=== PATIENT | female | born 1960 | race Caucasian/White ===

== ENCOUNTER 2016-09-26 06:57 | Inpatient (IN) ==
--- NOTE | 2016-09-26 07:20 | Emergency Department Note ---
Disposition Clinical Impression: Pneumonia Disposition: Admitted As Inpatient Condition: Fair Time of Disposition: 14:30 Chest Pain HPI - General Chief Complaint: ED Chest Pain Stated Complaint: chest pain, headache, anxiety Time Seen by Provider: 09/26/16 07:07 Source: patient, EMS Mode of arrival: EMS Limitations: no limitations Vital Signs Reviewed: Yes Nursing Notes Reviewed: Yes - History of Present Illness HPI Narrative: Patient brought to the emergency department by squad from home. States that she awoke at 3 AM with sudden onset of chest pain and shortness of breath. States that she has had previous pulmonary embolus several years ago. States that the pain is quite similar to what it was at that time. She states that she has had pedal edema and swelling of her lower extremities. Last several days. She has a nonproductive cough and appears to be quite anxious at this time. O2 sat on room air is 89% with oxygen at 2 L it will go up to approximately 92%. She remained short of breath. Plan will be to obtain a CT lungs and cardiac workup. Pt complaint: chest pain Onset (ago): hour(s) (5) Time: 03:00 Onset: during rest, awoke with symptoms Pain Location: substernal Severity: moderate, severe Severity scale (1-10): 8 Quality: heaviness, other (similar to previous PE ) Pain Radiation: none Improves with: nothing Worsens with: exertion, inspiration Context: other (had all her teeth removed 10 days ago ) Associated symptoms: Reports: dyspnea, sense of impending doom Treatments prior to arrival chest pain: none - Related Data On Oral Contraceptives: No Home Medications Medication Instructions Recorded Confirmed Abatacept/Maltose [Orencia (For 800 mg IV Q4W 09/28/15 09/26/16 Outpatient Infusion)] Aspirin 81 mg PO DAILY 09/28/15 09/26/16 Leucovorin Calcium [Wellcovorin] 5 mg PO SA 09/28/15 09/26/16 Methotrexate [Otrexup] 20 mg PO SA 09/28/15 09/26/16 Metoprolol XL (24 HR) Succ [Toprol 50 mg PO DAILY 09/28/15 09/26/16 Xl] Nitroglycerin [Nitrostat] 0.4 mg SL AD PRN 09/28/15 09/26/16 Omeprazole [PriLOSEC] 20 mg PO BID 09/28/15 09/26/16 Oxycodone HCl/Acetaminophen 1 tab PO Q6H PRN 09/28/15 09/26/16 [Percocet 10-325 mg Tablet] Dabigatran [Pradaxa] 150 mg PO BID 02/08/16 09/26/16 BuPROPion SR (12 HR) [Wellbutrin 450 mg PO DAILY 09/26/16 09/26/16 SR] Cholecalciferol (D-3) [Vitamin D] 5,000 unit PO DAILY 09/26/16 09/26/16 Furosemide [Lasix] 40 mg PO DAILY 09/26/16 09/26/16 Gabapentin [Neurontin] 600 mg PO HS 09/26/16 09/26/16 Ibuprofen [Motrin] 800 mg PO Q8HR PRN 09/26/16 09/26/16 Isosorbide MONOnitrate (24 HR) 30 mg PO DAILY 09/26/16 09/26/16 [Imdur] Levothyroxine Sodium [Levo-T] 300 mcg PO 30 09/26/16 09/26/16 Levothyroxine [Synthroid] 25 mcg PO 0630 09/26/16 09/26/16 Losartan/Hydrochlorothiazide 1 each PO DAILY 09/26/16 09/26/16 [Hyzaar 100-25 Tablet] Nitroglycerin [Nitrolingual] 1 - 2 spr TL AD PRN 09/26/16 09/26/16 Oxybutynin [Ditropan] 5 mg PO TID 09/26/16 09/26/16 Oxycodone HCl [Oxycontin] 60 mg PO Q8H PRN 09/26/16 09/26/16 Potassium Chloride 10 meq PO DAILY 09/26/16 09/26/16 cloNIDine HCl [CloNIDine HCl] 0.1 mg PO TID 09/26/16 09/26/16 clonazePAM [Klonopin] 1 mg PO TID 09/26/16 09/26/16 rOPINIRole [Requip] 1 mg PO HS 09/26/16 09/26/16 traZODone [TraZODone] 100 mg PO HS 09/26/16 09/26/16 Allergies Allergy/AdvReac Type Severity Reaction Status Date / Time No Known Allergies Allergy Verified 09/26/16 12:17 All systems ED: reviewed and negative except as stated. Constitutional: Denies: fever, chills, weakness, weight change Eyes: Denies: eye pain, eye discharge, vision change ENT ED: Denies: ear pain, throat pain, dental pain, hearing loss, epistaxis, congestion, dysphagia Cardiovascular: Reports: chest pain, dyspnea on exertion, orthopnea, paroxysmal nocturnal dyspnea Respiratory: Reports: dyspnea, wheezes Gastrointestinal: Denies: abdominal pain, nausea, vomiting, diarrhea, constipation, hematemesis, melena, hematochezia Musculoskeletal: Denies: back pain, neck pain, arthralgia, myalgia Integumentary: Reports: other (edema of the bilateral lower extremities ) Neurological: Denies: headache, weakness, numbness, paresthesias, confusion, abnormal gait, vertigo Psychiatric: Denies: anxiety, depression, suicidal thoughts, homicidal thoughts , auditory hallucinations, visual hallucinations Endocrine: Denies: fatigue Chest Pain PMH - Past Medical History Medical history: Reports: arthritis, cancer, coronary artery disease, DVT, fibromyalgia, GERD, hyperlipidemia, hypertension, pulmonary embolus, RA, renal disease Surgical history: Reports: cholecystectomy, herniorrhaphy, knee replacement Psychiatric history: Reports: anxiety, depression - Social History Smoking Status: Never smoker Alcohol use: Reports: none Drug use: Reports: none Physical Exam - General Limitations: no limitations General appearance: alert - Head Head exam: atraumatic, normocephalic, normal inspection - Eye Eye exam: Present: normal appearance, PERRL, EOMI - ENT ENT exam: normal exam, normal oropharynx, mucous membranes moist, TM's normal bilaterally - Neck Neck exam: Present: normal inspection, full ROM, trachea midline. Absent: tenderness, meningismus, lymphadenopathy, thyromegaly - Chest Chest inspection: Present: normal inspection, symmetric chest wall rise - Respiratory Respiratory exam: Present: wheezes, prolonged expiratory phase - Expanded Respiratory Exam Location: wheezes: Left, Right, Lower, rales: Left, Right, Lower, rhonchi: Left , Right, Upper, Lower - Cardiovascular Cardiovascular exam: Present: regular rate, normal rhythm, normal heart sounds. Absent: systolic murmur, diastolic murmur, JVD - Abdominal Exam Abdominal exam: Present: soft, Non-Tender, normal bowel sounds. Absent: tenderness, distention, guarding, rebound, rigidity - Extremities Exam Extremities exam: Present: normal inspection, full ROM. Absent: tenderness, pedal edema - Back Exam Back exam: Present: normal inspection, full ROM. Absent: tenderness - Neurological Exam Neurological exam: Present: alert, oriented X3, CN II-XII intact, reflexes normal - Psychiatric Psychiatric exam: Present: depressed, anxious - Skin Skin exam: Present: warm, dry, intact, normal color Course - Consultations Consultation #1: Hospitalist Dr. Obrien to the ED to evaluate patient. He advised patient needs to possibly go to ICU, unless we can get her blood pressure to rise. She has consistently maintained her blood pressure 90/60's been alert and oriented. We will give her the fluid challenge. Advised Dr. Martinez. Time: 11:05 Vital Signs Temperature 99.2 F 09/26/16 07:05 Pulse Rate 96 09/26/16 07:05 Respiratory Rate 18 09/26/16 07:05 Blood Pressure 106/70 09/26/16 07:05 O2 Sat by Pulse Oximetry 96 09/26/16 07:05 Temperature 99.2 F 09/26/16 07:05 Pulse Rate 75 09/26/16 14:30 Respiratory Rate 18 09/26/16 14:30 Blood Pressure 106/70 09/26/16 14:30 O2 Sat by Pulse Oximetry 96 09/26/16 14:30 Oxygen Delivery Oxygen Delivery Nasal Cannula Chest Pain - Lab Data Result diagrams: 09/26/16 07:36 09/26/16 07:36 Lab Results 09/26/16 09/26/16 09/26/16 Range/Units 07:36 07:36 07:36 WBC 13.5 H (4.3-11.1) K/mcL RBC 4.29 (3.82-4.97) M/mcL Hgb 13.3 (11.5-15.4) g/dL Hct 41.8 (35.3-44.9) % MCV 97.4 (83.0-100.0) fL MCH 31.0 (28.0-33.3) pg MCHC 31.8 (31.6-35.5) g/dL RDW 14.7 H (11.5-14.5) % Plt Count 271 (140-400) K/mcL MPV 11.0 (9.4-12.4) fL Immature Gran % 0.9 (0-4) % Seg Neutrophils % 88.8 % Lymphocytes % 3.2 % Monocytes % 5.4 % Eosinophils % 1.6 % Basophils % 0.1 % Neutrophils # 12.0 H (1.6-8.9) K/mcL Lymphocytes # 0.4 L (0.6-4.6) K/mcL Monocytes # 0.7 (0.0-1.3) K/mcL Eosinophils # 0.2 (0.0-0.6) K/mcL Basophils # 0.0 (0.0-0.2) K/mcL PT 11.6 (9.4-12.1) Seconds INR 1.1 APTT 28.9 (26.0-36.0) Seconds D-Dimer 1975 H (0-500) ng/mLFEU Sodium (136-145) mEq/L Potassium (3.5-4.5) mEq/L Chloride (98-109) mEq/L Carbon Dioxide (19-29) mEq/L BUN (7-20) mg/dL Creatinine (0.57-1.11) mg/dL Est GFR ( Amer) (> 60) Est GFR (Non-Af Amer) (> 60) BUN/Creatinine Ratio (6-26) Glucose (70-99) mg/dL Calculated Osmolality (280-300) Lactic Acid (0.5-2.2) mmol/L Calcium (8.6-10.8) mg/dL Troponin I (0-0.03) ng/mL B-Natriuretic Peptide 17 (0-100) pg/mL 09/26/16 09/26/16 09/26/16 Range/Units 07:36 07:36 12:53 WBC (4.3-11.1) K/mcL RBC (3.82-4.97) M/mcL Hgb (11.5-15.4) g/dL Hct (35.3-44.9) % MCV (83.0-100.0) fL MCH (28.0-33.3) pg MCHC (31.6-35.5) g/dL RDW (11.5-14.5) % Plt Count (140-400) K/mcL MPV (9.4-12.4) fL Immature Gran % (0-4) % Seg Neutrophils % % Lymphocytes % % Monocytes % % Eosinophils % % Basophils % % Neutrophils # (1.6-8.9) K/mcL Lymphocytes # (0.6-4.6) K/mcL Monocytes # (0.0-1.3) K/mcL Eosinophils # (0.0-0.6) K/mcL Basophils # (0.0-0.2) K/mcL PT (9.4-12.1) Seconds INR APTT (26.0-36.0) Seconds D-Dimer (0-500) ng/mLFEU Sodium 142 (136-145) mEq/L Potassium 3.1 L (3.5-4.5) mEq/L Chloride 110 H (98-109) mEq/L Carbon Dioxide 21 (19-29) mEq/L BUN 12 (7-20) mg/dL Creatinine 1.08 (0.57-1.11) mg/dL Est GFR ( Amer) > 60 (> 60) Est GFR (Non-Af Amer) 53 L (> 60) BUN/Creatinine Ratio 11 (6-26) Glucose 101 H (70-99) mg/dL Calculated Osmolality 294 (280-300) Lactic Acid 1.2 (0.5-2.2) mmol/L Calcium 8.8 (8.6-10.8) mg/dL Troponin I 0.00 (0-0.03) ng/mL B-Natriuretic Peptide (0-100) pg/mL
[2016-09-26] MEDS ORDERED: *HR* Morphine 2 MG/ML SYRINGE IVP ONE (07:21)
[2016-09-26] MEDS ORDERED: Furosemide 40 MG/4 ML VIAL IVP ONE (07:21)
[2016-09-26] MEDS ORDERED: 0.9 % Sodium Chloride 1,000 ML IVC SCH (07:30)
[2016-09-26 07:50] LABS: INR 1.1; Prothrombin Time 11.6 Seconds (9.4-12.1)
[2016-09-26 07:52] LABS: Activated Partial Thrombo Time 28.9 Seconds (26.0-36.0)
[2016-09-26 07:58] LABS: BUN/Creatinine Ratio 11 (6-26); Blood Urea Nitrogen 12 mg/dL (7-20); Calcium 8.8 mg/dL (8.6-10.8); Carbon Dioxide 21 mEq/L (19-29); Chloride 110 mEq/L (98-109); Glucose 101 mg/dL (70-99); Osmolality,Calculated 294 (280-300); Potassium 3.1 mEq/L (3.5-4.5); Sodium 142 mEq/L (136-145); eGFR For African Americans > 60 (> 60); eGFR For Non-African Americans 53 (> 60)
[2016-09-26 07:59] LABS: Basophils % 0.1 %; Eosinophils # 0.2 K/mcL (0.0-0.6); Eosinophils % 1.6 %; Hematocrit 41.8 % (35.3-44.9); Hemoglobin 13.3 g/dL (11.5-15.4); Immature Granulocytes % 0.9 % (0-4); Lymphocytes # 0.4 K/mcL (0.6-4.6); Lymphocytes % 3.2 %; Mean Corpuscular HGB Conc 31.8 g/dL (31.6-35.5); Mean Corpuscular Volume 97.4 fL (83.0-100.0); Monocytes # 0.7 K/mcL (0.0-1.3); Monocytes % 5.4 %; Platelet Count 271 K/mcL (140-400); Red Blood Count 4.29 M/mcL (3.82-4.97); Red Cell Distribution Width 14.7 % (11.5-14.5); Segmented Neutrophils % 88.8 %
--- NOTE | 2016-09-26 08:07 | Emergency Department Note ---
START Narrative - START START: I, Ralph Martinez, examined this patient and my medical decision-making was reviewed with the TERMINAL SUPERVISOR/PA/Advanced Practice Nurse/Resident Physician. I agree with the documented findings, disposition and treatment plan as described except to the extent set forth below. 56-year-old female presents with concerns of chest pain. Patient states pain started acutely at 3 AM and woke him from sleep. Pain is worse with inspiration however it is also reproducible with palpation. She reports pain is similar to her previous PE. Patient is currently taking per DANNY however there was a week where she needed to take Lovenox during a dental procedure. Patient denies missing any days of anticoagulation however she has clotted multiple times while still taking anticoagulant medication. Patient has not undergone genetic testing for coagulative disorder. D-dimer significantly elevated. CTA and disposition pending.
[2016-09-26] MEDS ORDERED: Ipratropium/Albuterol Neb 3 ML IH ONE (09:52)
[2016-09-26] MEDS ORDERED: 0.9 % Sodium Chloride 1,000 ML IVC ONE (11:16)
[2016-09-26] MEDS ORDERED: Azithromycin 500 MG in D5% in Water 250 ML IVPB ONE (11:48)
--- NOTE | 2016-09-26 14:12 | Internal Med History&Physical ---
Date of Encounter: 09/26/16 Time of Encounter: 14:10 Assessment and Plan (1) CAP (community acquired pneumonia) Current visit: Yes Status: Acute Patient is hypotensive on arrival and after 2 L of normal saline systolic blood pressure remains in the range of 90s over 60s. She is alert oriented times 3. Continue hydration. Given acuity of presentation and patient being immunocompromised, I will start the patient on broad-spectrum antibiotics with vancomycin, Zosyn, Levaquin. Sputum cultures. Check for influenza. Lactic acid is normal. Chapin catheter will be placed for hourly monitoring of urine output. There is no evidence of PE on CT angiography. Continuous telemetry monitoring. Check arterial blood gas (2) History of venous thrombosis and embolism Current visit: Yes Status: Acute Continue Pradaxa (3) Acute respiratory failure with hypoxia Current visit: Yes Status: Acute Patient currently requiring 4 L of oxygen to maintain saturation above 90%. She is not an oxygen at home. She is not the COPDer. Arterial blood gas will be checked. Do not appreciate any accessory muscle use (4) Hypotension Current visit: Yes Status: Acute Due to sepsis. Maps more than 65 after 2 L of normal saline given. Continue hydration. Chapin catheter will be placed for hourly monitoring of urine output. " close follow up of blood pressure. Qualifiers: Qualified Code(s): I95.9 - Hypotension, unspecified Internal Medicine - H&P: HPI Chief complaint: sob and chest pain History of present illness: Ms. 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 Approximately 3 AM patient started noticing increased shortness of breath to the point where she is unable to breathe the rest associated with nonproductive cough and pleuritic chest pain in the retrosternal area. She had chills. In attendance of standing up she noted lightheadedness. CT angiography performed in the emergency room ro r/o pulmonary embolism showed no evidence of PE but showed bilateral pneumonia. Her blood pressure on arrival to the emergency room was running systolic 80s. After 2 L of normal saline systolic blood pressure has been running in the 90s to 100. She has not been hospitalized the past 3 month at our facility. Past Med Surg Social Fam HX - Past Medical History Medical history: arthritis, cancer, coronary artery disease, DVT, fibromyalgia, GERD, hyperlipidemia, hypertension, pulmonary embolus, RA, renal disease Psychiatric history: anxiety, depression - Past Surgical History Surgical History: cholecystectomy, herniorrhaphy, knee replacement - Social History Smoking Status: Never smoker Smokeless Tobacco Status: No Alcohol use: none Drug use: none - Family History Father Living Status: Still Living Hx Family Cardiac Disorders: Yes (HTN) Hx Family Endocrine Disorder: Yes (DM) Mother Living Status: Still Living Hx Family Cardiac Disorders: Yes (HTN) Internal Medicine - H&P: Meds Abatacept/Maltose [Orencia (For Outpatient Infusion)] 800 mg IV Q4W 09/28/15 [ History] Aspirin 81 mg PO DAILY 09/28/15 [History] Leucovorin Calcium [Wellcovorin] 5 mg PO SA 09/28/15 [History] Methotrexate [Otrexup] 20 mg PO SA 09/28/15 [History] Metoprolol XL (24 HR) Succ [Toprol Xl] 50 mg PO DAILY 09/28/15 [History] Nitroglycerin [Nitrostat] 0.4 mg SL AD PRN 09/28/15 [History] Omeprazole [PriLOSEC] 20 mg PO BID 09/28/15 [History] Oxycodone HCl/Acetaminophen [Percocet 10-325 mg Tablet] 1 tab PO Q6H PRN [History] Dabigatran [Pradaxa] 150 mg PO BID 02/08/16 [History] BuPROPion SR (12 HR) [Wellbutrin SR] 450 mg PO DAILY 09/26/16 [History] Cholecalciferol (D-3) [Vitamin D] 5,000 unit PO DAILY 09/26/16 [History] Furosemide [Lasix] 40 mg PO DAILY 09/26/16 [History] Gabapentin [Neurontin] 600 mg PO HS 09/26/16 [History] Ibuprofen [Motrin] 800 mg PO Q8HR PRN 09/26/16 [History] Isosorbide MONOnitrate (24 HR) [Imdur] 30 mg PO DAILY 09/26/16 [History] Levothyroxine Sodium [Levo-T] 300 mcg PO 0630 09/26/16 [History] Levothyroxine [Synthroid] 25 mcg PO 0630 09/26/16 [History] Losartan/Hydrochlorothiazide [Hyzaar 100-25 Tablet] 1 each PO DAILY 09/26/16 [ History] Nitroglycerin [Nitrolingual] 1 - 2 spr TL AD PRN 09/26/16 [History] Oxybutynin [Ditropan] 5 mg PO TID 09/26/16 [History] Oxycodone HCl [Oxycontin] 60 mg PO Q8H PRN 09/26/16 [History] Potassium Chloride 10 meq PO DAILY 09/26/16 [History] cloNIDine HCl [CloNIDine HCl] 0.1 mg PO TID 09/26/16 [History] clonazePAM [Klonopin] 1 mg PO TID 09/26/16 [History] rOPINIRole [Requip] 1 mg PO HS 09/26/16 [History] traZODone [TraZODone] 100 mg PO HS 09/26/16 [History] Allergies No Known Allergies Allergy (Verified 09/26/16 12:17) All Systems PM: A 10-system review of systems was performed and is negative for pertinent findings except as documented above in the HPI. Review of systems: 10 point ROS is negative except for HPI. - Constitutional Vitals: Temp Pulse Resp BP Pulse Ox 99.2 F 79 18 105/66 92 09/26/16 07:05 09/26/16 12:00 09/26/16 12:00 09/26/16 12:00 09/26/16 12:00 Exam: Gen.: patient is oriented times 3 not in distress. Lethargic Cardiac: normal S1 S2 no additional sounds or murmurs chest: Bilateral basal crackles abdomen: soft nontender nondistended normal bowel sounds neuro: no focal deficit LE: 1+ swelling Internal Med - H&P Results - Labs CBC & Chem 7: 09/26/16 07:36 09/26/16 07:36 Labs: Short CBC 09/26/16 Range/Units 07:36 WBC 13.5 H (4.3-11.1) K/mcL Hgb 13.3 (11.5-15.4) g/dL Hct 41.8 (35.3-44.9) % Plt Count 271 (140-400) K/mcL Neutrophils # 12.0 H (1.6-8.9) K/mcL BMP 09/26/16 07:36 Sodium 142 Potassium 3.1 L Chloride 110 H Carbon Dioxide 21 BUN 12 Creatinine 1.08 Glucose 101 H Calcium 8.8 Cardiac Enzymes 09/26/16 Range/Units 07:36 Troponin I 0.00 (0-0.03) ng/mL - Impressions ITS Impressions Chest CTA 09/26/16 07:20 IMPRESSION: 1. No CT evidence of a pulmonary embolism. 2. Atherosclerotic disease of the intrathoracic aorta, without evidence of aneurysm or dissection. 3. Multifocal airspace consolidation throughout both lungs, primarily within the lower lobes, most consistent with multifocal pneumonia. D/ / 09/26/2016 09:30:15 Francis Wright MD / [email or web address] Interpreting Provider: Francis Wright MD Chest X-Ray 09/26/16 07:20 IMPRESSION: Suspected new mild interstitial edema with associated mild left lower lobe airspace disease and small left pleural effusion. These changes most likely represent mild CHF. Infection is considered less likely. D/ / 09/26/2016 08:39:47 Raj Griffin MD / [email or web address] Interpreting Provider: Raj Griffin MD
--- NOTE | 2016-09-26 14:38 | Pulmonology Consult Note ---
<Nick Adler W - Last Filed: 09/26/16 15:14> Date of Encounter: 09/26/16 Medications and Allergies Abatacept/Maltose [Orencia (For Outpatient Infusion)] 800 mg IV Q4W 09/28/15 [ History] Aspirin 81 mg PO DAILY 09/28/15 [History] Leucovorin Calcium [Wellcovorin] 5 mg PO SA 09/28/15 [History] Methotrexate [Otrexup] 20 mg PO SA 09/28/15 [History] Metoprolol XL (24 HR) Succ [Toprol Xl] 50 mg PO DAILY 09/28/15 [History] Nitroglycerin [Nitrostat] 0.4 mg SL AD PRN 09/28/15 [History] Omeprazole [PriLOSEC] 20 mg PO BID 09/28/15 [History] Oxycodone HCl/Acetaminophen [Percocet 10-325 mg Tablet] 1 tab PO Q6H PRN [History] Dabigatran [Pradaxa] 150 mg PO BID 02/08/16 [History] BuPROPion SR (12 HR) [Wellbutrin SR] 450 mg PO DAILY 09/26/16 [History] Cholecalciferol (D-3) [Vitamin D] 5,000 unit PO DAILY 09/26/16 [History] Furosemide [Lasix] 40 mg PO DAILY 09/26/16 [History] Gabapentin [Neurontin] 600 mg PO HS 09/26/16 [History] Ibuprofen [Motrin] 800 mg PO Q8HR PRN 09/26/16 [History] Isosorbide MONOnitrate (24 HR) [Imdur] 30 mg PO DAILY 09/26/16 [History] Levothyroxine Sodium [Levo-T] 300 mcg PO 0630 09/26/16 [History] Levothyroxine [Synthroid] 25 mcg PO 0630 09/26/16 [History] Losartan/Hydrochlorothiazide [Hyzaar 100-25 Tablet] 1 each PO DAILY 09/26/16 [ History] Nitroglycerin [Nitrolingual] 1 - 2 spr TL AD PRN 09/26/16 [History] Oxybutynin [Ditropan] 5 mg PO TID 09/26/16 [History] Oxycodone HCl [Oxycontin] 60 mg PO Q8H PRN 09/26/16 [History] Potassium Chloride 10 meq PO DAILY 09/26/16 [History] cloNIDine HCl [CloNIDine HCl] 0.1 mg PO TID 09/26/16 [History] clonazePAM [Klonopin] 1 mg PO TID 09/26/16 [History] rOPINIRole [Requip] 1 mg PO HS 09/26/16 [History] traZODone [TraZODone] 100 mg PO HS 09/26/16 [History] Allergies No Known Allergies Allergy (Verified 09/26/16 12:17) All Systems: A 10-system review of systems was performed and is negative for pertinent findings except as documented above in the HPI. Physical Examination Vital Signs: Vital Signs, Last 4 Hours Pulse Resp BP Pulse Ox 09/26/16 14:30 75 18 106/70 96 Results - Laboratory Findings CBC and BMP: 09/26/16 07:36 09/26/16 07:36 PT/INR, D-dimer PT 11.6 Seconds (9.4-12.1) 09/26/16 07:36 D-Dimer 1975 ng/mLFEU (0-500) H 09/26/16 07:36 Abnormal lab findings: Abnormal lab results WBC 13.5 K/mcL (4.3-11.1) H 09/26/16 07:36 RDW 14.7 % (11.5-14.5) H 09/26/16 07:36 Neutrophils # 12.0 K/mcL (1.6-8.9) H 09/26/16 07:36 Lymphocytes # 0.4 K/mcL (0.6-4.6) L 09/26/16 07:36 D-Dimer 1975 ng/mLFEU (0-500) H 09/26/16 07:36 Potassium 3.1 mEq/L (3.5-4.5) L 09/26/16 07:36 Chloride 110 mEq/L (98-109) H 09/26/16 07:36 Est GFR (Non-Af Amer) 53 (> 60) L 09/26/16 07:36 Glucose 101 mg/dL (70-99) H 09/26/16 07:36 - Clinical Findings Intake & Output: Intake & Output 09/25/16 09/26/16 09/26/16 23:59 07:59 15:59 Intake Total 425 / 2350 Balance 425 / 2350 Consult Discharge Plan - Plan Referrals: Van James MD [Primary Care Provider] - - Attending Attestation I examined this patient and my medical decision-making was reviewed with the ASSISTANT [employer] ST[employer] MANAGER/PA/Advanced Practice Nurse/Resident Physician. I agree with the documented findings, disposition and treatment plan as described except to the extent set forth below. Very pleasant 56-year-old woman who is presenting with pleuritic chest pain. 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 She also has a history of rheumatoid arthritis on immunosuppressive agents. She presented to the ED and initial workup included CT angiogram which was negative for filling defect but notable for bilateral multifocal airspace disease consistent with pneumonia This for she has been treated for sepsis with 2 L fluid resuscitation now with MAP greater than 60; patient is mentating appropriately highly SPO2 on 3-4 L nasal cannula. Lactate is normal she does have a tender suprapubic area and would recommend placement of Chapin catheter for ongoing urine output monitoring and to rule out bladder outlet obstruction I do recommend sending sputum culture obtaining blood cultures if not already done and checking urine for Legionella/strep pneumo antigen. Would treat patient for community-acquired pneumonia in addition to ceftriaxone/ azithromycin would add coverage for MRSA organisms for 48 hours given immunosuppressive status. De-escalation of antimicrobials could take place over the next 48 hours based upon microbiological sensitivities No acute indication for steroid treatment for pneumonia I discussed with the hospitalist physician who is admitting patient's further service do not see an acute indication to transfer to ICU and she would be stable for ongoing care on the inpatient medicine service. Thank you for the consult please call with questions or if any deterioration in clinical course <Daniel De La Torre - Last Filed: 09/26/16 15:44> Date of Encounter: 09/26/16 Time of Encounter: 14:35 Assessment and Plan (1) Sepsis Current Visit: Yes Status: Acute meets SIRS criteria with leukocytosis and tachycardia suspected source is community acquired pneumonia - crackles in bilateral bases, review of CXR and CTA Chest 09/26 suggests multifocal pneumonia - received a dose of Azithromycin and Ceftriaxone in ED she is afebrile and currently requiring 4L NC lactate normal 1.2 MAP maintained >60 after 2L NS Qualifiers: Sepsis type: sepsis due to unspecified organism Qualified Code(s): A41.9 - Sepsis, unspecified organism (2) CAP (community acquired pneumonia) Current Visit: Yes Status: Acute nonproductive cough, respiratory distress, and consolidation throughout both lungs, concerning for pneumonia no prior hospitalizations within the last 90 days patient given Azithromycin and Cefriaxone in ED - blood cultures sent and pending - recommend getting sputum culture - legionella and streptococcus urine antigen given her immunocompromised state for RA, recommend adding Vancomycin to Ceftriaxone/Azithromycin for 48 hours until blood and sputum cultures result and de-escalate as appropriate recommend Prednisone 50mg daily if CRP is >150 for severe community acquired pneumonia, no acute indication at this time - CRP results pending (3) Respiratory distress Current Visit: Yes Status: Acute secondary to CAP currently on 4L NC satting 94% does not have any conversational dyspnea history of DVT/PE CTA chest 09/26 did not show acute pulmonary embolism but showed evidence of multifocal airspace consolidation throughout both lungs, consistent with multifocal pneumonia wean off oxygen supplementation as tolerated (4) Rheumatoid arthritis Current Visit: No Status: Acute immunocompromised from Orencia and Methotrexate Qualifiers: Rheumatoid arthritis location: unspecified site Rheumatoid factor presence : unspecified presence Qualified Code(s): M06.9 - Rheumatoid arthritis, unspecified (5) History of venous thrombosis and embolism Current Visit: Yes Status: Acute history of provoked DVT in right leg s/p knee surgery and other DVTs and PE currently anticoagulated with Pradaxa - brief interruption with Lovenox last week due to teeth extraction D-dimer was elevated 1974 CTA chest 09/26 did not show acute pulmonary embolism but showed evidence of multifocal airspace consolidation throughout both lungs, consistent with multifocal pneumonia (6) CKD (chronic kidney disease) stage 3, GFR 30-59 ml/min Current Visit: Yes Status: Acute history of CKD 3, no GREG at this time if adding Vanc, pharmacy to dose monitor renal function History of Present Illness Consult date: 09/26/16 Requesting physician: Abhishek Obrien Reason for consult: dyspnea, pneumonia Chief complaint: sepsis 2/2 pneumonia History of present illness: 56-year-old female history of rheumatoid arthritis, history of DVT/PE, CKD stage 3, breast cancer remission 2013, and former smoker is admitted to [place] for sepsis secondary community acquired pneumonia. Patient presented to the ED at 0300 for chest pain and shortness of breath. Reports she was at a graduation constitution party for her daughter yesterday where she was 300 ther attendees and the person across from her was coughing without covering her mouth. She then developed a nonproductive cough denies any fevers, headache, nausea, vomiting, or hemoptysis. Last night she developed some sweats and chills and became short of breath. Describes pleuritic chest pain with deep inhalation as well as certain positions. Feels that it is difficulty to get air in. Dyspnea is worse with exertion but is also present at rest. She has a history of DVTs and PE currently on Pradaxa. Reports interruption to her regimen last week for teeth extraction on 09/18, reports taking Lovenox 5 days prior to surgery and then resuming after procedure. She otherwise denies any active cancer, long- distance travel, or hormone replacement. She quit smoking roughly 37 years ago. Denies history of COPD or any structural heart defects. No recent hospitalizations. Last ECHO 03/05/2015 showed EF 45/50% with normal LV size and function. In the ED she was found to be septic and in respiratory distress. Initial chest x-ray showed possible pulmonary edema versus infectious process. She initially had some conversational dyspnea requiring 4L oxygen supplementation with nasal cannula, has since been 94%. She is tachycardic with a mild leukocytosis 13. She was given 2 L normal saline and image CTA of the chest for possible pulmonary embolism which not was not evident however concern for bilateral multifocal pneumonia was seen. Her lactate remains normal 1.2 however her blood pressure is low around SBP 90-100s. Past Med Surg Social Fam HX - Past Medical History Attestation: Yes The following information was validated with the patient. Source: patient Medical history: arthritis, cancer (breast s/p left lobectomy and radiation 2013 ), coronary artery disease, DVT, fibromyalgia, GERD, hyperlipidemia, hypertension, pulmonary embolus, RA, renal disease Psychiatric history: anxiety, depression - Past Surgical History Surgical History: cholecystectomy, herniorrhaphy, knee replacement - Social History Smoking Status: Never smoker Smokeless Tobacco Status: No Alcohol use: none Drug use: none - Family History Father Living Status: Still Living Hx Family Cardiac Disorders: Yes (HTN) Hx Family Endocrine Disorder: Yes (DM) Mother Living Status: Still Living Hx Family Cardiac Disorders: Yes (HTN) All Systems: A 10-system review of systems was performed and is negative for pertinent findings except as documented above in the HPI. Physical Examination Vital Signs: Vital Signs, Last 4 Hours Pulse Resp BP Pulse Ox 09/26/16 14:30 75 18 106/70 96 General appearance: no acute distress, alert (oriented), other (no conversational dyspnea) Eyes: nonicteric ENT: other (sutures remain in place on gums, no active bleeding or abscess, no tongue elevation) Neck: supple, other (tracheal midline) Effort: normal Inspection: normal Auscultation: bilateral: rales (bibasilar) Cardiovascular: regular rate and rhythm Gastrointestinal: normoactive bowel sounds, soft, non-tender, non-distended Integumentary: normal Extremities: pink and warm, pulses normal, edema (nonpitting) Musculoskeletal: no deformities, ROM normal normal mental status, non-focal exam, pupils equal and round Results - Laboratory Findings CBC and BMP: 09/26/16 07:36 09/26/16 07:36 PT/INR, D-dimer PT 11.6 Seconds (9.4-12.1) 09/26/16 07:36 D-Dimer 1975 ng/mLFEU (0-500) H 09/26/16 07:36 Abnormal lab findings: Abnormal lab results WBC 13.5 K/mcL (4.3-11.1) H 09/26/16 07:36 RDW 14.7 % (11.5-14.5) H 09/26/16 07:36 Neutrophils # 12.0 K/mcL (1.6-8.9) H 09/26/16 07:36 Lymphocytes # 0.4 K/mcL (0.6-4.6) L 09/26/16 07:36 D-Dimer 1975 ng/mLFEU (0-500) H 09/26/16 07:36 Potassium 3.1 mEq/L (3.5-4.5) L 09/26/16 07:36 Chloride 110 mEq/L (98-109) H 09/26/16 07:36 Est GFR (Non-Af Amer) 53 (> 60) L 09/26/16 07:36 Glucose 101 mg/dL (70-99) H 09/26/16 07:36 - Diagnostic Findings Chest x-ray: report reviewed, image reviewed CT scan - chest: report reviewed, image reviewed
[2016-09-26] MEDS ORDERED: Piperacillin/Tazobactam 3.375 GM in D5% in Water (Mini-Bag+) 100 ML IVPB SCH (15:00)
[2016-09-26 16:16] LABS: C-Reactive Protein 11 mg/L (Less than 5)
[2016-09-26] MEDS: *HR* OxyCODONE/APAP 10/325 TABLET PO PRN (16:42)
[2016-09-26] MEDS: Vancomycin 1,500 MG in D5% in Water 250 ML IVPB SCH (16:43)
[2016-09-26] MEDS: Levofloxacin 750 MG/150 ML 750 MG/150 ML BAG IVPB SCH (17:03)
[2016-09-26] MEDS: 0.9 % Sodium Chloride 1,000 ML IVC SCH (17:04)
[2016-09-26] MEDS: Piperacillin/Tazobactam 3.375 GM in D5% in Water (Mini-Bag+) 100 ML IVPB SCH (20:25)
[2016-09-26] MEDS: *HR* Dabigatran 150 MG CAPSULE PO SCH (20:28)
[2016-09-27] MEDS: *HR* OxyCODONE/APAP 10/325 TABLET PO PRN ×4 (01:08→20:49)
[2016-09-27] MEDS: Vancomycin 1,500 MG in D5% in Water 250 ML IVPB SCH ×2 (02:22→15:39)
[2016-09-27] MEDS: 0.9 % Sodium Chloride 1,000 ML IVC SCH ×2 (04:18→15:36)
[2016-09-27] MEDS: Piperacillin/Tazobactam 3.375 GM in D5% in Water (Mini-Bag+) 100 ML IVPB SCH ×3 (04:32→20:06)
[2016-09-27 05:03] LABS: Basophils % 0.2 %; Eosinophils # 0.6 K/mcL (0.0-0.6); Hematocrit 31.9 % (35.3-44.9); Hemoglobin 10.1 g/dL (11.5-15.4); Immature Granulocytes % 0.4 % (0-4); Lymphocytes # 1.9 K/mcL (0.6-4.6); Lymphocytes % 10.4 %; Mean Corpuscular HGB Conc 31.7 g/dL (31.6-35.5); Mean Corpuscular Hemoglobin 31.2 pg (28.0-33.3); Mean Corpuscular Volume 98.5 fL (83.0-100.0); Mean Platelet Volume 11.2 fL (9.4-12.4); Monocytes # 1.2 K/mcL (0.0-1.3); Monocytes % 6.3 %; Neutrophils # 14.8 K/mcL (1.6-8.9); Platelet Count 233 K/mcL (140-400); Red Blood Count 3.24 M/mcL (3.82-4.97); Red Cell Distribution Width 14.9 % (11.5-14.5); Segmented Neutrophils % 79.7 %
[2016-09-27 05:19] LABS: Calcium 8.5 mg/dL (8.6-10.8); Magnesium 1.5 mg/dL (1.6-2.6); Potassium 3.4 mEq/L (3.5-4.5)
[2016-09-27] MEDS: Levothyroxine 25 MCG TABLET PO SCH (05:48)
[2016-09-27] MEDS: Aspirin 81 MG TAB.CHEW PO SCH (08:21)
[2016-09-27] MEDS: Levofloxacin 750 MG/150 ML 750 MG/150 ML BAG IVPB SCH (08:22)
[2016-09-27] MEDS: *HR* Dabigatran 150 MG CAPSULE PO SCH ×2 (08:22→20:06)
--- NOTE | 2016-09-27 10:06 | Internal Med Progress Note ---
<Nabeel Be - Last Filed: 09/27/16 17:49> Date of Encounter: 09/27/16 Time of Encounter: 09:50 - Assessment and plan (1) Acute respiratory failure with hypoxia Current Visit: Yes Status: Acute Assessment and plan: Secondary to CAP Initially on 4L NC, currently on room air and satting 93-96% on exam Does not have any conversational dyspnea History of DVT/PE CTA chest 09/26 did not show acute pulmonary embolism but showed evidence of multifocal airspace consolidation throughout both lungs, consistent with multifocal pneumonia See plan for CAP. (2) CAP (community acquired pneumonia) Current Visit: Yes Status: Acute Assessment and plan: Patient received Azithromycin and Cefriaxone in ED Blood cultures sent and pending Sputum culture ordered Legionella and streptococcus urine antigen-negative Pulmonology recommend adding Vancomycin for 48 hours until blood and sputum cultures result and de-escalate as appropriate given her immunocompromised state with RA treatment. Will start Prednisone 50mg daily as CRP is >150 for severe community acquired pneumonia (3) GERD (gastroesophageal reflux disease) Current Visit: Yes Status: Chronic Assessment and plan: Continue home omeprazole, consider increasing dosage. Concern for aspiration pneumonia. Consider EGD as outpatient if having vomiting while sleeping. Qualifiers: Esophagitis presence: esophagitis presence not specified Qualified Code(s) : K21.9 - Gastro-esophageal reflux disease without esophagitis (4) Rheumatoid arthritis Current Visit: No Status: Chronic Assessment and plan: Immunocompromised from Orencia and Methotrexate Qualifiers: Rheumatoid arthritis location: unspecified site Rheumatoid factor presence : unspecified presence Qualified Code(s): M06.9 - Rheumatoid arthritis, unspecified (5) History of venous thrombosis and embolism Current Visit: Yes Status: Chronic Assessment and plan: History of DVTs and PE, last DVT was November 2015. Currently anticoagulated with Pradaxa Interruption with Lovenox September 13- for dental work/teeth extraction D-dimer was elevated 1975 CTA chest 09/26 did not show acute pulmonary embolism but showed evidence of multifocal airspace consolidation throughout both lungs, consistent with multifocal pneumonia. (6) CKD (chronic kidney disease) stage 3, GFR 30-59 ml/min Current Visit: Yes Status: Chronic Assessment and plan: Hx of CKD 3 Cr 1.08 -> 1.14 Vancomycin added. Monitor renal function closely. - Time Spent With Patient less than 15 minutes - Subjective Interval history: Patient admitted for sudden chest pain and dyspnea. She notes feels slightly worse today. Still having diffuse chest pain with inspiration. She notes that she is urinating better since lasix given yesterday. Does note pressure behind her ears. - Constitutional Vitals: Temp Pulse Resp BP Pulse Ox 97.5 F L 56 16 85/54 95 09/27/16 07:44 09/27/16 07:44 09/27/16 07:44 09/27/16 07:44 09/27/16 07:44 General appearance: Present: cooperative, A&O X 3, pleasant, no acute distress, obese, answers questions appropriately - Head Head exam: Present: atraumatic, normocephalic - Eye Eye exam: Present: EOMI - ENT ENT exam: Present: mucous membranes moist - Neck Neck exam general surgery: Present: full ROM - Respiratory Respiratory exam: Present: decreased breath sounds - Cardiovascular Cardiovascular exam: Present: RRR - GI/Abdominal GI/Abdominal exam: Present: normal bowel sounds, soft. Absent: firm, guarding, rigid - Extremities Exam Extremities exam: Present: pedal edema (trace to 1+ BLE edema), tenderness ( pretibial tenderness to palpation), warm. Absent: cyanotic - Neurological Exam Neurological exam: Present: alert, oriented X3, no focal deficits - Psychiatric Psychiatric exam: Present: normal affect, normal mood - Skin Skin exam: Present: dry, intact. Absent: cyanosis, diaphoretic, rash Internal Medicine: Result - Labs CBC & Chem 7: 09/27/16 04:49 09/27/16 04:49 Labs: Short CBC 09/27/16 Range/Units 04:49 WBC 18.5 H (4.3-11.1) K/mcL Hgb 10.1 L D (11.5-15.4) g/dL Hct 31.9 L (35.3-44.9) % Plt Count 233 (140-400) K/mcL Neutrophils # 14.8 H (1.6-8.9) K/mcL BMP 09/27/16 04:49 Sodium 139 Potassium 3.4 L Chloride 107 Carbon Dioxide 26 BUN 14 Creatinine 1.14 H Glucose 86 Calcium 8.5 L - ABG Interpretation ABG results: PT/INR, D-dimer PT 11.6 Seconds (9.4-12.1) 09/26/16 07:36 D-Dimer 1975 ng/mLFEU (0-500) H 09/26/16 07:36 - VTE Documentation of Mechanical Device: Intermittent pneumatic compression device Consult Discharge Plan - Plan Referrals: Van James MD [Primary Care Provider] - <Cristhian Schwab Karine - Last Filed: 09/27/16 18:34> Date of Encounter: 09/27/16 - Assessment and plan (1) Acute respiratory failure with hypoxia Current Visit: Yes Status: Acute (2) CAP (community acquired pneumonia) Current Visit: Yes Status: Acute (3) Hypotension Current Visit: Yes Status: Acute Qualifiers: Hypotension type: other hypotension type Qualified Code(s): I95.89 - Other hypotension (4) Sepsis Current Visit: Yes Status: Acute Qualifiers: Sepsis type: sepsis due to unspecified organism Qualified Code(s): A41.9 - Sepsis, unspecified organism (5) GERD (gastroesophageal reflux disease) Current Visit: Yes Status: Chronic Qualifiers: Esophagitis presence: esophagitis presence not specified Qualified Code(s) : K21.9 - Gastro-esophageal reflux disease without esophagitis (6) CKD (chronic kidney disease) stage 3, GFR 30-59 ml/min Current Visit: Yes Status: Chronic (7) Rheumatoid arthritis Current Visit: No Status: Chronic Qualifiers: Rheumatoid arthritis location: unspecified site Rheumatoid factor presence : unspecified presence Qualified Code(s): M06.9 - Rheumatoid arthritis, unspecified (8) Immunocompromised Current Visit: Yes Status: Acute - Time Spent With Patient My time today is 35min - Constitutional Vitals: Temp Pulse Resp BP Pulse Ox 98.1 F 58 17 115/85 99 09/27/16 15:10 09/27/16 15:10 09/27/16 15:10 09/27/16 15:10 09/27/16 15:10 Internal Medicine: Result - Labs CBC & Chem 7: 09/27/16 04:49 09/27/16 04:49 Labs: Short CBC 09/27/16 Range/Units 04:49 WBC 18.5 H (4.3-11.1) K/mcL Hgb 10.1 L D (11.5-15.4) g/dL Hct 31.9 L (35.3-44.9) % Plt Count 233 (140-400) K/mcL Neutrophils # 14.8 H (1.6-8.9) K/mcL BMP 09/27/16 04:49 Sodium 139 Potassium 3.4 L Chloride 107 Carbon Dioxide 26 BUN 14 Creatinine 1.14 H Glucose 86 Calcium 8.5 L - ABG Interpretation ABG results: PT/INR, D-dimer PT 11.6 Seconds (9.4-12.1) 09/26/16 07:36 D-Dimer 1975 ng/mLFEU (0-500) H 09/26/16 07:36 - Attending Attestation I examined this patient and my medical decision-making was reviewed with the Resident Physician on 09/27/16. I agree with the documented findings, disposition and treatment plan as described except to the extent set forth below. Ms. Nicolas is currently admitted for acute hypoxic resp failure related to pneumonia. She is high risk due to potential for worsening resp status. Ms. Nicolas still feels bad. She is coughing and dyspneic. Her BP has been low still. WBC went up. No fever or chills. No GI symptoms. Has discomfort around chest when breathing. Exam Alert. Mild distress Heart reg Lungs with scattered rhonchi No edema I/P 1. Hypoxic resp failure 2. Pneumonia 3. Immunocompromised Further diagnoses and plan as above.
[2016-09-27] MEDS: predniSONE 20 MG TABLET PO SCH (19:00)
[2016-09-28] MEDS: 0.9 % Sodium Chloride 1,000 ML IVC SCH (03:43)
[2016-09-28] MEDS ORDERED: Acetaminophen 325 MG TABLET PO PRN ×2 (04:15→14:17)
[2016-09-28] MEDS: *HR* OxyCODONE/APAP 10/325 TABLET PO PRN ×3 (04:52→18:28)
[2016-09-28] MEDS: Vancomycin 1,500 MG in D5% in Water 250 ML IVPB SCH (05:29)
[2016-09-28] MEDS: Piperacillin/Tazobactam 3.375 GM in D5% in Water (Mini-Bag+) 100 ML IVPB SCH ×3 (05:30→20:22)
[2016-09-28] MEDS: Levothyroxine 25 MCG TABLET PO SCH (05:35)
[2016-09-28] MEDS: Aspirin 81 MG TAB.CHEW PO SCH (08:58)
[2016-09-28] MEDS: Levofloxacin 750 MG/150 ML 750 MG/150 ML BAG IVPB SCH (08:58)
[2016-09-28] MEDS: predniSONE 20 MG TABLET PO SCH (08:58)
[2016-09-28] MEDS: *HR* Dabigatran 150 MG CAPSULE PO SCH ×2 (08:58→20:22)
[2016-09-28 10:16] LABS: Basophils % 0.2 %; Hematocrit 35.8 % (35.3-44.9); Hemoglobin 11.2 g/dL (11.5-15.4); Immature Granulocytes % 0.3 % (0-4); Lymphocytes # 0.6 K/mcL (0.6-4.6); Lymphocytes % 4.7 %; Mean Corpuscular HGB Conc 31.3 g/dL (31.6-35.5); Mean Corpuscular Volume 99.2 fL (83.0-100.0); Mean Platelet Volume 11.9 fL (9.4-12.4); Monocytes # 0.1 K/mcL (0.0-1.3); Monocytes % 0.8 %; Neutrophils # 11.5 K/mcL (1.6-8.9); Platelet Count 285 K/mcL (140-400); Red Blood Count 3.61 M/mcL (3.82-4.97); Red Cell Distribution Width 14.7 % (11.5-14.5)
[2016-09-28 10:47] LABS: Calcium 9.1 mg/dL (8.6-10.8); Potassium 3.4 mEq/L (3.5-4.5)
--- NOTE | 2016-09-28 11:24 | Internal Med Progress Note ---
<Nabeel Be - Last Filed: 09/28/16 19:21> Date of Encounter: 09/28/16 Time of Encounter: 09:40 - Assessment and plan (1) Acute respiratory failure with hypoxia Current Visit: Yes Status: Acute Assessment and plan: Secondary to CAP Initially on 4L NC, currently on room air and satting 99% Does not have any conversational dyspnea History of DVT/PE CTA chest 09/26 did not show acute pulmonary embolism but showed evidence of multifocal airspace consolidation throughout both lungs, consistent with multifocal pneumonia See plan for CAP. (2) CAP (community acquired pneumonia) Current Visit: Yes Status: Acute Assessment and plan: Patient received Azithromycin and Cefriaxone in ED Blood cultures-preliminary negative x 2 Sputum culture ordered Legionella and streptococcus urine antigen-negative Pulmonology recommend adding Vancomycin for 48 hours until blood and sputum cultures result and de-escalate as appropriate given her immunocompromised state with RA treatment. Will likely be able d/c Vancomycin today. CBC pending. Likely transition to oral antibiotic tomorrow. Clinically improving. Continuing Prednisone 50mg daily, CRP was >150 for severe community acquired pneumonia (3) GERD (gastroesophageal reflux disease) Current Visit: Yes Status: Chronic Assessment and plan: Continue home omeprazole, consider increasing dosage. Concern for aspiration pneumonia. Consider EGD as outpatient if having vomiting while sleeping. Qualifiers: Esophagitis presence: esophagitis presence not specified Qualified Code(s) : K21.9 - Gastro-esophageal reflux disease without esophagitis (4) Rheumatoid arthritis Current Visit: No Status: Chronic Assessment and plan: Immunocompromised from Orencia and Methotrexate Qualifiers: Rheumatoid arthritis location: unspecified site Rheumatoid factor presence : unspecified presence Qualified Code(s): M06.9 - Rheumatoid arthritis, unspecified (5) History of venous thrombosis and embolism Current Visit: Yes Status: Chronic Assessment and plan: History of DVTs and PE, last DVT was November 2015. Currently anticoagulated with Pradaxa Interruption with Lovenox September 13- for dental work/teeth extraction D-dimer was elevated 1975 CTA chest 09/26 did not show acute pulmonary embolism but showed evidence of multifocal airspace consolidation throughout both lungs, consistent with multifocal pneumonia. (6) CKD (chronic kidney disease) stage 3, GFR 30-59 ml/min Current Visit: Yes Status: Chronic Assessment and plan: Hx of CKD 3 Cr 1.08 -> 1.14 ->1.22. Baseline appears to be 1.2-1.3. Vancomycin given for 48 hrs. Received IVF. Monitor renal function closely. Consider nephrology referral if Creatinine continues to rise. (7) Chronic pain Current Visit: No Status: Chronic Assessment and plan: Hypotension resolved, slowly restarting pain medication. Qualifiers: Chronic pain type: chronic pain syndrome Qualified Code(s): G89.4 - Chronic pain syndrome (8) Severe major depression Current Visit: No Status: Acute Assessment and plan: Hypotension resolved, slowly restarting psych medications. (9) Hypertension Current Visit: No Status: Chronic Assessment and plan: Hx of HTN, with hypotension likely related to infection. BP recorded as 88/58 on 09/26, at that time medications held that might lower BP. BP continued to rise today, this AM BP was 159/111; will restart patient's home HTN medications. Qualifiers: Hypertension type: essential hypertension Qualified Code(s): I10 - Essential (primary) hypertension - Time Spent With Patient 25 - 35 minutes - Subjective Interval history: Patient headache and anxiety worse today. Notes BP rising today, tis is when her headache started. Patient was hypotensive on arrival, psych ang HTN meds held originally. Denies vision changes, weakness, or any other sudden changes. Feels breathing is better. - Constitutional Vitals: Temp Pulse Resp BP Pulse Ox 97.5 F L 75 16 159/111 99 09/28/16 07:55 09/28/16 07:55 09/28/16 07:55 09/28/16 10:35 09/28/16 10:35 General appearance: Present: cooperative, mild distress, A&O X 3, pleasant, obese, answers questions appropriately - Head Head exam: Present: atraumatic, normocephalic - Eye Eye exam: Present: EOMI, conjuntiva pink - ENT ENT exam: Present: mucous membranes moist - Neck Neck exam general surgery: Present: full ROM - Respiratory Respiratory exam: Present: decreased breath sounds, CTAB - Cardiovascular Cardiovascular exam: Present: RRR. Absent: diastolic murmur, systolic murmur - GI/Abdominal GI/Abdominal exam: Present: soft. Absent: tenderness - Neurological Exam Neurological exam: Present: alert, oriented X3, no focal deficits - Psychiatric Psychiatric exam: Present: anxious - Skin Skin exam: Present: dry, normal color Internal Medicine: Result - Labs CBC & Chem 7: 09/28/16 04:51 09/28/16 10:11 Labs: Short CBC 09/28/16 Range/Units 04:51 WBC 12.3 H (4.3-11.1) K/mcL Hgb 11.2 L (11.5-15.4) g/dL Hct 35.8 (35.3-44.9) % Plt Count 285 (140-400) K/mcL Neutrophils # 11.5 H (1.6-8.9) K/mcL BMP 09/28/16 10:11 Sodium 140 Potassium 3.4 L Chloride 110 H Carbon Dioxide 19 BUN 12 Creatinine 1.22 H Glucose 162 H Calcium 9.1 - ABG Interpretation ABG results: PT/INR, D-dimer PT 11.6 Seconds (9.4-12.1) 09/26/16 07:36 D-Dimer 1975 ng/mLFEU (0-500) H 09/26/16 07:36 - VTE Documentation of Mechanical Device: Intermittent pneumatic compression device Consult Discharge Plan - Plan Instructions: Clindamycin (By mouth), Chlorhexidine (Into the mouth), Prednisone (By mouth), Levofloxacin (By mouth), Acute Respiratory Distress Syndrome (DC), Chronic Kidney Disease (DC), Sepsis (DC), Chronic Hypertension ( DC), Fall Prevention (DC), Pneumonia (DC), Chronic Kidney Disease, Adoption Agent (GEN) Additional Instructions: Please follow up with PCP in the next 5-7 days or sooner as needed. Continue steroid and antibiotic course. Referrals: Van James MD [Primary Care Provider] - 10/05/16 4:00 pm Prescriptions: Chlorhexidine Rinse 15 ml MM BID #473 ml Clindamycin HCl 600 mg PO Q8H #3 capsule Levofloxacin [Levaquin] 750 mg PO DAILY #1 tablet predniSONE [Prednisone] 50 mg PO DAILY #2 tablet <Cristhian Schwab - Last Filed: 09/29/16 15:16> Date of Encounter: 09/28/16 - Assessment and plan (1) Acute respiratory failure with hypoxia Current Visit: Yes Status: Resolved (2) CAP (community acquired pneumonia) Current Visit: Yes Status: Acute (3) Hypotension Current Visit: Yes Status: Acute Qualifiers: Hypotension type: other hypotension type Qualified Code(s): I95.89 - Other hypotension (4) Sepsis Current Visit: Yes Status: Acute Qualifiers: Sepsis type: sepsis due to unspecified organism Qualified Code(s): A41.9 - Sepsis, unspecified organism (5) GERD (gastroesophageal reflux disease) Current Visit: Yes Status: Chronic Qualifiers: Esophagitis presence: esophagitis presence not specified Qualified Code(s) : K21.9 - Gastro-esophageal reflux disease without esophagitis (6) CKD (chronic kidney disease) stage 3, GFR 30-59 ml/min Current Visit: Yes Status: Chronic (7) Rheumatoid arthritis Current Visit: No Status: Chronic Qualifiers: Rheumatoid arthritis location: unspecified site Rheumatoid factor presence : unspecified presence Qualified Code(s): M06.9 - Rheumatoid arthritis, unspecified (8) Immunocompromised Current Visit: Yes Status: Acute - Constitutional Vitals: Temp Pulse Resp BP Pulse Ox 97.5 F L 60 16 128/94 100 09/29/16 07:46 09/29/16 07:46 09/29/16 07:46 09/29/16 07:46 09/29/16 07:46 Internal Medicine: Result - Labs CBC & Chem 7: 09/29/16 05:32 09/29/16 05:32 Labs: Short CBC 09/29/16 Range/Units 05:32 WBC 14.6 H (4.3-11.1) K/mcL Hgb 10.5 L (11.5-15.4) g/dL Hct 33.7 L (35.3-44.9) % Plt Count 279 (140-400) K/mcL Neutrophils # 11.9 H (1.6-8.9) K/mcL BMP 09/29/16 05:32 Sodium 141 Potassium 3.6 Chloride 111 H Carbon Dioxide 23 BUN 11 Creatinine 1.07 Glucose 100 H Calcium 8.8 - ABG Interpretation ABG results: PT/INR, D-dimer PT 11.6 Seconds (9.4-12.1) 09/26/16 07:36 D-Dimer 1975 ng/mLFEU (0-500) H 09/26/16 07:36 - Attending Attestation I examined this patient and my medical decision-making was reviewed with the Resident Physician on 09/28/16. I agree with the documented findings, disposition and treatment plan as described except to the extent set forth below. Ms. Nicolas is currently admitted for bilateral pneumonia. She remains moderate to high risk due to potential for worsening respiratory status. Ms. Nicolas is slowly feeling better. Her blood pressure has increased. She needs her home meds restarted. No CP. Breathing somewhat better. Exam Alert. Comfortable Heart reg Crackles bilateral R greater than L I/P 1. Pneumonia 2. HTN Further diagnoses and plan as above.
--- NOTE | 2016-09-28 11:32 | ECHO - Doppler Report ---
Echocardiogram Name: Velma Nicolas Date of Study: 09/27/2016 Date: 1960 Ht: 65.0 in Medical Record#: [id number] Age: 56 Wt: 220.0 lb Gender: Female BSA: 2.06 Order #: [id number] Location: [facility] Room #: 2NE35 Reading Physician: Jennifer Hunter DO Operations Processor: Angeli Mcgee Ordering Physician: Nabeel Be DO Primary Physician: Van James MD Indications: Chest pain, swelling Impressions: LVEF 55%. Normal left ventricular size and systolic function. There is evidence of mild diastolic dysfunction of the left ventricle. Normal right ventricular size and function. Mild tricuspid regurgitation. No evidence for pulmonary hypertension by TR gradient. IVC is not well visualized to estimate RVSP. Left Ventricular Wall Motion: Rest Echo Findings All wall segments showed normal motion. Findings: Study Quality * Technically adequate exam. ECG Findings * Normal sinus rhythm. Left Ventricle * LVEF 55%. * Normal LV chamber size, wall thickness and function. * Mild left ventricular diastolic dysfunction. Left Atrium * Normal left atrial size. Mitral Valve * Normal mitral valve structure. * No mitral stenosis. * No mitral regurgitation. Aortic Valve * No aortic regurgitation. * Aortic valve not well visualized. * No aortic stenosis. Tricuspid Valve * Tricuspid valve not well visualized. * Mild tricuspid regurgitation. Pulmonic Valve * Pulmonic valve is not well visualized. * No pulmonic stenosis. * No pulmonic regurgitation. Pulmonary Artery * Pulmonary artery not well visualized. Right Ventricle * Normal right ventricular structure and function. Right Atrium * Normal right atrial size. Aorta * Normally sized aortic root. Pericardium * There is no pericardial effusion present. Interatrial Septum * No evidence of PFO by color Doppler. IVC * The IVC is not well evaluated. History Hypertension Hypercholesteremia Family History of CAD 03/05/2015 a Previous Echo was performed. Measurements: BP: 115/ 85 2D Normal Values RVIDd: 3.60 cm <2.7 cm IVSd: 1.00 cm 0.6 - 1.0 cm LVIDd: 4.90 cm 3.7 - 5.6 cm LVPWd: .70 cm 0.6 - 1.1 cm LVIDs: 3.40 cm 1.5 - 3.6 cm AO: 2.80 cm < 4.0 cm LA: 4.30 cm 2.0 - 4.0cm LA volume: 37 Mitral Valve Peak E:.94 m/sec Peak A:.91 m/sec E/A Ratio:1 Peak E' Lat Mango:10.3 cm/s Peak E' Med Mango:9.65 cm/s E/E' Lat Ratio:9.1 E/E' Med Ratio:9.7 Tricuspid Valve TV Regurg Peak Grad: 28.00mmHg TV Regurg Peak Mango: 2.63m/sec Updated by Jennifer Hunter on 09/28/2016 11:25:38 AM electronically signed on 09/28/2016 11:26:06 AM with status of Final Wall Motion Hernandez: 1=Normal, 2=Hypokinesis, 3=Akinesis, 4=Dyskinesis, 5=Aneurysmal, 6=Hyperkinetic, X=Not Visualized (Blank)=Missing
[2016-09-28] MEDS ORDERED: *HR* OxyCODONE ER (12 HR) 10 MG TABLET PO SCH (12:40)
[2016-09-28] MEDS ORDERED: *HR* OxyCODONE ER (12 HR) 20 MG TABLET PO PRN (14:11)
[2016-09-28] MEDS ORDERED: clonazePAM 1 MG TABLET PO PRN (14:11)
[2016-09-28] MEDS: *HR* OxyCODONE ER (12 HR) 20 MG TABLET PO SCH ×2 (14:17→20:22)
[2016-09-28] MEDS: Magnesium Oxide 400 MG TABLET PO SCH (15:38)
--- NOTE | 2016-09-28 15:51 | Electrocardiograph Report ---
[facility] Test Date: 2016-09-26 Pat Name: Velma Nicolas Department: 104 Room: 2NE35 Gender: F Capacity Management Specialist: : 1960 Requested By: Jennifer Obando Order Number: [id number] Reading MD: Clive Sahu MD Measurements Intervals [place] Rate: 101 P: 17 WI: 146 QRS: -17 QRSD: 98 T: 74 QT: 295 QTc: 353 Interpretive Statements SINUS TACHYCARDIA NONSPECIFIC T-WAVE ABNORMALITY ABNORMAL RHYTHM ECG INTERPRETATION BASED ON A DEFAULT AGE OF 40 YEARS Electronically Signed On 09-28-2016 15:49:10 EDT by Clive Sahu MD
[2016-09-28] MEDS: cloNIDine HCl 0.1 MG TABLET PO SCH (20:22)
[2016-09-29] MEDS: cloNIDine HCl 0.1 MG TABLET PO SCH ×3 (01:30→14:20)
[2016-09-29] MEDS: Piperacillin/Tazobactam 3.375 GM in D5% in Water (Mini-Bag+) 100 ML IVPB SCH (04:04)
[2016-09-29] MEDS: *HR* OxyCODONE/APAP 10/325 TABLET PO PRN (04:09)
[2016-09-29 06:00] LABS: Basophils % 0.2 %; Eosinophils % 0.2 %; Hematocrit 33.7 % (35.3-44.9); Hemoglobin 10.5 g/dL (11.5-15.4); Immature Granulocytes % 0.6 % (0-4); Lymphocytes # 1.7 K/mcL (0.6-4.6); Mean Corpuscular HGB Conc 31.2 g/dL (31.6-35.5); Mean Corpuscular Hemoglobin 30.7 pg (28.0-33.3); Mean Corpuscular Volume 98.5 fL (83.0-100.0); Mean Platelet Volume 11.2 fL (9.4-12.4); Monocytes # 0.8 K/mcL (0.0-1.3); Monocytes % 5.2 %; Neutrophils # 11.9 K/mcL (1.6-8.9); Platelet Count 279 K/mcL (140-400); Red Blood Count 3.42 M/mcL (3.82-4.97); Red Cell Distribution Width 14.6 % (11.5-14.5); Segmented Neutrophils % 81.8 %
[2016-09-29 06:07] LABS: BUN/Creatinine Ratio 10 (6-26); Blood Urea Nitrogen 11 mg/dL (7-20); Calcium 8.8 mg/dL (8.6-10.8); Carbon Dioxide 23 mEq/L (19-29); Chloride 111 mEq/L (98-109); Glucose 100 mg/dL (70-99); Magnesium 1.8 mg/dL (1.6-2.6); Osmolality,Calculated 291 (280-300); Potassium 3.6 mEq/L (3.5-4.5); Sodium 141 mEq/L (136-145); eGFR For African Americans > 60 (> 60); eGFR For Non-African Americans 53 (> 60)
[2016-09-29] MEDS: Levothyroxine 25 MCG TABLET PO SCH (06:22)
[2016-09-29 07:52] VITALS: BP 128/94
--- NOTE | 2016-09-29 08:53 | Electrocardiograph Report ---
[place] [address] Test Date: 2016-09-28 Pat Name: Velma Nicolas Department: 111 Room: 2N5 Gender: F Client Experience Manager: [employer] : 1960 Requested By: Cristhian Schwab Order Number: [id number] Reading MD: Pramod Whalen MD Measurements Intervals [place] Rate: 57 P: 55 MT: 168 QRS: 18 QRSD: 109 T: -3 QT: 363 QTc: 357 Interpretive Statements SINUS BRADYCARDIA NONSPECIFIC T-WAVE ABNORMALITY Electronically Signed On 09-29-2016 8:52:12 EDT by Pramod Whalen MD
[2016-09-29] MEDS: Magnesium Oxide 400 MG TABLET PO SCH (09:31)
[2016-09-29] MEDS: predniSONE 20 MG TABLET PO SCH (09:31)
[2016-09-29] MEDS: *HR* OxyCODONE ER (12 HR) 20 MG TABLET PO SCH ×2 (09:32→14:20)
[2016-09-29] MEDS: *HR* Dabigatran 150 MG CAPSULE PO SCH (09:32)
[2016-09-29] MEDS: Levofloxacin 750 MG/150 ML 750 MG/150 ML BAG IVPB SCH (09:32)
[2016-09-29] MEDS: Aspirin 81 MG TAB.CHEW PO SCH (09:32)
--- NOTE | 2016-09-29 10:19 | Discharge Summary ---
<Nabeel Be - Last Filed: 09/29/16 14:21> Date of Encounter: 09/29/16 Time of Encounter: 09:30 - Discharge Diagnosis (1) Acute respiratory failure with hypoxia Priority: Primary Status: Resolved (2) CAP (community acquired pneumonia) Priority: Primary Status: Acute Comments: Levaquin (day4)-discharge with med total 5 days Zosyn (day 4)- switched to clindamycin at discharge Prednisone (day 3) discharge with med for total 5 days (3) GERD (gastroesophageal reflux disease) Priority: Secondary Status: Chronic Qualifiers: Esophagitis presence: esophagitis presence not specified Qualified Code(s) : K21.9 - Gastro-esophageal reflux disease without esophagitis (4) Rheumatoid arthritis Priority: Secondary Status: Chronic Qualifiers: Rheumatoid arthritis location: unspecified site Rheumatoid factor presence : unspecified presence Qualified Code(s): M06.9 - Rheumatoid arthritis, unspecified (5) History of venous thrombosis and embolism Priority: Secondary Status: Chronic (6) CKD (chronic kidney disease) stage 3, GFR 30-59 ml/min Priority: Secondary Status: Chronic Comments: Creatinine improved at discharge. (7) Chronic pain Priority: Secondary Status: Chronic Qualifiers: Chronic pain type: chronic pain syndrome Qualified Code(s): G89.4 - Chronic pain syndrome (8) Severe major depression Priority: Secondary Status: Chronic (9) Hypertension Priority: Secondary Status: Chronic Comments: BP better controlled after restarting home meds. Qualifiers: Hypertension type: essential hypertension Qualified Code(s): I10 - Essential (primary) hypertension - Discharge Medications Prescriptions: Chlorhexidine Rinse 15 ml MM BID #473 ml Clindamycin HCl 600 mg PO Q8H #3 capsule Levofloxacin [Levaquin] 750 mg PO DAILY #1 tablet predniSONE [Prednisone] 50 mg PO DAILY #2 tablet Home Medications: Abatacept/Maltose [Orencia (For Outpatient Infusion)] 800 mg IV Q4W 09/28/15 [ History] Aspirin 81 mg PO DAILY 09/28/15 [History] Leucovorin Calcium [Wellcovorin] 5 mg PO SA 09/28/15 [History] Methotrexate [Otrexup] 20 mg PO SA 09/28/15 [History] Metoprolol XL (24 HR) Succ [Toprol Xl] 50 mg PO DAILY 09/28/15 [History] Nitroglycerin [Nitrostat] 0.4 mg SL AD PRN 09/28/15 [History] Omeprazole [PriLOSEC] 20 mg PO BID 09/28/15 [History] Oxycodone HCl/Acetaminophen [Percocet 10-325 mg Tablet] 1 tab PO Q6H PRN [History] Dabigatran [Pradaxa] 150 mg PO BID 02/08/16 [History] BuPROPion SR (12 HR) [Wellbutrin SR] 450 mg PO DAILY 09/26/16 [History] Cholecalciferol (D-3) [Vitamin D] 5,000 unit PO DAILY 09/26/16 [History] Furosemide [Lasix] 40 mg PO DAILY 09/26/16 [History] Gabapentin [Neurontin] 600 mg PO HS 09/26/16 [History] Ibuprofen [Motrin] 800 mg PO Q8HR PRN 09/26/16 [History] Isosorbide MONOnitrate (24 HR) [Imdur] 30 mg PO DAILY 09/26/16 [History] Levothyroxine Sodium [Levo-T] 300 mcg PO 30 09/26/16 [History] Levothyroxine [Synthroid] 25 mcg PO 30 09/26/16 [History] Losartan/Hydrochlorothiazide [Hyzaar 100-25 Tablet] 1 each PO DAILY 09/26/16 [ History] Nitroglycerin [Nitrolingual] 1 - 2 spr TL AD PRN 09/26/16 [History] Oxybutynin [Ditropan] 5 mg PO TID 09/26/16 [History] Oxycodone HCl [Oxycontin] 60 mg PO Q8H PRN 09/26/16 [History] Potassium Chloride 10 meq PO DAILY 09/26/16 [History] cloNIDine HCl [CloNIDine HCl] 0.1 mg PO TID 09/26/16 [History] clonazePAM [Klonopin] 1 mg PO TID 09/26/16 [History] rOPINIRole [Requip] 1 mg PO HS 09/26/16 [History] traZODone [TraZODone] 100 mg PO HS 09/26/16 [History] Chlorhexidine Rinse 15 ml MM BID #473 ml 09/29/16 [Rx] Clindamycin HCl 600 mg PO Q8H #3 capsule 09/29/16 [Rx] Levofloxacin [Levaquin] 750 mg PO DAILY #1 tablet 09/29/16 [Rx] predniSONE [Prednisone] 50 mg PO DAILY #2 tablet 09/29/16 [Rx] Allergies/Adverse Reactions: Allergies No Known Allergies Allergy (Verified 09/26/16 12:17) Procedures/tests Complete & Pending: Procedures Performed prior 72 hours Category Date Time Status ECG 12 lead ECG [ECG] Routine Y 09/28/16 06:04 Completed EV echocardiogram Routine Y 09/27/16 10:12 Completed Date of admission: 09/26/16 14:01 Primary care physician: Van James MD Discharging clinician: Cristhian Schwab Anticipated date of discharge: 09/29/16 - Patient Status Disposition: Home, Self-Care Condition: Good Functional capacity at discharge: independent ambulation Overall status at discharge: patient is progressing back to baseline - Discharge Instructions Instructions: Clindamycin (By mouth), Chlorhexidine (Into the mouth), Prednisone (By mouth), Levofloxacin (By mouth), Acute Respiratory Distress Syndrome (DC), Chronic Kidney Disease (DC), Sepsis (DC), Chronic Hypertension ( DC), Fall Prevention (DC), Pneumonia (DC), Chronic Kidney Disease, Burring Machine Operator (GEN) Follow Up With: Van James MD [Primary Care Provider] - 10/05/16 4:00 pm Additional Instructions: Please follow up with PCP in the next 5-7 days or sooner as needed. Continue steroid and antibiotic course. - Diet and Activity Activity: increase activity as tolerated Diet: advance to your usual diet Interval History: Patient she feels well today, headache resolved and breathing better. She feels comfortable going home. Hospital course: Ms. Nicolas is a 56 year old female presented with pleuritic chest pain, nonproductive cough, respiratory distress. 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 She also has a history of rheumatoid arthritis on immunosuppressive agents. She presented to the ED and initial workup included CT angiogram which was negative for filling defect but notable for bilateral multifocal airspace disease consistent with pneumonia. No prior hospitalizations within the last 90 days. Patient given Azithromycin and Cefriaxone in ED. Blood cultures negative. Legionella and streptococcus urine antigen negative.Given her immunocompromised state for RA, Vancomycin was added to Ceftriaxone/Azithromycin for 48 hours pending cultures. Plan to discharge with prednisone, levaquin and clindamycin to finish 5 day course for CAP with coverage for aspiration and wit consideration of immunosuppression. Patient noted history of awakening with vomiting, history of GERD, on omeprazole; recommend follow up with PCP, consider GI referral. Patient no longer requiring oxygen supplementation, saturation 100% this AM. Patient's psych, pain, and HTN medications held initially due to hypotension, these were slowly reintroduced as BP keltno. BP and other vitals stable at discharge, no respiratory distress. - Time Spent with Patient Total time spent providing and/or coordinating discharge services: Less than 30 minutes - Constitutional Vitals: Temp Pulse Resp BP Pulse Ox 97.5 F L 60 16 128/94 100 09/29/16 07:46 09/29/16 07:46 09/29/16 07:46 09/29/16 07:46 09/29/16 07:46 General appearance: Present: cooperative, mild distress, A&O X 3, pleasant, obese, answers questions appropriately - Head Head exam: Present: atraumatic, normocephalic - Eye Eye exam: Present: EOMI, conjuntiva pink - ENT ENT exam: Present: mucous membranes moist - Neck Neck exam general surgery: Present: full ROM - Respiratory Respiratory exam: Present: CTAB - Cardiovascular Cardiovascular exam: Present: RRR - GI/Abdominal GI/Abdominal exam: Present: soft. Absent: tenderness - Neurological Exam Neurological exam: Present: alert, oriented X3, no focal deficits - Psychiatric Psychiatric exam: Present: normal affect, normal mood - Skin Skin exam: Present: dry, normal color, warm. Absent: cyanosis, rash - VTE Documentation of Mechanical Device: Intermittent pneumatic compression device <Cristhian Schwab - Last Filed: 09/29/16 15:34> Date of Encounter: 09/29/16 - Discharge Diagnosis (1) Acute respiratory failure with hypoxia Status: Resolved (2) CAP (community acquired pneumonia) Status: Acute (3) Hypotension Priority: Secondary Status: Resolved Qualifiers: Hypotension type: other hypotension type Qualified Code(s): I95.89 - Other hypotension (4) Sepsis Status: Acute Qualifiers: Sepsis type: sepsis due to unspecified organism Qualified Code(s): A41.9 - Sepsis, unspecified organism (5) GERD (gastroesophageal reflux disease) Status: Chronic Qualifiers: Esophagitis presence: esophagitis presence not specified Qualified Code(s) : K21.9 - Gastro-esophageal reflux disease without esophagitis (6) CKD (chronic kidney disease) stage 3, GFR 30-59 ml/min Status: Chronic (7) Rheumatoid arthritis Status: Chronic Qualifiers: Rheumatoid arthritis location: unspecified site Rheumatoid factor presence : unspecified presence Qualified Code(s): M06.9 - Rheumatoid arthritis, unspecified (8) Immunocompromised Priority: Secondary Status: Acute Procedures/tests Complete & Pending: Procedures Performed prior 72 hours Category Date Time Status ECG 12 lead ECG [ECG] Routine Y 09/28/16 06:04 Completed EV echocardiogram Routine Y 09/27/16 10:12 Completed Date of admission: 09/26/16 14:01 Primary care physician: Van James MD Hospital course: Ms. Nicolas is a 56 year old female - Time Spent with Patient Total time spent providing and/or coordinating discharge services: Time for discharge for myself was 38min - Constitutional Vitals: Temp Pulse Resp BP Pulse Ox 97.5 F L 60 16 128/94 100 09/29/16 07:46 09/29/16 07:46 09/29/16 07:46 09/29/16 07:46 09/29/16 07:46 - Attending Attestation I examined this patient and my medical decision-making was reviewed with the Resident Physician on 09/29/16. I agree with the documented findings, disposition and treatment plan as described except to the extent set forth below. Ms. Nicolas is feeling better today. She is off oxygen and saturating very well. No CP. Afebrile and vitals stable. She feels ready to go home Exam Alert and comfortable Heart reg Lungs clearer today Plan D/C home today Follow up with PCP
[2016-09-29] MEDS ORDERED: Aminoglycoside Consult 1 EACH MC ONE (15:10)
[2016-09-29] MEDS ORDERED: Metoprolol XL (24 HR) Succ 50 MG TAB.ER.24H PO SCH (19:08)
[2016-09-29] MEDS ORDERED: Losartan/HCTZ 50-12.5 TABLET PO SCH (19:10)
== END 2016-09-29 15:11 | disposition home or self-care (01) | DRG 720 ==
LOC: EMEROO 06:57 → 2NENU 06:57
PROVIDERS: ADMIT Hospitalist; ATTEND Internal Medicine

== ENCOUNTER 2017-03-16 10:24 | Inpatient (IN) ==
[2017-03-16 11:17] LABS: Basophils # 0.1 K/mcL (0.0-0.2); Basophils % 0.9 %; Eosinophils # 0.5 K/mcL (0.0-0.6); Eosinophils % 3.9 %; Hematocrit 37.4 % (35.3-44.9); Hemoglobin 11.3 g/dL (11.5-15.4); Immature Granulocytes % 0.3 % (0-4); Lymphocytes # 1.6 K/mcL (0.6-4.6); Mean Corpuscular HGB Conc 30.2 g/dL (31.6-35.5); Mean Corpuscular Hemoglobin 29.1 pg (28.0-33.3); Mean Corpuscular Volume 96.4 fL (83.0-100.0); Mean Platelet Volume 10.9 fL (9.4-12.4); Monocytes # 0.7 K/mcL (0.0-1.3); Monocytes % 5.9 %; Neutrophils # 8.7 K/mcL (1.6-8.9); Platelet Count 336 K/mcL (140-400); Red Blood Count 3.88 M/mcL (3.82-4.97); Red Cell Distribution Width 15.4 % (11.5-14.5)
[2017-03-16 11:22] LABS: INR 1.3; Prothrombin Time 14.1 Seconds (9.4-12.1)
[2017-03-16 11:33] LABS: Calcium 9.2 mg/dL (8.6-10.8); Potassium 3.8 mEq/L (3.5-4.5)
[2017-03-16] MEDS ORDERED: Aspirin 81 MG TAB.CHEW PO STA (11:57)
--- NOTE | 2017-03-16 12:31 | Emergency Department Note ---
Disposition Clinical Impression: Chest pain Qualifiers: Chest pain type: other chest pain Qualified Code(s): R07.89 - Other chest pain DVT (deep venous thrombosis) Qualifiers: DVT location: lower extremity Affected thrombotic vein of extremity: popliteal Chronicity: unspecified Laterality: left Qualified Code(s): I82.432 - Acute embolism and thrombosis of left popliteal vein Disposition: Admitted As Inpatient Condition: Good Time of Disposition: 15:13 General Adult HPI - General Chief complaint: ED Chest Pain Stated complaint: chest pain, SOB, sent from Cardio Time Seen by Provider: 03/16/17 11:47 Source: patient, family Mode of arrival: ambulatory Limitations: no limitations Nursing Notes Reviewed: Yes Vital Signs Reviewed: Yes - History of Present Illness HPI Narrative: 57-year-old female with significant past medical history of chronic DVT presenting to the emergency Department chief complaint chest pain. She states this chest pain started last evening. She states the pain is constant and does not get better or worse on exertion. Patient denies any significant cardiac history. She states she had a catheterization Approximately 2 years ago which was within normal limits with no lesions identified. Patient states she got a Doppler of the left lower extremity today which was positive for a clot. She is currently on Pradaxa. Patient is currently on methotrexate for her rheumatoid arthritis. She is mildly hypotensive in the room and states she has been taking her blood pressure home and systolic has been lower than normal. Pain Scale: 8 - Related Data Home Medications Medication Instructions Recorded Confirmed Abatacept/Maltose [Orencia (For 800 mg IV Q4W 09/28/15 03/16/17 Outpatient Infusion)] Aspirin 81 mg PO DAILY 09/28/15 03/16/17 Leucovorin Calcium [Wellcovorin] 5 mg PO RAUSCH 09/28/15 03/16/17 Methotrexate [Otrexup] 20 mg PO SA 09/28/15 03/16/17 Metoprolol XL (24 HR) Succ [Toprol 50 mg PO DAILY 09/28/15 03/16/17 Xl] Nitroglycerin [Nitrostat] 0.4 mg SL Q5M PRN 09/28/15 03/16/17 Omeprazole [PriLOSEC] 20 mg PO BID 09/28/15 03/16/17 Oxycodone HCl/Acetaminophen 1 tab PO Q6H PRN 09/28/15 03/16/17 [Percocet 10-325 mg Tablet] Dabigatran [Pradaxa] 150 mg PO BID 02/08/16 03/16/17 BuPROPion SR (12 HR) [Wellbutrin 450 mg PO DAILY 09/26/16 03/16/17 SR] Cholecalciferol (D-3) [Vitamin D] 5,000 unit PO DAILY 09/26/16 03/16/17 Furosemide [Lasix] 40 mg PO DAILY 09/26/16 03/16/17 Gabapentin [Neurontin] 600 mg PO HS 09/26/16 03/16/17 Ibuprofen [Motrin] 800 mg PO Q8HR PRN 09/26/16 03/16/17 Isosorbide MONOnitrate (24 HR) 30 mg PO DAILY 09/26/16 03/16/17 [Imdur] Levothyroxine [Synthroid] 25 mcg PO QAM 09/26/16 03/16/17 Losartan/Hydrochlorothiazide 1 each PO DAILY 09/26/16 03/16/17 [Hyzaar 100-25 Tablet] Nitroglycerin [Nitrolingual] 1 - 2 spr TL AD PRN 09/26/16 03/16/17 Oxybutynin [Ditropan] 5 mg PO TID 09/26/16 03/16/17 Potassium Chloride 10 meq PO DAILY 09/26/16 03/16/17 cloNIDine HCl [CloNIDine HCl] 0.1 mg PO TID 09/26/16 03/16/17 clonazePAM [Klonopin] 1 mg PO TID 09/26/16 03/16/17 rOPINIRole [Requip] 1 mg PO HS 09/26/16 03/16/17 traZODone [TraZODone] 50 - 100 mg PO HS 09/26/16 03/16/17 Levothyroxine Sodium [Synthroid] 200 mcg PO QAM 03/16/17 03/16/17 OxyCODONE ER (12 HR) [OxyCONTIN] 80 mg PO Q8H 03/16/17 03/16/17 Allergies Allergy/AdvReac Type Severity Reaction Status Date / Time No Known Allergies Allergy Verified 09/26/16 12:17 All systems ED: reviewed and negative except as stated. Constitutional: Denies: fever, chills Eyes: Reports: as per HPI ENT ED: Reports: as per HPI Cardiovascular: Reports: chest pain. Denies: palpitations, dyspnea on exertion Respiratory: Denies: cough, dyspnea, wheezes Gastrointestinal: Denies: abdominal pain, vomiting Genitourinary: Reports: as per HPI Musculoskeletal: Reports: other (leg pain) Integumentary: Reports: as per HPI Neurological: Reports: headache. Denies: numbness, paresthesias Psychiatric: Reports: as per HPI Endocrine: Reports: as per HPI Hematological/Lymphatic: Reports: as per HPI Allergic/Immunologic: Reports: as per HPI Past Medical History - Past Medical History Attestation: Yes The following information was validated with the patient. Medical history: Reports: arthritis, cancer, coronary artery disease, DVT, fibromyalgia, GERD, hyperlipidemia, hypertension, pulmonary embolus, RA, renal disease Surgical history: Reports: cholecystectomy, herniorrhaphy, knee replacement Psychiatric history: Reports: anxiety, depression - Social History Smoking Status: Never smoker Smokeless Tobacco Status: No Alcohol use: Reports: none Drug use: Reports: none Physical Exam - General Limitations: no limitations General appearance: alert, in no apparent distress - Head Head exam: atraumatic, normocephalic, normal inspection - Eye Eye exam: Present: normal appearance. Absent: scleral icterus, conjunctival injection - Chest Chest inspection: Present: normal inspection, symmetric chest wall rise. Absent : tenderness, rash - Respiratory Respiratory exam: Present: normal lung sounds bilaterally. Absent: respiratory distress, wheezes, stridor, accessory muscle use - Cardiovascular Cardiovascular exam: Present: normal rhythm, bradycardia, normal heart sounds - Abdominal Exam Abdominal exam: Present: soft, Non-Tender. Absent: distention, guarding, rebound - Extremities Exam Extremities exam: Present: normal inspection, full ROM - Neurological Exam Neurological exam: Present: alert, oriented X3 - Psychiatric Psychiatric exam: Present: normal affect, normal mood - Skin Skin exam: Present: warm, intact Course Course Narrative: 57-year-old female presenting with chest pain. Positive left lower extremity Doppler this morning at popliteal vein and lower. No deep veins positive for clot at this time. Basic labwork completed in triage showed acute kidney injury but otherwise within normal limits. Patient is slightly hypotensive in the room with systolic in the low 90s which is abnormal for her. Patient is also bradycardic in the room in the upper to mid 50s. We will obtain a V/Q scan of the chest to rule out PE at this time. Disposition most likely will be admission but is pending results at this time. Patient's alert and oriented 3 in the room with an stable at this time. We will continue to reassess vitals and patient. - Reevaluation(s) Reevaluation #1: Patient's lab work has come back and shows cutaneous injury. VQ scan within normal limits. Spoke with the hospitalist on-call Dr. Obrien who would like us to start a heparin drip due to the new DVT in the left lower extremity. We will start the patient on this and have her admitted to the hospital. Patient' s alert and oriented 3 with stable vital signs at this time. Patient agrees with this plan. Time: 15:12 Vital Signs Temperature 98.2 F 03/16/17 10:28 Pulse Rate 54 03/16/17 10:28 Respiratory Rate 20 03/16/17 10:28 Blood Pressure 98/61 03/16/17 10:28 O2 Sat by Pulse Oximetry 97 03/16/17 10:28 Temperature 97.9 F 03/16/17 19:42 Pulse Rate 56 03/16/17 19:42 Respiratory Rate 16 03/16/17 19:42 Blood Pressure 98/59 03/16/17 19:42 O2 Sat by Pulse Oximetry 94 03/16/17 19:42 Oxygen Delivery Oxygen Delivery Room Air Medical Decision Making - Lab Data Result diagrams: 03/16/17 10:59 03/16/17 10:59 Lab Results 03/16/17 03/16/17 03/16/17 Range/Units 10:59 10:59 10:59 WBC 11.7 H (4.3-11.1) K/mcL RBC 3.88 (3.82-4.97) M/mcL Hgb 11.3 L (11.5-15.4) g/dL Hct 37.4 (35.3-44.9) % MCV 96.4 (83.0-100.0) fL MCH 29.1 (28.0-33.3) pg MCHC 30.2 L (31.6-35.5) g/dL RDW 15.4 H (11.5-14.5) % Plt Count 336 (140-400) K/mcL MPV 10.9 (9.4-12.4) fL Immature Gran % 0.3 (0-4) % Seg Neutrophils % 75.0 % Lymphocytes % 14.0 % Monocytes % 5.9 % Eosinophils % 3.9 % Basophils % 0.9 % Neutrophils # 8.7 (1.6-8.9) K/mcL Lymphocytes # 1.6 (0.6-4.6) K/mcL Monocytes # 0.7 (0.0-1.3) K/mcL Eosinophils # 0.5 (0.0-0.6) K/mcL Basophils # 0.1 (0.0-0.2) K/mcL PT 14.1 H (9.4-12.1) Seconds INR 1.3 APTT 49.0 H (26.0-36.0) Seconds Sodium 140 (136-145) mEq/L Potassium 3.8 (3.5-4.5) mEq/L Chloride 105 (98-109) mEq/L Carbon Dioxide 25 (19-29) mEq/L BUN 31 H (7-20) mg/dL Creatinine 1.57 H (0.57-1.11) mg/dL Est GFR ( Amer) 41 L (> 60) Est GFR (Non-Af Amer) 34 L (> 60) BUN/Creatinine Ratio 20 (6-26) Glucose 109 H (70-99) mg/dL Calculated Osmolality 297 (280-300) Lactic Acid (0.5-2.2) mmol/L Calcium 9.2 (8.6-10.8) mg/dL Troponin I (0-0.03) ng/mL Urine Color (Yellow) Urine Clarity (Clear) Urine pH (5.0-8.0) pH Units Ur Specific Eaton (1.010-1.025) Urine Protein (Neg-Trace) mg/dL Urine Glucose (UA) (Normal) mg/dL Urine Ketones (Negative) mg/dL Urine Blood (Negative) Urine Nitrite (Negative) Urine Bilirubin (Negative) Urine Urobilinogen (Normal) mg/dL Ur Leukocyte Esterase (Negative) Ur Culture Indicated? (NO) 03/16/17 03/16/17 03/16/17 Range/Units 10:59 13:11 14:40 WBC (4.3-11.1) K/mcL RBC (3.82-4.97) M/mcL Hgb (11.5-15.4) g/dL Hct (35.3-44.9) % MCV (83.0-100.0) fL MCH (28.0-33.3) pg MCHC (31.6-35.5) g/dL RDW (11.5-14.5) % Plt Count (140-400) K/mcL MPV (9.4-12.4) fL Immature Gran % (0-4) % Seg Neutrophils % % Lymphocytes % % Monocytes % % Eosinophils % % Basophils % % Neutrophils # (1.6-8.9) K/mcL Lymphocytes # (0.6-4.6) K/mcL Monocytes # (0.0-1.3) K/mcL Eosinophils # (0.0-0.6) K/mcL Basophils # (0.0-0.2) K/mcL PT (9.4-12.1) Seconds INR APTT (26.0-36.0) Seconds Sodium (136-145) mEq/L Potassium (3.5-4.5) mEq/L Chloride (98-109) mEq/L Carbon Dioxide (19-29) mEq/L BUN (7-20) mg/dL Creatinine (0.57-1.11) mg/dL Est GFR ( Amer) (> 60) Est GFR (Non-Af Amer) (> 60) BUN/Creatinine Ratio (6-26) Glucose (70-99) mg/dL Calculated Osmolality (280-300) Lactic Acid 1.5 (0.5-2.2) mmol/L Calcium (8.6-10.8) mg/dL Troponin I 0.00 (0-0.03) ng/mL Urine Color Yellow (Yellow) Urine Clarity Clear (Clear) Urine pH 6.0 (5.0-8.0) pH Units Ur Specific Eaton 1.011 (1.010-1.025) Urine Protein Negative (Neg-Trace) mg/dL Urine Glucose (UA) Normal (Normal) mg/dL Urine Ketones Negative (Negative) mg/dL Urine Blood Negative (Negative) Urine Nitrite Negative (Negative) Urine Bilirubin Negative (Negative) Urine Urobilinogen Normal (Normal) mg/dL Ur Leukocyte Esterase Negative (Negative) Ur Culture Indicated? NO (NO) - EKG Data EKG #1 EKG attestation: Yes I reviewed and interpreted this EKG. EKG results narrative: Sinus bradycardia at 52 bpm. TX interval 160, QRS 98, QTC 360. No signs of ST segment elevation or acute ischemia. No previous EKG to compare to. Attestation Statement - Attestation Attestation: I, Ralph Martinez, examined this patient and my medical decision-making was reviewed with the PLATING TANK OPERATOR/PA/Advanced Practice Nurse/Resident Physician. I agree with the documented findings, disposition and treatment plan as described except to the extent set forth below. 57-year-old female presents emergency Department with concerns of chest pain and shortness of breath. Patient has a history of multiple DVTs and PEs and is treated with Pradaxa. Patient has a history of clotting over anticoagulation medications past and has a new left lower extremity DVT, diagnosed today by ultrasound. Patient is mildly hypotensive in the emergency department. CTA of the chest was negative for acute PE. Patient will be admitted for treatment of new DVT while on Pradaxa as well as for further evaluation of her chest pain.
[2017-03-16] MEDS ORDERED: 0.9 % Sodium Chloride 1,000 ML IVC ONE (13:00)
[2017-03-16] MEDS ORDERED: 0.9 % Sodium Chloride 1,000 ML ONE (13:01)
[2017-03-16] MEDS ORDERED: *HR* OxyCODONE/APAP 10/325 TABLET PO ONE (14:41)
[2017-03-16 14:53] LABS: Bilirubin,Urine Negative (Negative); Blood,Urine Negative (Negative); Clarity,Urine Clear (Clear); Color,Urine Yellow (Yellow); Glucose,Urine (UA) Normal (Normal); Ketones,Urine Negative (Negative); Leukocyte Esterase,Urine Negative (Negative); Nitrite,Urine Negative (Negative); Protein,Urine Negative (Neg-Trace); Specific Gravity,Urine 1.011 (1.010-1.025); Urobilinogen,Urine Normal (Normal)
[2017-03-16] MEDS ORDERED: *HR* Heparin 5,000 UNIT/ML VIAL IVP ONE (15:01)
[2017-03-16] MEDS ORDERED: *HR* Heparin 5,000 UNIT/ML VIAL IVP PRN ×2 (15:01)
[2017-03-16] MEDS: Heparin 25,000 UNIT/500 ML D5W 25,000 UNIT/500 ML MLS IVC SCH (16:04)
[2017-03-16] MEDS ORDERED: 0.9 % Sodium Chloride 500 ML IVC ONE (16:48)
[2017-03-16] MEDS ORDERED: *HR* OxyCODONE/APAP 10/325 TABLET PO PRN (16:48)
--- NOTE | 2017-03-16 16:57 | Internal Med History&Physical ---
Date of Encounter: 03/16/17 Time of Encounter: 16:54 Assessment and Plan (1) Hypotension Current visit: Yes Status: Acute Etiology unclear. patient does not have evidence of pulmonary embolism on VQ scan. There Is no obvious source of infection. Will hydrate the patient and see response. Follow urine output. Chapin catheter will be placed. Qualifiers: Qualified Code(s): I95.9 - Hypotension, unspecified (2) DVT (deep venous thrombosis) Current visit: No Status: Chronic Patient has proximal left-sided DVT involving popliteal artery. she is already on Pradaxa. Will discontinue and start the patient on unfractionated heparin. She will need anticoagulants for life. Oncology consultation Qualifiers: Qualified Code(s): I82.409 - Acute embolism and thrombosis of unspecified deep veins of unspecified lower extremity Internal Medicine - H&P: HPI Chief complaint: left leg pain and swelling History of present illness: Ms. Nicolas is a 57 year old female with multiple medical problems including prior venous thromboembolism on anti-coagulation with Pradaxa, presents to the emergency room today after dialysis chief equipment technician found evidence of popliteal left-sided DVT. Patient has been having symptoms of leg pain and swelling on the left lower extremity for the past couple of weeks. She has intermittent shortness of breath and chest pain also. She has been compliant with her Pradaxa. Reportedly ultrasound showed left popliteal DVT. Patient has been hypotensive in the emergency room. She denies any fever chills cough expectoration diarrhea or urinary symptoms. Blood pressure usually run on the higher side. Blood pressure somewhat responded with fluids in the emergency room Past Med Surg Social Fam HX - Past Medical History Medical history: arthritis, cancer, coronary artery disease, DVT, fibromyalgia, GERD, hyperlipidemia, hypertension, pulmonary embolus, RA, renal disease Psychiatric history: anxiety, depression - Past Surgical History Surgical History: cholecystectomy, herniorrhaphy, knee replacement - Social History Smoking Status: Never smoker Smokeless Tobacco Status: No Alcohol use: none Drug use: none - Family History Father Living Status: Still Living Hx Family Cardiac Disorders: Yes (HTN) Hx Family Endocrine Disorder: Yes (DM) Mother Living Status: Still Living Hx Family Cardiac Disorders: Yes (HTN) Internal Medicine - H&P: Meds Abatacept/Maltose [Orencia (For Outpatient Infusion)] 800 mg IV Q4W 09/28/15 [ History] Aspirin 81 mg PO DAILY 09/28/15 [History] Leucovorin Calcium [Wellcovorin] 5 mg PO RAUSCH 09/28/15 [History] Methotrexate [Otrexup] 20 mg PO SA 09/28/15 [History] Metoprolol XL (24 HR) Succ [Toprol Xl] 50 mg PO DAILY 09/28/15 [History] Nitroglycerin [Nitrostat] 0.4 mg SL Q5M PRN 09/28/15 [History] Omeprazole [PriLOSEC] 20 mg PO BID 09/28/15 [History] Oxycodone HCl/Acetaminophen [Percocet 10-325 mg Tablet] 1 tab PO Q6H PRN [History] Dabigatran [Pradaxa] 150 mg PO BID 02/08/16 [History] BuPROPion SR (12 HR) [Wellbutrin SR] 450 mg PO DAILY 09/26/16 [History] Cholecalciferol (D-3) [Vitamin D] 5,000 unit PO DAILY 09/26/16 [History] Furosemide [Lasix] 40 mg PO DAILY 09/26/16 [History] Gabapentin [Neurontin] 600 mg PO HS 09/26/16 [History] Ibuprofen [Motrin] 800 mg PO Q8HR PRN 09/26/16 [History] Isosorbide MONOnitrate (24 HR) [Imdur] 30 mg PO DAILY 09/26/16 [History] Levothyroxine [Synthroid] 25 mcg PO QAM 09/26/16 [History] Losartan/Hydrochlorothiazide [Hyzaar 100-25 Tablet] 1 each PO DAILY 09/26/16 [ History] Nitroglycerin [Nitrolingual] 1 - 2 spr TL AD PRN 09/26/16 [History] Oxybutynin [Ditropan] 5 mg PO TID 09/26/16 [History] Potassium Chloride 10 meq PO DAILY 09/26/16 [History] cloNIDine HCl [CloNIDine HCl] 0.1 mg PO TID 09/26/16 [History] clonazePAM [Klonopin] 1 mg PO TID 09/26/16 [History] rOPINIRole [Requip] 1 mg PO HS 09/26/16 [History] traZODone [TraZODone] 50 - 100 mg PO HS 09/26/16 [History] Levothyroxine Sodium [Synthroid] 200 mcg PO QAM 03/16/17 [History] OxyCODONE ER (12 HR) [OxyCONTIN] 80 mg PO Q8H 03/16/17 [History] 3 Allergy/AdvReac Type Severity Reaction Status Date / Time No Known Allergies Allergy Verified 09/26/16 12:17 All Systems PM: A 10-system review of systems was performed and is negative for pertinent findings except as documented above in the HPI. Review of systems: 10 point review of systems is negative except for HPI - Constitutional Vitals: Temp Pulse Resp BP Pulse Ox 98.2 F 54 12 95/71 97 03/16/17 16:12 03/16/17 10:28 03/16/17 16:12 03/16/17 16:12 03/16/17 10:28 Exam: Gen.: patient is alert oriented times 3 cardiac: normal S1 S2 no additional sounds or murmurs chest: no active wheezing or bronchial breathing abdomen soft nontender nondistended normal bowel sounds Neuro: no new focal deficits Internal Med - H&P Results - Labs CBC & Chem 7: 03/16/17 10:59 03/16/17 10:59
[2017-03-16] MEDS ORDERED: 0.9 % Sodium Chloride 1,000 ML IVC SCH (17:00)
--- NOTE | 2017-03-16 17:37 | Electrocardiograph Report ---
[facility] Test Date: 2017-03-16 Pat Name: Velma Nicolas Department: 104 Room: 2N01 Gender: F Host: : 1960 Requested By: Alexander Nogueira Order Number: [id number] Reading MD: Clive Sahu MD Measurements Intervals G[place]mith Rate: 52 P: 35 VA: 160 QRS: -9 QRSD: 98 T: 0 QT: 379 QTc: 360 Interpretive Statements SINUS BRADYCARDIA wnl Electronically Signed On 03-16-2017 17:36:35 EDT by Clive Sahu MD
[2017-03-16] MEDS: *HR* OxyCODONE ER (12 HR) 40 MG TABLET PO SCH (18:52)
[2017-03-16] MEDS: Gabapentin 300 MG CAPSULE PO SCH (20:45)
[2017-03-16] MEDS: traZODone 50 MG TABLET PO SCH (20:46)
[2017-03-16] MEDS: rOPINIRole 1 MG TABLET PO SCH (20:46)
[2017-03-16 22:12] LABS: Activated Partial Thrombo Time 225.3 Seconds (26.0-36.0)
[2017-03-16 22:20] LABS: Heparin anti-factor XA UFH 0.94 IU/mL (0.30-0.70)
[2017-03-17] MEDS: *HR* OxyCODONE ER (12 HR) 40 MG TABLET PO SCH ×3 (00:19→15:52)
[2017-03-17 05:31] LABS: Basophils # 0.1 K/mcL (0.0-0.2); Basophils % 0.9 %; Eosinophils # 0.6 K/mcL (0.0-0.6); Eosinophils % 6.4 %; Hematocrit 35.6 % (35.3-44.9); Hemoglobin 10.6 g/dL (11.5-15.4); Immature Granulocytes % 0.4 % (0-4); Lymphocytes # 1.8 K/mcL (0.6-4.6); Lymphocytes % 19.3 %; Mean Corpuscular HGB Conc 29.8 g/dL (31.6-35.5); Mean Corpuscular Hemoglobin 29.1 pg (28.0-33.3); Mean Corpuscular Volume 97.8 fL (83.0-100.0); Mean Platelet Volume 11.3 fL (9.4-12.4); Monocytes # 0.5 K/mcL (0.0-1.3); Monocytes % 5.2 %; Neutrophils # 6.2 K/mcL (1.6-8.9); Platelet Count 288 K/mcL (140-400); Red Blood Count 3.64 M/mcL (3.82-4.97); Red Cell Distribution Width 15.7 % (11.5-14.5); Segmented Neutrophils % 67.8 %
[2017-03-17 05:32] LABS: Calcium 8.5 mg/dL (8.6-10.8); Magnesium 2.1 mg/dL (1.6-2.6); Potassium 3.7 mEq/L (3.5-4.5)
[2017-03-17] MEDS: 0.9 % Sodium Chloride 1,000 ML IVC SCH ×3 (07:15→17:35)
[2017-03-17] MEDS ORDERED: *HR* Methotrexate 2.5 MG TABLET PO SCH (08:15)
--- NOTE | 2017-03-17 08:34 | Internal Med Progress Note ---
Date of Encounter: 03/17/17 Time of Encounter: 08:25 - Assessment and plan (1) Hypotension Current Visit: No Status: Acute Assessment and plan: Due to multiple BP meds and high dose narcotics too No signs of infection Improving cont IV fluids held BP meds Cut back on pain medication too Qualifiers: Hypotension type: unspecified hypotension type Qualified Code(s): I95.9 - Hypotension, unspecified (2) DVT (deep venous thrombosis) Current Visit: No Status: Chronic Assessment and plan: Recurrent DVT and h/o PE Failed therapy too She may get benefit with IVC filter.. will talk to PCP about this Mean while will cont heparin gtt Qualifiers: Qualified Code(s): I82.409 - Acute embolism and thrombosis of unspecified deep veins of unspecified lower extremity (3) History of venous thrombosis and embolism Current Visit: No Status: Chronic (4) Chronic narcotic dependence Current Visit: Yes Status: Acute Assessment and plan: Counseled to cut back on pain medication and considering Disease modifier medications for RA (5) Rheumatoid arthritis Current Visit: No Status: Chronic Qualifiers: Rheumatoid arthritis location: unspecified site Rheumatoid factor presence : unspecified presence Qualified Code(s): M06.9 - Rheumatoid arthritis, unspecified (6) GREG (acute kidney injury) Current Visit: Yes Status: Acute Assessment and plan: GREG with CKD-3 Due to hypotension / hypovolemia / Medication side effect Held BP meds cont IV fluids will cont close monitoring (7) CKD (chronic kidney disease) stage 3, GFR 30-59 ml/min Current Visit: No Status: Chronic - Subjective Interval history: Ms. Nicolas is a 57 year old female with known h/o DVT, PE on Pradaxa for anticoagulation, also had h/o CAD, Fibromyalgia, GERD, HLD, and RA on high dose pain medication, CKD-3 pt has been having symptoms of leg pain and swelling on the left lower extremity for the past couple of weeks. She has intermittent shortness of breath and chest pain also. She has been compliant with her Pradaxa. Reportedly ultrasound showed left popliteal DVT. Patient has been hypotensive in the emergency room. She denies any fever chills cough expectoration diarrhea or urinary symptoms. Pt was admitted here for recurrent DVT and hypotension. Started on heparin gtt and IV fluids. She is little better today. denied any CP / SOB now. She is A, A , O x3 - Constitutional Vitals: Temp Pulse Resp BP Pulse Ox 98.6 F 70 14 87/58 95 03/17/17 06:42 03/17/17 06:42 03/17/17 06:42 03/17/17 06:42 03/17/17 06:42 General appearance: Present: A&O X 3, no acute distress, answers questions appropriately - Head Head exam: Present: atraumatic, normal inspection - Respiratory Respiratory exam: Present: decreased breath sounds. Absent: rales, respiratory distress, rhonchi, wheezes - Cardiovascular Cardiovascular exam: Present: RRR, +S1, +S2. Absent: systolic murmur - GI/Abdominal GI/Abdominal exam: Present: normal bowel sounds, soft. Absent: rebound, rigid, tenderness - Extremities Exam Extremities exam: Absent: calf tenderness, pedal edema, tenderness - Back Exam Back exam: Absent: CVA tenderness (L), CVA tenderness (R) - Neurological Exam Neurological exam: Present: alert, oriented X3 Internal Medicine: Result - Labs CBC & Chem 7: 03/17/17 04:58 03/17/17 04:58 Labs: Short CBC 03/17/17 Range/Units 04:58 WBC 9.2 (4.3-11.1) K/mcL Hgb 10.6 L (11.5-15.4) g/dL Hct 35.6 (35.3-44.9) % Plt Count 288 (140-400) K/mcL Neutrophils # 6.2 (1.6-8.9) K/mcL BMP 03/17/17 04:58 Sodium 140 Potassium 3.7 Chloride 107 Carbon Dioxide 25 BUN 29 H Creatinine 1.88 H Glucose 101 H Calcium 8.5 L Cardiac Enzymes 03/17/17 Range/Units 04:58 Troponin I 0.00 (0-0.03) ng/mL - ABG Interpretation ABG results: PT/INR, D-dimer PT 14.1 Seconds (9.4-12.1) H 03/16/17 10:59 Consult Discharge Plan - Plan Referrals: Van James MD [Primary Care Provider] -
[2017-03-17] MEDS: *HR* OxyCODONE/APAP 5/325 TABLET PO PRN ×3 (08:37→21:31)
[2017-03-17] MEDS: Aspirin 81 MG TAB.CHEW PO SCH (08:39)
[2017-03-17] MEDS: clonazePAM 1 MG TABLET PO PRN ×2 (08:39→20:35)
[2017-03-17] MEDS: Levothyroxine 25 MCG TABLET PO SCH (08:39)
[2017-03-17] MEDS: Heparin 25,000 UNIT/500 ML D5W 25,000 UNIT/500 ML MLS IVC SCH (17:35)
[2017-03-17 19:50] LABS: Activated Partial Thrombo Time 128.4 Seconds (26.0-36.0)
[2017-03-17 19:55] LABS: Heparin anti-factor XA UFH 0.8 IU/mL (0.30-0.70)
[2017-03-17] MEDS: Gabapentin 300 MG CAPSULE PO SCH (20:35)
[2017-03-17] MEDS: traZODone 50 MG TABLET PO SCH (20:35)
[2017-03-17] MEDS: rOPINIRole 1 MG TABLET PO SCH (20:35)
[2017-03-18] MEDS: *HR* OxyCODONE ER (12 HR) 40 MG TABLET PO SCH ×4 (00:51→23:48)
[2017-03-18] MEDS: *HR* OxyCODONE/APAP 5/325 TABLET PO PRN (02:51)
[2017-03-18 03:03] LABS: Basophils # 0.1 K/mcL (0.0-0.2); Basophils % 0.9 %; Eosinophils # 0.4 K/mcL (0.0-0.6); Eosinophils % 5.2 %; Hematocrit 31.8 % (35.3-44.9); Hemoglobin 9.8 g/dL (11.5-15.4); Immature Granulocytes % 0.4 % (0-4); Lymphocytes # 1.4 K/mcL (0.6-4.6); Lymphocytes % 19.6 %; Mean Corpuscular HGB Conc 30.8 g/dL (31.6-35.5); Mean Corpuscular Hemoglobin 29.7 pg (28.0-33.3); Mean Corpuscular Volume 96.4 fL (83.0-100.0); Monocytes # 0.3 K/mcL (0.0-1.3); Monocytes % 4.1 %; Neutrophils # 4.8 K/mcL (1.6-8.9); Platelet Count 249 K/mcL (140-400); Red Cell Distribution Width 15.6 % (11.5-14.5); Segmented Neutrophils % 69.8 %
[2017-03-18 03:33] LABS: Calcium 8.2 mg/dL (8.6-10.8); Magnesium 2.1 mg/dL (1.6-2.6); Potassium 4.1 mEq/L (3.5-4.5)
[2017-03-18] MEDS: Aspirin 81 MG TAB.CHEW PO SCH (07:26)
[2017-03-18] MEDS: Levothyroxine 25 MCG TABLET PO SCH (07:26)
[2017-03-18] MEDS ORDERED: *HR* Warfarin 5 MG TABLET PO ONE (09:45)
--- NOTE | 2017-03-18 09:49 | Internal Med Progress Note ---
Date of Encounter: 03/18/17 Time of Encounter: 09:46 - Assessment and plan (1) Hypotension Current Visit: No Status: Acute Assessment and plan: Due to multiple BP meds and high dose narcotics too No signs of infection Improved d/c IV fluids held BP meds Cut back on pain medication too Qualifiers: Hypotension type: unspecified hypotension type Qualified Code(s): I95.9 - Hypotension, unspecified (2) DVT (deep venous thrombosis) Current Visit: No Status: Chronic Assessment and plan: Recurrent DVT and h/o PE Talk to PCP who suggested pt has been following with Heme Onc before so consulted Heme Onc.. Spoke to Dr. Griffin who suggested to bridge with Coumadin - Pt stated to me she failed on Coumadin therapy also before will start her on Coumadin.. talk to Heme Onc again Mean while will cont heparin gtt Qualifiers: Qualified Code(s): I82.409 - Acute embolism and thrombosis of unspecified deep veins of unspecified lower extremity (3) History of venous thrombosis and embolism Current Visit: No Status: Chronic (4) Chronic narcotic dependence Current Visit: Yes Status: Acute Assessment and plan: Counseled to cut back on pain medication and considering Disease modifier medications for RA and following pain management or Rheumatology cont Oxycodone ER at 40mg only Since pt c/o pain, inc break through pain med to home dose Percocet 10/325 (5) Rheumatoid arthritis Current Visit: No Status: Chronic Qualifiers: Rheumatoid arthritis location: unspecified site Rheumatoid factor presence : unspecified presence Qualified Code(s): M06.9 - Rheumatoid arthritis, unspecified (6) GRGE (acute kidney injury) Current Visit: Yes Status: Acute Assessment and plan: GREG with CKD-3 Due to hypotension / hypovolemia / Medication side effect Held BP meds Improved Back to base line will cont close monitoring (7) CKD (chronic kidney disease) stage 3, GFR 30-59 ml/min Current Visit: No Status: Chronic - Subjective Interval history: Ms. Nicolas is a 57 year old female with known h/o DVT, PE on Pradaxa for anticoagulation, also had h/o CAD, Fibromyalgia, GERD, HLD, and RA on high dose pain medication, CKD-3 pt has been having symptoms of leg pain and swelling on the left lower extremity for the past couple of weeks. She has intermittent shortness of breath and chest pain also. She has been compliant with her Pradaxa. Reportedly ultrasound showed left popliteal DVT. Patient has been hypotensive in the emergency room. She denies any fever chills cough expectoration diarrhea or urinary symptoms. Pt was admitted here for recurrent DVT and hypotension. Started on heparin gtt and IV fluids. She is little better today. denied any CP / SOB now. She is A, A , O x3. No new complaints - Constitutional Vitals: Temp Pulse Resp BP Pulse Ox 98 F 52 16 111/70 99 03/18/17 07:09 03/18/17 07:27 03/18/17 07:09 03/18/17 07:09 03/18/17 07:09 General appearance: Present: A&O X 3, no acute distress, answers questions appropriately - Head Head exam: Present: atraumatic, normal inspection - Neck Neck exam general surgery: Present: supple - Respiratory Respiratory exam: Present: decreased breath sounds. Absent: rales, respiratory distress, rhonchi, wheezes - Cardiovascular Cardiovascular exam: Present: RRR, +S1, +S2. Absent: systolic murmur - GI/Abdominal GI/Abdominal exam: Present: normal bowel sounds, soft. Absent: rebound, rigid, tenderness - Extremities Exam Extremities exam: Present: calf tenderness (Left leg). Absent: pedal edema, tenderness - Back Exam Back exam: Absent: CVA tenderness (L), CVA tenderness (R) - Neurological Exam Neurological exam: Present: alert, oriented X3 Internal Medicine: Result - Labs CBC & Chem 7: 03/18/17 02:55 03/18/17 02:55 Labs: Short CBC 03/18/17 Range/Units 02:55 WBC 6.9 (4.3-11.1) K/mcL Hgb 9.8 L (11.5-15.4) g/dL Hct 31.8 L (35.3-44.9) % Plt Count 249 (140-400) K/mcL Neutrophils # 4.8 (1.6-8.9) K/mcL BMP 03/18/17 02:55 Sodium 141 Potassium 4.1 Chloride 112 H Carbon Dioxide 21 BUN 21 H Creatinine 1.28 H Glucose 91 Calcium 8.2 L - ABG Interpretation ABG results: PT/INR, D-dimer PT 14.1 Seconds (9.4-12.1) H 03/16/17 10:59 Consult Discharge Plan - Plan Referrals: Van James MD [Primary Care Provider] -
--- NOTE | 2017-03-18 11:59 | Oncology Inp Consult Note ---
Date of Encounter: 03/20/17 Time of Encounter: 11:58 Assessment and Plan (1) DVT (deep venous thrombosis) Status: Acute Assessment and plan: Recurrent DVT. She has failed multiple treatments in the past. She has seen Dr. Hernández and the last visit on 02/08/2016. She was tried Coumadin, Xarelto, Pradaxa and Lovenox in the past. She has not tried Elequis We will give a trial of Elequis 5 mg by mouth twice a day. The risk of bleeding is fairly low Also continue aspirin 81 mg a day Currently no indication for IVC filter Qualifiers: DVT location: lower extremity Affected thrombotic vein of extremity: popliteal Chronicity: unspecified Laterality: left Qualified Code(s): I82.432 - Acute embolism and thrombosis of left popliteal vein (2) CKD (chronic kidney disease) stage 3, GFR 30-59 ml/min Status: Chronic Assessment and plan: Her creatinine is being between 1.5-2 range. This dates back to 2013. Creatinine 1.2 with creatinine clearance of around 40 to (3) Anemia Status: Acute Assessment and plan: Her anemia is getting worse since September 2016 him a globin used to be 12 prior to that dropped to around 10 range now Chronic kidney disease could be playing a role. We will do a complete anemia workup. Her B12 folate and iron levels normal. LDH and Elma test negative and TSH money suppressed at 0.2 in the past when creatinine around 1 Qualifiers: Qualified Code(s): D64.9 - Anemia, unspecified (4) Breast cancer, left Status: Acute Assessment and plan: Early stage breast cancer Left side treated as mentioned. Bilateral mammogram 11/03/2016 category 2 Qualifiers: Qualified Code(s): C50.012 - Malignant neoplasm of nipple and areola, left female breast; Z17.0 - Estrogen receptor positive status [ER+]; Z17.0 - Estrogen receptor positive status [ER+] - Data of Consult Patient: known to practice within the last 3 years Requesting Physician: Lavinia Mora MD Primary Care Provider: Van James MD - Consult Narrative Reason for consult: Recurrent left lower extremity DVT History of present illness: Ms. Nicolas is a 57 year old female admitted with symptomatic left popliteal vein acute DVT. This Doppler #3 2016 showed acute left popliteal thrombosis A V/Q scan done on 03/16/2017 low probability for pulmonary embolus some alignment apparently CT angiogram chest not done because of her chronic kidney disease. Creatinine strange is between 1.5-2. Current creatinine 1.2 with creatinine clearance of around 43 Currently she is treated with heparin ONCOLOGIC HISTORY: 1. Invasive carcinoma, left breast. a. Mammography January 03, 2012, shows new nodular density that is well defined as well as an additional nodule seen laterally in the breast at three o' clock. b. January 03, 2012, ultrasound of the area shows a 14-mm subareolar nodule as well as a 7 mm nodule in the 3 o'clock position. Biopsy at the 3 o'clock position demonstrates invasive ductal carcinoma, nuclear grade 1 ER positive, DE positive, HER-2 negative invasive ductal carcinoma. c. She is status post lumpectomy with sentinel lymph node biopsy on January 25, 2012, which would demonstrate a 7 x 6 x 5 mm focus of invasive carcinoma nuclear grade 1. There is lymphovascular invasion which is absent and she is ER positive, DE positive, HER-2/kiesha negative. The area which was 14 mm previously noted was negative for carcinoma. d. Oncotype DX on February 14, 2012 returns with a score of 21. Estimated risk of recurrence of 13%. e. She is recommended for adjuvant hormonal therapy alone given low/ intermediate risk as well as 7 mm size breast cancer. f. Arimidex is initiated on March of 2012. She would initially tolerate this but would develop progressive myalgias and severe diarrhea as well as rash and this was discontinued. g. She is initiated on tamoxifen 20 mg daily on July 03, 2012 after her symptoms resolve. h. 08/01/13 - develops posterior right tibial DVT i. 08/03/13 - Diagnosed with pulmonary embolism j. 08/20/13 - transitioned to Xarelto 20mg and Letrozole K. 03/02/14 - transitioned to lovenox due to persistent thrombus and increasing chest/leg pain. Letrozole halted as a trial due to worsening joint/chest pains. CT angiogram ordered. L. 03/13/14 - CT chest shows no evidence of PE and no other concerning lesions. Initiated on coumadin. M. Restarted on letrozole. N. 07/09/2014 - Recurrent DVT/Clinical PE. Letrozole stopped. Initiated on pradaxa. Past Med Surg Social Fam HX - Past Medical History Medical history: arthritis, cancer, coronary artery disease, DVT, fibromyalgia, GERD, hyperlipidemia, hypertension, pulmonary embolus, RA, renal disease Psychiatric history: anxiety, depression - Past Surgical History Surgical History: cholecystectomy, herniorrhaphy, knee replacement - Social History Smoking Status: Never smoker Smokeless Tobacco Status: No Alcohol use: none Drug use: none - Family History Father Living Status: Still Living Hx Family Cardiac Disorders: Yes (HTN) Hx Family Endocrine Disorder: Yes (DM) Mother Living Status: Still Living Hx Family Cardiac Disorders: Yes (HTN) Medications and Allergies Abatacept/Maltose [Orencia (For Outpatient Infusion)] 800 mg IV Q4W 09/28/15 [ History] Aspirin 81 mg PO DAILY 09/28/15 [History] Leucovorin Calcium [Wellcovorin] 5 mg PO RAUSCH 09/28/15 [History] Methotrexate [Otrexup] 20 mg PO SA 09/28/15 [History] Metoprolol XL (24 HR) Succ [Toprol Xl] 50 mg PO DAILY 09/28/15 [History] Nitroglycerin [Nitrostat] 0.4 mg SL Q5M PRN 09/28/15 [History] Omeprazole [PriLOSEC] 20 mg PO BID 09/28/15 [History] Oxycodone HCl/Acetaminophen [Percocet 10-325 mg Tablet] 1 tab PO Q6H PRN [History] Dabigatran [Pradaxa] 150 mg PO BID 02/08/16 [History] BuPROPion SR (12 HR) [Wellbutrin SR] 450 mg PO DAILY 09/26/16 [History] Cholecalciferol (D-3) [Vitamin D] 5,000 unit PO DAILY 09/26/16 [History] Furosemide [Lasix] 40 mg PO DAILY 09/26/16 [History] Gabapentin [Neurontin] 600 mg PO HS 09/26/16 [History] Ibuprofen [Motrin] 800 mg PO Q8HR PRN 09/26/16 [History] Isosorbide MONOnitrate (24 HR) [Imdur] 30 mg PO DAILY 09/26/16 [History] Levothyroxine [Synthroid] 25 mcg PO QAM 09/26/16 [History] Losartan/Hydrochlorothiazide [Hyzaar 100-25 Tablet] 1 each PO DAILY 09/26/16 [ History] Nitroglycerin [Nitrolingual] 1 - 2 spr TL AD PRN 09/26/16 [History] Oxybutynin [Ditropan] 5 mg PO TID 09/26/16 [History] Potassium Chloride 10 meq PO DAILY 09/26/16 [History] cloNIDine HCl [CloNIDine HCl] 0.1 mg PO TID 09/26/16 [History] clonazePAM [Klonopin] 1 mg PO TID 09/26/16 [History] rOPINIRole [Requip] 1 mg PO HS 09/26/16 [History] traZODone [TraZODone] 50 - 100 mg PO HS 09/26/16 [History] Levothyroxine Sodium [Synthroid] 200 mcg PO QAM 03/16/17 [History] OxyCODONE ER (12 HR) [OxyCONTIN] 80 mg PO Q8H 03/16/17 [History] 3 Allergy/AdvReac Type Severity Reaction Status Date / Time No Known Allergies Allergy Verified 09/26/16 12:17 Oncology - Exam - Constitutional Vitals: Temp Pulse Resp BP Pulse Ox 98.2 F 67 17 109/61 98 03/18/17 11:00 03/18/17 11:35 03/18/17 11:00 03/18/17 11:00 03/18/17 11:00 Oncology - Results Labs: Short CBC 03/18/17 Range/Units 02:55 WBC 6.9 (4.3-11.1) K/mcL Hgb 9.8 L (11.5-15.4) g/dL Hct 31.8 L (35.3-44.9) % Plt Count 249 (140-400) K/mcL Neutrophils # 4.8 (1.6-8.9) K/mcL BMP 03/18/17 02:55 Sodium 141 Potassium 4.1 Chloride 112 H Carbon Dioxide 21 BUN 21 H Creatinine 1.28 H Glucose 91 Calcium 8.2 L Consult Discharge Plan - Plan Referrals: Van James MD [Primary Care Provider] - (SENT WEB REQUEST ON 03-19-17 @ [phone] )
[2017-03-18] MEDS: *HR* OxyCODONE/APAP 10/325 TABLET PO PRN ×2 (13:10→19:25)
[2017-03-18] MEDS: APIXABAN 5 MG TABLET PO SCH ×2 (13:10→20:53)
[2017-03-18 14:09] LABS: % Iron Saturation 31 % (15-50); Iron 91 mcg/dL (50-170); Lactate Dehydrogenase 227 Units/L (159-327); Transferrin 209 mg/dL (180-382)
[2017-03-18 14:30] LABS: Ferritin 120 ng/ml (5-204)
[2017-03-18 14:45] LABS: Folate 8.9 ng/mL (7.0-31.4)
[2017-03-18] MEDS ORDERED: Warfarin perPT PO PRN (18:00)
[2017-03-18] MEDS: rOPINIRole 1 MG TABLET PO SCH (20:53)
[2017-03-18] MEDS: Gabapentin 300 MG CAPSULE PO SCH (20:53)
[2017-03-18] MEDS: traZODone 50 MG TABLET PO SCH (20:54)
[2017-03-19] MEDS: *HR* OxyCODONE/APAP 10/325 TABLET PO PRN ×3 (03:30→19:49)
[2017-03-19 04:32] LABS: Basophils # 0.1 K/mcL (0.0-0.2); Basophils % 0.9 %; Eosinophils # 0.2 K/mcL (0.0-0.6); Eosinophils % 4.2 %; Hematocrit 32.8 % (35.3-44.9); Hemoglobin 9.9 g/dL (11.5-15.4); Immature Granulocytes % 0.3 % (0-4); Lymphocytes # 1.3 K/mcL (0.6-4.6); Lymphocytes % 23.4 %; Mean Corpuscular HGB Conc 30.2 g/dL (31.6-35.5); Mean Corpuscular Hemoglobin 29.4 pg (28.0-33.3); Mean Corpuscular Volume 97.3 fL (83.0-100.0); Mean Platelet Volume 11.1 fL (9.4-12.4); Monocytes # 0.2 K/mcL (0.0-1.3); Neutrophils # 3.9 K/mcL (1.6-8.9); Platelet Count 250 K/mcL (140-400); Red Blood Count 3.37 M/mcL (3.82-4.97); Red Cell Distribution Width 15.4 % (11.5-14.5); Segmented Neutrophils % 68.2 %
[2017-03-19 04:40] LABS: INR 1.2; Prothrombin Time 13.2 Seconds (9.4-12.1)
[2017-03-19 04:50] LABS: BUN/Creatinine Ratio 18 (6-26); Blood Urea Nitrogen 19 mg/dL (7-20); Calcium 8.6 mg/dL (8.6-10.8); Carbon Dioxide 24 mEq/L (19-29); Chloride 112 mEq/L (98-109); Glucose 95 mg/dL (70-99); Osmolality,Calculated 296 (280-300); Potassium 4.1 mEq/L (3.5-4.5); Sodium 142 mEq/L (136-145); eGFR For African Americans > 60 (> 60); eGFR For Non-African Americans 53 (> 60)
[2017-03-19] MEDS: APIXABAN 5 MG TABLET PO SCH ×2 (07:45→21:52)
[2017-03-19] MEDS: *HR* OxyCODONE ER (12 HR) 40 MG TABLET PO SCH ×3 (07:45→23:47)
[2017-03-19] MEDS: Aspirin 81 MG TAB.CHEW PO SCH (07:45)
[2017-03-19] MEDS: Levothyroxine 25 MCG TABLET PO SCH (08:50)
--- NOTE | 2017-03-19 11:55 | Internal Med Progress Note ---
Date of Encounter: 03/19/17 Time of Encounter: 10:30 - Assessment and plan (1) DVT (deep venous thrombosis) Current Visit: Yes Status: Chronic Assessment and plan: Recurrent acute on chronic DVT with h/o PE Proximal left side DVT involving popliteal artery - patient has been on Pradaxa Hem/Onc consult - recommendations reviewed, appreciate input Pt states she failed Coumadin therapy in the past Advised to start Eliquis Qualifiers: Qualified Code(s): I82.409 - Acute embolism and thrombosis of unspecified deep veins of unspecified lower extremity (2) CKD (chronic kidney disease) stage 3, GFR 30-59 ml/min Current Visit: No Status: Chronic Assessment and plan: Chronic kidney disease stage III, stable - creatinine and GFR back to baseline Acute kidney injury has now resolved (3) Chronic narcotic dependence Current Visit: Yes Status: Acute Assessment and plan: Counseled to cut back on pain medication and considering Disease modifier medications for RA and follow pain management/ Rheumatology cont Oxycodone ER at 40mg only Since pt c/o pain, continue home dose Percocet 10/325 (4) Rheumatoid arthritis Current Visit: No Status: Chronic Qualifiers: Rheumatoid arthritis location: unspecified site Rheumatoid factor presence : unspecified presence Qualified Code(s): M06.9 - Rheumatoid arthritis, unspecified (5) Invasive carcinoma of breast Current Visit: Yes Status: Chronic Assessment and plan: History of left breast invasive carcinoma - status post lumpectomy with sentinel lymph node biopsy Patient has been on Tamoxifen and Letrozole Oncology following - Time Spent With Patient 25 - 35 minutes - Subjective Interval history: Examined this morning. Patient is awake and alert. Not in any distress. Denies chest pain or shortness of breath. Tolerating oral diet. No fever. Hemodynamically stable. No other acute events or complaints. Hem/onc following. Initially started on IV heparin and Coumadin. Advised to start Eliquis. No indication for IVC filter at this time as per oncology. We will discuss to see if patient needs to be continued on Eliquis or Coumadin. - Constitutional Vitals: Temp Pulse Resp BP Pulse Ox 98.4 F 54 18 110/71 96 03/19/17 10:26 03/19/17 11:10 03/19/17 10:26 03/19/17 10:26 03/19/17 10:26 General appearance: Present: cooperative, A&O X 3, pleasant, no acute distress, answers questions appropriately - Head Head exam: Present: atraumatic - Eye Eye exam: Present: EOMI - ENT ENT exam: Present: mucous membranes moist - Respiratory Respiratory exam: Present: CTAB. Absent: rales, rhonchi, wheezes, tachypnea - Cardiovascular Cardiovascular exam: Present: RRR, +S1, +S2 - GI/Abdominal GI/Abdominal exam: Present: soft. Absent: distended, firm, guarding, tenderness - Extremities Exam Extremities exam: Present: calf tenderness (Left leg), radial pulses palpable and symmetrical. Absent: cyanotic, pedal edema - Neurological Exam Neurological exam: Present: alert, oriented X3, no focal deficits. Absent: facial droop, speech deficit Internal Medicine: Result - Labs CBC & Chem 7: 03/19/17 04:19 03/19/17 04:19 Labs: Short CBC 03/19/17 Range/Units 04:19 WBC 5.7 (4.3-11.1) K/mcL Hgb 9.9 L (11.5-15.4) g/dL Hct 32.8 L (35.3-44.9) % Plt Count 250 (140-400) K/mcL Neutrophils # 3.9 (1.6-8.9) K/mcL BMP 03/19/17 04:19 Sodium 142 Potassium 4.1 Chloride 112 H Carbon Dioxide 24 BUN 19 Creatinine 1.07 Glucose 95 Calcium 8.6 - ABG Interpretation ABG results: PT/INR, D-dimer PT 13.2 Seconds (9.4-12.1) H 03/19/17 04:19 D-Dimer 810 ng/mLFEU (0-500) H 03/18/17 13:14 Consult Discharge Plan - Plan Referrals: Van James MD [Primary Care Provider] - (SENT WEB REQUEST ON 03-19-17 @ [phone] )
[2017-03-19] MEDS: BuPROPion SR (12 HR) 150 MG TABLET PO SCH (16:56)
[2017-03-19] MEDS: Gabapentin 300 MG CAPSULE PO SCH (21:52)
[2017-03-19] MEDS: rOPINIRole 1 MG TABLET PO SCH (21:52)
[2017-03-19] MEDS: traZODone 50 MG TABLET PO SCH (21:52)
[2017-03-20] MEDS: *HR* OxyCODONE/APAP 10/325 TABLET PO PRN ×4 (03:47→20:04)
[2017-03-20 04:14] LABS: Basophils % 0.5 %; Eosinophils # 0.3 K/mcL (0.0-0.6); Eosinophils % 4.4 %; Hematocrit 36.1 % (35.3-44.9); Immature Granulocytes % 0.5 % (0-4); Lymphocytes # 1.4 K/mcL (0.6-4.6); Lymphocytes % 22.3 %; Mean Corpuscular HGB Conc 30.5 g/dL (31.6-35.5); Mean Corpuscular Hemoglobin 29.5 pg (28.0-33.3); Mean Corpuscular Volume 96.8 fL (83.0-100.0); Mean Platelet Volume 11.4 fL (9.4-12.4); Monocytes # 0.1 K/mcL (0.0-1.3); Monocytes % 1.6 %; Neutrophils # 4.3 K/mcL (1.6-8.9); Platelet Count 244 K/mcL (140-400); Red Blood Count 3.73 M/mcL (3.82-4.97); Segmented Neutrophils % 70.7 %
[2017-03-20 04:18] LABS: INR 1.5; Prothrombin Time 16.8 Seconds (9.4-12.1)
[2017-03-20 04:32] LABS: BUN/Creatinine Ratio 19 (6-26); Blood Urea Nitrogen 19 mg/dL (7-20); Carbon Dioxide 24 mEq/L (19-29); Chloride 111 mEq/L (98-109); Glucose 95 mg/dL (70-99); Osmolality,Calculated 298 (280-300); Potassium 4.1 mEq/L (3.5-4.5); Sodium 143 mEq/L (136-145); eGFR For African Americans > 60 (> 60); eGFR For Non-African Americans 57 (> 60)
[2017-03-20] MEDS: Levothyroxine 25 MCG TABLET PO SCH (06:23)
[2017-03-20] MEDS: BuPROPion SR (12 HR) 150 MG TABLET PO SCH ×2 (07:29→15:53)
[2017-03-20] MEDS: Aspirin 81 MG TAB.CHEW PO SCH (07:30)
[2017-03-20] MEDS: *HR* OxyCODONE ER (12 HR) 40 MG TABLET PO SCH ×3 (07:30→23:31)
[2017-03-20] MEDS: APIXABAN 5 MG TABLET PO SCH ×2 (07:30→20:03)
[2017-03-20] MEDS: traZODone 50 MG TABLET PO SCH (20:03)
[2017-03-20] MEDS: rOPINIRole 1 MG TABLET PO SCH (20:03)
[2017-03-20] MEDS: Sennosides/Docusate Sodium TABLET PO SCH (20:04)
[2017-03-20] MEDS: Gabapentin 300 MG CAPSULE PO SCH (20:04)
--- NOTE | 2017-03-20 20:50 | Internal Med Progress Note ---
Date of Encounter: 03/20/17 Time of Encounter: 13:00 - Assessment and plan (1) DVT (deep venous thrombosis) Current Visit: Yes Status: Chronic Assessment and plan: Recurrent acute on chronic DVT with h/o PE Proximal left side DVT involving popliteal artery - patient has been on Pradaxa Hem/Onc consult - recommendations reviewed, appreciate input Pt states she failed Coumadin therapy in the past We will continue with Eliquis, 10 mg twice a day. Pain control with oxycodone, IV morphine for uncontrolled pain. Qualifiers: DVT location: lower extremity Affected thrombotic vein of extremity: popliteal Chronicity: acute Laterality: left Qualified Code(s): I82.432 - Acute embolism and thrombosis of left popliteal vein (2) CAD (coronary artery disease) Current Visit: No Status: Acute Qualifiers: Coronary Disease-Associated Artery/Lesion type: [place] artery [place] vs. transplanted heart: unspecified whether [place] or transplanted heart Associated angina: without angina Qualified Code(s): I25.10 - Atherosclerotic heart disease of [place] coronary artery without angina pectoris (3) GERD (gastroesophageal reflux disease) Current Visit: No Status: Chronic Qualifiers: Esophagitis presence: esophagitis presence not specified Qualified Code(s) : K21.9 - Gastro-esophageal reflux disease without esophagitis (4) Chronic narcotic dependence Current Visit: Yes Status: Acute Assessment and plan: Cont Oxycodone ER at 40mg 3 times a day. She does not tolerate decreasing dose or frequency. Since pt c/o pain, continue home dose Percocet 10/325 (5) Rheumatoid arthritis Current Visit: No Status: Chronic Assessment and plan: Continue with methotrexate. Qualifiers: Rheumatoid arthritis location: unspecified site Rheumatoid factor presence : unspecified presence Qualified Code(s): M06.9 - Rheumatoid arthritis, unspecified - Subjective Interval history: She reports left lower leg moderate to severe cramping pain better with oxycodone, and worse with movement. She described it as a charley horse. - Constitutional Vitals: Temp Pulse Resp BP Pulse Ox 98.7 F 65 14 155/94 97 03/20/17 18:52 03/20/17 18:52 03/20/17 18:52 03/20/17 18:52 03/20/17 18:52 General appearance: Present: cooperative, A&O X 3, pleasant, no acute distress, answers questions appropriately - Neck Neck exam general surgery: Present: supple, trachea midline. Absent: lymphadenopathy - Respiratory Respiratory exam: Present: CTAB. Absent: accessory muscle use, rales, rhonchi, wheezes - Cardiovascular Cardiovascular exam: Present: RRR, +S1, +S2. Absent: diastolic murmur, gallop, rubs, systolic murmur - Extremities Exam Extremities exam: Present: pedal edema, warm, radial pulses palpable and symmetrical. Absent: calf tenderness, cyanotic - Neurological Exam Neurological exam: Present: CN II-XII intact, oriented X3, no focal deficits. Absent: pronater drift, facial droop, speech deficit - Skin Skin exam: Present: dry, intact Internal Medicine: Result - Labs CBC & Chem 7: 03/20/17 03:37 03/20/17 03:37 Labs: Short CBC 03/20/17 Range/Units 03:37 WBC 6.1 (4.3-11.1) K/mcL Hgb 11.0 L (11.5-15.4) g/dL Hct 36.1 (35.3-44.9) % Plt Count 244 (140-400) K/mcL Neutrophils # 4.3 (1.6-8.9) K/mcL BMP 03/20/17 03:37 Sodium 143 Potassium 4.1 Chloride 111 H Carbon Dioxide 24 BUN 19 Creatinine 1.01 Glucose 95 Calcium 9.0 - ABG Interpretation ABG results: PT/INR, D-dimer PT 16.8 Seconds (9.4-12.1) H 03/20/17 03:37 D-Dimer 810 ng/mLFEU (0-500) H 03/18/17 13:14 Consult Discharge Plan - Plan Referrals: Carli Mccormack [employer] [Advanced Practice Nurse] - 03/27/17 1:45 pm
[2017-03-21] MEDS: *HR* OxyCODONE/APAP 10/325 TABLET PO PRN ×2 (04:09→10:11)
[2017-03-21 04:38] LABS: Kappa Qnt Free Light Chains 2.62 mg/dL (0.33-1.94); Lambda Qnt Free Light Chains 2.55 mg/dL (0.57-2.63)
[2017-03-21 05:02] LABS: BUN/Creatinine Ratio 19 (6-26); Blood Urea Nitrogen 19 mg/dL (7-20); Calcium 9.4 mg/dL (8.6-10.8); Carbon Dioxide 24 mEq/L (19-29); Chloride 109 mEq/L (98-109); Glucose 102 mg/dL (70-99); Osmolality,Calculated 294 (280-300); Potassium 4.4 mEq/L (3.5-4.5); Sodium 141 mEq/L (136-145); eGFR For African Americans > 60 (> 60); eGFR For Non-African Americans 58 (> 60)
[2017-03-21 05:11] LABS: Basophils % 0.8 %; Eosinophils # 0.3 K/mcL (0.0-0.6); Eosinophils % 6.5 %; Hematocrit 37.3 % (35.3-44.9); Hemoglobin 11.4 g/dL (11.5-15.4); Immature Granulocytes % 0.2 % (0-4); Lymphocytes # 1.2 K/mcL (0.6-4.6); Lymphocytes % 25.2 %; Mean Corpuscular HGB Conc 30.6 g/dL (31.6-35.5); Mean Corpuscular Hemoglobin 29.3 pg (28.0-33.3); Mean Corpuscular Volume 95.9 fL (83.0-100.0); Mean Platelet Volume 11.1 fL (9.4-12.4); Monocytes # 0.2 K/mcL (0.0-1.3); Monocytes % 3.7 %; Neutrophils # 3.1 K/mcL (1.6-8.9); Platelet Count 272 K/mcL (140-400); Red Blood Count 3.89 M/mcL (3.82-4.97); Segmented Neutrophils % 63.6 %
[2017-03-21] MEDS: Levothyroxine 25 MCG TABLET PO SCH (05:55)
[2017-03-21] MEDS: *HR* OxyCODONE ER (12 HR) 40 MG TABLET PO SCH (07:30)
[2017-03-21] MEDS: BuPROPion SR (12 HR) 150 MG TABLET PO SCH (07:30)
[2017-03-21] MEDS: APIXABAN 5 MG TABLET PO SCH (07:30)
[2017-03-21] MEDS: Sennosides/Docusate Sodium TABLET PO SCH (07:31)
[2017-03-21] MEDS: Aspirin 81 MG TAB.CHEW PO SCH (07:31)
[2017-03-21 07:37] VITALS: BP 151/95
--- NOTE | 2017-03-21 09:40 | Discharge Summary ---
Date of Encounter: 03/21/17 Time of Encounter: 09:25 - Discharge Diagnosis (1) DVT (deep venous thrombosis) Priority: Primary Status: Chronic Qualifiers: DVT location: lower extremity Affected thrombotic vein of extremity: popliteal Chronicity: acute Laterality: left Qualified Code(s): I82.432 - Acute embolism and thrombosis of left popliteal vein (2) CAD (coronary artery disease) Priority: Secondary Status: Acute Qualifiers: Coronary Disease-Associated Artery/Lesion type: [place] artery [place] vs. transplanted heart: unspecified whether galena or transplanted heart Associated angina: without angina Qualified Code(s): I25.10 - Atherosclerotic heart disease of [place] coronary artery without angina pectoris (3) GERD (gastroesophageal reflux disease) Priority: Secondary Status: Chronic Qualifiers: Esophagitis presence: esophagitis presence not specified Qualified Code(s) : K21.9 - Gastro-esophageal reflux disease without esophagitis (4) Chronic narcotic dependence Priority: Secondary Status: Acute (5) Rheumatoid arthritis Priority: Secondary Status: Chronic Qualifiers: Rheumatoid arthritis location: unspecified site Rheumatoid factor presence : unspecified presence Qualified Code(s): M06.9 - Rheumatoid arthritis, unspecified (6) Invasive carcinoma of breast Priority: Secondary Status: Chronic (7) CKD (chronic kidney disease) stage 3, GFR 30-59 ml/min Priority: Secondary Status: Chronic (8) GREG (acute kidney injury) Priority: Secondary Status: Acute - Discharge Medications Prescriptions: OxyCODONE ER (12 HR) [OxyCONTIN] 80 mg PO Q8HR #10 tab.er.12h Apixaban [Eliquis] 5 mg PO BID #42 tablet Apixaban [Eliquis] 10 mg PO BID #10 tablet Home Medications: Abatacept/Maltose [Orencia (For Outpatient Infusion)] 800 mg IV Q4W 09/28/15 [ History] Aspirin 81 mg PO DAILY 09/28/15 [History] Leucovorin Calcium [Wellcovorin] 5 mg PO RAUSCH 09/28/15 [History] Methotrexate [Otrexup] 20 mg PO SA 09/28/15 [History] Metoprolol XL (24 HR) Succ [Toprol Xl] 50 mg PO DAILY 09/28/15 [History] Nitroglycerin [Nitrostat] 0.4 mg SL Q5M PRN 09/28/15 [History] Omeprazole [PriLOSEC] 20 mg PO BID 09/28/15 [History] Oxycodone HCl/Acetaminophen [Percocet 10-325 mg Tablet] 1 tab PO Q6H PRN [History] BuPROPion SR (12 HR) [Wellbutrin SR] 450 mg PO DAILY 09/26/16 [History] Cholecalciferol (D-3) [Vitamin D] 5,000 unit PO DAILY 09/26/16 [History] Furosemide [Lasix] 40 mg PO DAILY 09/26/16 [History] Gabapentin [Neurontin] 600 mg PO HS 09/26/16 [History] Isosorbide MONOnitrate (24 HR) [Imdur] 30 mg PO DAILY 09/26/16 [History] Levothyroxine [Synthroid] 25 mcg PO QAM 09/26/16 [History] Nitroglycerin [Nitrolingual] 1 - 2 spr TL AD PRN 09/26/16 [History] Oxybutynin [Ditropan] 5 mg PO TID 09/26/16 [History] Potassium Chloride 10 meq PO DAILY 09/26/16 [History] cloNIDine HCl [CloNIDine HCl] 0.1 mg PO TID 09/26/16 [History] clonazePAM [Klonopin] 1 mg PO TID 09/26/16 [History] rOPINIRole [Requip] 1 mg PO HS 09/26/16 [History] traZODone [TraZODone] 50 - 100 mg PO HS 09/26/16 [History] Levothyroxine Sodium [Synthroid] 200 mcg PO QAM 03/16/17 [History] Apixaban [Eliquis] 5 mg PO BID #42 tablet 03/21/17 [Rx] Apixaban [Eliquis] 10 mg PO BID #10 tablet 03/21/17 [Rx] OxyCODONE ER (12 HR) [OxyCONTIN] 80 mg PO Q8HR #10 tab.er.12h 03/21/17 [Rx] Allergies/Adverse Reactions: 3 Allergy/AdvReac Type Severity Reaction Status Date / Time No Known Allergies Allergy Verified 09/26/16 12:17 Date of admission: 03/16/17 18:39 Primary care physician: Van James MD Consults: 03/18/17 09:45 Consult to Oncology Hematology [CONS] Routine Consulting Provider: Isacc Peralta Reason for Consult: Recurrent DVT Call Completed: Yes 03/21/17 08:00 PT [Consult to Physical Therapy] [CONS] Stat Comment: Evaluate, develop and implement POC Reason for Consult: Weakness - Patient Status Disposition: Home, Self-Care Condition: Good Functional capacity at discharge: uses cane/walker Overall status at discharge: patient is progressing back to baseline (PT saw her while) - Discharge Instructions Follow Up With: Carli Mccormack [employer] [Advanced Practice Nurse] - 03/27/17 1:45 pm - Diet and Activity Activity: increase activity as tolerated Diet: low salt diet Hospital course: Ms. Nicolas is a 57 year old female with multiple medical problems including prior venous thromboembolism on anti-coagulation with Pradaxa, rheumatoid arthritis, lung cancer, chronic pain on high doses of opiates who presented to the hospital for chest pain shortness of breath and leg swelling. Lower extremity Doppler ultrasound revealed new left popliteal DVT in the left lower extremity superficial vein thrombosis. She was hypotensive on presentation. She had a VQ scan which was read as low probability for PE. She was found to have acute on chronic renal failure which was attributed to high doses of pain medications and multiple antihypertensive medication. She was started on heparin drip and IV fluids. Her antihypertensives have been placed on hold and then gradually restarted. Her kidney function improved and today is back to baseline. On discharge she was advised to hold losartan HCTZ and discontinue ibuprofen to avoid further kidney damage. For new recurrent lower extremity DVT she was started on Eliquis per hematology recommendations. She tolerated this well. Her pain is now controlled with her home pain medication regimen. She will be discharged home with close follow-up with her PCP. - Time Spent with Patient Total time spent providing and/or coordinating discharge services: Greater than 30 minutes - Constitutional Vitals: Temp Pulse Resp BP Pulse Ox 98.2 F 52 18 151/95 95 03/21/17 07:35 03/21/17 07:35 03/21/17 07:35 03/21/17 07:35 03/21/17 07:35 General appearance: Present: cooperative, A&O X 3, pleasant, no acute distress, answers questions appropriately - Cardiovascular Cardiovascular exam: Present: RRR, +S1, +S2. Absent: diastolic murmur, gallop, rubs, systolic murmur - GI/Abdominal GI/Abdominal exam: Present: normal bowel sounds, soft, no peritoneal signs. Absent: distended, tenderness - Extremities Exam Extremities exam: Present: pedal edema, warm, radial pulses palpable and symmetrical. Absent: calf tenderness, cyanotic - Skin Skin exam: Present: dry, intact
[2017-03-21 16:07] LABS: Alpha 2 Globulin (PEP) 0.96 g/dL (0.48-1.05); Beta Globulin (PEP) 0.78 g/dL (0.48-1.10)
[2017-03-22 07:12] LABS: IFE Reflexed IFE Done; Immunoglobulin G 918 mg/dL (768-1632)
[2017-03-22 07:13] LABS: Immunoglobulin A 191 mg/dL (68-408); Immunoglobulin M 98 mg/dL (35-263)
[2017-03-22 07:14] LABS: MMA (VIT B12 STATUS) 0.21 umol/L (0.00-0.40)
[2017-03-25] MEDS ORDERED: APIXABAN 5 MG TABLET PO SCH (09:00)
== END 2017-03-21 11:11 | disposition home or self-care (01) | DRG 197 ==
LOC: 2NNU 10:24 → EMEROO 10:24 → 2NNU 16:45 → SUATTDRO 18:39
PROVIDERS: ADMIT Hospitalist; ATTEND Internal Medicine

== ENCOUNTER 2017-06-22 12:59 | Inpatient (IN) ==
[2017-06-22 16:42] LABS: Basophils % 0.4 %; Eosinophils # 0.3 K/mcL (0.0-0.6); Eosinophils % 4.5 %; Hematocrit 38.3 % (35.3-44.9); Hemoglobin 11.8 g/dL (11.5-15.4); Immature Granulocytes % 0.4 % (0-4); Lymphocytes # 1.6 K/mcL (0.6-4.6); Lymphocytes % 22.1 %; Mean Corpuscular HGB Conc 30.8 g/dL (31.6-35.5); Mean Corpuscular Hemoglobin 29.4 pg (28.0-33.3); Mean Corpuscular Volume 95.3 fL (83.0-100.0); Mean Platelet Volume 10.7 fL (9.4-12.4); Monocytes # 0.9 K/mcL (0.0-1.3); Monocytes % 11.7 %; Neutrophils # 4.5 K/mcL (1.6-8.9); Platelet Count 452 K/mcL (140-400); Red Blood Count 4.02 M/mcL (3.82-4.97); Red Cell Distribution Width 14.7 % (11.5-14.5); Segmented Neutrophils % 60.9 %
[2017-06-22 16:50] LABS: Activated Partial Thrombo Time 33.5 Seconds (26.0-36.0)
[2017-06-22 17:04] LABS: BUN/Creatinine Ratio 14 (6-26); Blood Urea Nitrogen 15 mg/dL (6-20); Calcium 9.4 mg/dL (8.6-10.3); Carbon Dioxide 30 mEq/L (23-29); Chloride 103 mEq/L (98-107); Glucose 94 mg/dL (70-105); Osmolality,Calculated 289 (280-300); Potassium 3.9 mEq/L (3.5-5.1); Sodium 139 mEq/L (136-145); eGFR For African Americans > 60 (> 60); eGFR For Non-African Americans 55 (> 60)
[2017-06-22] MEDS ORDERED: *HR* Heparin 5,000 UNIT/ML VIAL IVP ONE (20:36)
[2017-06-22] MEDS ORDERED: *HR* Heparin 5,000 UNIT/ML VIAL IVP PRN ×2 (20:36)
[2017-06-22] MEDS ORDERED: Nitroglycerin 0.4 MG TAB.SUBL SL PRN (22:03)
[2017-06-22] MEDS ORDERED: *HR* OxyCODONE/APAP 10/325 TABLET PO PRN (22:03)
--- NOTE | 2017-06-22 22:15 | Internal Med History&Physical ---
Date of Encounter: 06/22/17 Time of Encounter: 22:10 Assessment and Plan (1) DVT (deep venous thrombosis) Current visit: No Status: Chronic Based on clinical exam and imaging, she may have post-thrombotic limb/venous insufficiency stasis with increasing swelling and pain. Repeat doppler and CTA w /o evidence of new acute clot to suggest antocoagulation failure of eliquis she is known to oncology which may provide a helpful second opinion (has breast ca that is CARRIE on surveillance) on heparin gtt started in the ED while in the hospital favor returning back to the [facility] on discharge, JEFE compressions stockings to assist in swelling review final result of US doppler performed in the ED Qualifiers: DVT location: lower extremity Affected thrombotic vein of extremity: popliteal Chronicity: acute Laterality: left Qualified Code(s): I82.432 - Acute embolism and thrombosis of left popliteal vein (2) Hypertension Current visit: No Status: Chronic Qualifiers: Hypertension type: essential hypertension Qualified Code(s): I10 - Essential (primary) hypertension (3) Rheumatoid arthritis Current visit: No Status: Chronic Qualifiers: Rheumatoid arthritis location: unspecified site Rheumatoid factor presence : unspecified presence Qualified Code(s): M06.9 - Rheumatoid arthritis, unspecified (4) Chronic narcotic dependence Current visit: No Status: Acute Internal Medicine - H&P: HPI Chief complaint: LLE swelling and pain History of present illness: Ms. Nicolas is a 57 year old female who presents with 4 days hx of worsening LLE swelling. She has active RA and just had her orencia IV infusion in [place] today. In regards to her VTE hx, she reports being managed by her PCP Dr Giselle James and had been on AC for many years initially on coumadin ? , lovenox xarelto, later pradaxa and most recently eliquis since Mar 2017 reportedly due to progressive failure of her prior AC. She reports hx of DVTs and PE. She first developed DVT 7-8 years ago s/p knee replacement. Of note, she has a gastric bypass in 2004. In regards to her current presentation, she experienced 4 days hx of worsening LLE swelling and soreness, warmth all over the calf that did not improve with time. She was seen here on sunday and was discharged after a b/l LE doppler confirming chronic LLE DVT but w/o acute clot. She re-presented to the ED tonight for persistent symptoms and was advised by PCP to return. A CTPE today was negative for PE. A repeat LE doppler with prelim that was negative for acute DVT. EKG personally reviewed with rate 62, NSR CT/CT angio chest IMPRESSION: No PE identified. XR/XR chest 1V portable IMPRESSION: No acute cardiopulmonary disease 06/22/17 17:02 - [id number] : 1960 Patient Age: 57 Venous doppler; Pt POSITIVE for DVT left lower extremity. DVT is chronic NEGATIVE for DVT right lower extremity Impressions: Chronic deep venous thrombosis is present in the left popliteal and gastrocnemius veins. Chronic superficial venous thrombosis is present in the left lesser spahenous vein. Normal contralateral common femoral vein. Recommendations: After imaging the patient returned home. Findings Venous Duplex Results: Right: Venous imaging of the lower extremity reveals full patency and normal vessel compressibility of the right common femoral. Doppler signals in the evaluated veins were normal. Left: Venous imaging of the lower extremity reveals full patency and normal vessel compressibility of the left distal iliac, left common femoral, left superficial femoral, left posterior tibial, left peroneal and left great saphenous. Doppler signals in the evaluated veins were normal. There is a chronic occlusive thrombus seen in the left popliteal. It demonstrates an incompressible vein. Flow was absent and it did not augment. There is a chronic partially occlusive thrombus seen in the left gastrocnemius. It demonstrates a partially compressible vein. Flow was continuous and it did not augment. There is a chronic partially occlusive thrombus seen in the left lesser saphenous. It demonstrates a partially compressible vein. Flow was continuous and it did not augment. Prior Study: No significant change compared to prior study dated: 03/16/2017. Past Med Surg Social Fam HX - Past Medical History Medical history: arthritis, cancer, coronary artery disease, DVT, fibromyalgia, GERD, hyperlipidemia, hypertension, pulmonary embolus, RA, renal disease Psychiatric history: anxiety, depression - Past Surgical History Surgical History: cholecystectomy, herniorrhaphy, knee replacement - Social History Smoking Status: Never smoker Smokeless Tobacco Status: No Alcohol use: none Drug use: none - Family History Father Age: 72 Living Status: Still Living Hx Family Cardiac Disorders: Yes (HTN) Hx Family Endocrine Disorder: Yes (DM) Mother Age: 69 Living Status: Still Living Hx Family Cardiac Disorders: Yes (HTN) Internal Medicine - H&P: Meds Abatacept/Maltose [Orencia (For Outpatient Infusion)] 800 mg IV Q4W 09/28/15 [ History] Aspirin 81 mg PO DAILY 09/28/15 [History] Leucovorin Calcium [Wellcovorin] 5 mg PO SA 09/28/15 [History] Methotrexate [Otrexup] 20 mg PO SA 09/28/15 [History] Metoprolol XL (24 HR) Succ [Toprol Xl] 50 mg PO DAILY 09/28/15 [History] Nitroglycerin [Nitrostat] 0.4 mg SL Q5M PRN 09/28/15 [History] Omeprazole [PriLOSEC] 20 mg PO BID 09/28/15 [History] Oxycodone HCl/Acetaminophen [Percocet 10-325 mg Tablet] 1 tab PO Q6H 09/28/15 [ History] BuPROPion SR (12 HR) [Wellbutrin SR] 450 mg PO DAILY 09/26/16 [History] Cholecalciferol (D-3) [Vitamin D] 5,000 unit PO DAILY 09/26/16 [History] Furosemide [Lasix] 40 mg PO DAILY 09/26/16 [History] Gabapentin [Neurontin] 600 mg PO HS 09/26/16 [History] Isosorbide MONOnitrate (24 HR) [Imdur] 30 mg PO DAILY 09/26/16 [History] Nitroglycerin [Nitrolingual] 1 - 2 spr TL AD PRN 09/26/16 [History] Oxybutynin [Ditropan] 5 mg PO TID 09/26/16 [History] Potassium Chloride 10 meq PO DAILY 09/26/16 [History] cloNIDine HCl [CloNIDine HCl] 0.1 mg PO TID 09/26/16 [History] clonazePAM [Klonopin] 1 mg PO TID 09/26/16 [History] rOPINIRole [Requip] 1 mg PO HS 09/26/16 [History] traZODone [TraZODone] 50 - 100 mg PO HS 09/26/16 [History] Apixaban [Eliquis] 10 mg PO BID #10 tablet 11/08/17 [Rx] OxyCODONE ER (12 HR) [OxyCONTIN] 80 mg PO Q8HR #10 tab.er.12h 03/21/17 [Rx] Levothyroxine [Synthroid] 450 mcg PO QAM 06/22/17 [History] Losartan/Hydrochlorothiazide [Hyzaar 100-25 Tablet] 1 each PO DAILY 06/22/17 [ History] 3 Allergy/AdvReac Type Severity Reaction Status Date / Time No Known Allergies Allergy Verified 06/11/17 15:43 All Systems PM: A 10-system review of systems was performed and is negative for pertinent findings except as documented above in the HPI. Review of systems: ROS 14 point review of systems reviewed as best as possible given presentation. Pertinent positive or negative as per HPI or otherwise reviewed as negative - Constitutional Vitals: Temp Pulse Resp BP Pulse Ox 97.9 F 64 16 125/70 98 06/22/17 13:15 06/22/17 21:19 06/22/17 21:19 06/22/17 21:19 06/22/17 21:19 Exam: General - AAO x 3 Psych - Appropriate affect/speech. No agitation Eyes - [place]. Eye lids intact. No scleral icterus Heart - Sinus. RRR. S1 and S2 present. No added HS/murmurs appreciated. No elevated JVD appreciated. Lung - Adequate air entry b/l, No crackles/wheezes appreciated GI - Soft, non-tender. No hepatosplenomegaly/ascites. BS+ - No CVA/suprapubic tenderness or palpable bladder distension Skin - Intact. No rash/petechiae/ecchymosis. b/l LE edema +1 but LLE more swollen and warm compared to RLE Internal Med - H&P Results - Labs CBC & Chem 7: 06/22/17 16:17 06/22/17 16:17
[2017-06-22] MEDS ORDERED: Naloxone 0.4 MG/ML INJ IVP PRN (22:25)
[2017-06-22] MEDS ORDERED: 0.9 % Sodium Chloride 1,000 ML IVC SCH (22:30)
[2017-06-23] MEDS: Heparin 25,000 UNIT/500 ML D5W 25,000 UNIT/500 ML BAG IVC SCH ×2 (00:08→17:28)
--- NOTE | 2017-06-23 00:31 | Emergency Department Note ---
Disposition Clinical Impression: Lower extremity edema Acute DVT (deep venous thrombosis) Qualifiers: DVT location: lower extremity Affected thrombotic vein of extremity: unspecified lower extremity distal vein Laterality: left Qualified Code(s): I82.4Z2 - Acute embolism and thrombosis of unspecified deep veins of left distal lower extremity Disposition: Admitted As Inpatient General Adult HPI - General Chief complaint: ED Extremity Problem,Nontraumatic Stated complaint: leg swelling, NATHAN Time Seen by Provider: 06/22/17 15:24 Source: patient, family Limitations: no limitations Nursing Notes Reviewed: Yes Vital Signs Reviewed: Yes - History of Present Illness HPI Narrative: This is a 57-year-old female who was sent in with concern for DVT. She does have a history of chronic disease including chronic DVT of the left lower extremity. She was getting her rheumatoid infusion today and the nurse felt her leg swelling is worsened and she needed to be seen in the emergency department. She does have good distal pulses [place] does have evidence of swelling of the left lower extremity. She has mild complaints of dyspnea but no abnormal vital signs on arrival. She has no fever, cough, congestion. She declines previous hypercoagulable workup. General: No acute distress HEENT: Pupils equal and reactive to light, extraoccular muscle movement is normal, TMS are clear bilaterally. Heart: RRR, No murmor rub or gallop Lungs: lungs clear, no wheezing, rales or ronchi. ABD: SNT, no focal areas or tenderness, no guarding or rebound tenderness. Extremities: No cyanosis, clubbing or edema Neuro: CN 2-12 in tact, no focal deficit. strength 5/5. Medical decision making Patient has acute on chronic DVT in the left lower extremity. She is on L [place]. She has failed other anticoagulant measures. We did attempt to obtain a CT of the chest to rule out pulmonary embolism given her new acute DVT and lites of dyspnea however she did have infiltrated IV and only has one arm that can have IV access. Hyaluronidase antidote was administered. I am recommending admission to the hospital for hypercoagulable workup and initiation of heparin infusion. I did place a right external jugular IV catheter to obtain access. The patient will be admitted to the hospital for further evaluation. The hospitalist team was okay with admission without CT scan of the chest. We cannot give contrast bolus through external jugular line in the neck. We will need to admit for PICC line placement Pain Scale: 0 - Related Data Home Medications Medication Instructions Recorded Confirmed Abatacept/Maltose [Orencia (For 800 mg IV Q4W 09/28/15 06/22/17 Outpatient Infusion)] Aspirin 81 mg PO DAILY 09/28/15 06/22/17 Leucovorin Calcium [Wellcovorin] 5 mg PO SA 09/28/15 06/22/17 Methotrexate [Otrexup] 20 mg PO SA 09/28/15 06/22/17 Metoprolol XL (24 HR) Succ [Toprol 50 mg PO DAILY 09/28/15 06/22/17 Xl] Nitroglycerin [Nitrostat] 0.4 mg SL Q5M PRN 09/28/15 06/22/17 Omeprazole [PriLOSEC] 20 mg PO BID 09/28/15 06/22/17 Oxycodone HCl/Acetaminophen 1 tab PO Q6H 09/28/15 06/22/17 [Percocet 10-325 mg Tablet] BuPROPion SR (12 HR) [Wellbutrin 450 mg PO DAILY 09/26/16 06/22/17 SR] Cholecalciferol (D-3) [Vitamin D] 5,000 unit PO DAILY 09/26/16 06/22/17 Furosemide [Lasix] 40 mg PO DAILY 09/26/16 06/22/17 Gabapentin [Neurontin] 600 mg PO HS 09/26/16 06/22/17 Isosorbide MONOnitrate (24 HR) 30 mg PO DAILY 09/26/16 06/22/17 [Imdur] Nitroglycerin [Nitrolingual] 1 - 2 spr TL AD PRN 09/26/16 06/22/17 Oxybutynin [Ditropan] 5 mg PO TID 09/26/16 06/22/17 Potassium Chloride 10 meq PO DAILY 09/26/16 06/22/17 cloNIDine HCl [CloNIDine HCl] 0.1 mg PO TID 09/26/16 06/22/17 clonazePAM [Klonopin] 1 mg PO TID 09/26/16 06/22/17 rOPINIRole [Requip] 1 mg PO HS 09/26/16 06/22/17 traZODone [TraZODone] 50 - 100 mg PO HS 09/26/16 06/22/17 Levothyroxine [Synthroid] 450 mcg PO QAM 06/22/17 06/22/17 Losartan/Hydrochlorothiazide 1 each PO DAILY 06/22/17 06/22/17 [Hyzaar 100-25 Tablet] Previous Rx's Medication Instructions Recorded Apixaban [Eliquis] 10 mg PO BID #10 tablet 03/21/17 OxyCODONE ER (12 HR) [OxyCONTIN] 80 mg PO Q8HR #10 tab.er.12h 03/21/17 Allergies Allergy/AdvReac Type Severity Reaction Status Date / Time No Known Allergies Allergy Verified 06/11/17 15:43 All systems ED: reviewed and negative except as stated. Review of Systems: As Per HPI Past Medical History - Past Medical History Medical history: Reports: arthritis, cancer, coronary artery disease, DVT, fibromyalgia, GERD, hyperlipidemia, hypertension, pulmonary embolus, RA, renal disease Surgical history: Reports: cholecystectomy, herniorrhaphy, knee replacement Psychiatric history: Reports: anxiety, depression - Social History Smoking Status: Never smoker Smokeless Tobacco Status: No Alcohol use: Reports: none Drug use: Reports: none Physical Exam - General Limitations: no limitations General appearance: alert, in no apparent distress Course Vital Signs Temperature 97.9 F 06/22/17 13:15 Pulse Rate 62 06/22/17 13:15 Respiratory Rate 18 06/22/17 13:15 Blood Pressure 127/78 06/22/17 13:15 O2 Sat by Pulse Oximetry 100 06/22/17 13:15 Temperature 98.4 F 06/22/17 20:36 Pulse Rate 64 06/22/17 21:19 Respiratory Rate 16 06/22/17 21:19 Blood Pressure 125/70 06/22/17 21:19 O2 Sat by Pulse Oximetry 98 06/22/17 21:19 Oxygen Delivery Oxygen Delivery Room Air Medical Decision Making - Lab Data Result diagrams: 06/22/17 16:17 06/22/17 16:17 Lab Results 06/22/17 06/22/17 06/22/17 Range/Units 16:17 16:17 16:17 WBC 7.3 (4.3-11.1) K/mcL RBC 4.02 (3.82-4.97) M/mcL Hgb 11.8 (11.5-15.4) g/dL Hct 38.3 (35.3-44.9) % MCV 95.3 (83.0-100.0) fL MCH 29.4 (28.0-33.3) pg MCHC 30.8 L (31.6-35.5) g/dL RDW 14.7 H (11.5-14.5) % Plt Count 452 H (140-400) K/mcL MPV 10.7 (9.4-12.4) fL Immature Gran % 0.4 (0-4) % Seg Neutrophils % 60.9 % Lymphocytes % 22.1 % Monocytes % 11.7 % Eosinophils % 4.5 % Basophils % 0.4 % Neutrophils # 4.5 (1.6-8.9) K/mcL Lymphocytes # 1.6 (0.6-4.6) K/mcL Monocytes # 0.9 (0.0-1.3) K/mcL Eosinophils # 0.3 (0.0-0.6) K/mcL Basophils # 0.0 (0.0-0.2) K/mcL PT 11.0 (9.4-12.1) Seconds INR 1.0 APTT 33.5 (26.0-36.0) Seconds Sodium 139 (136-145) mEq/L Potassium 3.9 (3.5-5.1) mEq/L Chloride 103 (98-107) mEq/L Carbon Dioxide 30 H (23-29) mEq/L BUN 15 (6-20) mg/dL Creatinine 1.04 (0.60-1.20) mg/dL Est GFR ( Amer) > 60 (> 60) Est GFR (Non-Af Amer) 55 L (> 60) BUN/Creatinine Ratio 14 (6-26) Glucose 94 (70-105) mg/dL Calculated Osmolality 289 (280-300) Calcium 9.4 (8.6-10.3) mg/dL Troponin I (< 0.04) ng/mL B-Natriuretic Peptide (Less than 100) pg/mL 06/22/17 06/22/17 Range/Units 16:17 16:17 WBC (4.3-11.1) K/mcL RBC (3.82-4.97) M/mcL Hgb (11.5-15.4) g/dL Hct (35.3-44.9) % MCV (83.0-100.0) fL MCH (28.0-33.3) pg MCHC (31.6-35.5) g/dL RDW (11.5-14.5) % Plt Count (140-400) K/mcL MPV (9.4-12.4) fL Immature Gran % (0-4) % Seg Neutrophils % % Lymphocytes % % Monocytes % % Eosinophils % % Basophils % % Neutrophils # (1.6-8.9) K/mcL Lymphocytes # (0.6-4.6) K/mcL Monocytes # (0.0-1.3) K/mcL Eosinophils # (0.0-0.6) K/mcL Basophils # (0.0-0.2) K/mcL PT (9.4-12.1) Seconds INR APTT (26.0-36.0) Seconds Sodium (136-145) mEq/L Potassium (3.5-5.1) mEq/L Chloride (98-107) mEq/L Carbon Dioxide (23-29) mEq/L BUN (6-20) mg/dL Creatinine (0.60-1.20) mg/dL Est GFR ( Amer) (> 60) Est GFR (Non-Af Amer) (> 60) BUN/Creatinine Ratio (6-26) Glucose (70-105) mg/dL Calculated Osmolality (280-300) Calcium (8.6-10.3) mg/dL Troponin I < 0.03 (< 0.04) ng/mL B-Natriuretic Peptide 40 (Less than 100) pg/mL
[2017-06-23] MEDS: *HR* OxyCODONE ER (12 HR) 40 MG TABLET PO SCH ×4 (01:22→21:08)
[2017-06-23] MEDS: clonazePAM 1 MG TABLET PO SCH ×2 (08:23→13:57)
[2017-06-23] MEDS: BuPROPion SR (12 HR) 150 MG TABLET PO SCH (08:23)
[2017-06-23] MEDS: cloNIDine HCl 0.1 MG TABLET PO SCH ×3 (08:24→23:56)
[2017-06-23] MEDS: Furosemide 40 MG TABLET PO SCH (08:24)
[2017-06-23] MEDS: Metoprolol XL (24 HR) Succ 50 MG TAB.ER.24H PO SCH (08:24)
[2017-06-23] MEDS: Cholecalciferol (D-3) 1,000 UNIT TABLET PO SCH (08:24)
[2017-06-23] MEDS: Isosorbide MONOnitrate (24 HR) 30 MG TAB.ER.24H PO SCH (08:24)
[2017-06-23] MEDS: Losartan/HCTZ 50-12.5 TABLET PO SCH (08:24)
[2017-06-23] MEDS: Aspirin 81 MG TAB.CHEW PO SCH (08:25)
--- NOTE | 2017-06-23 15:19 | Internal Med Progress Note ---
Date of Encounter: 06/23/17 Time of Encounter: 11:30 - Assessment and plan (1) DVT (deep venous thrombosis) Current Visit: Yes Status: Acute Assessment and plan: Pt with chronic DVT of L leg. Currently on Eliquis - changed to heparin drip while inpatient CTA neg for PE Pt concerned that she has failed Eliquis as well. Will get heme onc consult for further evaluation and treatment. Qualifiers: DVT location: lower extremity Affected thrombotic vein of extremity: popliteal Chronicity: chronic Laterality: left Qualified Code(s): I82.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 (2) Lower extremity edema Current Visit: Yes Status: Chronic Assessment and plan: Related to prior DVT. (3) CAD (coronary artery disease) Current Visit: No Status: Chronic Assessment and plan: Chronic issue. Continue same medications. Qualifiers: Coronary Disease-Associated Artery/Lesion type: [place] artery [place] vs. transplanted heart: [place] heart Associated angina: without angina Qualified Code(s): I25.10 - Atherosclerotic heart disease of [place] coronary artery without angina pectoris (4) Hypertension Current Visit: No Status: Chronic Assessment and plan: Controlled at this time. Continue same meds. Qualifiers: Hypertension type: essential hypertension Qualified Code(s): I10 - Essential (primary) hypertension (5) GERD (gastroesophageal reflux disease) Current Visit: No Status: Chronic Assessment and plan: Chronic issue. Qualifiers: Esophagitis presence: esophagitis presence not specified Qualified Code(s) : K21.9 - Gastro-esophageal reflux disease without esophagitis (6) Hypothyroid Current Visit: No Status: Chronic Assessment and plan: Continue home Synthroid Qualifiers: Hypothyroidism type: acquired Qualified Code(s): E03.9 - Hypothyroidism, unspecified (7) Rheumatoid arthritis Current Visit: No Status: Chronic Assessment and plan: Chronic issue Qualifiers: Rheumatoid arthritis location: multiple sites Rheumatoid factor presence: unspecified presence Qualified Code(s): M06.9 - Rheumatoid arthritis, unspecified - Subjective Interval history: Ms Nicolas is currently in observation due to leg swelling and concern for recurrent DVT while on Eliquis. Ms Nicolas is feeling OK at this time. She is having pain but this is chronic. No fever or chills. She is confused about plan as she was told 2 different things last night - one from ED doctor and one from admitting. No CP or SOB. Appetite is OK. She is having issues with constipation and wants something for bowels. - Constitutional Vitals: Temp Pulse Resp BP Pulse Ox 97 F L 54 16 100/64 98 06/23/17 10:56 06/23/17 10:56 06/23/17 10:56 06/23/17 10:56 06/23/17 10:56 General appearance: Present: A&O X 3, answers questions appropriately - Head Head exam: Present: normocephalic - Eye Eye exam: Present: EOMI, conjuntiva pink - ENT ENT exam: Present: mucous membranes dry - Respiratory Respiratory exam: Present: decreased breath sounds, CTAB. Absent: rales, rhonchi, wheezes - Cardiovascular Cardiovascular exam: Present: RRR. Absent: tachycardia - GI/Abdominal GI/Abdominal exam: Present: soft. Absent: tenderness - Extremities Exam Extremities exam: Present: warm Additional comments: Edema present - Neurological Exam Neurological exam: Present: alert, oriented X3, no focal deficits - Skin Skin exam: Present: warm. Absent: rash Internal Medicine: Result - Labs CBC & Chem 7: 06/22/17 16:17 06/22/17 16:17 - ABG Interpretation ABG results: PT/INR, D-dimer PT 11.0 Seconds (9.4-12.1) 06/22/17 16:17 - VTE Documentation of Mechanical Device: Graduated compression elastic hosiery Consult Discharge Plan - Plan Referrals: Van James MD [Primary Care Provider] -
--- NOTE | 2017-06-23 15:24 | Oncology Inp Consult Note ---
Date of Encounter: 06/23/17 Time of Encounter: 14:00 Assessment and Plan (1) DVT (deep venous thrombosis) Status: Chronic Assessment and plan: Left lower ext, acute swelling few days-differential post phelbitic swelling from CR DVT vs Ac thrombosis. Official reading on doppler pending. Patient is started on heparin due to symptoms. She had tried in the past-lovenox, pradaxa, coumadin, xarelto-recently on eliquis 5mg BID. Not clear if she progressed on lovenox, which can be considered for termite treater anticoagulation or couamdin with igher targeted INR. Will obtain results of doppler, discuss with primary aviculturist on termite treater plan. Discussefd with pt bedside and family. Qualifiers: DVT location: lower extremity Affected thrombotic vein of extremity: popliteal Chronicity: acute Laterality: left Qualified Code(s): I82.432 - Acute embolism and thrombosis of left popliteal vein - Data of Consult Requesting Physician: Cristhian Schwab DO Primary Care Provider: Van James MD - Consult Narrative Reason for consult: dvt History of present illness: Ms. Nicolas is a 57 year old female who has a medical history significant for chronic deep venous thrombosis, patient presented with thrombosis in March 2017 when she was hospitalized and d/[place] with on Eliquis 5 mg by mouth twice a day She has left breast cancer status post lumpectomy in 2011, adjuvant hormonal therapy, in 2013 she was switched to letrozole from tamoxifen, in June 2014 for recurrent DVT letrozole was stopped. She had tried Pradaxa, low molecular weight heparin, Xarelto, eliquis in the past. Patient had a Doppler study done June 2017 that shows chronic deep venous thrombosis in the left popliteal, gastrointestinal veins, chronic superficial venous thrombosis in the left lesser saphenous vein. Patient was sent from rheumatology clinic--in [place], after infusion due to worsening swelling in the left lower extremity with a suspicion for acute DVT-06/22/17 per ER documentation. Per aptient's family she was not ambulating well last 3 days or so due to increased swelling left leg Past Med Surg Social Fam HX - Past Medical History Medical history: arthritis, cancer, coronary artery disease, DVT, fibromyalgia, GERD, hyperlipidemia, hypertension, pulmonary embolus, RA, renal disease Psychiatric history: anxiety, depression - Past Surgical History Surgical History: cholecystectomy, herniorrhaphy, knee replacement - Social History Smoking Status: Never smoker Smokeless Tobacco Status: No Alcohol use: none Drug use: none - Family History Father Age: 72 Living Status: Still Living Hx Family Cardiac Disorders: Yes (HTN) Hx Family Endocrine Disorder: Yes (DM) Mother Age: 69 Living Status: Still Living Hx Family Cardiac Disorders: Yes (HTN) Medications and Allergies Abatacept/Maltose [Orencia (For Outpatient Infusion)] 800 mg IV Q4W 09/28/15 [ History] Aspirin 81 mg PO DAILY 09/28/15 [History] Leucovorin Calcium [Wellcovorin] 5 mg PO SA 09/28/15 [History] Methotrexate [Otrexup] 20 mg PO SA 09/28/15 [History] Metoprolol XL (24 HR) Succ [Toprol Xl] 50 mg PO DAILY 09/28/15 [History] Nitroglycerin [Nitrostat] 0.4 mg SL Q5M PRN 09/28/15 [History] Omeprazole [PriLOSEC] 20 mg PO BID 09/28/15 [History] Oxycodone HCl/Acetaminophen [Percocet 10-325 mg Tablet] 1 tab PO Q6H 09/28/15 [ History] BuPROPion SR (12 HR) [Wellbutrin SR] 450 mg PO DAILY 09/26/16 [History] Cholecalciferol (D-3) [Vitamin D] 5,000 unit PO DAILY 09/26/16 [History] Furosemide [Lasix] 40 mg PO DAILY 09/26/16 [History] Gabapentin [Neurontin] 600 mg PO HS 09/26/16 [History] Isosorbide MONOnitrate (24 HR) [Imdur] 30 mg PO DAILY 09/26/16 [History] Nitroglycerin [Nitrolingual] 1 - 2 spr TL AD PRN 09/26/16 [History] Oxybutynin [Ditropan] 5 mg PO TID 09/26/16 [History] Potassium Chloride 10 meq PO DAILY 09/26/16 [History] cloNIDine HCl [CloNIDine HCl] 0.1 mg PO TID 09/26/16 [History] clonazePAM [Klonopin] 1 mg PO TID 09/26/16 [History] rOPINIRole [Requip] 1 mg PO HS 09/26/16 [History] traZODone [TraZODone] 50 - 100 mg PO HS 09/26/16 [History] Apixaban [Eliquis] 10 mg PO BID #10 tablet 03/21/17 [Rx] OxyCODONE ER (12 HR) [OxyCONTIN] 80 mg PO Q8HR #10 tab.er.12h 03/21/17 [Rx] Levothyroxine [Synthroid] 450 mcg PO QAM 06/22/17 [History] Losartan/Hydrochlorothiazide [Hyzaar 100-25 Tablet] 1 each PO DAILY 06/22/17 [ History] 3 Allergy/AdvReac Type Severity Reaction Status Date / Time No Known Allergies Allergy Verified 06/11/17 15:43 Constitutional: Present: fatigue Eyes: Present: as per HPI Cardiovascular: Present: as per HPI Respiratory: Present: as per HPI Genitourinary: Present: as per HPI Musculoskeletal: Present: as per HPI Hematologic/Lymphatic: Present: as per HPI Oncology - Exam - Constitutional Vitals: Temp Pulse Resp BP Pulse Ox 97 F L 54 16 100/64 98 06/23/17 10:56 06/23/17 10:56 06/23/17 10:56 06/23/17 10:56 06/23/17 10:56 General appearance: average body habitus - Head Head exam: Present: atraumatic, normal inspection - Eye Eye exam: Present: sclera anicteric - ENT ENT exam: Present: normal exam - Respiratory Respiratory exam: Present: CTAB - Cardiovascular Cardiovascular exam: Present: +S1, +S2 - Extremities Exam Extremities exam: Present: calf tenderness, pedal edema - Neurological Exam Neurological exam: Present: alert, altered, CN II-XII intact Consult Discharge Plan - Plan Referrals: Van James MD [Primary Care Provider] -
[2017-06-23] MEDS ORDERED: 0.9 % Sodium Chloride 500 ML IVC ONE (15:36)
[2017-06-23 16:12] LABS: Activated Partial Thrombo Time 117.7 Seconds (26.0-36.0)
[2017-06-23 16:13] LABS: Heparin anti-factor XA UFH 0.79 IU/mL (0.30-0.70)
[2017-06-23] MEDS ORDERED: *HR* Methotrexate 2.5 MG TABLET PO SCH (21:00)
[2017-06-23] MEDS: Gabapentin 300 MG CAPSULE PO SCH (23:55)
[2017-06-23] MEDS: rOPINIRole 1 MG TABLET PO SCH (23:55)
[2017-06-23] MEDS: traZODone 50 MG TABLET PO SCH (23:56)
[2017-06-23] MEDS: Sennosides/Docusate Sodium TABLET PO SCH (23:56)
[2017-06-24 01:37] LABS: Hematocrit 32.1 % (35.3-44.9); Mean Corpuscular HGB Conc 30.8 g/dL (31.6-35.5); Mean Corpuscular Hemoglobin 29.5 pg (28.0-33.3); Mean Corpuscular Volume 95.5 fL (83.0-100.0); Platelet Count 302 K/mcL (140-400); Red Blood Count 3.36 M/mcL (3.82-4.97); Red Cell Distribution Width 15.1 % (11.5-14.5)
[2017-06-24 01:40] LABS: Hemoglobin 9.9 g/dL (11.5-15.4)
[2017-06-24 01:57] LABS: Calcium 8.7 mg/dL (8.6-10.3); Magnesium 1.7 mg/dL (1.6-2.6); Potassium 4.1 mEq/L (3.5-5.1)
[2017-06-24] MEDS ORDERED: Aminoglycoside Consult 1 EACH MC ONE (08:13)
[2017-06-24] MEDS: Isosorbide MONOnitrate (24 HR) 30 MG TAB.ER.24H PO SCH (08:24)
[2017-06-24] MEDS: Cholecalciferol (D-3) 1,000 UNIT TABLET PO SCH (09:27)
[2017-06-24] MEDS: Sennosides/Docusate Sodium TABLET PO SCH ×2 (09:27→20:35)
[2017-06-24] MEDS: BuPROPion SR (12 HR) 150 MG TABLET PO SCH (09:27)
[2017-06-24] MEDS: *HR* OxyCODONE ER (12 HR) 40 MG TABLET PO SCH ×2 (09:28→16:11)
[2017-06-24] MEDS: Aspirin 81 MG TAB.CHEW PO SCH (09:28)
[2017-06-24] MEDS: clonazePAM 1 MG TABLET PO PRN (09:37)
[2017-06-24] MEDS: Metoprolol XL (24 HR) Succ 50 MG TAB.ER.24H PO SCH (10:28)
[2017-06-24] MEDS: Furosemide 40 MG TABLET PO SCH (10:28)
[2017-06-24] MEDS: cloNIDine HCl 0.1 MG TABLET PO SCH ×3 (10:28→23:30)
[2017-06-24] MEDS: Losartan/HCTZ 50-12.5 TABLET PO SCH (10:29)
[2017-06-24] MEDS: Heparin 25,000 UNIT/500 ML D5W 25,000 UNIT/500 ML BAG IVC SCH (16:13)
--- NOTE | 2017-06-24 16:40 | Internal Med Progress Note ---
Date of Encounter: 06/24/17 Time of Encounter: 13:30 - Assessment and plan (1) DVT (deep venous thrombosis) Current Visit: Yes Status: Acute Assessment and plan: Pt with chronic DVT of L leg. Currently on Eliquis - changed to heparin drip while inpatient CTA neg for PE Appreciate heme input. Awaiting further recommendations for anticoagulant. Qualifiers: DVT location: lower extremity Affected thrombotic vein of extremity: popliteal Chronicity: chronic Laterality: left Qualified Code(s): I82.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 (2) Lower extremity edema Current Visit: Yes Status: Chronic Assessment and plan: Related to prior DVT. (3) CAD (coronary artery disease) Current Visit: No Status: Chronic Assessment and plan: Chronic issue. Continue same medications. Qualifiers: Coronary Disease-Associated Artery/Lesion type: [place] artery [place] vs. transplanted heart: [place] heart Associated angina: without angina Qualified Code(s): I25.10 - Atherosclerotic heart disease of [place] coronary artery without angina pectoris (4) Hypertension Current Visit: No Status: Chronic Assessment and plan: Controlled at this time. Continue same meds. Qualifiers: Hypertension type: essential hypertension Qualified Code(s): I10 - Essential (primary) hypertension (5) GERD (gastroesophageal reflux disease) Current Visit: No Status: Chronic Assessment and plan: Chronic issue. Qualifiers: Esophagitis presence: esophagitis presence not specified Qualified Code(s) : K21.9 - Gastro-esophageal reflux disease without esophagitis (6) Hypothyroid Current Visit: No Status: Chronic Assessment and plan: Continue home Synthroid Qualifiers: Hypothyroidism type: acquired Qualified Code(s): E03.9 - Hypothyroidism, unspecified (7) Rheumatoid arthritis Current Visit: No Status: Chronic Assessment and plan: Chronic issue Qualifiers: Rheumatoid arthritis location: multiple sites Rheumatoid factor presence: unspecified presence Qualified Code(s): M06.9 - Rheumatoid arthritis, unspecified (8) Chronic pain Current Visit: Yes Status: Chronic Assessment and plan: On multiple pain meds. Defer to PCP. Qualifiers: Chronic pain type: chronic pain syndrome Qualified Code(s): G89.4 - Chronic pain syndrome - Subjective Interval history: Ms Nicolas is currently in observation due to leg swelling and concern for recurrent DVT while on Eliquis. Ms Nicolas is resting comfortably. No fever or chills. Cough seems somewhat better. Pain controlled. Appreciate heme onc input. Waiting decision regarding plan for anticoagulation. - Constitutional Vitals: Temp Pulse Resp BP Pulse Ox 97.5 F L 62 15 97/51 98 06/24/17 16:18 06/24/17 16:18 06/24/17 16:18 06/24/17 16:18 06/24/17 16:18 General appearance: Present: A&O X 3, answers questions appropriately - Head Head exam: Present: normocephalic - Eye Eye exam: Present: EOMI, conjuntiva pink - ENT ENT exam: Present: mucous membranes moist - Respiratory Respiratory exam: Present: CTAB. Absent: rales, rhonchi, wheezes - Cardiovascular Cardiovascular exam: Present: RRR. Absent: tachycardia - GI/Abdominal GI/Abdominal exam: Present: soft. Absent: tenderness - Extremities Exam Extremities exam: Present: warm - Neurological Exam Neurological exam: Present: alert, oriented X3 - Skin Skin exam: Present: warm. Absent: rash Internal Medicine: Result - Labs CBC & Chem 7: 06/24/17 01:10 06/24/17 01:10 Labs: Short CBC 06/24/17 Range/Units 01:10 WBC 10.5 (4.3-11.1) K/mcL Hgb 9.9 L D (11.5-15.4) g/dL Hct 32.1 L (35.3-44.9) % Plt Count 302 (140-400) K/mcL BMP 06/24/17 01:10 Sodium 143 Potassium 4.1 Chloride 106 Carbon Dioxide 25 BUN 17 Creatinine 1.39 H Glucose 114 H Calcium 8.7 - ABG Interpretation ABG results: PT/INR, D-dimer PT 11.0 Seconds (9.4-12.1) 06/22/17 16:17 - VTE Documentation of Mechanical Device: Graduated compression elastic hosiery Consult Discharge Plan - Plan Referrals: Van James MD [Primary Care Provider] -
[2017-06-24] MEDS: rOPINIRole 1 MG TABLET PO SCH (20:35)
[2017-06-24] MEDS: traZODone 50 MG TABLET PO SCH (20:35)
[2017-06-24] MEDS: Gabapentin 300 MG CAPSULE PO SCH (20:35)
[2017-06-24] MEDS ORDERED: Naloxone 0.4 MG/ML INJ IVP PRN (23:00)
[2017-06-24] MEDS ORDERED: Vancomycin 1,500 MG in D5% in Water 250 ML IVPB SCH ×2 (23:00)
[2017-06-24] MEDS ORDERED: Cefepime HCl 2,000 MG in Water for inj. (sterile) 20 ML 20 ML IVPB SCH (23:03)
[2017-06-24 23:25] LABS: ABG Base Excess -2 mEq/L (-2 to 3); ABG HCO3 26 mEq/L (21-27); ABG Oxygen Saturation 88 % (95-98); ABG PCO2 56 mmHg (35-45); ABG PH 7.28 pH Units (7.32-7.45); ABG PO2 63 mmHg (85-104); ABG TCO2 28 mEq/L (20-26)
--- NOTE | 2017-06-24 23:38 | Event Note ---
Date of Encounter: 06/24/17 Time of Encounter: 23:34 I was paged clarke with concerns of the patient was hypoxic and continued to require increasing O2 support to maintain SPO2 saturations. Upon my assessment the patient appeared to be somnolent with respiratory rate of 8 and rhonchi was auscultated in bilateral lobes. Chest x-ray was ordered and found a new right lung consolidation concerning for pneumonia. The patient was placed on cephapirin and vancomycin and a stat ABG was ordered. In additional assessment was performed and the patient remained somnolent. Upon review of her chart is negative the patient is on 80 mg of extended release oxycodone every 8 hours and that her creatinine clearance was 66. She has been on this for many years however, given that she also has a new pneumonia I believe the combination of the 2 is leading to her current respiratory distress. Daughter was placed for BiPAP and she is being transferred to level of higher acuity. She remains hemodynamically stable and responsive to verbal stimuli. At this time I am discontinuing her oxycodone and making her nothing by mouth. Additionally, I am placing orders for aspiration precautions and speech evaluation as there is some concern for aspiration pneumonia.
[2017-06-25] MEDS ORDERED: Cefepime HCl 2,000 MG in Water for inj. (sterile) 20 ML 20 ML IVPB SCH
[2017-06-25] MEDS ORDERED: Cefepime HCl 1,000 MG in D5% in Water (Mini-Bag+) 100 ML IVPB SCH
[2017-06-25] MEDS: Ipratropium/Albuterol Neb 3 ML IH SCH ×7 (00:05→23:48)
[2017-06-25] MEDS ORDERED: *HR* Enoxaparin 100 MG/ML SYRINGE SQ SCH (01:00)
[2017-06-25 02:06] LABS: ABG Base Excess -1 mEq/L (-2 to 3); ABG HCO3 25 mEq/L (21-27); ABG Oxygen Saturation 93 % (95-98); ABG PCO2 49 mmHg (35-45); ABG PH 7.31 pH Units (7.32-7.45); ABG PO2 76 mmHg (85-104); ABG TCO2 27 mEq/L (20-26); Blood Gas Respiration Rate 8
[2017-06-25 05:25] LABS: Hematocrit 33.6 % (35.3-44.9); Hemoglobin 10.4 g/dL (11.5-15.4); Mean Corpuscular Hemoglobin 29.5 pg (28.0-33.3); Mean Corpuscular Volume 95.5 fL (83.0-100.0); Mean Platelet Volume 11.5 fL (9.4-12.4); Platelet Count 314 K/mcL (140-400); Red Blood Count 3.52 M/mcL (3.82-4.97); Red Cell Distribution Width 15.6 % (11.5-14.5)
[2017-06-25] MEDS ORDERED: 0.9 % Sodium Chloride 1,000 ML IVC ONE ×2 (05:26→11:52)
[2017-06-25] MEDS ORDERED: 0.9 % Sodium Chloride 1,000 ML ONE (05:27)
[2017-06-25 07:11] LABS: Calcium 8.6 mg/dL (8.6-10.3); Potassium 4.7 mEq/L (3.5-5.1)
--- NOTE | 2017-06-25 07:26 | Electrocardiograph Report ---
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
--- NOTE | 2017-06-25 09:29 | Internal Med Progress Note ---
<Nabeel Be - Last Filed: 06/25/17 15:09> Date of Encounter: 06/25/17 Time of Encounter: 08:45 - Assessment and plan (1) Acute aspiration pneumonia Current Visit: Yes Status: Acute Assessment and plan: Concern for aspiration pneumonia with new consolidation in right lung base on CXR from 06/24/17 compared to 06/22/17. Started on Cefepime and Vancomycin, these were, switched to Unsyn Q6H. Evaluated by speech, modified diet placed and barium swallow study ordered. Concerned for sepsis presentation with elevated WBC, hypotension. Lactic acid ordered- normal and IVFs given. Continuing to monitor vitals and labs. (2) DVT (deep venous thrombosis) Current Visit: Yes Status: Acute Assessment and plan: Pt with chronic DVT of L leg. Currently on Eliquis - changed to heparin drip while inpatient, evaluated by heme- can restart Eliquis pending renal function stability. CTA neg for PE Qualifiers: DVT location: lower extremity Affected thrombotic vein of extremity: popliteal Chronicity: chronic Laterality: left Qualified Code(s): I82.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 (3) Lower extremity edema Current Visit: Yes Status: Chronic Assessment and plan: Related to prior DVT. (4) CAD (coronary artery disease) Current Visit: No Status: Chronic Assessment and plan: Chronic issue. Continue same medications. Qualifiers: Coronary Disease-Associated Artery/Lesion type: three affiliated artery [place] vs. transplanted heart: three affiliated heart Associated angina: without angina Qualified Code(s): I25.10 - Atherosclerotic heart disease of three affiliated coronary artery without angina pectoris (5) Hypertension Current Visit: Yes Status: Chronic Assessment and plan: Previously controlled, hypotensive since diagnosis of pneumonia. BP 80s/50s. Cautious use of beta graciela; may need to temporarily hold. Discontinue lasix. Given 1L bolus of NS, will recheck BP and consider maintenance IVFs. Qualifiers: Hypertension type: essential hypertension Qualified Code(s): I10 - Essential (primary) hypertension (6) GERD (gastroesophageal reflux disease) Current Visit: No Status: Chronic Assessment and plan: Chronic issue. Qualifiers: Esophagitis presence: esophagitis presence not specified Qualified Code(s) : K21.9 - Gastro-esophageal reflux disease without esophagitis (7) Hypothyroid Current Visit: No Status: Chronic Assessment and plan: Continue home Synthroid Qualifiers: Hypothyroidism type: acquired Qualified Code(s): E03.9 - Hypothyroidism, unspecified (8) Rheumatoid arthritis Current Visit: No Status: Chronic Assessment and plan: Chronic issue Qualifiers: Rheumatoid arthritis location: multiple sites Rheumatoid factor presence: unspecified presence Qualified Code(s): M06.9 - Rheumatoid arthritis, unspecified (9) Chronic pain Current Visit: Yes Status: Chronic Assessment and plan: On multiple pain meds. Defer to PCP. Oxycodone discontinued due to hypoxic episode last night. Restarting pain medication at a lower dose, continue to monitor for sedation. Qualifiers: Chronic pain type: chronic pain syndrome Qualified Code(s): G89.4 - Chronic pain syndrome (10) GREG (acute kidney injury) Current Visit: No Status: Acute Assessment and plan: Cr continues to rise; 1.04->1.39->1.64. Patient started on Vancomycin last night due to acute aspiration pneumonia. Also on lasix 40mg PO daily. Cautious with these medication that can worsening kidney function. update: discontinued lasix and vanc. - Time Spent With Patient less than 15 minutes - Subjective Interval history: Patient and family note Ms. Nicolas is doing much better this morning compared to last night. Overnight events of hypoxia, found to have RLL pneumonia and started on antibiotics and BiPAP. Patient currently on 5LMP via high flow nasal cannula with saturations in the upper 90s. Patient notes pain with deep inspirations. Tmax overnight of 100.7F and WBC elevated today from 10.5 to 16.9. Also noted worsening Cr at 1.64. - Constitutional Vitals: Temp Pulse Resp BP Pulse Ox 100.5 F H 92 19 86/50 97 06/25/17 08:13 06/25/17 08:13 06/25/17 08:13 06/25/17 08:13 06/25/17 08:13 General appearance: Present: A&O X 3, answers questions appropriately - Head Head exam: Present: atraumatic, normocephalic - Eye Eye exam: Present: EOMI, conjuntiva pink - ENT ENT exam: Present: mucous membranes moist - Respiratory Respiratory exam: Present: rhonchi (diffuse). Absent: stridor, wheezes - Cardiovascular Cardiovascular exam: Present: tachycardia. Absent: diastolic murmur, systolic murmur - GI/Abdominal GI/Abdominal exam: Present: soft. Absent: tenderness - Extremities Exam Extremities exam: Present: warm. Absent: tenderness - Neurological Exam Neurological exam: Present: alert - Skin Skin exam: Present: dry, warm. Absent: cyanosis Internal Medicine: Result - Labs CBC & Chem 7: 06/25/17 04:56 06/25/17 06:44 Labs: Short CBC 06/25/17 Range/Units 04:56 WBC 16.9 H D (4.3-11.1) K/mcL Hgb 10.4 L (11.5-15.4) g/dL Hct 33.6 L (35.3-44.9) % Plt Count 314 (140-400) K/mcL BMP 06/25/17 06:44 Sodium 137 Potassium 4.7 Chloride 108 H Carbon Dioxide 23 BUN 29 H Creatinine 1.64 H Glucose 130 H Calcium 8.6 - ABG Interpretation ABG results: ABG ABG pH 7.31 pH Units (7.32-7.45) L 06/25/17 02:03 ABG pCO2 49 mmHg (35-45) H 06/25/17 02:03 ABG pO2 76 mmHg (85-104) L 06/25/17 02:03 ABG O2 Saturation 93 % (95-98) L 06/25/17 02:03 PT/INR, D-dimer PT 11.0 Seconds (9.4-12.1) 06/22/17 16:17 - Diagnostic Studies Chest x-ray Status: image reviewed by me (new consolidation on 06/24/17 noted at right lung base compared to 06/22/17.) - VTE Documentation of Mechanical Device: Graduated compression elastic hosiery Consult Discharge Plan - Plan Referrals: Van James MD [Primary Care Provider] - <Cristhian Schwab - Last Filed: 06/25/17 16:02> Date of Encounter: 06/25/17 - Assessment and plan (1) Hypercapnic respiratory failure Current Visit: Yes Status: Acute Assessment and plan: Improving at this time. Qualifiers: Chronicity: acute Qualified Code(s): J96.02 - Acute respiratory failure with hypercapnia (2) Sepsis Current Visit: Yes Status: Acute Qualifiers: Sepsis type: sepsis due to unspecified organism Qualified Code(s): A41.9 - Sepsis, unspecified organism (3) Pneumonia Current Visit: Yes Status: Acute Qualifiers: Pneumonia type: aspiration pneumonia Aspiration pneumonia type: due to gastric secretions Laterality: right Lung location: lower lobe of lung Qualified Code(s): J69.0 - Pneumonitis due to inhalation of food and vomit (4) GREG (acute kidney injury) Current Visit: No Status: Acute (5) DVT (deep venous thrombosis) Current Visit: Yes Status: Acute Qualifiers: DVT location: lower extremity Affected thrombotic vein of extremity: popliteal Chronicity: chronic Laterality: left Qualified Code(s): I82.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 (6) Lower extremity edema Current Visit: Yes Status: Chronic (7) CAD (coronary artery disease) Current Visit: No Status: Chronic Qualifiers: Coronary Disease-Associated Artery/Lesion type: three affiliated artery [place] vs. transplanted heart: three affiliated heart Associated angina: without angina Qualified Code(s): I25.10 - Atherosclerotic heart disease of three affiliated coronary artery without angina pectoris (8) Hypertension Current Visit: Yes Status: Chronic Qualifiers: Hypertension type: essential hypertension Qualified Code(s): I10 - Essential (primary) hypertension (9) GERD (gastroesophageal reflux disease) Current Visit: No Status: Chronic Qualifiers: Esophagitis presence: esophagitis presence not specified Qualified Code(s) : K21.9 - Gastro-esophageal reflux disease without esophagitis (10) Hypothyroid Current Visit: No Status: Chronic Qualifiers: Hypothyroidism type: acquired Qualified Code(s): E03.9 - Hypothyroidism, unspecified (11) Rheumatoid arthritis Current Visit: No Status: Chronic Qualifiers: Rheumatoid arthritis location: multiple sites Rheumatoid factor presence: unspecified presence Qualified Code(s): M06.9 - Rheumatoid arthritis, unspecified (12) Chronic pain Current Visit: Yes Status: Chronic Qualifiers: Chronic pain type: chronic pain syndrome Qualified Code(s): G89.4 - Chronic pain syndrome - Time Spent With Patient My time was 35min - Constitutional Vitals: Temp Pulse Resp BP Pulse Ox 99.9 F H 109 17 86/50 100 06/25/17 12:09 06/25/17 12:09 06/25/17 15:35 06/25/17 08:13 06/25/17 15:35 Internal Medicine: Result - Labs CBC & Chem 7: 06/25/17 04:56 06/25/17 06:44 Labs: Short CBC 06/25/17 Range/Units 04:56 WBC 16.9 H D (4.3-11.1) K/mcL Hgb 10.4 L (11.5-15.4) g/dL Hct 33.6 L (35.3-44.9) % Plt Count 314 (140-400) K/mcL BMP 06/25/17 06:44 Sodium 137 Potassium 4.7 Chloride 108 H Carbon Dioxide 23 BUN 29 H Creatinine 1.64 H Glucose 130 H Calcium 8.6 - ABG Interpretation ABG results: ABG ABG pH 7.31 pH Units (7.32-7.45) L 06/25/17 02:03 ABG pCO2 49 mmHg (35-45) H 06/25/17 02:03 ABG pO2 76 mmHg (85-104) L 06/25/17 02:03 ABG O2 Saturation 93 % (95-98) L 06/25/17 02:03 PT/INR, D-dimer PT 11.0 Seconds (9.4-12.1) 06/22/17 16:17 - Impressions Impressions Videofluoroscopic Swallow 06/25/17 08:55 IMPRESSION: Flash penetration seen only with thin liquids. Swallowing mechanism otherwise within normal limits without evidence of aspiration. Please see separate speech pathology report for full discussion of findings and recommendations. D/ / Ky Kay MD / Ky Kay MD Interpreting Provider: Ky Kay MD - Attending Attestation I examined this patient and my medical decision-making was reviewed with the Resident Physician on 06/25/17. I agree with the documented findings, disposition and treatment plan as described except to the extent set forth below. Ms Nicolas is currently admitted for possible new DVT and now new resp failure and asp pneumonia. She remains moderate to high risk due to potential for worsening clinical status. Ms Nicolas was somnolent last evening and found to be hypercarbic. Improved with bipap. Also now found to have what appears to be aspiration pneumonia. She is more alert now. Family at bedside. WBC now elevated and BP low. Exam Alert Comfortable at this time Mucus membranes dry Heart reg and tachy Lungs with wheeze and rhonchi Abd soft I/P 1. Sepsis related to aspiration pneumonia - fluids given. Blood cx ordered. On IV abx 2. Asp pneumonia - Unasyn. Speech eval 3. Chronic pain - meds held last night. Will restart at lower dose as she is high risk for withdrawal. Further diagnoses and plan as above. Pt now placed in inpatient status due to hypercapnic resp failure, pneumonia and sepsis.
--- NOTE | 2017-06-25 14:03 | Oncology Inp Progress Note ---
<Donna Wills Noemy - Last Filed: 06/25/17 17:59> Date of Encounter: 06/25/17 Time of Encounter: 11:45 (1) DVT (deep venous thrombosis) Current Visit: Yes Status: Acute Assessment and plan: Final doppler results shows: Right lower extremity: normal superficial and deep exam. Lower extremity abnormal deep exam: left popliteal vein and gastrocnemius vein demonstrates chronic thrombosis. Lower extremity abnormal superficial exam: left lesser saphenous vein demonstrates chronic thrombosis. Currently on heparin gtt. She had tried in the past-lovenox, pradaxa, coumadin, xarelto-recently on eliquis 5mg BID. Given final doppler results which show chronic thrombosis and no acute findings , she may continue eliquis, pending renal function stability. Continue to monitor renal function. Would also recommend patient re-establish with nephrology which may be done on outpatient basis if not needed during hospital stay. No dosage adjustment is recommended by the regulatory law specialist for any degree of renal impairment, however, Eliquis is not recommended in severe renal impairment or with serum creatinine >2.5 or GFR<25. Overnight, she developed hypoxia/fever, CXR concerning for aspiration pneumonia , treatment with ATB started per primary team along with speech eval. Discussed doppler findings and plan with patient and patients family at bedside , answered all questions to the best of my ability. Will plan to arrange follow up with Dr. Peralta. Qualifiers: DVT location: lower extremity Affected thrombotic vein of extremity: popliteal Chronicity: chronic Laterality: left Qualified Code(s): I82.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 (2) Breast cancer, left Current Visit: No Status: Acute Assessment and plan: status post lumpectomy and 2011, she received adjuvant hormone therapy with tamoxifen which was switched to letrozole and stopped in 2014 due to recurrent DVT. Most recent mammogram on 11/03/2016 benign, category 2. Please refer to Dr. Peralta's attestation below for further details Qualifiers: Qualified Code(s): C50.912 - Malignant neoplasm of unspecified site of left female breast Oncology: Subj Interval history: Ms. Nicolas is resting comfortably, currently on 4 L O2 per nasal cannula. Family at bedside. She had an eventful night and was placed on Bipap for hypoxia , spiked fever, found to have pneumonia with potential aspiration. - Constitutional Vitals: Vital Signs Temp Pulse Resp BP Pulse Ox 06/25/17 12:09 99.9 F H 109 17 100 06/25/17 11:44 99.9 F H 109 17 100 06/25/17 11:43 19 97 06/25/17 08:13 100.5 F H 92 19 86/50 97 06/25/17 04:35 90 86/55 06/25/17 04:32 99.3 F 90 17 88/53 96 06/25/17 03:31 15 96 06/25/17 00:06 12 96 06/24/17 23:52 12 95 06/24/17 23:23 99.1 F 83 16 92/54 95 Intake and Output 06/24/17 06/25/17 06/25/17 23:59 07:59 15:59 Intake Total 520 / 520 0 / 0 Output Total 950 / 950 Balance -430 / -430 0 / 0 Intake: IV Fluids 520 / 520 Heparin 25,000 UNIT/500 ML D5W 500 / 500 25,000 unit In 500 ml @ 14 UNIT /KG/HR 25.655 mls/hr IVC . [id number] [facility] Rx#:[id number] Maxipime 2,000 MG In Water for 20 / 20 inj. (sterile) 20 ML @ 300 mls/ hr IVPB Q12H [facility] Rx#:[id number] Oral 0 / 0 Output: Catheter 950 / 950 2-way Urethral 450 / 450 Other: Meal Lunch Percent of Meal Consumed 0% Weight 92.6 kg Blood Glucose* 142 Patient Weight 06/25/17 23:59 Weight 92.6 kg General appearance: cooperative, no acute distress, no febrile - Head Head exam: Present: atraumatic - ENT ENT exam: Present: mucous membranes moist - Respiratory Respiratory exam: Present: decreased breath sounds, CTAB. Absent: respiratory distress - Cardiovascular Cardiovascular exam: Present: RRR, +S1, +S2 - GI/Abdominal GI/Abdominal exam: Present: normal bowel sounds, soft, tenderness. Absent: guarding, rebound - Extremities Exam Extremities exam: Present: calf tenderness Additional comments: right calf tenderness - Neurological Exam Neurological exam: Present: alert, oriented X3, no focal deficits, strengths equal and symetr throughout - Psychiatric Psychiatric exam: Present: normal affect, normal mood - Skin Skin exam: Present: normal color, warm Oncology: Obj Data - Labs CBC & Chem 7: 06/25/17 04:56 06/25/17 06:44 - ABG Interpretation ABG results: ABG ABG pH 7.31 pH Units (7.32-7.45) L 06/25/17 02:03 ABG pCO2 49 mmHg (35-45) H 06/25/17 02:03 ABG pO2 76 mmHg (85-104) L 06/25/17 02:03 ABG O2 Saturation 93 % (95-98) L 06/25/17 02:03 PT/INR, D-dimer PT 11.0 Seconds (9.4-12.1) 06/22/17 16:17 Consult Discharge Plan - Plan Referrals: Van James MD [Primary Care Provider] - <Isacc Peralta S - Last Filed: 06/26/17 16:43> Date of Encounter: 06/26/17 - Constitutional Vitals: Vital Signs Temp Pulse Resp BP Pulse Ox 06/26/17 15:58 99.9 F H 92 18 135/81 100 06/26/17 11:36 99.8 F H 93 17 119/68 93 06/26/17 11:09 18 95 06/26/17 07:57 18 95 06/26/17 07:51 99.7 F H 94 18 139/86 95 06/26/17 05:20 98.9 F 91 16 121/78 94 06/26/17 03:32 16 95 06/25/17 23:48 18 95 06/25/17 23:16 98.9 F 86 17 109/67 94 06/25/17 20:02 96 06/25/17 19:49 18 93 06/25/17 19:15 98.8 F 90 19 99/70 96 06/25/17 18:13 97 17 99/63 99 06/25/17 17:35 98.6 F Intake and Output 06/26/17 06/26/17 06/26/17 07:59 15:59 23:59 Intake Total 400 / 400 320 / 320 Output Total 1250 / 1250 500 / 500 Balance -850 / -850 -180 / -180 Intake: IV Fluids 400 / 400 200 / 200 Heparin 25,000 UNIT/500 ML D5W 300 / 300 200 / 200 25,000 unit In 500 ml @ 14 UNIT /KG/HR 25.928 mls/hr IVC . [id number] [facility] Rx#:[id number] Unasyn 3,000 MG In 0.9 % Sodium 100 / 100 Chloride (Mini-Bag +) 100 ML @ 200 mls/hr IVPB Q6HR [facility] Rx#: [id number] Oral 120 / 120 Output: Catheter 1250 / 1250 500 / 500 Other: Meal Lunch Percent of Meal Consumed 0% Weight 93.1 kg Blood Glucose* 148 131 Patient Weight 06/26/17 23:59 Weight 93.1 kg Oncology: Obj Data - Labs CBC & Chem 7: 06/26/17 06:17 06/26/17 06:17 Labs: Laboratory Results - last 24 hr 06/25/17 06/26/17 06/26/17 16:30 01:00 06:17 WBC 10.6 RBC 3.10 L Hgb 9.0 L Hct 29.2 L MCV 94.2 MCH 29.0 MCHC 30.8 L RDW 15.8 H Plt Count 278 MPV 10.8 Immature Gran % 0.7 Seg Neutrophils % 88.5 Lymphocytes % 8.6 Monocytes % 0.9 Eosinophils % 1.2 Basophils % 0.1 Neutrophils # 9.4 H Lymphocytes # 0.9 Monocytes # 0.1 Eosinophils # 0.1 Basophils # 0.0 PT INR APTT 65.5 H D Sodium Potassium Chloride Carbon Dioxide BUN Creatinine Est GFR ( Amer) Est GFR (Non-Af Amer) BUN/Creatinine Ratio Glucose POC Glucose 123 H Calculated Osmolality Calcium 06/26/17 06/26/17 06/26/17 06:17 06:17 07:50 WBC RBC Hgb Hct MCV MCH MCHC RDW Plt Count MPV Immature Gran % Seg Neutrophils % Lymphocytes % Monocytes % Eosinophils % Basophils % Neutrophils # Lymphocytes # Monocytes # Eosinophils # Basophils # PT 13.6 H INR 1.3 APTT 57.3 H 52.6 H Sodium 143 Potassium 4.4 Chloride 109 H Carbon Dioxide 29 BUN 22 H Creatinine 0.88 Est GFR ( Amer) > 60 Est GFR (Non-Af Amer) > 60 BUN/Creatinine Ratio 25 Glucose 121 H POC Glucose Calculated Osmolality 301 H Calcium 9.0 06/26/17 14:05 WBC RBC Hgb Hct MCV MCH MCHC RDW Plt Count MPV Immature Gran % Seg Neutrophils % Lymphocytes % Monocytes % Eosinophils % Basophils % Neutrophils # Lymphocytes # Monocytes # Eosinophils # Basophils # PT INR APTT 54.2 H Sodium Potassium Chloride Carbon Dioxide BUN Creatinine Est GFR ( Amer) Est GFR (Non-Af Amer) BUN/Creatinine Ratio Glucose POC Glucose Calculated Osmolality Calcium - ABG Interpretation ABG results: ABG ABG pH 7.31 pH Units (7.32-7.45) L 06/25/17 02:03 ABG pCO2 49 mmHg (35-45) H 06/25/17 02:03 ABG pO2 76 mmHg (85-104) L 06/25/17 02:03 ABG O2 Saturation 93 % (95-98) L 06/25/17 02:03 PT/INR, D-dimer PT 13.6 Seconds (9.4-12.1) H 06/26/17 06:17 - Attending Attestation I examined this patient and my medical decision-making was reviewed with the Advanced Practice Nurse. I agree with the documented findings, disposition and treatment plan as described except to the extent set forth below. 1. Admitted with leg pain and swelling. Venous Doppler showed chronic superficial and DVT area d-dimer elevated at 1100 and on March her d-dimer was around 200. She has failed several anticoagulants in the past currently no evidence of PE and will continue Elequis 5 mg by mouth twice a day. If necessary may consider a higher dose 10 mg twice a day. Her leg pain has improved since admission 2. Chronic anemia. SUJIT was positive in the past and will repeat that.
[2017-06-25] MEDS: BuPROPion SR (12 HR) 150 MG TABLET PO SCH (15:10)
[2017-06-25] MEDS: Aspirin 81 MG TAB.CHEW PO SCH (15:12)
[2017-06-25] MEDS: Cholecalciferol (D-3) 1,000 UNIT TABLET PO SCH (15:14)
[2017-06-25] MEDS: Isosorbide MONOnitrate (24 HR) 30 MG TAB.ER.24H PO SCH (15:15)
[2017-06-25] MEDS: Metoprolol XL (24 HR) Succ 50 MG TAB.ER.24H PO SCH (15:16)
[2017-06-25] MEDS: cloNIDine HCl 0.1 MG TABLET PO SCH ×2 (15:16→20:32)
[2017-06-25] MEDS: Sennosides/Docusate Sodium TABLET PO SCH ×2 (15:21→20:30)
[2017-06-25] MEDS ORDERED: *HR* OxyCODONE ER (12 HR) 40 MG TABLET PO PRN (15:39)
[2017-06-25] MEDS: Heparin 25,000 UNIT/500 ML D5W 25,000 UNIT/500 ML BAG IVC SCH (17:00)
[2017-06-25] MEDS ORDERED: Acetaminophen 325 MG TABLET PO ONE (17:18)
[2017-06-25] MEDS ORDERED: 0.9 % Sodium Chloride 500 ML IVC PRN (17:19)
[2017-06-25] MEDS: Ampicillin/Sulbactam 3,000 MG in 0.9 % Sodium Chloride Mini Bag 100 ML IVPB SCH ×2 (17:52→23:27)
[2017-06-25] MEDS: *HR* OxyCODONE ER (12 HR) 40 MG TABLET PO SCH (20:30)
[2017-06-25] MEDS: traZODone 50 MG TABLET PO SCH (20:32)
[2017-06-25] MEDS: rOPINIRole 1 MG TABLET PO SCH (20:32)
[2017-06-26] MEDS: Ipratropium/Albuterol Neb 3 ML IH SCH ×5 (03:32→20:33)
[2017-06-26] MEDS: *HR* OxyCODONE ER (12 HR) 40 MG TABLET PO SCH ×2 (06:03→17:40)
[2017-06-26] MEDS: Ampicillin/Sulbactam 3,000 MG in 0.9 % Sodium Chloride Mini Bag 100 ML IVPB SCH ×3 (06:11→17:40)
[2017-06-26 06:39] LABS: Basophils % 0.1 %; Eosinophils # 0.1 K/mcL (0.0-0.6); Eosinophils % 1.2 %; Hematocrit 29.2 % (35.3-44.9); Immature Granulocytes % 0.7 % (0-4); Lymphocytes # 0.9 K/mcL (0.6-4.6); Lymphocytes % 8.6 %; Mean Corpuscular HGB Conc 30.8 g/dL (31.6-35.5); Mean Corpuscular Volume 94.2 fL (83.0-100.0); Mean Platelet Volume 10.8 fL (9.4-12.4); Monocytes # 0.1 K/mcL (0.0-1.3); Monocytes % 0.9 %; Neutrophils # 9.4 K/mcL (1.6-8.9); Platelet Count 278 K/mcL (140-400); Red Cell Distribution Width 15.8 % (11.5-14.5); Segmented Neutrophils % 88.5 %
[2017-06-26 06:49] LABS: INR 1.3; Prothrombin Time 13.6 Seconds (9.4-12.1)
[2017-06-26 06:51] LABS: Activated Partial Thrombo Time 57.3 Seconds (26.0-36.0)
[2017-06-26 06:55] LABS: BUN/Creatinine Ratio 25 (6-26); Blood Urea Nitrogen 22 mg/dL (6-20); Carbon Dioxide 29 mEq/L (23-29); Chloride 109 mEq/L (98-107); Glucose 121 mg/dL (70-105); Osmolality,Calculated 301 (280-300); Potassium 4.4 mEq/L (3.5-5.1); Sodium 143 mEq/L (136-145); eGFR For African Americans > 60 (> 60); eGFR For Non-African Americans > 60 (> 60)
[2017-06-26] MEDS: cloNIDine HCl 0.1 MG TABLET PO SCH ×3 (08:14→20:24)
[2017-06-26] MEDS: Sennosides/Docusate Sodium TABLET PO SCH ×2 (08:14→20:24)
[2017-06-26] MEDS: Cholecalciferol (D-3) 1,000 UNIT TABLET PO SCH (08:14)
[2017-06-26] MEDS: Metoprolol XL (24 HR) Succ 50 MG TAB.ER.24H PO SCH (08:15)
[2017-06-26] MEDS: Isosorbide MONOnitrate (24 HR) 30 MG TAB.ER.24H PO SCH (08:15)
[2017-06-26] MEDS: Aspirin 81 MG TAB.CHEW PO SCH (08:15)
[2017-06-26] MEDS: BuPROPion SR (12 HR) 150 MG TABLET PO SCH (08:17)
[2017-06-26] MEDS: clonazePAM 1 MG TABLET PO PRN (08:21)
--- NOTE | 2017-06-26 09:41 | Internal Med Progress Note ---
<Nabeel Be - Last Filed: 06/26/17 11:49> Date of Encounter: 06/26/17 Time of Encounter: 11:25 - Assessment and plan (1) Acute aspiration pneumonia Current Visit: Yes Status: Acute Assessment and plan: Concern for aspiration pneumonia with new consolidation in right lung base on CXR from 06/24/17 compared to 06/22/17. Started on Cefepime and Vancomycin, these were, switched to Unsyn Q6H. Evaluated by speech, modified diet placed. Grossly normal barium swallow study. Previously concerned for sepsis presentation with elevated WBC, hypotension. Lactic acid ordered- normal and IVFs given. Labs and vitals continue to improve. (2) DVT (deep venous thrombosis) Current Visit: Yes Status: Acute Assessment and plan: Pt with chronic DVT of L leg. Previously on Eliquis - changed to heparin drip while inpatient, evaluated by heme- can restart Eliquis at discharge. CTA neg for PE. Qualifiers: DVT location: lower extremity Affected thrombotic vein of extremity: popliteal Chronicity: chronic Laterality: left Qualified Code(s): I82.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 (3) Lower extremity edema Current Visit: Yes Status: Chronic Assessment and plan: Related to prior DVT. (4) CAD (coronary artery disease) Current Visit: No Status: Chronic Assessment and plan: Chronic issue. Continue same medications. Qualifiers: Coronary Disease-Associated Artery/Lesion type: [place] artery [place] vs. transplanted heart: [place] heart Associated angina: without angina Qualified Code(s): I25.10 - Atherosclerotic heart disease of [place] coronary artery without angina pectoris (5) Hypertension Current Visit: Yes Status: Chronic Assessment and plan: Previously controlled, hypotensive after hypoxia/diagnosis of pneumonia. BP 80s/ 50s. Responded well to IVFs. Hold parameters added to HTN medication Discontinued lasix. Qualifiers: Hypertension type: essential hypertension Qualified Code(s): I10 - Essential (primary) hypertension (6) GERD (gastroesophageal reflux disease) Current Visit: No Status: Chronic Assessment and plan: Chronic issue. Qualifiers: Esophagitis presence: esophagitis presence not specified Qualified Code(s) : K21.9 - Gastro-esophageal reflux disease without esophagitis (7) Hypothyroid Current Visit: No Status: Chronic Assessment and plan: Continue home Synthroid Qualifiers: Hypothyroidism type: acquired Qualified Code(s): E03.9 - Hypothyroidism, unspecified (8) Rheumatoid arthritis Current Visit: No Status: Chronic Assessment and plan: Chronic issue Qualifiers: Rheumatoid arthritis location: multiple sites Rheumatoid factor presence: unspecified presence Qualified Code(s): M06.9 - Rheumatoid arthritis, unspecified (9) Chronic pain Current Visit: Yes Status: Chronic Assessment and plan: On multiple pain meds. Defer to PCP. Oxycodone decreased in dose and frequently. Qualifiers: Chronic pain type: chronic pain syndrome Qualified Code(s): G89.4 - Chronic pain syndrome (10) GREG (acute kidney injury) Current Visit: No Status: Acute Assessment and plan: Cr returned to normal; 1.04->1.39->1.64->0.88 Dc'd laxis and vancomycin Prn fluid bolus yesterday. - Time Spent With Patient less than 15 minutes - Subjective Interval history: Patient and family note Ms. Nicolas continues to improve. Denies dyspnea. Currently receiving breathing treatment. Continues to have elevated temps 99F. Kidney function returned to normal. - Constitutional Vitals: Temp Pulse Resp BP Pulse Ox 99.7 F H 94 18 139/86 95 06/26/17 07:51 06/26/17 07:51 06/26/17 07:57 06/26/17 07:51 06/26/17 07:57 General appearance: Present: cooperative, A&O X 3, no acute distress, answers questions appropriately - Head Head exam: Present: atraumatic, normocephalic - Eye Eye exam: Present: EOMI - Neck Neck exam general surgery: Present: supple, trachea midline. Absent: lymphadenopathy - Respiratory Respiratory exam: Present: decreased breath sounds, CTAB. Absent: accessory muscle use, rales, rhonchi, wheezes - Cardiovascular Cardiovascular exam: Present: +S1, +S2, tachycardia. Absent: diastolic murmur, gallop, rubs, systolic murmur - GI/Abdominal GI/Abdominal exam: Present: normal bowel sounds, soft, no peritoneal signs. Absent: distended, tenderness - Extremities Exam Extremities exam: Present: pedal edema, tenderness, warm. Absent: calf tenderness, cyanotic - Neurological Exam Neurological exam: Present: alert, oriented X3, no focal deficits. Absent: facial droop, speech deficit - Skin Skin exam: Present: dry, intact Internal Medicine: Result - Labs CBC & Chem 7: 06/26/17 06:17 06/26/17 06:17 Labs: Short CBC 06/26/17 Range/Units 06:17 WBC 10.6 (4.3-11.1) K/mcL Hgb 9.0 L (11.5-15.4) g/dL Hct 29.2 L (35.3-44.9) % Plt Count 278 (140-400) K/mcL Neutrophils # 9.4 H (1.6-8.9) K/mcL BMP 06/26/17 06:17 Sodium 143 Potassium 4.4 Chloride 109 H Carbon Dioxide 29 BUN 22 H Creatinine 0.88 Glucose 121 H Calcium 9.0 - ABG Interpretation ABG results: ABG ABG pH 7.31 pH Units (7.32-7.45) L 06/25/17 02:03 ABG pCO2 49 mmHg (35-45) H 06/25/17 02:03 ABG pO2 76 mmHg (85-104) L 06/25/17 02:03 ABG O2 Saturation 93 % (95-98) L 06/25/17 02:03 PT/INR, D-dimer PT 13.6 Seconds (9.4-12.1) H 06/26/17 06:17 - Impressions Impressions Videofluoroscopic Swallow 06/25/17 08:55 IMPRESSION: Flash penetration seen only with thin liquids. Swallowing mechanism otherwise within normal limits without evidence of aspiration. Please see separate speech pathology report for full discussion of findings and recommendations. D/ / Ky Kay MD / Ky Kay MD Interpreting Provider: Ky Kay MD - VTE Documentation of Mechanical Device: Graduated compression elastic hosiery Consult Discharge Plan - Plan Referrals: Van James MD [Primary Care Provider] - <Nick Bowie H - Last Filed: 06/26/17 13:18> Date of Encounter: 06/26/17 - Constitutional Vitals: Temp Pulse Resp BP Pulse Ox 99.8 F H 93 17 119/68 93 06/26/17 11:36 06/26/17 11:36 06/26/17 11:36 06/26/17 11:36 06/26/17 11:36 Internal Medicine: Result - Labs CBC & Chem 7: 06/26/17 06:17 06/26/17 06:17 Labs: Short CBC 06/26/17 Range/Units 06:17 WBC 10.6 (4.3-11.1) K/mcL Hgb 9.0 L (11.5-15.4) g/dL Hct 29.2 L (35.3-44.9) % Plt Count 278 (140-400) K/mcL Neutrophils # 9.4 H (1.6-8.9) K/mcL BMP 06/26/17 06:17 Sodium 143 Potassium 4.4 Chloride 109 H Carbon Dioxide 29 BUN 22 H Creatinine 0.88 Glucose 121 H Calcium 9.0 - ABG Interpretation ABG results: ABG ABG pH 7.31 pH Units (7.32-7.45) L 06/25/17 02:03 ABG pCO2 49 mmHg (35-45) H 06/25/17 02:03 ABG pO2 76 mmHg (85-104) L 06/25/17 02:03 ABG O2 Saturation 93 % (95-98) L 06/25/17 02:03 PT/INR, D-dimer PT 13.6 Seconds (9.4-12.1) H 06/26/17 06:17 - Impressions Impressions Videofluoroscopic Swallow 06/25/17 08:55 IMPRESSION: Flash penetration seen only with thin liquids. Swallowing mechanism otherwise within normal limits without evidence of aspiration. Please see separate speech pathology report for full discussion of findings and recommendations. D/ / Ky Kay MD / Ky Kay MD Interpreting Provider: Ky Kay MD - Attending Attestation Sepsis secondary to aspiration pneumonia present upon admission Continue Unasyn day #2 hold Methotrexate I examined this patient and my medical decision-making was reviewed with the Resident Physician. I agree with the documented findings, disposition and treatment plan as described except to the extent set forth below.
[2017-06-26] MEDS: Heparin 25,000 UNIT/500 ML D5W 25,000 UNIT/500 ML BAG IVC SCH (10:03)
[2017-06-26] MEDS: rOPINIRole 1 MG TABLET PO SCH (20:23)
[2017-06-26] MEDS: Nystatin SUSP 5 ML UD.LIQ PO SCH (20:24)
[2017-06-26] MEDS: traZODone 50 MG TABLET PO SCH (20:24)
[2017-06-27] MEDS: Ipratropium/Albuterol Neb 3 ML IH SCH ×7 (00:19→23:50)
[2017-06-27] MEDS: Ampicillin/Sulbactam 3,000 MG in 0.9 % Sodium Chloride Mini Bag 100 ML IVPB SCH ×4 (00:22→17:01)
[2017-06-27] MEDS: Heparin 25,000 UNIT/500 ML D5W 25,000 UNIT/500 ML BAG IVC SCH (02:42)
[2017-06-27] MEDS: *HR* OxyCODONE ER (12 HR) 40 MG TABLET PO SCH ×2 (05:05→17:01)
[2017-06-27] MEDS: Nystatin SUSP 5 ML UD.LIQ PO SCH ×4 (05:06→22:30)
[2017-06-27 06:10] LABS: Basophils % 0.1 %; Eosinophils # 0.2 K/mcL (0.0-0.6); Eosinophils % 2.5 %; Hemoglobin 9.3 g/dL (11.5-15.4); Immature Granulocytes % 0.7 % (0-4); Lymphocytes % 11.8 %; Mean Corpuscular Hemoglobin 29.3 pg (28.0-33.3); Mean Corpuscular Volume 94.6 fL (83.0-100.0); Mean Platelet Volume 10.9 fL (9.4-12.4); Monocytes # 0.1 K/mcL (0.0-1.3); Neutrophils # 7.1 K/mcL (1.6-8.9); Platelet Count 284 K/mcL (140-400); Red Blood Count 3.17 M/mcL (3.82-4.97); Red Cell Distribution Width 15.5 % (11.5-14.5); Segmented Neutrophils % 83.9 %
[2017-06-27 06:32] LABS: BUN/Creatinine Ratio 18 (6-26); Blood Urea Nitrogen 13 mg/dL (6-20); Calcium 9.3 mg/dL (8.6-10.3); Carbon Dioxide 29 mEq/L (23-29); Chloride 105 mEq/L (98-107); Glucose 119 mg/dL (70-105); Osmolality,Calculated 291 (280-300); Potassium 3.9 mEq/L (3.5-5.1); Sodium 140 mEq/L (136-145); eGFR For African Americans > 60 (> 60); eGFR For Non-African Americans > 60 (> 60)
[2017-06-27] MEDS: Sennosides/Docusate Sodium TABLET PO SCH ×2 (08:52→22:30)
[2017-06-27] MEDS: Isosorbide MONOnitrate (24 HR) 30 MG TAB.ER.24H PO SCH (08:53)
[2017-06-27] MEDS: Cholecalciferol (D-3) 1,000 UNIT TABLET PO SCH (08:53)
[2017-06-27] MEDS: Aspirin 81 MG TAB.CHEW PO SCH (08:53)
[2017-06-27] MEDS: cloNIDine HCl 0.1 MG TABLET PO SCH ×3 (08:53→22:30)
[2017-06-27] MEDS: Metoprolol XL (24 HR) Succ 50 MG TAB.ER.24H PO SCH (08:53)
[2017-06-27] MEDS: BuPROPion SR (12 HR) 150 MG TABLET PO SCH (08:53)
[2017-06-27] MEDS ORDERED: *HR* OxyCODONE/APAP 10/325 TABLET PO PRN (09:41)
--- NOTE | 2017-06-27 09:42 | Internal Med Progress Note ---
<Sha Muller - Last Filed: 06/27/17 09:56> Date of Encounter: 06/27/17 Time of Encounter: 09:40 - Assessment and plan (1) Acute respiratory failure with hypoxia Current Visit: No Status: Resolved Assessment and plan: Appears to be improving, likely related to aspiration pneumonia. We will attempt to wean oxygen today. Patient will be qualified for home oxygen prior to discharge. (2) Acute aspiration pneumonia Current Visit: Yes Status: Acute Assessment and plan: Patient had increased white count, work of breathing, pleuritic chest pain with new right lower lobe infiltrate. Patient appears to be improving, continue Unasyn every 6 hours. Today is antibiotic day 3 (3) DVT (deep venous thrombosis) Current Visit: Yes Status: Acute Assessment and plan: Likely chronic in nature. Hematology oncology saw the patient and recommend continuing this at home. We will transition from IV heparin to Eliquis today. Qualifiers: DVT location: lower extremity Affected thrombotic vein of extremity: popliteal Chronicity: chronic Laterality: left Qualified Code(s): I82.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 (4) Chronic pain Current Visit: No Status: Chronic Assessment and plan: Patient normally takes OxyContin extended release 80 mg every 8 hours and hydrocodone/acetaminophen 10 mg/325 as needed for breakthrough. Patient had been decreased to OxyContin 40 mg every 12 hours due to hypotension is tolerating this well. We will continue this and continue hydrocodone when necessary for breakthrough pain. Qualifiers: Chronic pain type: chronic pain syndrome Qualified Code(s): G89.4 - Chronic pain syndrome (5) GREG (acute kidney injury) Current Visit: No Status: Resolved Assessment and plan: Likely related to dehydration as well as antibiotics. Renal function has normalized at this time. - Subjective Interval history: Patient seen and examined at bedside. Patient states that she feels slightly better, still has some mild shortness of breath and some pleuritic chest pain on inspiration. His like she needs 1 more day in the hospital is concerned that if she goes home today she will come right back. She denies cough, hemoptysis. - Constitutional Vitals: Temp Pulse Resp BP Pulse Ox 98.9 F 88 16 144/83 94 06/27/17 07:21 06/27/17 07:21 06/27/17 07:37 06/27/17 07:21 06/27/17 07:37 General appearance: Present: cooperative, A&O X 3, no acute distress, answers questions appropriately - Respiratory Respiratory exam: Present: CTAB. Absent: rales, rhonchi, wheezes - Cardiovascular Cardiovascular exam: Present: RRR. Absent: gallop, rubs, systolic murmur - GI/Abdominal GI/Abdominal exam: Present: normal bowel sounds, soft. Absent: distended, tenderness - Extremities Exam Extremities exam: Present: warm Internal Medicine: Result - Labs CBC & Chem 7: 06/27/17 05:40 06/27/17 05:40 Labs: Short CBC 06/27/17 Range/Units 05:40 WBC 8.4 (4.3-11.1) K/mcL Hgb 9.3 L (11.5-15.4) g/dL Hct 30.0 L (35.3-44.9) % Plt Count 284 (140-400) K/mcL Neutrophils # 7.1 (1.6-8.9) K/mcL BMP 06/27/17 05:40 Sodium 140 Potassium 3.9 Chloride 105 Carbon Dioxide 29 BUN 13 Creatinine 0.73 Glucose 119 H Calcium 9.3 - ABG Interpretation ABG results: ABG ABG pH 7.31 pH Units (7.32-7.45) L 06/25/17 02:03 ABG pCO2 49 mmHg (35-45) H 06/25/17 02:03 ABG pO2 76 mmHg (85-104) L 06/25/17 02:03 ABG O2 Saturation 93 % (95-98) L 06/25/17 02:03 PT/INR, D-dimer PT 13.6 Seconds (9.4-12.1) H 06/26/17 06:17 - VTE Documentation of Mechanical Device: Graduated compression elastic hosiery Consult Discharge Plan - Plan Referrals: Van James MD [Primary Care Provider] - <Nick Bowie H - Last Filed: 06/27/17 16:05> Date of Encounter: 06/27/17 - Constitutional Vitals: Temp Pulse Resp BP Pulse Ox 99 F 82 16 155/90 96 06/27/17 11:07 06/27/17 11:07 06/27/17 15:31 06/27/17 11:07 06/27/17 15:31 Internal Medicine: Result - Labs CBC & Chem 7: 06/27/17 05:40 06/27/17 05:40 Labs: Short CBC 06/27/17 Range/Units 05:40 WBC 8.4 (4.3-11.1) K/mcL Hgb 9.3 L (11.5-15.4) g/dL Hct 30.0 L (35.3-44.9) % Plt Count 284 (140-400) K/mcL Neutrophils # 7.1 (1.6-8.9) K/mcL BMP 06/27/17 05:40 Sodium 140 Potassium 3.9 Chloride 105 Carbon Dioxide 29 BUN 13 Creatinine 0.73 Glucose 119 H Calcium 9.3 - ABG Interpretation ABG results: ABG ABG pH 7.31 pH Units (7.32-7.45) L 06/25/17 02:03 ABG pCO2 49 mmHg (35-45) H 06/25/17 02:03 ABG pO2 76 mmHg (85-104) L 06/25/17 02:03 ABG O2 Saturation 93 % (95-98) L 06/25/17 02:03 PT/INR, D-dimer PT 13.6 Seconds (9.4-12.1) H 06/26/17 06:17 - Attending Attestation Sepsis secondary to aspiration pneumonia present upon admission Continue Unasyn day #3 RA hold Methotrexate I examined this patient and my medical decision-making was reviewed with the Resident Physician. I agree with the documented findings, disposition and treatment plan as described except to the extent set forth below.
[2017-06-27] MEDS ORDERED: Benzonatate 100 MG CAPSULE PO PRN (10:00)
[2017-06-27] MEDS: Apixaban 5 MG TABLET PO SCH ×2 (11:37→22:30)
[2017-06-27] MEDS: traZODone 50 MG TABLET PO SCH (22:30)
[2017-06-27] MEDS: rOPINIRole 1 MG TABLET PO SCH (22:30)
[2017-06-28] MEDS: Ampicillin/Sulbactam 3,000 MG in 0.9 % Sodium Chloride Mini Bag 100 ML IVPB SCH ×3 (00:39→14:01)
[2017-06-28] MEDS: Ipratropium/Albuterol Neb 3 ML IH SCH ×4 (03:44→15:23)
[2017-06-28 05:32] LABS: Basophils % 0.3 %; Eosinophils # 0.2 K/mcL (0.0-0.6); Eosinophils % 3.6 %; Hemoglobin 9.5 g/dL (11.5-15.4); Immature Granulocytes % 0.8 % (0-4); Lymphocytes # 0.8 K/mcL (0.6-4.6); Lymphocytes % 13.7 %; Mean Corpuscular HGB Conc 31.7 g/dL (31.6-35.5); Mean Corpuscular Hemoglobin 29.3 pg (28.0-33.3); Mean Corpuscular Volume 92.6 fL (83.0-100.0); Mean Platelet Volume 10.7 fL (9.4-12.4); Monocytes # 0.1 K/mcL (0.0-1.3); Monocytes % 1.3 %; Neutrophils # 4.9 K/mcL (1.6-8.9); Platelet Count 276 K/mcL (140-400); Red Blood Count 3.24 M/mcL (3.82-4.97); Red Cell Distribution Width 15.2 % (11.5-14.5); Segmented Neutrophils % 80.3 %
[2017-06-28] MEDS: *HR* OxyCODONE ER (12 HR) 40 MG TABLET PO SCH (06:11)
[2017-06-28 06:24] LABS: BUN/Creatinine Ratio 18 (6-26); Blood Urea Nitrogen 13 mg/dL (6-20); Calcium 9.5 mg/dL (8.6-10.3); Carbon Dioxide 28 mEq/L (23-29); Chloride 104 mEq/L (98-107); Glucose 89 mg/dL (70-105); Magnesium 1.7 mg/dL (1.6-2.6); Osmolality,Calculated 292 (280-300); Potassium 3.6 mEq/L (3.5-5.1); Sodium 141 mEq/L (136-145); eGFR For African Americans > 60 (> 60); eGFR For Non-African Americans > 60 (> 60)
[2017-06-28 07:19] VITALS: BP 155/90
--- NOTE | 2017-06-28 08:23 | Discharge Summary ---
<Nabeel Be - Last Filed: 06/28/17 08:21> Date of Encounter: 06/28/17 Time of Encounter: 08:00 - Discharge Diagnosis (1) Acute respiratory failure with hypoxia Priority: Primary Status: Resolved (2) Acute aspiration pneumonia Priority: Secondary Status: Acute (3) DVT (deep venous thrombosis) Priority: Secondary Status: Acute Qualifiers: DVT location: lower extremity Affected thrombotic vein of extremity: popliteal Chronicity: chronic Laterality: left Qualified Code(s): I82.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 (4) Lower extremity edema Priority: Secondary Status: Chronic (5) CAD (coronary artery disease) Priority: Secondary Status: Chronic Qualifiers: Coronary Disease-Associated Artery/Lesion type: [place] artery [place] vs. transplanted heart: [place] heart Associated angina: without angina Qualified Code(s): I25.10 - Atherosclerotic heart disease of [place] coronary artery without angina pectoris (6) Hypertension Priority: Secondary Status: Chronic Qualifiers: Hypertension type: essential hypertension Qualified Code(s): I10 - Essential (primary) hypertension (7) GERD (gastroesophageal reflux disease) Priority: Secondary Status: Chronic Qualifiers: Esophagitis presence: esophagitis presence not specified Qualified Code(s) : K21.9 - Gastro-esophageal reflux disease without esophagitis (8) Hypothyroid Priority: Secondary Status: Chronic Qualifiers: Hypothyroidism type: acquired Qualified Code(s): E03.9 - Hypothyroidism, unspecified (9) Rheumatoid arthritis Priority: Secondary Status: Chronic Qualifiers: Rheumatoid arthritis location: multiple sites Rheumatoid factor presence: unspecified presence Qualified Code(s): M06.9 - Rheumatoid arthritis, unspecified (10) Chronic pain Priority: Secondary Status: Chronic Qualifiers: Chronic pain type: chronic pain syndrome Qualified Code(s): G89.4 - Chronic pain syndrome (11) GREG (acute kidney injury) Priority: Secondary Status: Resolved - Discharge Medications Prescriptions: Amoxicillin/Clavulanate [Augmentin] 500 mg PO BIDWM #6 tablet Home Medications: Abatacept/Maltose [Orencia (For Outpatient Infusion)] 800 mg IV Q4W 09/28/15 [ History] Aspirin 81 mg PO DAILY 09/28/15 [History] Leucovorin Calcium [Wellcovorin] 5 mg PO SA 09/28/15 [History] Methotrexate [Otrexup] 20 mg PO SA 09/28/15 [History] Metoprolol XL (24 HR) Succ [Toprol Xl] 50 mg PO DAILY 09/28/15 [History] Nitroglycerin [Nitrostat] 0.4 mg SL Q5M PRN 09/28/15 [History] Omeprazole [PriLOSEC] 20 mg PO BID 09/28/15 [History] Oxycodone HCl/Acetaminophen [Percocet 10-325 mg Tablet] 1 tab PO Q6H 09/28/15 [ History] BuPROPion SR (12 HR) [Wellbutrin SR] 450 mg PO DAILY 09/26/16 [History] Cholecalciferol (D-3) [Vitamin D] 5,000 unit PO DAILY 09/26/16 [History] Gabapentin [Neurontin] 600 mg PO HS 09/26/16 [History] Isosorbide MONOnitrate (24 HR) [Imdur] 30 mg PO DAILY 09/26/16 [History] Nitroglycerin [Nitrolingual] 1 - 2 spr TL AD PRN 09/26/16 [History] Oxybutynin [Ditropan] 5 mg PO TID 09/26/16 [History] Potassium Chloride 10 meq PO DAILY 09/26/16 [History] cloNIDine HCl [CloNIDine HCl] 0.1 mg PO TID 09/26/16 [History] clonazePAM [Klonopin] 1 mg PO TID 09/26/16 [History] rOPINIRole [Requip] 1 mg PO HS 09/26/16 [History] traZODone [TraZODone] 50 - 100 mg PO HS 09/26/16 [History] Levothyroxine [Synthroid] 450 mcg PO QAM 06/22/17 [History] Losartan/Hydrochlorothiazide [Hyzaar 100-25 Tablet] 1 each PO DAILY 06/22/17 [ History] Apixaban [Eliquis] 5 mg PO BID 06/27/17 [History] Amoxicillin/Clavulanate [Augmentin] 500 mg PO BIDWM #6 tablet 06/28/17 [Rx] OxyCODONE ER (12 HR) [OxyCONTIN] 40 mg PO Q12H 5 Days #10 tab.er.12h 06/28/17 [ Rx] Allergies/Adverse Reactions: 3 Allergy/AdvReac Type Severity Reaction Status Date / Time No Known Allergies Allergy Verified 06/11/17 15:43 Date of admission: 06/24/17 23:01 Primary care physician: Van James MD Consults: 06/24/17 23:33 Consult to Speech Therapy [CONS] Routine Comment: Evaluate, develop and implement POC Reason for Consult: concern for aspiration Time Notified: 23:34 Call Completed: No 06/25/17 11:44 Consult to Invasive Line Access Team [CONS] Routine Reason for Consult: need 2nd access. Line Type: EPIV PICC line indications: Limited vascular access Time Notified: 11:45 Call Completed: Yes 06/26/17 10:50 Consult to Occupational Therapy [CONS] Routine Comment: Evaluate, develop and implement POC Reason for Consult: eval Consult to Physical Therapy [CONS] Routine Comment: Evaluate, develop and implement POC Reason for Consult: eval Consult to Equipment Oiler [CONS] Routine Reason for SW Consult: eval Discharging clinician: Nick Bowie Anticipated date of discharge: 06/28/17 - Patient Status Disposition: Home Health Service Functional capacity at discharge: independent ambulation Overall status at discharge: patient is progressing back to baseline - Discharge Instructions Follow Up With: Van James MD [Primary Care Provider] - 07/02/17 3:15 pm Isacc Peralta MD [Partnered Physician] - 07/10/17 3:30 pm Forms: ED Satisfaction Letter Additional Instructions: Please follow up with your primary care provider in 5-7 days or sooner as needed. Return or seek medical care if you have new or worsening symptoms such as dizziness, shortness of breath, fever, chest pain. Please follow up as outpatient with hematology, Dr. Peralta. - Diet and Activity Activity: as per physical therapy, increase activity as tolerated, wear oxygen at all times Diet: other (chopped meat) Interval History: Doing well, siting up in bed during exam, on 2L via NC. Notes mild sternum tender to palpation, no pain with breathing. Notes normal BMs and no issues urinating. Hospital course: Ms. Nicolas is a 57 year old female admitted on 06/24/17 for 4 days of worsening LLE swelling. Doppler showing Chronic deep venous thrombosis in the left popliteal and gastrocnemius veins; Chronic superficial venous thrombosis in the left lesser spahenous vein; and Normal contralateral common femoral vein. She had tried in the past-lovenox, pradaxa, coumadin, xarelto--recently on eliquis 5mg BID. Started on heparin gtt; hematology consulted and recommended restarting Eliquis when GREG resolved. On 06/24/17 patient had episode of acute respiratory distress with hypoxia; was started on bipap, CXR showed new RLL pneumonia, likely aspiration. MBS study showed no gross dysfunction of oral phase, but flash penetration of thin liquids. Patient was started on cefepime and Vancomycin- transitioned to Unasyn with plan to discharge with augmentin. Patient on large dose of opioid pain medication for chronic pain, concern this may have add to the respiratory distress, medication reduced to oxycodone 40mg BID instead of 80mg Q8H; patient tolerated this well and no significant complaint of pain noted. Patient slowly weaned on nasal cannula, stable at 2L via NC. Patient notes continued improvement, discussed recommendation of PT and the inpatient team for inpatient rehab, however patient states she would like to go home, she has children to stay with her during the day and is home at night, patient interested in home PT. - Time Spent with Patient Total time spent providing and/or coordinating discharge services: Less than 30 minutes - Constitutional Vitals: Temp Pulse Resp BP Pulse Ox 98.2 F 82 17 155/90 95 06/28/17 07:15 06/28/17 07:15 06/28/17 08:07 06/28/17 07:15 06/28/17 08:07 General appearance: Present: cooperative, A&O X 3, no acute distress, answers questions appropriately - Head Head exam: Present: atraumatic, normocephalic - Eye Eye exam: Present: EOMI, conjuntiva pink, sclera anicteric - Neck Neck exam general surgery: Present: supple, trachea midline. Absent: lymphadenopathy - Respiratory Respiratory exam: Present: chest wall tenderness, CTAB. Absent: accessory muscle use, rales, rhonchi, wheezes - Cardiovascular Cardiovascular exam: Present: RRR, +S1, +S2. Absent: diastolic murmur, gallop, rubs, systolic murmur - GI/Abdominal GI/Abdominal exam: Present: normal bowel sounds, soft, no peritoneal signs. Absent: distended, tenderness - Extremities Exam Extremities exam: Present: pedal edema (minimal edema), warm. Absent: calf tenderness, cyanotic - Neurological Exam Neurological exam: Present: alert, oriented X3, no focal deficits. Absent: facial droop, speech deficit - Skin Skin exam: Present: dry, intact - VTE Documentation of Mechanical Device: Graduated compression elastic hosiery <Nick Bowie - Last Filed: 06/28/17 10:34> Date of Encounter: 06/28/17 Date of admission: 06/24/17 23:01 Primary care physician: Van James MD Consults: 06/24/17 23:33 Consult to Speech Therapy [CONS] Routine Comment: Evaluate, develop and implement POC Reason for Consult: concern for aspiration Time Notified: 23:34 Call Completed: No 06/25/17 11:44 Consult to Invasive Line Access Team [CONS] Routine Reason for Consult: need 2nd access. Line Type: EPIV PICC line indications: Limited vascular access Time Notified: 11:45 Call Completed: Yes 06/26/17 10:50 Consult to Occupational Therapy [CONS] Routine Comment: Evaluate, develop and implement POC Reason for Consult: eval Consult to Physical Therapy [CONS] Routine Comment: Evaluate, develop and implement POC Reason for Consult: eval Consult to Equipment Oiler [CONS] Routine Reason for SW Consult: eval Hospital course: Ms. Nicolas is a 57 year old female - Time Spent with Patient Total time spent providing and/or coordinating discharge services: - Constitutional Vitals: Temp Pulse Resp BP Pulse Ox 98.2 F 82 17 155/90 95 06/28/17 07:15 06/28/17 07:15 06/28/17 08:07 06/28/17 07:15 06/28/17 08:07 - Attending Attestation Sepsis secondary to aspiration pneumonia present upon admission Hold methotrexate for 1 week Complete doses of Augmentin Correction: time spent on this discharge : 40 min I examined this patient and my medical decision-making was reviewed with the Resident Physician. I agree with the documented findings, disposition and treatment plan as described except to the extent set forth below.
[2017-06-28] MEDS: Sennosides/Docusate Sodium TABLET PO SCH (08:24)
[2017-06-28] MEDS: BuPROPion SR (12 HR) 150 MG TABLET PO SCH (08:24)
[2017-06-28] MEDS: Cholecalciferol (D-3) 1,000 UNIT TABLET PO SCH (08:24)
[2017-06-28] MEDS: Isosorbide MONOnitrate (24 HR) 30 MG TAB.ER.24H PO SCH (08:25)
[2017-06-28] MEDS: Nystatin SUSP 5 ML UD.LIQ PO SCH ×3 (08:25→15:43)
[2017-06-28] MEDS: Apixaban 5 MG TABLET PO SCH (08:25)
[2017-06-28] MEDS: Metoprolol XL (24 HR) Succ 50 MG TAB.ER.24H PO SCH (08:25)
[2017-06-28] MEDS: Aspirin 81 MG TAB.CHEW PO SCH (08:33)
[2017-06-28] MEDS: cloNIDine HCl 0.1 MG TABLET PO SCH ×2 (08:33→15:43)
--- NOTE | 2017-06-28 09:28 | Physician Discharge Referral ---
Home Health/Hosp Referral Info Transfer to: Home Health Provider in Charge Post Discharge: PCP - Diagnosis (1) Acute respiratory failure with hypoxia Priority: Primary Status: Resolved (2) Acute aspiration pneumonia Priority: Secondary Status: Acute (3) DVT (deep venous thrombosis) Priority: Secondary Status: Acute (4) Lower extremity edema Priority: Secondary Status: Chronic (5) CAD (coronary artery disease) Priority: Secondary Status: Chronic (6) Hypertension Priority: Secondary Status: Chronic (7) GERD (gastroesophageal reflux disease) Priority: Secondary Status: Chronic (8) Hypothyroid Priority: Secondary Status: Chronic (9) Rheumatoid arthritis Priority: Secondary Status: Chronic (10) Chronic pain Priority: Secondary Status: Chronic (11) GREG (acute kidney injury) Priority: Secondary Status: Resolved - Respiratory Orders Oxygen / L per min (2LMP via NC) Smoking Cessation: Smoking cessation has been advised. For more information, call the [place] Tobacco Quit Line at 4-888-IDGW-NOW. - Diet/Nutrition Diet/Nutrition Orders: Mechanical Soft (advanced soft diet with choped meat) - Activity Activity Orders: Up ad esme - Services Needed Following services are medically necessary services: Home Health Aide, Physical Therapy - Transfer Medications Prescriptions: Amoxicillin/Clavulanate [Augmentin] 500 mg PO BIDWM #6 tablet Home Medications: Abatacept/Maltose [Orencia (For Outpatient Infusion)] 800 mg IV Q4W 09/28/15 [ History] Aspirin 81 mg PO DAILY 09/28/15 [History] Leucovorin Calcium [Wellcovorin] 5 mg PO SA 09/28/15 [History] Methotrexate [Otrexup] 20 mg PO SA 09/28/15 [History] Metoprolol XL (24 HR) Succ [Toprol Xl] 50 mg PO DAILY 09/28/15 [History] Nitroglycerin [Nitrostat] 0.4 mg SL Q5M PRN 09/28/15 [History] Omeprazole [PriLOSEC] 20 mg PO BID 09/28/15 [History] Oxycodone HCl/Acetaminophen [Percocet 10-325 mg Tablet] 1 tab PO Q6H 09/28/15 [ History] BuPROPion SR (12 HR) [Wellbutrin SR] 450 mg PO DAILY 09/26/16 [History] Cholecalciferol (D-3) [Vitamin D] 5,000 unit PO DAILY 09/26/16 [History] Gabapentin [Neurontin] 600 mg PO HS 09/26/16 [History] Isosorbide MONOnitrate (24 HR) [Imdur] 30 mg PO DAILY 09/26/16 [History] Nitroglycerin [Nitrolingual] 1 - 2 spr TL AD PRN 09/26/16 [History] Oxybutynin [Ditropan] 5 mg PO TID 09/26/16 [History] Potassium Chloride 10 meq PO DAILY 09/26/16 [History] cloNIDine HCl [CloNIDine HCl] 0.1 mg PO TID 09/26/16 [History] clonazePAM [Klonopin] 1 mg PO TID 09/26/16 [History] rOPINIRole [Requip] 1 mg PO HS 09/26/16 [History] traZODone [TraZODone] 50 - 100 mg PO HS 09/26/16 [History] Levothyroxine [Synthroid] 450 mcg PO QAM 06/22/17 [History] Losartan/Hydrochlorothiazide [Hyzaar 100-25 Tablet] 1 each PO DAILY 06/22/17 [ History] Apixaban [Eliquis] 5 mg PO BID 06/27/17 [History] Amoxicillin/Clavulanate [Augmentin] 500 mg PO BIDWM #6 tablet 06/28/17 [Rx] OxyCODONE ER (12 HR) [OxyCONTIN] 40 mg PO Q12H 5 Days #10 tab.er.12h 06/28/17 [ Rx] Allergies/Adverse Reactions: 3 Allergy/AdvReac Type Severity Reaction Status Date / Time No Known Allergies Allergy Verified 06/11/17 15:43 Certification: Further, I certify that my clinical findings support that this patient is homebound (i.e. absences from home require considerable and taxing effort and are for medical reasons or bahai services or infrequently or short duration when for other reasons) because: Homebound Reason: Leaving home requires considerable and taxing effort due to condition, Severity of cardiac or pulmonary status limits activity tolerance Attestation: My signature below is to certify that this patient is under my care and that I, or nurse practitioner, or a physician's doctor's assistant working with me, has a face-to -face encounter with this patient.
[2017-06-29 15:28] LABS: ANA IgG by ELISA NONE DETECTED (None Detected)
== END 2017-06-28 18:01 | disposition home health service (06) | DRG 720 ==
LOC: 2NENU 12:59 → EMEROO 12:59 → 2NENU 20:58 → SUATTDRO 06-24 23:01
PROVIDERS: ADMIT Internal Medicine; ATTEND Internal Medicine

== ENCOUNTER 2018-06-04 16:18 | Inpatient (IN) ==
--- NOTE | 2018-06-04 16:35 | Emergency Department Note ---
Disposition Clinical Impression: Hyperthyroidism, GREG (acute kidney injury) Fracture, femur, distal Qualifiers: Encounter type: initial encounter Fracture type: closed Fracture morphology: unspecified fracture morphology Laterality: right Qualified Code(s): S72.401A - Unspecified fracture of lower end of right femur, initial encounter for closed fracture Disposition: Admitted As Inpatient Condition: Fair General Adult HPI - General Stated complaint: fall Time Seen by Provider: 06/04/18 16:24 - Related Data Home Medications Medication Instructions Recorded Confirmed RX: Abatacept/Maltose [Orencia 800 mg IV Q4W 09/28/15 03/25/18 (For Outpatient Infusion)] RX: Aspirin 81 mg PO DAILY 09/28/15 03/25/18 RX: Leucovorin Calcium 5 mg PO SA 09/28/15 03/25/18 [Wellcovorin] RX: Methotrexate [Otrexup] 20 mg PO SA 09/28/15 03/25/18 RX: Metoprolol XL (24 HR) Succ 50 mg PO DAILY 09/28/15 03/25/18 [Toprol Xl] RX: Nitroglycerin [Nitrostat] 0.4 mg SL Q5M PRN 09/28/15 03/25/18 RX: Omeprazole [PriLOSEC] 20 mg PO BID 09/28/15 03/25/18 RX: Oxycodone HCl/Acetaminophen 1 tab PO Q6H PRN 09/28/15 03/25/18 [Percocet 10-325 mg Tablet] RX: Cholecalciferol (D-3) [Vitamin 5,000 unit PO DAILY 09/26/16 03/25/18 D] RX: Gabapentin [Neurontin] 300 - 600 mg PO BID PRN 09/26/16 03/25/18 RX: Nitroglycerin [Nitrolingual] 1 - 2 spr TL AD PRN 09/26/16 03/25/18 RX: cloNIDine HCl [CloNIDine HCl] 0.1 mg PO TID PRN 09/26/16 03/25/18 RX: clonazePAM [Klonopin] 1 mg PO TID 09/26/16 03/25/18 RX: rOPINIRole [Requip] 1 mg PO HS 09/26/16 03/25/18 RX: Levothyroxine [Synthroid] 400 mcg PO QAM 06/22/17 03/25/18 RX: Furosemide [Lasix] 40 mg PO DAILY 08/22/17 03/25/18 RX: Ondansetron HCl [Zofran] 4 mg PO Q6H PRN 08/22/17 03/25/18 RX: OxyCODONE ER (12 HR) 80 mg PO Q12H 08/22/17 03/25/18 [OxyCONTIN] RX: Atorvastatin Calcium [Lipitor] 20 mg PO HS 01/11/18 03/25/18 RX: Diphenoxylate/Atropine 1 each PO QID PRN 01/11/18 03/25/18 [Lomotil 2.5 mg/0.025 mg] RX: Levothyroxine [Synthroid] 50 mcg PO QAM 01/11/18 03/25/18 RX: Losartan Potassium [Cozaar] 100 mg PO DAILY 01/11/18 03/25/18 RX: Mirtazapine [Remeron] 15 mg PO HS 01/11/18 03/25/18 RX: Omeprazole/Sodium Bicarbonate 1 each PO DAILY 01/11/18 03/25/18 [Zegerid 40 mg Capsule] RX: buPROPion HCl [Zyban] 300 mg PO QPM 02/26/18 03/25/18 RX: Diclofenac Sodium [Voltaren] 1 appl TP QID PRN 03/25/18 03/25/18 Previous Rx's Medication Instructions Recorded RX: Apixaban [Eliquis] 5 mg PO BID #60 tablet 08/23/17 RX: Potassium Chloride [K-Tab ER] 10 tab PO DAILY #30 tablet.er 09/19/17 Isosorbide MONOnitrate (24 HR) 30 mg PO DAILY #30 tab.er.24h 03/25/18 [Imdur] Allergies Allergy/AdvReac Type Severity Reaction Status Date / Time No Known Allergies Allergy Verified 02/26/18 09:30 Past Medical History - Past Medical History Medical history: Reports: arthritis, cancer, coronary artery disease, DVT, fibromyalgia, GERD, hyperlipidemia, hypertension, pulmonary embolus, RA, renal disease, thyroid disease Surgical history: Reports: angioplasty/stent, breast surgery, cholecystectomy, herniorrhaphy, knee replacement, bariatric surgery, IVC filter Psychiatric history: Reports: anxiety, depression - Social History Smoking Status: Never smoker Smokeless Tobacco Status: No Alcohol use: Reports: none Drug use: Reports: none Course Vital Signs Temperature 98.1 F 06/04/18 16:25 Pulse Rate 69 06/04/18 16:25 Respiratory Rate 16 06/04/18 16:25 Blood Pressure 117/65 06/04/18 16:25 O2 Sat by Pulse Oximetry 100 06/04/18 16:25 Temperature 97.7 F 06/04/18 21:03 Pulse Rate 70 06/04/18 21:03 Respiratory Rate 15 06/04/18 21:03 Blood Pressure 123/78 06/04/18 21:03 O2 Sat by Pulse Oximetry 94 06/04/18 21:03 Oxygen Delivery Oxygen Delivery Room Air Medical Decision Making - Lab Data Result diagrams: 06/04/18 16:49 06/04/18 16:49 Lab Results 06/04/18 06/04/18 06/04/18 Range/Units 16:49 16:49 16:49 WBC 8.4 (4.3-11.1) K/mcL RBC 4.43 (3.82-4.97) M/mcL Hgb 11.9 (11.5-15.4) g/dL Hct 40.2 (35.3-44.9) % MCV 90.7 (83.0-100.0) fL MCH 26.9 L (28.0-33.3) pg MCHC 29.6 L (31.6-35.5) g/dL RDW 15.9 H (11.5-14.5) % Plt Count 248 (140-400) K/mcL MPV 10.7 (9.4-12.4) fL Immature Gran % 0.2 (0-4) % Seg Neutrophils % 67.3 % Lymphocytes % 18.0 % Monocytes % 10.0 % Eosinophils % 3.9 % Basophils % 0.6 % Neutrophils # 5.6 (1.6-8.9) K/mcL Lymphocytes # 1.5 (0.6-4.6) K/mcL Monocytes # 0.8 (0.0-1.3) K/mcL Eosinophils # 0.3 (0.0-0.6) K/mcL Basophils # 0.1 (0.0-0.2) K/mcL PT 20.7 H (9.4-12.1) Seconds INR 1.8 APTT 34.7 (26.0-36.0) Seconds Sodium 139 (136-145) mEq/L Potassium 3.5 (3.5-5.1) mEq/L Chloride 105 (98-107) mEq/L Carbon Dioxide 27 (23-29) mEq/L BUN 30 H (6-20) mg/dL Creatinine 1.73 H (0.60-1.20) mg/dL Est GFR ( Amer) 37 L (> 60) Est GFR (Non-Af Amer) 30 L (> 60) BUN/Creatinine Ratio 17 (6-26) Glucose 105 (70-105) mg/dL Calculated Osmolality 295 (280-300) Calcium 9.1 (8.6-10.3) mg/dL Troponin I < 0.03 (< 0.04) ng/mL TSH < 0.010 L (0.340-5.600) mcIU/mL Urine Color (Yellow) Urine Clarity (Clear) Urine pH (5.0-8.0) pH Units Ur Specific [place] (1.010-1.025) Urine Protein (Neg-Trace) mg/dL Urine Glucose (UA) (Normal) mg/dL Urine Ketones (Negative) mg/dL Urine Blood (Negative) Urine Nitrite (Negative) Urine Bilirubin (Negative) Urine Urobilinogen (Normal) mg/dL Ur Leukocyte Esterase (Negative) Urine Microscopic RBC (0-3) per hpf Urine Microscopic WBC (0-3) per hpf Ur Squamous Epith Cells (None-Few) per lpf Urine Bacteria (None-Few) per hpf Hyaline Casts (None-Few) per lpf 06/04/18 Range/Units 18:40 WBC (4.3-11.1) K/mcL RBC (3.82-4.97) M/mcL Hgb (11.5-15.4) g/dL Hct (35.3-44.9) % MCV (83.0-100.0) fL MCH (28.0-33.3) pg MCHC (31.6-35.5) g/dL RDW (11.5-14.5) % Plt Count (140-400) K/mcL MPV (9.4-12.4) fL Immature Gran % (0-4) % Seg Neutrophils % % Lymphocytes % % Monocytes % % Eosinophils % % Basophils % % Neutrophils # (1.6-8.9) K/mcL Lymphocytes # (0.6-4.6) K/mcL Monocytes # (0.0-1.3) K/mcL Eosinophils # (0.0-0.6) K/mcL Basophils # (0.0-0.2) K/mcL PT (9.4-12.1) Seconds INR APTT (26.0-36.0) Seconds Sodium (136-145) mEq/L Potassium (3.5-5.1) mEq/L Chloride (98-107) mEq/L Carbon Dioxide (23-29) mEq/L BUN (6-20) mg/dL Creatinine (0.60-1.20) mg/dL Est GFR ( Amer) (> 60) Est GFR (Non-Af Amer) (> 60) BUN/Creatinine Ratio (6-26) Glucose (70-105) mg/dL Calculated Osmolality (280-300) Calcium (8.6-10.3) mg/dL Troponin I (< 0.04) ng/mL TSH (0.340-5.600) mcIU/mL Urine Color Yellow (Yellow) Urine Clarity Hazy A (Clear) Urine pH 5.0 (5.0-8.0) pH Units Ur Specific [place] 1.015 (1.010-1.025) Urine Protein Negative (Neg-Trace) mg/dL Urine Glucose (UA) Normal (Normal) mg/dL Urine Ketones Negative (Negative) mg/dL Urine Blood Negative (Negative) Urine Nitrite Negative (Negative) Urine Bilirubin Negative (Negative) Urine Urobilinogen Normal (Normal) mg/dL Ur Leukocyte Esterase Small H (Negative) Urine Microscopic RBC 0-3 (0-3) per hpf Urine Microscopic WBC 5-15 H (0-3) per hpf Ur Squamous Epith Cells Many H (None-Few) per lpf Urine Bacteria None Seen (None-Few) per hpf Hyaline Casts Few (None-Few) per lpf - Radiology Data Radiology results reviewed: Yes I reviewed the patient's radiology results. Cervical Spine CT 06/04/18 16:31 IMPRESSION: No acute abnormality of the cervical spine. Mild cervical spondylosis without significant canal narrowing. Grade 1 anterolisthesis of C4 on C5 is presumably degenerative given mild spondylosis and lack of prevertebral soft tissue swelling. D/ / 06/04/2018 18:28:18 Ryan Rios / [email or web address] Interpreting Provider: Ryan Rios Femur X-Ray 06/04/18 16:31 IMPRESSION: Oblique, angulated and overriding distal femoral diaphyseal fracture. D/ / 06/04/2018 17:57:36 Coy Fonseca MD / [email or web address] Interpreting Provider: Coy Fonseca MD Head CT 06/04/18 16:31 IMPRESSION: No acute intracranial abnormality. D/ / Brien Rodarte MD / Brien Rodatre MD Interpreting Provider: Brien Rodarte MD Hip X-Ray 06/04/18 16:31 IMPRESSION: Right tibia and fibula: No acute abnormality detected within the right tibia and fibula. Left hip: Limited negative. D/ / Brien Rodarte MD / Brien Rodarte MD Interpreting Provider: Brien Rodarte MD Lumbar Spine CT 06/04/18 16:31 IMPRESSION: Degenerative disc disease with levoscoliotic curvature, multilevel disc protrusions and canal stenosis L5-S1. No acute fracture or subluxation is evident. D/ / 06/04/2018 18:30:55 Alesia Vergara MD / stefan Interpreting Provider: Alesia Vergara MD Shoulder X-Ray 06/04/18 16:31 IMPRESSION: Negative for fracture D/ / Pastor Arredondo MD / Pastor Arredondo MD Interpreting Provider: Pastor Arredondo MD Thoracic Spine CT 06/04/18 16:31 IMPRESSION: No acute osseous abnormality. D/ / Coy Fonseca MD / Coy Fonseca MD Interpreting Provider: Coy Fonseca MD Tibia/Fibula X-Ray 06/04/18 16:31 IMPRESSION: Right tibia and fibula: No acute abnormality detected within the right tibia and fibula. Left hip: Limited negative. D/ / Brien Rodarte MD / Brien Rodarte MD Interpreting Provider: rBien Rodarte MD Attestation Statement - Attestation Attestation: I examined this patient and my medical decision-making was reviewed with the Resident Physician. I agree with the documented findings, disposition and treatment plan as described except to the extent set forth below. Patient pre sents to the ED after syncopal episode. It was only witnessed by a child. They think she lost consciousness. Patient has been altered since she began a new medicine, but they do not know what the medicine is. It was reported that she hit her head. She had a deformity to the knee. On examination she is awake alert. Confused. Oriented to self. Pupils reactive. Moving all extremities except the right lower extremity. She is able to wiggle her toes. The foot pink and warm. There is deformity just superior to the knee. Plan. Imaging shows a distal femur fracture. Orthopedics will see in consult. Syncope workup still pending at this time. Patient will be admitted to medicine. We did have [facility] look at her medications. They did not find any evidence of a new medication. Patient placed in a knee immobilizer by me. Tolerated well and NVI following placement. Femur X-Ray 06/04/18 16:31 IMPRESSION: Oblique, angulated and overriding distal femoral diaphyseal fracture. D/ / 06/04/2018 17:57:36 Coy Fonseca MD / stefan Interpreting Provider: Coy Fonseca MD Hip X-Ray 06/04/18 16:31 IMPRESSION: Right tibia and fibula: No acute abnormality detected within the right tibia and fibula. Left hip: Limited negative. D/ / Brien Rodarte MD / Brien Rodarte MD Interpreting Provider: Brien Rodarte MD Shoulder X-Ray 06/04/18 16:31 IMPRESSION: Negative for fracture D/ / Pastor Arredondo MD / Pastor Arredondo MD Interpreting Provider: Pastor Arredondo MD Tibia/Fibula X-Ray 06/04/18 16:31
[2018-06-04 17:06] LABS: Basophils # 0.1 K/mcL (0.0-0.2); Basophils % 0.6 %; Eosinophils # 0.3 K/mcL (0.0-0.6); Eosinophils % 3.9 %; Hematocrit 40.2 % (35.3-44.9); Hemoglobin 11.9 g/dL (11.5-15.4); Immature Granulocytes % 0.2 % (0-4); Lymphocytes # 1.5 K/mcL (0.6-4.6); Mean Corpuscular HGB Conc 29.6 g/dL (31.6-35.5); Mean Corpuscular Hemoglobin 26.9 pg (28.0-33.3); Mean Corpuscular Volume 90.7 fL (83.0-100.0); Mean Platelet Volume 10.7 fL (9.4-12.4); Monocytes # 0.8 K/mcL (0.0-1.3); Neutrophils # 5.6 K/mcL (1.6-8.9); Platelet Count 248 K/mcL (140-400); Red Blood Count 4.43 M/mcL (3.82-4.97); Red Cell Distribution Width 15.9 % (11.5-14.5); Segmented Neutrophils % 67.3 %
--- NOTE | 2018-06-04 17:10 | Emergency Department Note ---
Disposition Clinical Impression: Hyperthyroidism, GREG (acute kidney injury) Fracture, femur, distal Qualifiers: Encounter type: initial encounter Fracture type: closed Fracture morphology: other fracture Laterality: right Qualified Code(s): S72.491A - Other fracture of lower end of right femur, initial encounter for closed fracture Disposition: Admitted As Inpatient Condition: Good Referrals: Van James MD [Primary Care Provider] - Forms: ED Satisfaction Letter Time of Disposition: 19:18 General Adult HPI - General Chief complaint: ED Fall Stated complaint: fall Time Seen by Provider: 06/04/18 16:24 Source: patient, family, EMS Limitations: no limitations Nursing Notes Reviewed: Yes Vital Signs Reviewed: Yes - History of Present Illness HPI Narrative: Patient is a 58-year-old female presenting status post fall at home. Patient has history of hypertension, CAD, PE, DVT, breast cancer and high cholesterol. Patient is currently on Eliquis. Per EMS on arrival, patient was found down in her home with obvious deformity of the right lower extremity. They state that she was in her kitchen, fell and family members immediate called EMS. Per family, this was witnessed by a grandchild. Patient is unable to remember the events, does not recall falling. Per who arrives after the immediate arrival of the patient, he states he was at work, however at baseline over the past few weeks since starting a new medication, which is unknown, the patient has had slow speech and confusion. He states currently the patient is at baseline. Patient currently complains of right shoulder pain, right and left hip pain, right leg and knee pain. She denies a headache currently. Pain Scale: 6 - Related Data Home Medications Medication Instructions Recorded Confirmed Abatacept/Maltose [Orencia (For 800 mg IV Q4W 09/28/15 03/25/18 Outpatient Infusion)] Aspirin 81 mg PO DAILY 09/28/15 03/25/18 Leucovorin Calcium [Wellcovorin] 5 mg PO SA 09/28/15 03/25/18 Methotrexate [Otrexup] 20 mg PO SA 09/28/15 03/25/18 Metoprolol XL (24 HR) Succ [Toprol 50 mg PO DAILY 09/28/15 03/25/18 Xl] Nitroglycerin [Nitrostat] 0.4 mg SL Q5M PRN 09/28/15 03/25/18 Omeprazole [PriLOSEC] 20 mg PO BID 09/28/15 03/25/18 Oxycodone HCl/Acetaminophen 1 tab PO Q6H PRN 09/28/15 03/25/18 [Percocet 10-325 mg Tablet] Cholecalciferol (D-3) [Vitamin D] 5,000 unit PO DAILY 09/26/16 03/25/18 Gabapentin [Neurontin] 300 - 600 mg PO BID PRN 09/26/16 03/25/18 Nitroglycerin [Nitrolingual] 1 - 2 spr TL AD PRN 09/26/16 03/25/18 cloNIDine HCl [CloNIDine HCl] 0.1 mg PO TID PRN 09/26/16 03/25/18 clonazePAM [Klonopin] 1 mg PO TID 09/26/16 03/25/18 rOPINIRole [Requip] 1 mg PO HS 09/26/16 03/25/18 Levothyroxine [Synthroid] 400 mcg PO QAM 06/22/17 03/25/18 Furosemide [Lasix] 40 mg PO DAILY 08/22/17 03/25/18 Ondansetron HCl [Zofran] 4 mg PO Q6H PRN 08/22/17 03/25/18 OxyCODONE ER (12 HR) [OxyCONTIN] 80 mg PO Q12H 08/22/17 03/25/18 Atorvastatin Calcium [Lipitor] 20 mg PO HS 01/11/18 03/25/18 Diphenoxylate/Atropine [Lomotil 1 each PO QID PRN 01/11/18 03/25/18 2.5 mg/0.025 mg] Levothyroxine [Synthroid] 50 mcg PO QAM 01/11/18 03/25/18 Losartan Potassium [Cozaar] 100 mg PO DAILY 01/11/18 03/25/18 Mirtazapine [Remeron] 15 mg PO HS 01/11/18 03/25/18 Omeprazole/Sodium Bicarbonate 1 each PO DAILY 01/11/18 03/25/18 [Zegerid 40 mg Capsule] buPROPion HCl [Zyban] 300 mg PO QPM 02/26/18 03/25/18 Diclofenac Sodium [Voltaren] 1 appl TP QID PRN 03/25/18 03/25/18 Previous Rx's Medication Instructions Recorded Apixaban [Eliquis] 5 mg PO BID #60 tablet 08/23/17 Potassium Chloride [K-Tab ER] 10 tab PO DAILY #30 tablet.er 09/19/17 Isosorbide MONOnitrate (24 HR) 30 mg PO DAILY #30 tab.er.24h 03/25/18 [Imdur] Allergies Allergy/AdvReac Type Severity Reaction Status Date / Time No Known Allergies Allergy Verified 02/26/18 09:30 All systems ED: reviewed and negative except as stated. Review of Systems: As Per HPI Limitations: ROS unobtainable due to patients medical condition Constitutional: Denies: fever, chills ENT ED: Denies: ear pain, throat pain, dental pain, hearing loss, epistaxis, congestion, dysphagia Cardiovascular: Denies: chest pain, palpitations, syncope Respiratory: Denies: cough Gastrointestinal: Denies: abdominal pain, nausea, vomiting Genitourinary: Denies: dysuria, frequency Musculoskeletal: Reports: back pain, neck pain, other (right leg pain, right shoulder pain, right and left hip pain) Integumentary: Denies: rash Neurological: Denies: headache, weakness, numbness, confusion Hematological/Lymphatic: Reports: easy bleeding Past Medical History - Past Medical History Attestation: Yes The following information was validated with the patient. Source: patient Medical history: Reports: arthritis, cancer, coronary artery disease, DVT, fibromyalgia, GERD, hyperlipidemia, hypertension, pulmonary embolus, RA, renal disease, thyroid disease Surgical history: Reports: angioplasty/stent, breast surgery, cholecystectomy, herniorrhaphy, knee replacement, bariatric surgery, IVC filter Psychiatric history: Reports: anxiety, depression - Social History Smoking Status: Never smoker Smokeless Tobacco Status: No Alcohol use: Reports: none Drug use: Reports: none Physical Exam - General Limitations: no limitations General appearance: alert, in no apparent distress - Head Head exam: atraumatic, normocephalic, normal inspection - Eye Eye exam: Present: normal appearance - ENT ENT exam: normal exam, normal oropharynx, mucous membranes moist - Neck Neck exam: Present: normal inspection, full ROM, trachea midline, tenderness (To the cervical spine, midline, c-collar is in place) - Chest Chest inspection: Present: normal inspection, symmetric chest wall rise - Respiratory Respiratory exam: Present: normal lung sounds bilaterally - Cardiovascular Cardiovascular exam: Present: regular rate, normal rhythm, normal heart sounds - Abdominal Exam Abdominal exam: Present: soft, Non-Tender. Absent: tenderness, distention, guarding, rebound, rigidity - Extremities Exam Extremities exam: Present: normal capillary refill, other (Patient has obvious deformity to the distal right femur, no ecchymosis or open wounds. Patient has tenderness to palpation to the right shoulder, no obvious deformity, patient has tenderness to the right hip and left hip, no pelvis instability, pain also to the right tibia and fibula. No obvious deformity. Patient with tenderness to palpation throughout the cervical, lumbar and thoracic spine, no deformity or step-off.) - Neurological Exam Neurological exam: Present: alert, other (Patient is alert to person and time, she is not alert to place, she is slow to respond, however her family's at bedside this is patient's baseline.) - Psychiatric Psychiatric exam: Present: normal affect, normal mood - Skin Skin exam: Present: warm, dry, intact, normal color Course Vital Signs Temperature 98.1 F 06/04/18 16:25 Pulse Rate 69 06/04/18 16:25 Respiratory Rate 16 06/04/18 16:25 Blood Pressure 117/65 06/04/18 16:25 O2 Sat by Pulse Oximetry 100 06/04/18 16:25 Temperature 98.1 F 06/04/18 16:25 Pulse Rate 74 06/04/18 18:43 Respiratory Rate 16 06/04/18 18:43 Blood Pressure 121/74 06/04/18 18:43 O2 Sat by Pulse Oximetry 97 06/04/18 18:43 Oxygen Delivery Oxygen Delivery Room Air Medical Decision Making - [facility] Narrative Medical decision making narrative: Patient is a 58-year-old female status post fall. Unknown if this is a syncopal event, patient fell and does not recall the events, was witnessed by a child. Patient on Eliquis, for history of PE and DVT. Per family in the room, patient's cognition is at baseline. She is slow to respond to questions but this appears to be her baseline, is able to answer questions with full sentences and appropriate answers. Alert to person and time. On examination, patient has obvious deformity of the right distal femur, tenderness to palpation, no ecchymosis. Patient also has pain to the right shoulder, cervical, thoracic and lumbar spine, she has pain at the hip bilaterally, no instability as well as at the knee. Distal pulses are intact, sensation is intact distally. Patient is able to move her toes. Given syncopal event, EKG was performed which shows no concerning syncopal rhythms, troponins within normal limits. TSH is significantly low, this appears to be patient's baseline, is chronic, currently being seen for this. CBC is unremarkable, BMP is shows elevated serum creatinine, increased from baseline. Patient was given fluids while in the ER. CT of the head is negative for acute intracranial findings. No fracture is noted at the right shoulder, right tibia fibula, pelvis or hip. There is significant fracture noted to the distal right femur that is angulated and oblique, I did speak with on-call orthopedic physician,Dr. Herman, patient has history of right knee replacement, this is performed by Dr. Olivarez up rectally [address] Herman this recommendation, patient will be admitted to the hospitalist service, they will see this inpatient. No further fractures are noted. Patient was given 50 g of fentanyl and patient was placed in knee immobilizer. Patient is currently stable. At this point in time, patient will be admitted for further treatment. - Medical Records Medical records reviewed: Yes I reviewed the patient's medical records. - Lab Data Lab results reviewed: Yes I reviewed the patient's lab results. Result diagrams: 06/04/18 16:49 06/04/18 16:49 Lab Results 06/04/18 06/04/18 06/04/18 Range/Units 16:49 16:49 16:49 WBC 8.4 (4.3-11.1) K/mcL RBC 4.43 (3.82-4.97) M/mcL Hgb 11.9 (11.5-15.4) g/dL Hct 40.2 (35.3-44.9) % MCV 90.7 (83.0-100.0) fL MCH 26.9 L (28.0-33.3) pg MCHC 29.6 L (31.6-35.5) g/dL RDW 15.9 H (11.5-14.5) % Plt Count 248 (140-400) K/mcL MPV 10.7 (9.4-12.4) fL Immature Gran % 0.2 (0-4) % Seg Neutrophils % 67.3 % Lymphocytes % 18.0 % Monocytes % 10.0 % Eosinophils % 3.9 % Basophils % 0.6 % Neutrophils # 5.6 (1.6-8.9) K/mcL Lymphocytes # 1.5 (0.6-4.6) K/mcL Monocytes # 0.8 (0.0-1.3) K/mcL Eosinophils # 0.3 (0.0-0.6) K/mcL Basophils # 0.1 (0.0-0.2) K/mcL PT 20.7 H (9.4-12.1) Seconds INR 1.8 APTT 34.7 (26.0-36.0) Seconds Sodium 139 (136-145) mEq/L Potassium 3.5 (3.5-5.1) mEq/L Chloride 105 (98-107) mEq/L Carbon Dioxide 27 (23-29) mEq/L BUN 30 H (6-20) mg/dL Creatinine 1.73 H (0.60-1.20) mg/dL Est GFR ( Amer) 37 L (> 60) Est GFR (Non-Af Amer) 30 L (> 60) BUN/Creatinine Ratio 17 (6-26) Glucose 105 (70-105) mg/dL Calculated Osmolality 295 (280-300) Calcium 9.1 (8.6-10.3) mg/dL Troponin I < 0.03 (< 0.04) ng/mL TSH < 0.010 L (0.340-5.600) mcIU/mL Urine Color (Yellow) Urine Clarity (Clear) Urine pH (5.0-8.0) pH Units Ur Specific [place] (1.010-1.025) Urine Protein (Neg-Trace) mg/dL Urine Glucose (UA) (Normal) mg/dL Urine Ketones (Negative) mg/dL Urine Blood (Negative) Urine Nitrite (Negative) Urine Bilirubin (Negative) Urine Urobilinogen (Normal) mg/dL Ur Leukocyte Esterase (Negative) Urine Microscopic RBC (0-3) per hpf Urine Microscopic WBC (0-3) per hpf Ur Squamous Epith Cells (None-Few) per lpf Urine Bacteria (None-Few) per hpf Hyaline Casts (None-Few) per lpf 06/04/18 Range/Units 18:40 WBC (4.3-11.1) K/mcL RBC (3.82-4.97) M/mcL Hgb (11.5-15.4) g/dL Hct (35.3-44.9) % MCV (83.0-100.0) fL MCH (28.0-33.3) pg MCHC (31.6-35.5) g/dL RDW (11.5-14.5) % Plt Count (140-400) K/mcL MPV (9.4-12.4) fL Immature Gran % (0-4) % Seg Neutrophils % % Lymphocytes % % Monocytes % % Eosinophils % % Basophils % % Neutrophils # (1.6-8.9) K/mcL Lymphocytes # (0.6-4.6) K/mcL Monocytes # (0.0-1.3) K/mcL Eosinophils # (0.0-0.6) K/mcL Basophils # (0.0-0.2) K/mcL PT (9.4-12.1) Seconds INR APTT (26.0-36.0) Seconds Sodium (136-145) mEq/L Potassium (3.5-5.1) mEq/L Chloride (98-107) mEq/L Carbon Dioxide (23-29) mEq/L BUN (6-20) mg/dL Creatinine (0.60-1.20) mg/dL Est GFR ( Amer) (> 60) Est GFR (Non-Af Amer) (> 60) BUN/Creatinine Ratio (6-26) Glucose (70-105) mg/dL Calculated Osmolality (280-300) Calcium (8.6-10.3) mg/dL Troponin I (< 0.04) ng/mL TSH (0.340-5.600) mcIU/mL Urine Color Yellow (Yellow) Urine Clarity Hazy A (Clear) Urine pH 5.0 (5.0-8.0) pH Units Ur Specific [place] 1.015 (1.010-1.025) Urine Protein Negative (Neg-Trace) mg/dL Urine Glucose (UA) Normal (Normal) mg/dL Urine Ketones Negative (Negative) mg/dL Urine Blood Negative (Negative) Urine Nitrite Negative (Negative) Urine Bilirubin Negative (Negative) Urine Urobilinogen Normal (Normal) mg/dL Ur Leukocyte Esterase Small H (Negative) Urine Microscopic RBC 0-3 (0-3) per hpf Urine Microscopic WBC 5-15 H (0-3) per hpf Ur Squamous Epith Cells Many H (None-Few) per lpf Urine Bacteria None Seen (None-Few) per hpf Hyaline Casts Few (None-Few) per lpf - Radiology Data Radiology results reviewed: Yes I reviewed the patient's radiology results. Cervical Spine CT 06/04/18 16:31 IMPRESSION: No acute abnormality of the cervical spine. Mild cervical spondylosis without significant canal narrowing. Grade 1 anterolisthesis of C4 on C5 is presumably degenerative given mild spondylosis and lack of prevertebral soft tissue swelling. D/ / 06/04/2018 18:28:18 Ryan Rios / earsymone Interpreting Provider: Ryan Rios Femur X-Ray 06/04/18 16:31 IMPRESSION: Oblique, angulated and overriding distal femoral diaphyseal fracture. D/ / 06/04/2018 17:57:36 Coy Fonseca MD / stefan Interpreting Provider: Coy Fonseca MD Head CT 06/04/18 16:31 IMPRESSION: No acute intracranial abnormality. D/ / Brien Rodarte MD / Brien Rodarte MD Interpreting Provider: Brien Rodarte MD Hip X-Ray 06/04/18 16:31 IMPRESSION: Right tibia and fibula: No acute abnormality detected within the right tibia and fibula. Left hip: Limited negative. D/ / Brien Rodarte MD / Brien Rodarte MD Interpreting Provider: Brien Rodarte MD Lumbar Spine CT 06/04/18 16:31 IMPRESSION: Degenerative disc disease with levoscoliotic curvature, multilevel disc protrusions and canal stenosis L5-S1. No acute fracture or subluxation is evident. D/ / 06/04/2018 18:30:55 Alesia Vergara MD / stefan Interpreting Provider: Alesia Vergara MD Shoulder X-Ray 06/04/18 16:31 IMPRESSION: Negative for fracture D/ / Pastor Arredondo MD / Pastor Arredondo MD Interpreting Provider: Pastor Arredondo MD Thoracic Spine CT 06/04/18 16:31 IMPRESSION: No acute osseous abnormality. D/ / Coy Fonseca MD / Coy Fonseca MD Interpreting Provider: Coy Fonseca MD Tibia/Fibula X-Ray 06/04/18 16:31 IMPRESSION: Right tibia and fibula: No acute abnormality detected within the right tibia and fibula. Left hip: Limited negative. D/ / Brien Rodarte MD / Brien Rodarte MD Interpreting Provider: Brien Rodarte MD Jamar - Jamar Situation: Demographics, MOA Background: Presenting Complaint, Relevant PMH, Meds, & Allergies Assessment: Vital Signs, Course and respsone to treatment, Exam Concerns, Patie nt/Family Expectation, Pertinant Lab Results, Outstanding Labs Recommendation: Barrier(s) to disposition, Recommendation based on pending studies, treatments, or consults S.BJudson Report Given to: hospitalist Jamar Repor Time: 19:19 (accepted)
[2018-06-04] MEDS ORDERED: *HR* FentaNYL (PF) 100 MCG/2 ML VIAL IVP ONE ×2 (17:11→18:35)
[2018-06-04 17:13] LABS: INR 1.8; Prothrombin Time 20.7 Seconds (9.4-12.1)
[2018-06-04 17:16] LABS: Activated Partial Thrombo Time 34.7 Seconds (26.0-36.0)
[2018-06-04 17:26] LABS: BUN/Creatinine Ratio 17 (6-26); Blood Urea Nitrogen 30 mg/dL (6-20); Calcium 9.1 mg/dL (8.6-10.3); Carbon Dioxide 27 mEq/L (23-29); Chloride 105 mEq/L (98-107); Glucose 105 mg/dL (70-105); Osmolality,Calculated 295 (280-300); Potassium 3.5 mEq/L (3.5-5.1); Sodium 139 mEq/L (136-145); eGFR For Non-African Americans 30 (> 60)
[2018-06-04 17:27] LABS: Troponin I < 0.03 ng/mL (< 0.04)
[2018-06-04 17:42] LABS: Thyroid Stimulating Hormone < 0.010 mcIU/mL (0.340-5.600)
[2018-06-04 18:49] LABS: Bilirubin,Urine Negative (Negative); Blood,Urine Negative (Negative); Color,Urine Yellow (Yellow); Glucose,Urine (UA) Normal (Normal); Ketones,Urine Negative (Negative); Leukocyte Esterase,Urine Small (Negative); Nitrite,Urine Negative (Negative); Protein,Urine Negative (Neg-Trace); Specific Gravity,Urine 1.015 (1.010-1.025); Urobilinogen,Urine Normal (Normal)
[2018-06-04 18:51] LABS: Bacteria,Urine None Seen per hpf (None-Few); Hyaline Casts,Urine Few per lpf (None-Few); RBC,Urine 0-3 per hpf (0-3); Squamous Epithelial Cell,Urine Many per lpf (None-Few)
[2018-06-04 18:57] LABS: Clarity,Urine Hazy (Clear)
[2018-06-04] MEDS ORDERED: Naloxone 0.4 MG/ML INJ IVP PRN (19:55)
--- NOTE | 2018-06-04 20:07 | Internal Med History&Physical ---
Date of Encounter: 06/04/18 Time of Encounter: 21:30 Internal Medicine - H&P: HPI Chief complaint: Right femur fracture Admitted From: Emergency Dept Plans for Post Hospital Care: Home History of present illness: Ms. Nicolas is a 58 year old female Patient presented to the emergency room after sustaining a fall at home. The fall was unwitnessed aside from her grandchild. Patient does not remember the fall, unsure if she hit her head. She was found down in her home with obvious right lower femur deformity. She was recently started on new medication that has caused her to have slowed speech and confusion. Family and patient unclear with medication is however. Her was at work at the time of the injury, but found the patient in the kitchen on the floor and called EMS. She has a known history of chronic kidney disease stage III, and history of PEs and DVTs. She currently takes Eliquis. In the emergency room, vital signs were stable, CBC within normal limits, BMP showed creatinine of 1.73 and GFR of 30, slightly outside of her baseline. Troponin was undetectable, TSH was less than 0.01. Urinalysis was negative for infection. Patient had multiple imaging performed, results are below. Of note, patient's right femur x-ray showed oblique angulated and overriding distal femoral diaphyseal fracture. Emergency room contacted on-call orthopedic surgeon Dr. Mandujano, who agreed to see the patient for consultation. Patient has history of right knee replacement that was performed by Dr. Olivarez about 5 years ago. She was given 50 g of fentanyl, and put in a knee immobilizer. She was sent to the medical floor for further management. Upon my evaluation, patient is resting in the hospital bed, in no acute distress. Her grandson, granddaughter and granddaughter's boyfriend are at bedside. Patient states that she is in some pain secondary to her fracture, but denies nausea, vomiting, diarrhea, chest pain and abdominal pain. She has not had a bowel movement in 4 days. She says that since she was started on a new medication by her oncology team she has felt weak, and family has noted some confusion. She had a fall about a week ago similar to this episode but did not result in a fracture. She does not know the name of this medicine, and could not remember the name of the prescribing doctor. She is being seen by oncology at [facility] but does not have a current case of any type of cancer that she knows of. She does have a history of breast cancer in the past, but she has been cancer free since 2011. Her grandson who is at bedside witnessed the fall that resulted in this fracture. He says that she just collapsed to the ground, and hit her head. She did not lose consciousness and was responsive right after the accident. Patient also denies taking any of her medications today. Past Med Surg Social Fam HX - Past Medical History Medical history: arthritis, cancer, coronary artery disease, DVT, fibromyalgia, GERD, hyperlipidemia, hypertension, pulmonary embolus, RA, renal disease, thyroid disease Additional medical history: STAGE 3 KIDNEY FAILURE, bilateral osetoarthritis, a bnormal mommogram, pericarditis, blood clots in lungs, anemic Psychiatric history: anxiety, depression - Past Surgical History Surgical History: angioplasty/stent, breast surgery, cholecystectomy, herniorrhaphy, knee replacement, bariatric surgery, IVC filter Additional surgical history: left carpal tunnel release, bilateral rotator cuff tear repair, tubal ligation, colonoscopy, left lumpectomy, gastric bypass - Social History Smoking Status: Never smoker Smokeless Tobacco Status: No Alcohol use: none Drug use: none - Family History Father Living Status: Still Living Hx Family Cardiac Disorders: Yes (HTN) Hx Family Endocrine Disorder: Yes (DM) Mother Living Status: Still Living Hx Family Cardiac Disorders: Yes (HTN) Hx Family Respiratory Disorders: No Hx Family Cancer: No Hx Family GI Disorders: No Hx Family Endocrine Disorder: No Hx Family Neuromuscular Disorders: No Hx Family Neurologic Disorders: No Hx Family HEENT Disorders: No Hx Family Autoimmune Disorders: No Internal Medicine - H&P: Meds Abatacept/Maltose [Orencia (For Outpatient Infusion)] 800 mg IV Q4W 09/28/15 [History] Aspirin 81 mg PO DAILY 09/28/15 [History] Leucovorin Calcium [Wellcovorin] 5 mg PO SA 09/28/15 [History] Methotrexate [Otrexup] 20 mg PO SA 09/28/15 [History] Nitroglycerin [Nitrostat] 0.4 mg SL Q5M PRN 09/28/15 [History] Omeprazole [PriLOSEC] 20 mg PO BID 09/28/15 [History] Oxycodone HCl/Acetaminophen [Percocet 10-325 mg Tablet] 1 tab PO Q6H PRN 09/28/15 [History] Cholecalciferol (D-3) [Vitamin D] 5,000 unit PO DAILY 09/26/16 [History] Gabapentin [Neurontin] 300 - 600 mg PO BID PRN 09/26/16 [History] Nitroglycerin [Nitrolingual] 1 - 2 spr TL AD PRN 09/26/16 [History] cloNIDine HCl [CloNIDine HCl] 0.1 mg PO TID PRN 09/26/16 [History] clonazePAM [Klonopin] 1 mg PO TID 09/26/16 [History] rOPINIRole [Requip] 1 mg PO HS 09/26/16 [History] Furosemide [Lasix] 40 mg PO DAILY 08/22/17 [History] Ondansetron HCl [Zofran] 4 mg PO Q6H PRN 08/22/17 [History] OxyCODONE ER (12 HR) [OxyCONTIN] 80 mg PO Q12H 08/22/17 [History] Apixaban [Eliquis] 5 mg PO BID #60 tablet 08/23/17 [Rx] Potassium Chloride [K-Tab ER] 10 tab PO DAILY #30 tablet.er 09/19/17 [Rx] Atorvastatin Calcium [Lipitor] 20 mg PO HS 01/11/18 [History] Diphenoxylate/Atropine [Lomotil 2.5 mg/0.025 mg] 1 each PO QID PRN 01/11/18 [Hi story] Mirtazapine [Remeron] 15 mg PO HS 01/11/18 [History] Omeprazole/Sodium Bicarbonate [Zegerid 40 mg Capsule] 1 each PO DAILY 01/11/18 [History] buPROPion HCl [Zyban] 300 mg PO QPM 02/26/18 [History] Diclofenac Sodium [Voltaren] 1 appl TP QID PRN 03/25/18 [History] Isosorbide MONOnitrate (24 HR) [Imdur] 30 mg PO DAILY #30 tab.er.24h 03/25/18 [Rx] BuPROPion SR (12 HR) [Wellbutrin SR] 150 mg PO QAM 06/04/18 [History] Levothyroxine [Synthroid] 112 mcg PO 0630 06/04/18 [History] Losartan Potassium 50 mg PO DAILY 06/04/18 [History] Metoprolol Succinate [Toprol Xl] 12.5 mg PO DAILY 06/04/18 [History] Venlafaxine HCl [Venlafaxine HCl ER] 150 mg PO DAILY 06/04/18 [History] Allergy/AdvReac Type Severity Reaction Status Date / Time No Known Allergies Allergy Verified 02/26/18 09:30 All Systems PM: A 10-system review of systems was performed and is negative for pertinent findings except as documented above in the HPI. - Constitutional Vitals: Temp Pulse Resp BP Pulse Ox 98.1 F 74 16 121/74 97 06/04/18 16:25 06/04/18 18:43 06/04/18 18:43 06/04/18 18:43 06/04/18 18:43 General appearance: Present: cooperative, mild distress, A&O X 3, pleasant, answers questions appropriately Exam: - - Head Head exam: Present: normal inspection - Eye Eye exam: Present: EOMI, normal appearance - Respiratory Respiratory exam: Present: CTAB. Absent: rales, respiratory distress, rhonchi, wheezes - Cardiovascular Cardiovascular exam: Present: RRR. Absent: diastolic murmur, systolic murmur - GI/Abdominal GI/Abdominal exam: Present: normal bowel sounds, soft. Absent: tenderness - Extremities Exam Extremities exam: Present: warm, radial pulses palpable and symmetrical. Absent: pedal edema Additional comments: Right knee in knee immobilizer. Pulses intact bilaterally in lower extremities. Sensation in motor function intact. - Neurological Exam Neurological exam: Present: no focal deficits, strengths equal and symetr throughout. Absent: motor sensory deficit, facial droop, speech deficit - Skin Skin exam: Present: dry, normal color, warm Internal Med - H&P Results - Labs CBC & Chem 7: 06/04/18 16:49 06/04/18 16:49 Labs: Short CBC 06/04/18 Range/Units 16:49 WBC 8.4 (4.3-11.1) K/mcL Hgb 11.9 (11.5-15.4) g/dL Hct 40.2 (35.3-44.9) % Plt Count 248 (140-400) K/mcL Neutrophils # 5.6 (1.6-8.9) K/mcL BMP 06/04/18 16:49 Sodium 139 Potassium 3.5 Chloride 105 Carbon Dioxide 27 BUN 30 H Creatinine 1.73 H Glucose 105 Calcium 9.1 Cardiac Enzymes 06/04/18 Range/Units 16:49 Troponin I < 0.03 (< 0.04) ng/mL Urine 06/04/18 Range/Units 18:40 Urine Color Yellow (Yellow) Urine Clarity Hazy A (Clear) Urine pH 5.0 (5.0-8.0) pH Units Ur Specific [place] 1.015 (1.010-1.025) Urine Protein Negative (Neg-Trace) mg/dL Urine Glucose (UA) Normal (Normal) mg/dL - Impressions ITS Impressions Cervical Spine CT 06/04/18 16:31 IMPRESSION: No acute abnormality of the cervical spine. Mild cervical spondylosis without significant canal narrowing. Grade 1 anterolisthesis of C4 on C5 is presumably degenerative given mild spondylosis and lack of prevertebral soft tissue swelling. D/ / 06/04/2018 18:28:18 Ryan Rios / [facility] Interpreting Provider: Ryan Rios Femur X-Ray 06/04/18 16:31 IMPRESSION: Oblique, angulated and overriding distal femoral diaphyseal fracture. D/ / 06/04/2018 17:57:36 Coy Fonseca MD / [facility] Interpreting Provider: Coy Fonseca MD Head CT 06/04/18 16:31 IMPRESSION: No acute intracranial abnormality. D/ / Brien Rodarte MD / Brien Rodarte MD Interpreting Provider: Brien Rodarte MD Hip X-Ray 06/04/18 16:31 IMPRESSION: Right tibia and fibula: No acute abnormality detected within the right tibia and fibula. Left hip: Limited negative. D/ / Brien Rodarte MD / Brien Rodarte MD Interpreting Provider: Brien Rodarte MD Lumbar Spine CT 06/04/18 16:31 IMPRESSION: Degenerative disc disease with levoscoliotic curvature, multilevel disc protrusions and canal stenosis L5-S1. No acute fracture or subluxation is evident. D/ / 06/04/2018 18:30:55 Alesia Vergara MD / [facility] Interpreting Provider: Alesia Vergara MD Shoulder X-Ray 06/04/18 16:31 IMPRESSION: Negative for fracture D/ / Pastor Arredondo MD / Pastor Arredondo MD Interpreting Provider: Pastor Arredondo MD Thoracic Spine CT 06/04/18 16:31 IMPRESSION: No acute osseous abnormality. D/ / Coy Fonseca MD / oCy Fonseca MD Interpreting Provider: Cyo Fonseca MD Tibia/Fibula X-Ray 06/04/18 16:31 IMPRESSION: Right tibia and fibula: No acute abnormality detected within the right tibia and fibula. Left hip: Limited negative. D/ / Brien Rodarte MD / Brien Rodarte MD Interpreting Provider: Brien Rodarte MD - Assessment and plan (1) Right femoral fracture Current Visit: Yes Status: Acute Assessment and plan: As evidenced by patient's right femur x-ray. Resulted from a fall/syncopal episode at home. Unclear etiology, however patient was recently started on a new medication that this made her more confused and off balance as per the family. The name of this medicine and prescribing doctor are unknown at this time. Orthopedic surgery consulted from the ER, will see the patient in the morning Hold home meds Cardiac monitoring Pain management as needed Qualifiers: Encounter type: initial encounter Femur location: distal Fracture type: closed Fracture morphology: unspecified fracture morphology Qualified Code(s): S72.401A - Unspecified fracture of lower end of right femur, initial encounter for closed fracture (2) Fall Current Visit: No Status: Acute Assessment and plan: Secondary to unknown etiology. Patient's grandson stated that she just collapsed. She did hit her head with the fall. She had a similar episode about a week ago. Recently started on a new medication, could perhaps the was causing her to have these falls. Cardiac monitoring Consider echocardiogram and vasovagal workup when femur fracture addressed Hold home meds Obtain medication list in the morning Qualifiers: Qualified Code(s): W19.XXXA - Unspecified fall, initial encounter (3) Acute kidney injury superimposed on chronic kidney disease Current Visit: Yes Status: Acute Assessment and plan: Patient has elevated creatinine, above her baseline. Has history of chronic kidney disease stage III. IV fluid boluses Recheck labs in the morning (4) Current use of anticoagulant therapy Current Visit: No Status: Chronic Assessment and plan: Patient taking Eliquis at home for history of DVTs. Hold Eliquis (5) Elevated INR Current Visit: Yes Status: Acute Assessment and plan: Likely secondary to patient taking Eliquis. Repeat labs in the morning (6) Hypothyroid Current Visit: No Status: Chronic Assessment and plan: patient patient has history of hypothyroidism, on levothyroxine. TSH drawn in the emergency room showed a level less than 0.010 indicating possible hy perthyroidism. Could be secondary to iatrogenic synthetic thyroid hormone Hold home meds Continue to monitor Qualifiers: Hypothyroidism type: acquired Qualified Code(s): E03.9 - Hypothyroidism, unspecified (7) DVT prophylaxis Current Visit: Yes Status: Acute Assessment and plan: Patient has history of DVTs, and has been on Eliquis. We will hold Eliquis at this time secondary to her fall and hitting her head. She will also likely be going to surgery for her femur fracture. Patient denies taking her meds on the day of her admission. SCDs - Time Spent With Patient Total time spent is greater than 50% in coordination of care (as documented) at patient's floor/unit and/or counseling patient:
[2018-06-04] MEDS ORDERED: OXYCODONE Oral CONC 10 MG/0.5 ML ORAL.SYG SL PRN (22:12)
[2018-06-04] MEDS ORDERED: 0.9 % Sodium Chloride 1,000 ML IVC ONE ×2 (22:14→22:15)
[2018-06-04] MEDS: OXYCODONE Oral CONC 10 MG/0.5 ML ORAL.SYG SL PRN (23:06)
[2018-06-05] MEDS: OXYCODONE Oral CONC 10 MG/0.5 ML ORAL.SYG SL PRN ×4 (04:40→22:31)
[2018-06-05 06:20] LABS: Hematocrit 33.1 % (35.3-44.9); Mean Corpuscular HGB Conc 30.2 g/dL (31.6-35.5); Mean Corpuscular Hemoglobin 26.7 pg (28.0-33.3); Mean Corpuscular Volume 88.5 fL (83.0-100.0); Mean Platelet Volume 10.5 fL (9.4-12.4); Platelet Count 239 K/mcL (140-400); Red Blood Count 3.74 M/mcL (3.82-4.97)
[2018-06-05 06:27] LABS: INR 1.6; Prothrombin Time 18.2 Seconds (9.4-12.1)
[2018-06-05 06:41] LABS: Calcium 8.7 mg/dL (8.6-10.3)
--- NOTE | 2018-06-05 06:54 | Orthopedics Progress Note ---
Date of Encounter: 06/05/18 Time of Encounter: 06:53 Subjective Interval history: Patient seen this morning status post fall patient with displaced periprosthetic femur fracture of distal femur. Concern is integrity of fixation of femoral implant. We will obtain a CT scan, patient will require surgical intervention either open reduction internal fixation versus revision to a distal femoral replacement. Surgery will be tomorrow Objective Vital signs: Vital Signs Temp Pulse Resp BP Pulse Ox 06/05/18 04:42 98.1 F 06/05/18 04:37 100.1 F H 85 17 133/63 100 06/05/18 00:00 98.4 F 72 14 111/69 93 06/04/18 21:03 97.7 F 70 15 123/78 94 06/04/18 20:07 16 131/74 06/04/18 18:43 74 16 121/74 97 06/04/18 16:44 98 06/04/18 16:25 98.1 F 69 16 117/65 100 Intake and Output 06/04/18 06/04/18 06/05/18 15:59 23:59 07:59 Intake Total 100 / 100 Output Total 925 / 925 Balance -825 / -825 Intake: Oral 100 / 100 Output: Catheter 925 / 925 Other: Weight 68.4 kg - Labs CBC & BMP: 06/05/18 05:54 06/05/18 05:54 Labs: Abnormal lab results RBC 3.74 M/mcL (3.82-4.97) L 06/05/18 05:54 Hgb 10.0 g/dL (11.5-15.4) L D 06/05/18 05:54 Hct 33.1 % (35.3-44.9) L 06/05/18 05:54 MCH 26.7 pg (28.0-33.3) L 06/05/18 05:54 MCHC 30.2 g/dL (31.6-35.5) L 06/05/18 05:54 RDW 16.0 % (11.5-14.5) H 06/05/18 05:54 PT 18.2 Seconds (9.4-12.1) H 06/05/18 05:54 Chloride 111 mEq/L (98-107) H 06/05/18 05:54 BUN 26 mg/dL (6-20) H 06/05/18 05:54 Creatinine 1.26 mg/dL (0.60-1.20) H 06/05/18 05:54 Est GFR ( Amer) 53 (> 60) L 06/05/18 05:54 Est GFR (Non-Af Amer) 44 (> 60) L 06/05/18 05:54 TSH < 0.010 mcIU/mL (0.340-5.600) L 06/04/18 16:49 Urine Clarity Hazy (Clear) A 06/04/18 18:40 Ur Leukocyte Esterase Small (Negative) H 06/04/18 18:40 Urine Microscopic WBC 5-15 per hpf (0-3) H 06/04/18 18:40 Ur Squamous Epith Cells Many per lpf (None-Few) H 06/04/18 18:40 Consult Discharge Plan - Plan Referrals: Van James MD [Primary Care Provider] -
--- NOTE | 2018-06-05 11:20 | Internal Med Progress Note ---
<Mili Schroeder - Last Filed: 06/05/18 11:54> Hospitalist Progress Note - Encounter Date of Encounter: 06/05/18 Time of Encounter: 11:16 - Subjective Interval History: This morning she was sleeping in her bed. Her daughter was present. She says that she isnt feeling well. She feels tired, and fatigued. She says she felt like she had a fever and it was 100.1 during the night. However, she denied any chills. She says she does have some nasal congestion and some abdominal pain, but she hasnt had a BM in several days. She denied weakness, headache, dizziness, vision changes, chest pain, palpitations, shortness of breath, dyspnea, nausea, vomiting, dysuria, numbness or tingling. - Exam Vitals: Temp Pulse Resp BP Pulse Ox 98.3 F 79 16 137/84 96 06/05/18 06:24 06/05/18 06:24 06/05/18 06:24 06/05/18 06:24 06/05/18 06:24 Exam: Gen.: Vitals noted. Sleeping in bed, alert, no acute distress. HEENT: Neck is supple and trachea midline. Mucosa moist, external ears normal. Cardiac: RRR, no murmur present. No BLE edema. Pulmonary: CTA bilaterally, no wheezes. Abdomen: Soft, BS noted, diffuse abdominal tenderness, no guarding. Skin: Warm and dry. MSK:Gait not assessed while in bed, Radial pulses present and strong. Right leg in knee immobilizer with ice packs. lower and upper extremity sensation intact bilaterally. Neuro: No focal deficits. Psych: Appropriate mood and behavior - Assessment and Plan (1) Abnormal CT of the head Current Visit: Yes Status: Acute Assessment and Plan: - Initial CT of head in ED showed no acute abnormalities - Repeat CT of head at 6:27 this morning showed, "2 questionable tiny foci of hyperdensity along the sulci of the left frontal lobe, which are not clearly seen on the prior exam. These could represent early foci of subarachnoid blood. Consider repeat examination in 4-6 hours. Plan -Patient to have stat repeat of CT of head this morning -Treatment and possible transfer to [facility] dependent on results (2) Right femoral fracture Current Visit: Yes Status: Acute Assessment and Plan: -Xray results show "Oblique, angulated and overriding distal femoral diaphyseal fracture." -Orthopedic surgery saw patient and recommends "CT scan, patient will require surgical intervention either open reduction internal fixation versus revision to a distal femoral replacement. Surgery will be tomorrow" -Surgery will be dependent on CT results Plan: -Cardiac monitoring -Hold home medication -Pain management as needed (3) Anemia Current Visit: Yes Status: Acute Assessment and Plan: -Patient's hgb is 10.0 this morning, down from 11.9 yesterday -Patient is being workup for abnormal Ct scan of head, will have stat CT of head this morning -Etilogy secondary to fracture and surrounding hemorrhage, "CT of femur showed Acute comminuted displaced distal right femoral diaphyseal fracture with 2.3 cm of lateral displacement and a posteriorly displaced cortical butterfly fracture component. Surrounding hemorrhage and edema in the right thigh musculature." Plan: -Continue to monitor H and H q6hrs (4) Fall Current Visit: No Status: Acute Assessment and Plan: -Secondary to unknown etiology. Patient's grandson stated that she just collapsed. -She had a similar episode about a week ago, also confirmed by her daughter. Recently started on a new medication, could perhaps the was causing her to have these falls. Plan: -Cardiac monitoring -Consider echocardiogram and vasovagal workup when femur fracture addressed and repeat CT scan of head is done -Hold home meds Qualifiers: (5) Hypothyroid Current Visit: No Status: Chronic Assessment and Plan: -Patient has history of hypothyroidism, on home medication levothyroxine 112mcg PO -TSH drawn in the emergency room showed a level less than 0.010, free T4 is 3.65. - Etiology indicating possible hyperthyroidism secondary to iatrogenic synthetic thyroid hormone Plan: -Patient to restart metoprolol 12.5mg PO -Follow outpatient -Will recheck labs (6) DVT (deep venous thrombosis) Current Visit: No Status: Acute Assessment and Plan: -Patient has history of DVTs, and has been on Eliquis. -Eliquis is being held considering her fall and abnormal CT of head Plan: -Continue using SCDs - Time Spent with Patient Total time spent is greater than 50% in coordination of care (as documented) at patient's floor/unit and/or counseling patient: Internal Medicine: Result - Labs CBC & Chem 7: 06/05/18 05:54 06/05/18 05:54 Labs: Short CBC 06/04/18 06/05/18 Range/Units 16:49 05:54 WBC 8.4 7.8 (4.3-11.1) K/mcL Hgb 11.9 10.0 L D (11.5-15.4) g/dL Hct 40.2 33.1 L (35.3-44.9) % Plt Count 248 239 (140-400) K/mcL Neutrophils # 5.6 (1.6-8.9) K/mcL BMP 06/04/18 06/05/18 16:49 05:54 Sodium 139 143 Potassium 3.5 4.0 Chloride 105 111 H Carbon Dioxide 27 27 BUN 30 H 26 H Creatinine 1.73 H 1.26 H Glucose 105 88 Calcium 9.1 8.7 Cardiac Enzymes 06/04/18 Range/Units 16:49 Troponin I < 0.03 (< 0.04) ng/mL Urine 06/04/18 Range/Units 18:40 Urine Color Yellow (Yellow) Urine Clarity Hazy A (Clear) Urine pH 5.0 (5.0-8.0) pH Units Ur Specific W[place]ley 1.015 (1.010-1.025) Urine Protein Negative (Neg-Trace) mg/dL Urine Glucose (UA) Normal (Normal) mg/dL - ABG Interpretation ABG results: PT/INR, D-dimer PT 18.2 Seconds (9.4-12.1) H 06/05/18 05:54 - Impressions Impressions Cervical Spine CT 06/04/18 16:31 IMPRESSION: No acute abnormality of the cervical spine. Mild cervical spondylosis without significant canal narrowing. Grade 1 anterolisthesis of C4 on C5 is presumably degenerative given mild spondylosis and lack of prevertebral soft tissue swelling. D/ / 06/04/2018 18:28:18 Ryan Rios / [facility] Interpreting Provider: Ryan Rios Femur X-Ray 06/04/18 16:31 IMPRESSION: Oblique, angulated and overriding distal femoral diaphyseal fracture. D/ / 06/04/2018 17:57:36 [facility] Inter[facility]ting Provider: Coy Fonseca MD Head CT 06/04/18 16:31 IMPRESSION: No acute intracranial abnormality. D/ / Brien Rodarte MD / Brien Rodarte MD Interpreting Provider: Brien Rodarte MD Hip X-Ray 06/04/18 16:31 IMPRESSION: Right tibia and fibula: No acute abnormality detected within the right tibia and fibula. Left hip: Limited negative. D/ / Brien Rodarte MD / Brien Rodarte MD Interpreting Provider: Brien Rodarte MD Lumbar Spine CT 06/04/18 16:31 IMPRESSION: Degenerative disc disease with levoscoliotic curvature, multilevel disc protrusions and canal stenosis L5-S1. No acute fracture or subluxation is evident. D/ / 06/04/2018 18:30:55 Alesia Vergara MD / [facility] Interpreting Provider: Alesia Vergara MD Shoulder X-Ray 06/04/18 16:31 IMPRESSION: Negative for fracture D/ / Pastor Arredondo MD / Pastor Arredondo MD Interpreting Provider: Pastor Arredondo MD Thoracic Spine CT 06/04/18 16:31 IMPRESSION: No acute osseous abnormality. D/ / Coy Fonseca MD / Coy Fonseca MD Interpreting Provider: Coy Fonseca MD Tibia/Fibula X-Ray 06/04/18 16:31 IMPRESSION: Right tibia and fibula: No acute abnormality detected within the right tibia and fibula. Left hip: Limited negative. D/ / Brien Rodarte MD / Brien Rodarte MD Interpreting Provider: Brien Rodarte MD Head CT 06/05/18 06:00 IMPRESSION: 1. There are 2 questionable tiny foci of hyperdensity along the sulci of the left frontal lobe, which are not clearly seen on the prior exam. These could represent early foci of subarachnoid blood. Consider repeat examination in 4-6 hours. 2. There is no evidence of mass effect or midline shift. 3. Minimal global parenchymal volume loss. 4. Scattered atherosclerosis of the intracranial vasculature. These results were sent to the [facility] ([facility] on 06/05/2018 at 7:37 am to be communicated to the referring/covering health care provider/office. D/ / En España MD / En España MD Interpreting Provider: En España MD Femur CT 06/05/18 06:48 IMPRESSION: 1. Acute comminuted displaced distal right femoral diaphyseal fracture with 2.3 cm of lateral displacement and a posteriorly displaced cortical butterfly fracture component. Surrounding hemorrhage and edema in the right thigh musculature. 2. Underlying diffuse osteopenia. 3. Patient motion is incidentally seen at the left knee. Streak artifact from the pre-existing right knee arthroplasty hardware limits evaluation of the associated osseous structures and soft tissues at the right knee. 4. Small suprapatellar joint effusion. 5. Mild right hip osteoarthrosis. 6. Mild sigmoid diverticulosis. D/ / 06/05/2018 08:01:58 Alden Meyer MD / jane Interpreting Provider: Alden Meyer MD Consult Discharge Plan - Plan Referrals: Van James MD [Primary Care Provider] - <Nellie Encinas - Last Filed: 06/05/18 14:00> Hospitalist Progress Note - Encounter Date of Encounter: 06/05/18 Time of Encounter: 09:45 - Subjective Interval History: Patient is awake and alert. Does have pain in her right lower extremity. Denies any focal weakness or numbness. Denies any headache at this time. No acute vision changes. Also complains of constipation. No fever or chills reported overnight. - Exam Vitals: Temp Pulse Resp BP Pulse Ox 98.3 F 101 16 155/79 97 06/05/18 12:00 06/05/18 12:00 06/05/18 12:00 06/05/18 12:00 06/05/18 12:00 Exam: General: Patient is alert, no acute distress, oriented x 3 Eyes: EOMI ENT: Mucous membranes moist Respiratory: Good respiratory effort. Normal breath sounds. No wheezing or crackles. Cardiovascular: Regular rate and rhythm. s1 and s2 normal No clicks, rubs, gallops, or murmurs. No pedal edema Abdomen: Abdomen is soft, nontender. Bowel sounds are present Musculoskeletal: Right lower extremity immobilized. Skin: warm, dry, intact. Neuro: Alert oriented x 3 normal cranial nerves, no focal deficits - Assessment and Plan (1) Right femoral fracture Current Visit: Yes Status: Acute Assessment and Plan: Acute right femur fracture. With surrounding hemorrhage and edema into right thigh musculature. Patient will need surgery. Orthopedics following. Plan for surgery tomorrow. Her estimated risk probability for perioperative AR or cardiac arrest is low. Okay to proceed with surgery at this time. (2) Acute kidney injury superimposed on chronic kidney disease Current Visit: Yes Status: Acute Assessment and Plan: Improving. Creatinine 1.26 today. (3) Current use of anticoagulant therapy Current Visit: Yes Status: Chronic Assessment and Plan: Patient on chronic anticoagulation with Eliquis. Currently on hold pending surgery. (4) DVT prophylaxis Current Visit: Yes Status: Acute Assessment and Plan: With SCDs (5) Fall Current Visit: Yes Status: Acute Assessment and Plan: Status post right femur fracture. Awaiting surgery. We will need PTOT evaluation after. (6) Hypertension Current Visit: Yes Status: Chronic Assessment and Plan: Blood pressure is elevated. Continue home medications. Monitor blood pressure closely. (7) Hypothyroid Current Visit: Yes Status: Chronic Assessment and Plan: Currently TSH is low and free T4 is elevated. We will hold levothyroxine. Recommend holding for 2 weeks and recheck TSH and free T4 levels. (8) Abnormal CT of the head Current Visit: Yes Status: Ruled-out Assessment and Plan: CT scan of the head done earlier today says that possible subarachnoid hemorrhage. However repeat CT scan done 4-5 hours later did not show these findings. - Time Spent with Patient Total time spent is greater than 50% in coordination of care (as documented) at patient's floor/unit and/or counseling patient: Internal Medicine: Result - Labs CBC & Chem 7: 06/05/18 05:54 06/05/18 05:54 Labs: Short CBC 06/04/18 06/05/18 Range/Units 16:49 05:54 WBC 8.4 7.8 (4.3-11.1) K/mcL Hgb 11.9 10.0 L D (11.5-15.4) g/dL Hct 40.2 33.1 L (35.3-44.9) % Plt Count 248 239 (140-400) K/mcL Neutrophils # 5.6 (1.6-8.9) K/mcL BMP 06/04/18 06/05/18 16:49 05:54 Sodium 139 143 Potassium 3.5 4.0 Chloride 105 111 H Carbon Dioxide 27 27 BUN 30 H 26 H Creatinine 1.73 H 1.26 H Glucose 105 88 Calcium 9.1 8.7 Cardiac Enzymes 06/04/18 Range/Units 16:49 Troponin I < 0.03 (< 0.04) ng/mL Urine 06/04/18 Range/Units 18:40 Urine Color Yellow (Yellow) Urine Clarity Hazy A (Clear) Urine pH 5.0 (5.0-8.0) pH Units Ur Specific [place] 1.015 (1.010-1.025) Urine Protein Negative (Neg-Trace) mg/dL Urine Glucose (UA) Normal (Normal) mg/dL - ABG Interpretation ABG results: PT/INR, D-dimer PT 18.2 Seconds (9.4-12.1) H 06/05/18 05:54 - Impressions Impressions Cervical Spine CT 06/04/18 16:31 IMPRESSION: No acute abnormality of the cervical spine. Mild cervical spondylosis without significant canal narrowing. Grade 1 anterolisthesis of C4 on C5 is presumably degenerative given mild spondylosis and lack of prevertebral soft tissue swelling. D/ / 06/04/2018 18:28:18 Ryan Rios / [facility] Interpreting Provider: Ryan Rios Femur X-Ray 06/04/18 16:31 IMPRESSION: Oblique, angulated and overriding distal femoral diaphyseal fracture. D/ / 06/04/2018 17:57:36 Coy Fonseca MD / [facility] Interpreting Provider: Coy Fonseca MD Head CT 06/04/18 16:31 IMPRESSION: No acute intracranial abnormality. D/ / Brien Rodarte MD / Brien Rodarte MD Interpreting Provider: Brien Rodarte MD Hip X-Ray 06/04/18 16:31 IMPRESSION: Right tibia and fibula: No acute abnormality detected within the right tibia and fibula. Left hip: Limited negative. D/ / Brien Rodarte MD / Brine Rodarte MD Interpreting Provider: Brien Rodarte MD Lumbar Spine CT 06/04/18 16:31 IMPRESSION: Degenerative disc disease with levoscoliotic curvature, multilevel disc protrusions and canal stenosis L5-S1. No acute fracture or subluxation is evident. D/ / 06/04/2018 18:30:55 Alesia Vergara MD / [facility] Interpreting Provider: Alesia Vergara MD Shoulder X-Ray 06/04/18 16:31 IMPRESSION: Negative for fracture D/ / Pastor Arredondo MD / Pastor Arredondo MD Interpreting Provider: Pastor Arredondo MD Thoracic Spine CT 06/04/18 16:31 IMPRESSION: No acute osseous abnormality. D/ / Coy Fonseca MD / Coy Fonseca MD Interpreting Provider: Coy Fonseca MD Tibia/Fibula X-Ray 06/04/18 16:31 IMPRESSION: Right tibia and fibula: No acute abnormality detected within the right tibia and fibula. Left hip: Limited negative. D/ / Brien Rodarte MD / Brien Rodarte MD Interpreting Provider: Brien Rodarte MD Head CT 06/05/18 06:00 IMPRESSION: 1. There are 2 questionable tiny foci of hyperdensity along the sulci of the left frontal lobe, which are not clearly seen on the prior exam. These could represent early foci of subarachnoid blood. Consider repeat examination in 4-6 hours. 2. There is no evidence of mass effect or midline shift. 3. Minimal global parenchymal volume loss. 4. Scattered atherosclerosis of the intracranial vasculature. These results were sent to the [facility] ([facility]) on 06/05/2018 at 7:37 am to be communicated to the referring/covering health care provider/office. D/ / En España MD / En [place] MD Interpreting Provider: En España MD Femur CT 06/05/18 06:48 IMPRESSION: 1. Acute comminuted displaced distal right femoral diaphyseal fracture with 2.3 cm of lateral displacement and a posteriorly displaced cortical butterfly fracture component. Surrounding hemorrhage and edema in the right thigh musculature. 2. Underlying diffuse osteopenia. 3. Patient motion is incidentally seen at the left knee. Streak artifact from the pre-existing right knee arthroplasty hardware limits evaluation of the associated osseous structures and soft tissues at the right knee. 4. Small suprapatellar joint effusion. 5. Mild right hip osteoarthrosis. 6. Mild sigmoid diverticulosis. D/ : / 06/05/2018 08:01:58 Alden Meyer MD / [facility] Interpreting Provider: Alden Meyer MD Head CT 06/05/18 11:00 IMPRESSION: No acute intracranial abnormality. D/ / Delon Terrazas MD / Delon Terrazas MD Interpreting Provider: Delon Terrazas MD Knee X-Ray 06/05/18 12:58 IMPRESSION: Increased medial displacement of distal femoral fracture fragment. D/ / 06/05/2018 13:45:50 Monster France MD / [facility] Interpreting Provider: Monster France MD <Mili Schroeder - Last Filed: 06/05/18 11:54> (2) Right femoral fracture Qualifiers: Encounter type: initial encounter Femur location: distal Fracture type: closed Fracture morphology: unspecified fracture morphology Qualified Code(s): S72.401A - Unspecified fracture of lower end of right femur, initial encounter for closed fracture (3) Anemia Qualifiers: Anemia type: unspecified type Qualified Code(s): D64.9 - Anemia, unspecified (4) Fall Qualifiers: Qualified Code(s): W19.XXXA - Unspecified fall, initial encounter (5) Hypothyroid Qualifiers: Hypothyroidism type: acquired Qualified Code(s): E03.9 - Hypothyroidism, unspecified (6) DVT (deep venous thrombosis) Qualifiers: DVT location: lower extremity Affected thrombotic vein of extremity: popliteal Chronicity: chronic Laterality: left Qualified Code(s): I82.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 <Nellie Encinas - Last Filed: 06/05/18 14:00> (1) Right femoral fracture Qualifiers: Encounter type: initial encounter Femur location: distal Fracture type: closed Fracture morphology: unspecified fracture morphology Qualified Code(s): S72.401A - Unspecified fracture of lower end of right femur, initial encounter for closed fracture (5) Fall Qualifiers: Qualified Code(s): W19.XXXA - Unspecified fall, initial encounter (6) Hypertension Qualifiers: Hypertension type: essential hypertension Qualified Code(s): I10 - Essential (primary) hypertension (7) Hypothyroid Qualifiers: Hypothyroidism type: acquired Qualified Code(s): E03.9 - Hypothyroidism, unspecified
--- NOTE | 2018-06-05 13:01 | Event Note ---
Date of Encounter: 06/05/18 Time of Encounter: 12:30 Dr Olivarez spoke with patient this morning about the right distal femur fracture and will require surgical fixation. ORIF vs revision TKR. Patient states Dr. Olivarez reviewed the procedure as well as r/b/a with her and she has no further questions at this time. Consent was signed and placed in chart. Plan for surgery tomorrow pending medical clearance. NPO after midnight
[2018-06-05] MEDS ORDERED: Ondansetron ODT 4 MG TAB.RAPDIS PO PRN (14:02)
--- NOTE | 2018-06-05 14:10 | Electrocardiograph Report ---
[place] [id number] Test Date: 2018-06-04 Pat Name: Velma Nicolas Department: EXAM6 Room: 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
[2018-06-05 14:52] LABS: Hematocrit 35.3 % (35.3-44.9); Hemoglobin 10.6 g/dL (11.5-15.4)
[2018-06-05] MEDS: BuPROPion SR (12 HR) 150 MG TABLET PO SCH (16:14)
[2018-06-05] MEDS: clonazePAM 1 MG TABLET PO SCH ×2 (16:14→22:31)
--- NOTE | 2018-06-05 18:01 | Anesthesia Evaluation PreOp ---
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 [off x 3 days]), Thyroid (Hyperthyroid per labs this hospitalization (overmedicated with Hypothyroidism meds??)), GERD, Other (RA, Hx Breast Ca s/p lumpectomy & radiation) Anesthesia History: No Prior Anesthetic Complications, Past Anesthesia (Hysteroscopy/D&C, Gastric Bypass 2004, Lap Incisional Hernia repair 2006, L- CTR, IVC filter placement/removal 10/2017, R-TKR 2012, L-lumpectomy, B-RCR, Tubal ligation) Alcohol Use: none Drug use: none Medications and Allergies Aspirin 81 mg PO DAILY 09/28/15 [History] Nitroglycerin [Nitrostat] 0.4 mg SL Q5M PRN 09/28/15 [History] Omeprazole [PriLOSEC] 20 mg PO BID 09/28/15 [History] Oxycodone HCl/Acetaminophen [Percocet 10-325 mg Tablet] 1 tab PO Q6H PRN 09/28/15 [History] Gabapentin [Neurontin] 300 - 600 mg PO BID PRN 09/26/16 [History] Nitroglycerin [Nitrolingual] 1 - 2 spr TL AD PRN 09/26/16 [History] cloNIDine HCl [CloNIDine HCl] 0.1 mg PO TID PRN 09/26/16 [History] clonazePAM [Klonopin] 1 mg PO TID 09/26/16 [History] rOPINIRole [Requip] 1 mg PO HS 09/26/16 [History] Furosemide [Lasix] 40 mg PO DAILY 08/22/17 [History] Ondansetron HCl [Zofran] 4 mg PO Q6H PRN 08/22/17 [History] OxyCODONE ER (12 HR) [OxyCONTIN] 80 mg PO Q12H 08/22/17 [History] Apixaban [Eliquis] 5 mg PO BID #60 tablet 08/23/17 [Rx] buPROPion HCl [Zyban] 300 mg PO QPM 02/26/18 [History] Isosorbide MONOnitrate (24 HR) [Imdur] 30 mg PO DAILY #30 tab.er.24h 03/25/18 [Rx] BuPROPion SR (12 HR) [Wellbutrin SR] 150 mg PO QAM 06/04/18 [History] Levothyroxine [Synthroid] 112 mcg PO 0630 06/04/18 [History] Losartan Potassium 50 mg PO DAILY 06/04/18 [History] Metoprolol Succinate [Toprol Xl] 12.5 mg PO DAILY 06/04/18 [History] Venlafaxine HCl [Venlafaxine HCl ER] 150 mg PO DAILY 06/04/18 [History] Allergy/AdvReac Type Severity Reaction Status Date / Time No Known Allergies Allergy Verified 02/26/18 09:30 - Meds/Allergy Pre-op Review Medications Reviewed: Yes Allergies Reviewed: Yes Beta Blockers on Current Med List: Yes (Metoprolol) Anesthesia Results - Labs 06/05/18 20:13 06/05/18 05:54 Laboratory Results Laboratory Tests 06/03/18 06/04/18 06/04/18 12:25 16:49 16:49 PT INR APTT 34.7 Est GFR (Non-Af Amer) Calcium TSH < 0.010 L Free T4 PTH Intact 76.1 H 06/05/18 06/05/18 05:54 05:54 PT 18.2 H INR 1.6 APTT Est GFR (Non-Af Amer) 44 L Calcium 8.7 TSH Free T4 3.65 H PTH Intact Impressions Cervical Spine CT 06/04/18 16:31 IMPRESSION: No acute abnormality of the cervical spine. Mild cervical spondylosis without significant canal narrowing. Grade 1 anterolisthesis of C4 on C5 is presumably degenerative given mild spondylosis and lack of prevertebral soft tissue swelling. D/ / 06/04/2018 18:28:18 Ryan Rios / [facility] Interpreting Provider: Ryan Rios Femur X-Ray 06/04/18 16:31 IMPRESSION: Oblique, angulated and overriding distal femoral diaphyseal fracture. D/ / 06/04/2018 17:57:36 Coy Fonseca MD / [facility] Interpreting Provider: Coy Fonseca MD Lumbar Spine CT 06/04/18 16:31 IMPRESSION: Degenerative disc disease with levoscoliotic curvature, multilevel disc protrusions and canal stenosis L5-S1. No acute fracture or subluxation is evident. Femur CT 06/05/18 06:48 IMPRESSION: 1. Acute comminuted displaced distal right femoral diaphyseal fracture with 2.3 cm of lateral displacement and a posteriorly displaced cortical butterfly fracture component. Surrounding hemorrhage and edema in the right thigh musculature. 2. Underlying diffuse osteopenia. 3. Patient motion is incidentally seen at the left knee. Streak artifact from the pre-existing right knee arthroplasty hardware limits evaluation of the associated osseous structures and soft tissues at the right knee. 4. Small suprapatellar joint effusion. 5. Mild right hip osteoarthrosis. 6. Mild sigmoid diverticulosis. D/ : / 06/05/2018 08:01:58 Alden Meyer MD / [facility] Interpreting Provider: Alden Meyer MD - Imaging EKG: image reviewed (68bpm - Sinus rhythm Borderline T wave abnormalities Electronically Signed On 06-05-2018 14:09:02 EST by Bridger Jones) Additional studies: ECHO 01/03/2018 EV/EV echocardiogram Impressions: LVEF 55%. Normal LV chamber size, wall thickness and function. Moderate left ventricular diastolic dysfunction. Normal right ventricular structure and function. No evidence of pulmonary hypertension. No significant valvular dysfunction. Left Ventricular Wall Motion: Rest Echo Findings All wall segments showed normal motion. Nuclear Stress 01/03/2018 Impression: Pharmacologic stress ECG is negative for ischemia at level of heart rate achieved. Gated EF > 70%. Small sized, moderate intensity, reversible apical anterior and apex defect suggestive of ischemia. Transient ischemic dilation visualized. TID ratio 1.85. Ordering physician notified via eCW message. Cardiac Cath 03/25/2018 Indications: Unstable Angina Stable Known CAD New Onset Angina <= 2 months Impressions: There is moderate two vessel coronary artery disease. FFR Measurement: 0.87 LAD FFR Measurement: 0.88 RCA Recommendations: Optimal medical therapy of patient's disease. Aggressive risk factor modification. Anesthesia Exam Vital Signs Temp Pulse Resp BP Pulse Ox 06/05/18 14:08 98 F 98 16 148/83 97 06/05/18 12:00 98.3 F 101 16 155/79 97 06/05/18 06:24 98.3 F 79 16 137/84 96 06/05/18 04:42 98.1 F 06/05/18 04:37 100.1 F H 85 17 133/63 100 06/05/18 00:00 98.4 F 72 14 111/69 93 06/04/18 21:03 97.7 F 70 15 123/78 94 06/04/18 20:07 16 131/74 06/04/18 18:43 74 16 121/74 97 Intake and Output 06/05/18 06/05/18 06/05/18 07:59 15:59 23:59 Intake Total 100 / 100 350 / 350 Output Total 925 / 925 975 / 975 Balance -825 / -825 350 / 350 -975 / -975 Intake: Oral 100 / 100 350 / 350 Output: Catheter 925 / 925 975 / 975 Other: Meal Lunch Percent of Meal Consumed 60% Height: 5'5" Weight: 150# BMI = 25 NPO (# of Hours): MNOc Pain Scale Used: Numeric (1 - 10) - HEENT Pupil (Motor): Pupils equal, EOMI Mallampati: II Teeth: Edentulous Denture Type: Upper: Complete, Lower: Complete Oral Opening: Greater than 3 - TRAVEL REGISTERED NURSE NICU LOC: Oriented TRAVEL REGISTERED NURSE NICU Motor: Normal RUE, Normal LUE, Normal RLE, Normal LLE, Normal Face TRAVEL REGISTERED NURSE NICU Sensory: Normal: RUE, LUE, RLE, LLE, Face - Cardiac Rhythm: Regular Murmur: None JVD: No - Pulmonary Breath Sounds: bilateral Clear Respiratory Effort: Symmetrical Anesthesia Assess/Plan ASA Score: 3 Level of consciousness: Cooperative, Oriented, Tranquil Anesthetic Plan: General Monitoring Plan: Standard Monitors Recovery Plan: PACU Anes Supervising Prov Stmt: Pt seen/evaluated, R&B discussed, questions answered and consent obtained. Jose Sánchez MD
[2018-06-05 20:39] LABS: Hematocrit 35.2 % (35.3-44.9); Hemoglobin 10.9 g/dL (11.5-15.4)
[2018-06-05] MEDS: rOPINIRole 1 MG TABLET PO SCH (22:31)
[2018-06-06] MEDS ORDERED: Acetaminophen IV 1,000 MG/100 ML INFUS..BTL IVPB ONE (01:09)
[2018-06-06] MEDS: OXYCODONE Oral CONC 10 MG/0.5 ML ORAL.SYG SL PRN ×2 (03:04→15:46)
[2018-06-06] MEDS: cloNIDine HCl 0.1 MG TABLET PO PRN ×2 (04:53→12:35)
[2018-06-06] MEDS ORDERED: Ondansetron ODT 4 MG TAB.RAPDIS SL ONE (06:23)
--- NOTE | 2018-06-06 07:52 | Internal Med Progress Note ---
<Kalen Ruiz - Last Filed: 06/06/18 15:42> Hospitalist Progress Note - Encounter Date of Encounter: 06/06/18 Time of Encounter: 07:50 - Subjective Interval History: Patient seen and examined resting comfortably in bed. Patient reports chest pain this morning with one episode of nausea and vomiting overnight. Patient had hypertension overnight. HGB remained stable overnight. NPO, awaiting cardiology evaluation and possible femur ORIF today. - Exam Vitals: Temp Pulse Resp BP Pulse Ox 98.8 F 73 16 161/87 96 06/06/18 03:09 06/06/18 06:07 06/06/18 03:09 06/06/18 06:07 06/06/18 03:09 Exam: Gen.: A&O x3, no acute distress. HEENT: Neck is supple and trachea midline. Mucosa moist, external ears normal. Cardiac: RRR, no murmur present. No BLE edema. Pulmonary: CTA bilaterally, no wheezes. Abdomen: Soft, BS noted, diffuse abdominal tenderness, no guarding. Skin: Warm and dry. MSK: Radial pulses present and strong. Right leg in knee immobilizer with ice packs. lower and upper extremity sensation intact bilaterally. Neuro: No focal deficits. Psych: Appropriate mood and behavior - Assessment and Plan (1) Hypertensive urgency Current Visit: Yes Status: Acute Assessment and Plan: Blood pressure is elevated. Will continue pain control and antihypertensive therapy as needed Echo pending to rule out wall motion abnormality Continue to monitor blood pressure closely. (2) Chest pain Current Visit: Yes Status: Acute Assessment and Plan: Patient reports ongoing substernal chest pain this morning with one episode of nausea and vomiting Given ASA 325 Po x1, NTG SL prn, Zofran/ Phenergan prn Serial troponin 0.03, 0.04, 0.27, repeat troponin pending in 6 hours Echo pending to rule out wall motion abnormality Cardiology evaluated patient for cardiac clearance prior to possible femur ORIF today. Avoid Heparin drip due to increased risk of bleeding into thigh with CT evidence of displaced distal femur fracture and surrounding hemorrhage (3) Right femoral fracture Current Visit: Yes Status: Acute Assessment and Plan: Acute right femur fracture with surrounding hemorrhage and edema into right thigh musculature. Patient will need surgery. Her estimated risk probability for perioperative ND or cardiac arrest is low. Okay to proceed with surgery at this time. Orthopedics following. Awaiting cardiology evaluation and possible femur ORIF today. (4) Fall Current Visit: Yes Status: Acute Assessment and Plan: Status post right femur fracture. Awaiting surgery. PT/OT evaluation after surgery. (5) Hypothyroid Current Visit: Yes Status: Chronic Assessment and Plan: Currently TSH is low and free T4 is elevated. Hold levothyroxine for 2 weeks and recheck TSH and free T4 levels as an outpatient (6) Acute kidney injury superimposed on chronic kidney disease Current Visit: Yes Status: Resolved Assessment and Plan: Resolved. Creatinine 0.85 today. Continue monitoring (7) DVT prophylaxis Current Visit: Yes Status: Acute Assessment and Plan: SCDs Avoid Heparin drip due to increased risk of bleeding into thigh with CT evidence of displaced distal femur fracture and surrounding hemorrhage (8) Current use of anticoagulant therapy Current Visit: Yes Status: Chronic Assessment and Plan: Patient on chronic anticoagulation with Eliquis. Currently on hold pending surgery. - Time Spent with Patient Total time spent is greater than 50% in coordination of care (as documented) at patient's floor/unit and/or counseling patient: Internal Medicine: Result - Labs CBC & Chem 7: 06/06/18 07:49 06/06/18 07:49 Labs: Short CBC 06/05/18 06/05/18 Range/Units 14:37 20:13 Hgb 10.6 L 10.9 L (11.5-15.4) g/dL Hct 35.3 35.2 L (35.3-44.9) % - ABG Interpretation ABG results: PT/INR, D-dimer PT 18.2 Seconds (9.4-12.1) H 06/05/18 05:54 - Pulse Oximetry Interpretation Digit-Finger Pulse Oximetry Readin (On room Air) Actions taken: none - Impressions Impressions Cervical Spine CT 06/04/18 16:31 IMPRESSION: No acute abnormality of the cervical spine. Mild cervical spondylosis without significant canal narrowing. Grade 1 anterolisthesis of C4 on C5 is presumably degenerative given mild spondylosis and lack of prevertebral soft tissue swelling. D/ / 06/04/2018 18:28:18 Ryan Rios / [facility] Interpreting Provider: Ryan Rios Femur CT 06/05/18 06:48 IMPRESSION: 1. Acute comminuted displaced distal right femoral diaphyseal fracture with 2.3 cm of lateral displacement and a posteriorly displaced cortical butterfly fracture component. Surrounding hemorrhage and edema in the right thigh musculature. 2. Underlying diffuse osteopenia. 3. Patient motion is incidentally seen at the left knee. Streak artifact from the pre-existing right knee arthroplasty hardware limits evaluation of the associated osseous structures and soft tissues at the right knee. 4. Small suprapatellar joint effusion. 5. Mild right hip osteoarthrosis. 6. Mild sigmoid diverticulosis. D/ : / 06/05/2018 08:01:58 Alden Meyer MD / [facility] Interpreting Provider: Alden Meyer MD Head CT 06/05/18 11:00 IMPRESSION: No acute intracranial abnormality. D/ / Delon Terrazas MD / Delon Terrazas MD Interpreting Provider: Delon Terrazas MD Knee X-Ray 06/05/18 12:58 IMPRESSION: Increased medial displacement of distal femoral fracture fragment. D/ / 06/05/2018 13:45:50 Monster France MD / [facility] Interpreting Provider: Monster France MD Consult Discharge Plan - Plan Referrals: Van James MD [Primary Care Provider] - <Nellie Encinas - Last Filed: 06/06/18 16:10> Hospitalist Progress Note - Encounter Date of Encounter: 06/06/18 Time of Encounter: 09:40 - Exam Vitals: Temp Pulse Resp BP Pulse Ox 97.7 F 92 16 160/98 97 06/06/18 13:09 06/06/18 13:09 06/06/18 13:09 06/06/18 13:58 06/06/18 13:09 - Assessment and Plan (1) Right femoral fracture Current Visit: Yes Status: Acute (2) Chest pain Current Visit: Yes Status: Acute (3) Fall Current Visit: Yes Status: Acute (4) Hypothyroid Current Visit: Yes Status: Chronic (5) Acute kidney injury superimposed on chronic kidney disease Current Visit: Yes Status: Resolved (6) DVT prophylaxis Current Visit: Yes Status: Acute (7) Hypertensive urgency Current Visit: Yes Status: Acute (8) Current use of anticoagulant therapy Current Visit: Yes Status: Chronic - Time Spent with Patient Total time spent is greater than 50% in coordination of care (as documented) at patient's floor/unit and/or counseling patient: Internal Medicine: Result - Labs CBC & Chem 7: 06/06/18 07:49 06/06/18 07:49 Labs: Short CBC 06/05/18 06/06/18 Range/Units 20:13 07:49 WBC 11.2 H (4.3-11.1) K/mcL Hgb 10.9 L 11.2 L (11.5-15.4) g/dL Hct 35.2 L 35.4 (35.3-44.9) % Plt Count 270 (140-400) K/mcL BMP 06/06/18 07:49 Sodium 142 Potassium 3.6 Chloride 108 H Carbon Dioxide 26 BUN 19 Creatinine 0.85 Glucose 148 H Calcium 9.4 Cardiac Enzymes 06/06/18 06/06/18 Range/Units 07:49 13:44 Troponin I 0.04 H* 0.27 H* (< 0.04) ng/mL Liver Function 06/06/18 Range/Units 07:49 Albumin 3.3 L (3.5-5.7) g/dL - ABG Interpretation ABG results: PT/INR, D-dimer PT 18.2 Seconds (9.4-12.1) H 06/05/18 05:54 - Impressions Impressions Femur CT 06/05/18 06:48 IMPRESSION: 1. Acute comminuted displaced distal right femoral diaphyseal fracture with 2.3 cm of lateral displacement and a posteriorly displaced cortical butterfly fracture component. Surrounding hemorrhage and edema in the right thigh musculature. 2. Underlying diffuse osteopenia. 3. Patient motion is incidentally seen at the left knee. Streak artifact from the pre-existing right knee arthroplasty hardware limits evaluation of the associated osseous structures and soft tissues at the right knee. 4. Small suprapatellar joint effusion. 5. Mild right hip osteoarthrosis. 6. Mild sigmoid diverticulosis. D/ : / 06/05/2018 08:01:58 Alden Meyer MD / [facility] Interpreting Provider: Alden Meyer MD Echocardiogram Limited Views 06/06/18 14:07 Impressions: LVEF 45-50%. Mild segmental left ventricular systolic dysfunction. Normal LV chamber size and wall thickness. Left Ventricular Wall Motion: Rest Echo Findings The mid inferior, basal inferior and mid inferior lateral forrester were hypokinetic. All other wall segments showed normal motion. Findings: Study Quality * Technically adequate exam. ECG Findings * Normal sinus rhythm. Left Ventricle * LVEF 45-50%. * Mild segmental left ventricular systolic dysfunction. * Normal LV chamber size and wall thickness. - Attending Attestation I saw evaluated and examined this patient and my medical decision-making was reviewed with the Resident Physician, Kalen Ruiz. I agree with the documented findings, disposition and treatment plan as described except to any changes set forth below. We independently had [id number] contact with the patient. Patient was very somnolent and evaluated earlier today but she is able to answer questions appropriately. She initially complained only of nausea but after he left the room, I received a call from nursing that patient was complaining of chest pain. It began soon after I left the room. She reported the pain was located in the left central part of her chest. She did receive nitroglycerin with some improvement in her pain. She also had elevated blood pressure during this time when she developed the pain. General: Patient is somnolent, but easily awakes and answers questions appropriately ENT: Mucous membranes moist Respiratory: Good respiratory effort. Normal breath sounds. No wheezing or crackles. Cardiovascular: Left-sided chest wall tenderness present. Regular rate and rhythm. s1 and s2 normal No clicks, rubs, gallops, or murmurs. No pedal edema Abdomen: Abdomen is soft, nontender. Bowel sounds are present Musculoskeletal: Spontaneously moving all extremities Skin: warm, dry, intact. Neuro: Somnolent normal cranial nerves, no focal deficits Right femur fracture: With surrounding hemorrhage. Plan is to take patient for surgery. However since she developed chest pain, awaiting cardiology clearance. Chest pain: With mild elevation in troponin. Troponin went up to 0.27 this afternoon. Discussed with cardiology. Repeat limited echocardiogram ordered. Shows EF of 45-50% which is slightly decreased from her prior echocardiogram done in December. Chest pain could also be due to uncontrolled hypertension. Essential hypertension: Blood pressure is uncontrolled today. Continue Toprol. We will add hydralazine IV when necessary. Blood pressure remains elevated, will increase Toprol dosage. Recurrent falls: Patient will need evaluation by physical therapy after surgery for femur fracture. She will most likely need placement to skilled rehabilitation after that. Anemia: Improved/stable. Hemoglobin 11.2 today. We will continue to monitor. Holding anticoagulation for now due to planned surgery. History of multiple DVT/PE: Patient has been on long-term Eliquis. Currently on hold due to planned surgery. Acute kidney injury: Now resolved. <Kalen Ruiz - Last Filed: 06/06/18 15:42> (2) Chest pain Qualifiers: Chest pain type: other chest pain Qualified Code(s): R07.89 - Other chest pain; R07.8 - Other chest pain (3) Right femoral fracture Qualifiers: Encounter type: initial encounter Femur location: distal Fracture type: closed Fracture morphology: unspecified fracture morphology Qualified Code(s): S72.401A - Unspecified fracture of lower end of right femur, initial encounter for closed fracture (4) Fall Qualifiers: Qualified Code(s): W19.XXXA - Unspecified fall, initial encounter (5) Hypothyroid Qualifiers: Hypothyroidism type: acquired Qualified Code(s): E03.9 - Hypothyroidism, unspecified <Nellie Encinas - Last Filed: 06/06/18 16:10> (1) Right femoral fracture Qualifiers: Encounter type: initial encounter Femur location: distal Fracture type: closed Fracture morphology: unspecified fracture morphology Qualified Code(s): S72.401A - Unspecified fracture of lower end of right femur, initial encounter for closed fracture (2) Chest pain Qualifiers: Chest pain type: other chest pain Qualified Code(s): R07.89 - Other chest pain; R07.8 - Other chest pain (3) Fall Qualifiers: Qualified Code(s): W19.XXXA - Unspecified fall, initial encounter (4) Hypothyroid Qualifiers: Hypothyroidism type: acquired Qualified Code(s): E03.9 - Hypothyroidism, unspecified
[2018-06-06 08:08] LABS: Hematocrit 35.4 % (35.3-44.9); Hemoglobin 11.2 g/dL (11.5-15.4); Mean Corpuscular HGB Conc 31.6 g/dL (31.6-35.5); Mean Corpuscular Hemoglobin 27.2 pg (28.0-33.3); Mean Corpuscular Volume 85.9 fL (83.0-100.0); Mean Platelet Volume 10.6 fL (9.4-12.4); Platelet Count 270 K/mcL (140-400); Red Blood Count 4.12 M/mcL (3.82-4.97); Red Cell Distribution Width 15.9 % (11.5-14.5)
--- NOTE | 2018-06-06 08:16 | Orthopedics Progress Note ---
Date of Encounter: 06/06/18 Time of Encounter: 08:15 Subjective Interval history: Patient seen this morning results of CT scan and x-ray reviewed with patient, recommendation is for open reduction internal fixation of right periprosthetic distal femur fracture. We reviewed the risks and benefits as well as recovery. All questions were answered. The patient agreed to this treatment plan and acknowledged an understanding of the treatment plan as described. Objective Vital signs: Vital Signs Temp Pulse Resp BP Pulse Ox 06/06/18 06:45 98.6 F 81 16 156/87 96 06/06/18 06:07 73 161/87 06/06/18 04:49 174/101 06/06/18 03:09 98.8 F 72 16 170/95 96 06/06/18 00:10 99.2 F 88 15 138/92 94 06/05/18 19:46 99.5 F 89 15 130/78 96 06/05/18 14:08 98 F 98 16 148/83 97 06/05/18 12:00 98.3 F 101 16 155/79 97 Intake and Output 06/05/18 06/06/18 06/06/18 23:59 07:59 15:59 Intake Total 200 / 200 100 / 100 Output Total 1125 / 1125 900 / 900 Balance -925 / -925 -800 / -800 Intake: IV Fluids 100 / 100 Ofirmev 1,000 mg/100 ml 1,000 100 / 100 mg In 100 ml @ 400 mls/hr IVPB ONCE ONE Rx#:[id number] Oral 200 / 200 0 / 0 Output: Catheter 1125 / 1125 900 / 900 Other: # Voids 1 - Labs CBC & BMP: 06/06/18 07:49 06/05/18 05:54 Labs: Abnormal lab results WBC 11.2 K/mcL (4.3-11.1) H 06/06/18 07:49 Hgb 11.2 g/dL (11.5-15.4) L 06/06/18 07:49 MCH 27.2 pg (28.0-33.3) L 06/06/18 07:49 RDW 15.9 % (11.5-14.5) H 06/06/18 07:49 PT 18.2 Seconds (9.4-12.1) H 06/05/18 05:54 Chloride 111 mEq/L (98-107) H 06/05/18 05:54 BUN 26 mg/dL (6-20) H 06/05/18 05:54 Creatinine 1.26 mg/dL (0.60-1.20) H 06/05/18 05:54 Est GFR ( Amer) 53 (> 60) L 06/05/18 05:54 Est GFR (Non-Af Amer) 44 (> 60) L 06/05/18 05:54 TSH < 0.010 mcIU/mL (0.340-5.600) L 06/04/18 16:49 Free T4 3.65 ng/dl (0.70-2.00) H 06/05/18 05:54 Urine Clarity Hazy (Clear) A 06/04/18 18:40 Ur Leukocyte Esterase Small (Negative) H 06/04/18 18:40 Urine Microscopic WBC 5-15 per hpf (0-3) H 06/04/18 18:40 Ur Squamous Epith Cells Many per lpf (None-Few) H 06/04/18 18:40 Consult Discharge Plan - Plan Referrals: Van James MD [Primary Care Provider] -
[2018-06-06] MEDS ORDERED: Ondansetron 4 MG/2 ML VIAL IVP PRN (08:22)
[2018-06-06] MEDS ORDERED: *HR* Promethazine 25 MG/ML VIAL IVP PRN (08:24)
[2018-06-06 08:26] LABS: BUN/Creatinine Ratio 22 (6-26); Blood Urea Nitrogen 19 mg/dL (6-20); Calcium 9.4 mg/dL (8.6-10.3); Carbon Dioxide 26 mEq/L (23-29); Chloride 108 mEq/L (98-107); Glucose 148 mg/dL (70-105); Osmolality,Calculated 299 (280-300); Potassium 3.6 mEq/L (3.5-5.1); Sodium 142 mEq/L (136-145); eGFR For Non-African Americans > 60 (> 60)
--- NOTE | 2018-06-06 11:01 | Electrocardiograph Report ---
[address] [address] Test Date: 2018-06-06 Pat Name: Velma Nicolas Department: 114 Room: [facility] Gender: F [employer]: : 1960 Requested By: Nellie Encinas Order Number: [id number] Reading MD: Bridger Jones Measurements Intervals [place] Rate: 77 P: 45 [place]: 136 QRS: 20 QRSD: 105 T: 14 QT: 392 QTc: 424 Interpretive Statements Probable sinus rhythm NONSPECIFIC ST & T-WAVE ABNORMALITY Ventricular premature complex Electronically Signed On 06-06-2018 10:59:32 EST by Bridger Jones
[2018-06-06 11:05] LABS: Troponin I 0.04 ng/mL (< 0.04)
[2018-06-06] MEDS: Metoprolol XL (24 HR) Succ 25 MG TAB.ER.24H PO SCH (11:20)
[2018-06-06] MEDS: Isosorbide MONOnitrate (24 HR) 30 MG TAB.ER.24H PO SCH (11:20)
[2018-06-06] MEDS: Venlafaxine XR (24 HR) 150 MG CAP.ER.24H PO SCH (11:23)
[2018-06-06] MEDS: Furosemide 40 MG TABLET PO SCH (11:23)
[2018-06-06] MEDS: clonazePAM 1 MG TABLET PO SCH ×3 (11:23→20:46)
[2018-06-06] MEDS: BuPROPion SR (12 HR) 150 MG TABLET PO SCH ×2 (11:24→18:51)
[2018-06-06] MEDS ORDERED: Aspirin 325 MG TABLET PO ONE (11:49)
[2018-06-06] MEDS: Nitroglycerin 0.4 MG TAB.SUBL SL PRN ×3 (12:25→13:50)
--- NOTE | 2018-06-06 13:27 | Cardiology Consult Note ---
Addendum entered and electronically signed by Darshan Montague DO 06/06/18 16:21: Update: Patient continues to complain of mild chest discomfort. TTE reviewed. There are new segmental wall motion abnormalities Given mild troponin, chest pain, and abnormal TTE - ACS certainly a possiblity and would increase her operative risk. The R/B/A to a [facility] discussed with patient and . They voiced understanding and wish to proceed. Spoke with orthopedics. They are okay with aspirin and Plavix, prefer to avoid Heparin drip in setting of this femur fracture. label tacker aware, spoke with Dr. Avila. Further recommendations to follow. Addendum entered and electronically signed by Darshan Montague DO 06/06/18 15:40: Update: Spoke with IM resident, Dr. Ruiz. Mild troponin increase to 0.27. Elevated BP and admission with GREG noted, troponin could be related to these factors. ECG remains sinus rhythm, no ST-T changes. Recommend check TTE. Further recommendations to follow. Addendum entered and electronically signed by Darshan Montague DO 06/06/18 15:17: I have personally performed a face to face evaluation on this patient. I have reviewed and agree with the care plan. History and Exam by me shows: Cardiology consultation requested for preoperative evaluation. 58-year-old female with known moderate CAD. [facility] performed 03/2018, medical therapy recommended. Minimal troponin elevation noted in the setting of hypertensive urgency. Patient reports chest pain, which is atypical. States chest pain worsens with inspiration. ECG is reviewed which demonstrates sinus rhythm, no acute ST or T-wave changes. Patient appears to be an acceptable risk candidate for this moderate risk orthopedic surgery. Limited TTE pending to evaluate LV function. All questions answered. Thanks, Darshan Montague DO, [facility] Original Note: Date of Encounter: 06/06/18 Time of Encounter: 13:14 Assessment and Plan (1) Preoperative cardiovascular examination Current Visit: Yes Status: Acute Patient with known moderate non-obstructive CAD on recent C. C/o anginal symptoms. EKG taken and shows SR with no acute ST changes, PVC seen. Troponin 0.03, 0.04. Non-diagnostic in the setting of fall. Recent testing completed reviewed. [facility] 03/2018 with moderate non-obstructed CAD by FFR. No intervention recommended medical management continued. Recommend asa, statin, and bb carmel-operatively. Noted elevated b/p. May be related to with holding medications and pain. Will order limited TTE. If surgery is considered urgent would not delay for further testing. (2) CAD (coronary artery disease) Current Visit: No Status: Chronic Moderate non-obstructive CAD seen on [facility] 12/2017 and 03/2018. Asa, statin, and bb recommended. NTG PRN. Qualifiers: Coronary Disease-Associated Artery/Lesion type: [place] artery [place] vs. transplanted heart: [place] heart Associated angina: with unspecified angina Qualified Code(s): I25.119 - Atherosclerotic heart disease of [place] coronary artery with unspecified angina pectoris (3) Fall Current Visit: Yes Status: Acute Reports possible syncopal event. H/o falls and syncope. Recent cardiac work-up as described above. Consider polypharmacy. Telemetry review shows SR to sinus arrhythmia. No pauses, bradycardia, or VT. 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 Noted 40 lb weight loss over last year. Recommended titrating down antihypertensives at that time due to hypotension. Now noted to have hypertension. Qualifiers: Qualified Code(s): W19.XXXA - Unspecified fall, initial encounter Discussion w patient/family: The assessment and plan as outlined above was discussed with the patient and/or family members who expressed understanding and agreement. All questions were a nswered. Thank you for involving us in the care of your patient. Please call with any questions. History of Present Illness Consult date: 06/06/18 Requesting physician: Kalen Ruiz Consult reason: pre-operative cardiovascular examination Chief complaint: Fall , chest pain. History of present illness: Ms. Nicolas is a 58 year old female with past medical history significant for moderate non-obstructive CAD ([facility] 03/2018), NICMP that resolved, DVT, PE on eliquis, and breast cancer who presents after falling at home. She is found to have femur fracture and is recommended for surgical repair. Cardiology consulted for chest pain and pre-operative cardiovascular risk assessment. Fall was reported to be witness by her grandson. She was standing in her kitchen when she collapsed. Patient states "I just blacked out." Her grandson did not notice a loss of consciousness but noted she collapsed and hit her head. She reports a similar events in the past. Frequent falls recently. Leading up to this event she was complaining of increased weakness, nausea, and shuffling gait. The symptoms started after she was placed on a medication for depression. She cannot recall the medication prescribed. She c/o intermittent chest pain for several months that has increased in frequency for the last month. Today she developed chest pain and nausea. She describes the pain as a pounding sensation and pressure in her chest. She also c/o SOB. Chest pain improved with aspirin and SL NTG. Her activity is limited due to weakness. She was requiring help with ambulation at home over the past three weeks. Recent cardiac testing: [facility] 03/2018- moderate two vessel CAD. FFR completed on the LAD and RCA and both not significant FFR0.87 LAD, 0.88 RCA). Medical management recommended. [facility] 01/11/18- Moderate two vessel CAD. Recommended medical management vs PCI to the mLAD 60-70% stenosis if continued symptoms. TTE 01/03/18-EF 55%. Moderate diastolic dysfunction, no significant valvular disease. Stress 01/03/18- small area with moderate intensity reversible ischemia in the apical anterior and apex. Positive for TID. Past Med Surg Social Fam HX - Past Medical History Medical history: arthritis, cancer, coronary artery disease, DVT, fibromyalgia, GERD, hyperlipidemia, hypertension, pulmonary embolus, RA, renal disease, thyroid disease Additional medical history: STAGE 3 KIDNEY FAILURE, bilateral osetoarthritis, abnormal mommogram, pericarditis, blood clots in lungs, anemic Psychiatric history: anxiety, depression - Past Surgical History Surgical History: angioplasty/stent, breast surgery, cholecystectomy, herniorrhaphy, knee replacement, bariatric surgery, IVC filter Additional surgical history: left carpal tunnel release, bilateral rotator cuff tear repair, tubal ligation, colonoscopy, left lumpectomy, gastric bypass - Social History Smoking Status: Never smoker Smokeless Tobacco Status: No Alcohol use: none Drug use: none - Family History Father Living Status: Still Living Age at : 80 Hx Family Cardiac Disorders: Yes (HTN) Hx Family Endocrine Disorder: Yes (DM) Mother Living Status: Still Living Hx Family Cardiac Disorders: Yes (HTN) Hx Family Respiratory Disorders: No Hx Family Cancer: No Hx Family GI Disorders: No Hx Family Endocrine Disorder: No Hx Family Neuromuscular Disorders: No Hx Family Neurologic Disorders: No Hx Family HEENT Disorders: No Hx Family Autoimmune Disorders: No Medications and Allergies Aspirin 81 mg PO DAILY 09/28/15 [History] Nitroglycerin [Nitrostat] 0.4 mg SL Q5M PRN 09/28/15 [History] Omeprazole [PriLOSEC] 20 mg PO BID 09/28/15 [History] Oxycodone HCl/Acetaminophen [Percocet 10-325 mg Tablet] 1 tab PO Q6H PRN 09/28/15 [History] Gabapentin [Neurontin] 300 - 600 mg PO BID PRN 09/26/16 [History] Nitroglycerin [Nitrolingual] 1 - 2 spr TL AD PRN 09/26/16 [History] cloNIDine HCl [CloNIDine HCl] 0.1 mg PO TID PRN 09/26/16 [History] clonazePAM [Klonopin] 1 mg PO TID 09/26/16 [History] rOPINIRole [Requip] 1 mg PO HS 09/26/16 [History] Furosemide [Lasix] 40 mg PO DAILY 08/22/17 [History] Ondansetron HCl [Zofran] 4 mg PO Q6H PRN 08/22/17 [History] OxyCODONE ER (12 HR) [OxyCONTIN] 80 mg PO Q12H 08/22/17 [History] Apixaban [Eliquis] 5 mg PO BID #60 tablet 08/23/17 [Rx] buPROPion HCl [Zyban] 300 mg PO QPM 02/26/18 [History] Isosorbide MONOnitrate (24 HR) [Imdur] 30 mg PO DAILY #30 tab.er.24h 03/25/18 [Rx] BuPROPion SR (12 HR) [Wellbutrin SR] 150 mg PO QAM 06/04/18 [History] Levothyroxine [Synthroid] 112 mcg PO 0630 06/04/18 [History] Losartan Potassium 50 mg PO DAILY 06/04/18 [History] Metoprolol Succinate [Toprol Xl] 12.5 mg PO DAILY 06/04/18 [History] Venlafaxine HCl [Venlafaxine HCl ER] 150 mg PO DAILY 06/04/18 [History] Allergy/AdvReac Type Severity Reaction Status Date / Time No Known Allergies Allergy Verified 02/26/18 09:30 All Systems Review: The remainder of the systems were reviewed and are negative Physical Examination Vital Signs, Last 4 Hours Temp Pulse Resp BP Pulse Ox 06/06/18 13:09 97.7 F 92 16 178/106 97 06/06/18 12:28 97.5 F L 90 18 173/117 96 06/06/18 11:18 98.0 F 100 20 173/97 98 06/06/18 09:59 98.3 F 97 18 164/87 96 General: Conversant, Other (Drowsy, poor historian) HEENT: Atraumatic, Normocephaly, Mucus Membranes Moist Neck: No JVD, Normal carotid pulses Cardiac: Reg Rate and Rhythm, Normal S1 and S2, No Murmur Lungs: Normal Breath Sounds, No Wheeze, Rales, Rhonchi Neuro: Alert and responsive, No focal deficits noted Abdomen: Soft, Non-Tender Skin: No rashes noted on visualized skin Musculoskeletal: No Chest Wall Tenderness Extremities: No Clubbing, No Cyanosis, No Edema, Normal Pulses Results 06/06/18 07:49 06/06/18 07:49 Lab Results 06/05/18 06/05/18 06/06/18 14:37 20:13 07:49 WBC 11.2 H Hgb 10.6 L 10.9 L 11.2 L Hct 35.3 35.2 L 35.4 Plt Count 270 Sodium Potassium Chloride Carbon Dioxide BUN Creatinine Glucose Calcium Troponin I 06/06/18 07:49 WBC Hgb Hct Plt Count Sodium 142 Potassium 3.6 Chloride 108 H Carbon Dioxide 26 BUN 19 Creatinine 0.85 Glucose 148 H Calcium 9.4 Troponin I 0.04 H* - Imaging and Cardiology Echo: report reviewed - EKG Interpretation EKG results cardiology: personally reviewed Consult Discharge Plan - Plan Referrals: Van James MD [Primary Care Provider] -
[2018-06-06] MEDS ORDERED: Acetaminophen IV 1,000 MG/100 ML INFUS..BTL ONE (14:22)
[2018-06-06] MEDS ORDERED: *HR* FentaNYL (PF) 100 MCG/2 ML VIAL ONE ×2 (14:22→16:57)
[2018-06-06] MEDS ORDERED: Total Joint Mixture (50 ml) IR ONE (15:50)
[2018-06-06] MEDS ORDERED: *HR* Heparin 10,000 UNIT/10 ML VIAL ONE (16:28)
[2018-06-06] MEDS ORDERED: Heparin 1,000 UNITS/500 mL 500 ML ONE (16:29)
[2018-06-06] MEDS ORDERED: ISOVUE-370 200 ML INFUS..BTL ONE (16:29)
[2018-06-06] MEDS ORDERED: 0.9 % Sodium Chloride 2,000 ML ONE (16:29)
[2018-06-06] MEDS ORDERED: Nitroglycerin 1,000 MCG/10 ML VIAL IV ONE (16:29)
[2018-06-06] MEDS ORDERED: *HR* Midazolam HCl 2 MG/2 ML VIAL ONE (16:57)
[2018-06-06] MEDS ORDERED: *HR* Labetalol 100 MG/20 ML MDV ONE (17:35)
--- NOTE | 2018-06-06 17:56 | Invasive Diagnostic Lab Proc ---
Name: Velma Nicolas Date of Study: 06/06/2018 Date: 1960 Ht: 65.0in Medical Record#: [id number] Age: 58 Wt: 150.80lb Gender: Female BSA: 1.75 Order #: [id number] BMI: 25.12 Physicians Procedure Physician: Matteo Avila MD Referring MD: Referring MD: Staff Name Position Time In EspinozaKeiry RN Monitor 05:06 PM Andrew Marcano RN Cardroom Attendant 05:07 PM Melody Ocasio RT (R) Scrub 05:07 PM Nicolás Gayle RN Monitor 05:17 PM Procedures Performed Procedure L HRT ARTERY/VENTRICLE ANGIO Pre-Procedure Checklist Informed consent is complete signed and on chart. H&P is on chart. ID band is on and ID verified with patient. Patient NPO for procedure The procedure was described for the patient and questions were answered. Blood Pressure: 160/98 ECG is on chart. Rhythm: NSR Plan of Care Patient will tolerate the procedure without complications. Adequate level of comfort will be maintained. Hemodynamics will remain stable Patient will recover from procedure without complications. Respiratory function will be maintained. Cardiac rhythm will remain stable. Patient temperature will be maintained. Patient and/or family have verbalized understanding of the procedure. Patient Education Chief Complaint/Reason for Test: Cardiac Cath Developmental Category: Adult (18-64 years) Developmentally Appropriate for Age: Yes Learning Barriers: None Education Needs: Procedure Education Method: Verbal Information Taught: Cardiac Cath Educational Evaluation: Able to repeat information Intravenous Access Time IV Size Location DC'd Fluid/Drip Rate Units RN 20g 1 05/17" Patent On Arrival Rt Arm Allergies No Known Allergies Vital Signs Time BP (mmHg) HR (bpm) O2 Sat. RR (bpm) LOC 05:13 PM / % 4 = Oriented but drowsy 05:13 PM / % 4 = Oriented but drowsy 05:05 PM 123 / 85 104 100 % 19 05:10 PM 164 / 93 100 100 % 17 05:15 PM 187 / 98 99 98 % 16 05:19 PM 182 / 96 89 100 % 25 05:24 PM 201 / 108 103 100 % 25 05:27 PM 200 / 111 103 100 % 24 05:29 PM 199 / 112 86 100 % 24 05:31 PM 194 / 106 106 100 % 22 05:34 PM 162 / 110 87 98 % 18 Procedural Medications Time Medication Dose Units Method Given By 05:07 PM Oxygen 2 L/min nasal cannula Andrew Marcano RN 05:07 PM Versed 1 mg Intravenous Andrew Marcano RN 05:07 PM Fentanyl 50 mcg Intravenous Andrew Marcano RN 05:15 PM Lidocaine 2% 10 ml Subcutaneous Matteo Avila MD 05:35 PM Labetolol 10 mg Intravenous Andrew Marcano RN ASA Classification: CLASS II- Mild systemic disease (i.e. well-controlled diabetes, hypertension, asthma, cigarette smoking) Byron Score Preprocedure Postprocedure Activity 2 Activity 2 Circulation 2 Circulation 2 Consciousness 2 Consciousness 2 O2 Saturation 2 O2 Saturation 2 Respiratory 2 Respiratory 2 Total Score 10 Total Score 10 Contrast Agent: Isovue Diagnostic Contrast: 53 ml Total Contrast: 53 ml Fluoro Dose: 28 mGy Procedure Log Time Note Enter By 05:03 PM CathStat 05:03 PM Vitals capture started with the following parameters, Patient=Adult, Interval=5 min, Initial Nrebvriy=296 mmHg, Deflation Rate=3 mmHg, Cuff placed on Right Arm 05:05 PM UT=629 bpm, RQOW=723/85 mmhg, IqL7=720.0 %, Resp=19 B/min 05:06 PM Pt arrived to lab manager 2 at 17:06 kk 05:07 PM Keiry Doran RN Position: Monitor Time in: 17:06 05:07 PM Andrew Marcano RN Position: Cardroom Attendant Time in: 17:07 05:07 PM Melody Ocasio RT (R) Position: Scrub Time in: 17:07 05:07 PM Patient charges- Angio tray pack, Navilyst 3mm J, Pulse Oximetry and ACIST tubing and transducer kkall 05:07 PM Case Delayed No kkner 05:07 PM Hair removed from procedure site in procedure lab using clippers. Bilateral groin prepped with Chloraprep by Keiry Doran RN, then patient was draped. Skin intact. kk 05:07 PM Physician arrived 17:07 kkallner 05:07 PM ASA Class CLASS II- Mild systemic disease (i.e. well-controlled diabetes, hypertension, asthma, cigarette smoking) [email or web address] 05:07 PM Meet and greet completed 05:07 PM Sign in performed according to hospital policy. Informed consent was obtained. kk 05:07 PM Procedure start 17:07 05:07 PM Time: 17:07 Oxygen on at 2 L/min per nasal cannula by Andrew Marcano RN 05:07 PM Time: 17:07 Versed 1 mg Intravenous Given by Andrew Marcano RN arleen 05:07 PM Time: 17:07 Fentanyl 50 mcg Intravenous Given by Andrew Marcano RN ashwin 05:08 PM Recorded ECG: YV=880 Condition=Condition 1 05:10 PM BI=787 bpm, VJRG=397/93 mmhg, VvA2=888.0 %, Resp=17 B/min 05:13 PM Time: 17:13 Patient comfortable and pain free: Yes 05:13 PM Time: 17:13LOC: 4 = Oriented but drowsy [email or web address] 05:15 PM HR=99 bpm, KLIF=659/98 mmhg, SpO2=98.0 %, Resp=16 B/min 05:15 PM Time out was performed according to hospital policy. Conscious sedation and anesthesia was achieved (see medication log with in this report above) 05:15 PM Time: 17:15 10 ml Lidocaine 2% to right groin Subcutaneous Given by Matteo Avila MD 05:15 PM Micro-Introducer Kit utilized for sheath placement 05:17 PM Nicolás Gayle RN Position: Monitor Time in: 17:17 to relieve SoummKeiry hanna RN 05:19 PM Recorded Pressure: Ao, HR=82, Condition=Condition 1 (Aorta) Ao 161/53/101 05:19 PM HR=89 bpm, IZHZ=257/96 mmhg, FkO3=872.0 %, Resp=25 B/min, EtCO2=36 mmHg 05:19 PM 5Fr FR 4 catheter inserted over the wire DN 05:19 PM RCA angiography performed in multiple views. kk 05:20 PM 0.035 145cm Navilyst 3mmJ wire [id number] kkallner 05:20 PM Catheter removed kkallner 05:20 PM 5Fr FL 4 catheter inserted over the wire DN kkner 05:21 PM LCA angiography performed in multiple views. kkner 05:22 PM Recorded Pressure: Ao, QC=317, Condition=Condition 1 (Aorta) Ao 148/107/127 05:24 PM Catheter removed 05:24 PM 5Fr Pigtail catheter inserted over the wire [facility] 05:24 PM Catheter crossed the aortic valve and was selectively placed in the left ventricle. Pressures recorded on pullback for left heart catheterization. 05:24 PM CL=346 bpm, EYKE=933/108 mmhg, BlV7=944.0 %, Resp=25 B/min, EtCO2=35 mmHg 05:25 PM Recorded Pressure: LV, QI=542, Condition=Condition 1 (Left Ventricle) LV 154/34/61 05:25 PM Recorded Pressure: LV, Ao, HR=89, Condition=Condition 1 (Left Ventricle) LV 176/22/26, (Aorta) Ao 176/110/142 05:26 PM Catheter removed 05:26 PM NIBP STAT measurement started. 05:26 PM Procedure completed at 17:26 06/06/2018 05:27 PM MD=332 bpm, GCKK=898/111 mmhg, ErV3=101 %, Resp=24 B/min 05:28 PM Lesion found in Mid RCA. Pre Stenosis: 65 Pre DAMON Flow: : PM Lesion found in Proximal LAD. Pre Stenosis: 60 Pre DAMON Flow: :28 PM Lesion found in Mid LAD. Pre Stenosis: 50 Pre DAMON Flow: all:28 PM Time: 17:13LOC: 4 = Oriented but drowsy :29 PM Time: 17:13 Patient comfortable and pain free: Yes :29 PM Did you address DAMON flow and Dominance? Yes all 05:29 PM HR=86 bpm, JXHX=657/112 mmhg, PlK2=603.0 %, Resp=24 B/min 05:30 PM Sign out completed: Radiation Dose 221.89 mGy, 27.54 Gy/cm2 Fluoro Time: 2.1 Isovue 370 - 200ml contrast 53 ml given by Matteo Avila MD. Complications: None. The patient was discharged out of the photo lab specialist in stable condition. Cardiac Rehab Consult needed: NoConfirmed administered medications: Yes allner 05:30 PM Isovue 370 - 200ml,1 Bottle(s) used. [email or web address] 05:30 PM NIBP STAT measurement started. 05:30 PM Arterial sheath pulled, Mynx closure device used and was Successful [id number] S/N. kkallner 05:31 PM Estimated Blood Loss: minimal kkallner 05:31 PM Post ECG NSR kkallner 05:31 PM Post Blood Pressure 140/100 kkallner 05:31 PM WT=614 bpm, LXVO=392/106 mmhg, BzT1=699.0 %, Resp=22 B/min 05:31 PM 17:31 Post Pulses Bilateral DP 2+ kkallner 05:31 PM Information taught Cardiac Cath kkallner 05:31 PM Education needs Procedure, Plan of Care, and Disease Process kkallner 05:32 PM Learning barriers :None kkallner 05:32 PM Education Methods Verbal kkallner 05:32 PM Education evaluation Able to repeat information kkallner 05:32 PM Site status No bleeding/hematoma - Rt Groin as reported by Melody Ocasio RT (R) at 17:32 [email or web address] 05:32 PM Opsite applied kkallner 05:33 PM Plavix, Effient or Brilinta given No kkallner 05:33 PM NIBP STAT measurement started. 05:33 PM Delay to floor No kkallner 05:33 PM Complications: None [email or web address] 05:34 PM HR=87 bpm, JTFY=875/110 mmhg, SpO2=98 %, Resp=18 B/min 05:35 PM Time: 17:35 Labetolol 10 mg Intravenous Given by Andrew Marcano RN kkallner 05:37 PM Family placed in consult room. [email or web address] 05:42 PM Report given to clari BOYD Pt taken to [facility] Room #35. 17:42 kkallner 05:43 PM Patient out of room: 17:40 [facility] [place] Complications Complication None None Hemodynamics Pressures Site Systolic/A Wave Diastolic/V Wave Mean AO 161 53 101 AO 148 107 127 LV 154 34 61 LV 176 22 26 AO 176 110 142 Post Procedure Information Blood Pressure: 140/100 mmHg Rhythm: NSR Post procedural instructions were given Closure Device Time Device Success/Fail 06/06/2018 5:40:00 PM MynxGrip Successful Site Checks Time Location Status Staff Sheath In? Note 05:32 PM Rt Groin No bleeding/hematoma Melody Ocasio RT (R) no Pulses Time Site Pre-Procedure Post-Procedure Note Bilateral DP 2+ Bilateral radial 2+ 5:31:00 PM Bilateral DP 2+ Updated by RT Stefanie (R) on 06/06/2018 5:44:20 PM electronically signed on 06/06/2018 5:48:01 PM with status of Final
[2018-06-06] MEDS: rOPINIRole 1 MG TABLET PO SCH (20:46)
--- NOTE | 2018-06-07 06:49 | Orthopedics Progress Note ---
Date of Encounter: 06/07/18 Time of Encounter: 06:48 Subjective Interval history: Patient seen this morning, cardiac event yesterday requiring catheterization last night. Patient cleared for surgical procedure today. We will review results of catheter with cardiology to determine patient's posterior catheterization cardiac rehabilitation needs and which procedure ORIF versus distal femoral replacement will give her the best ability to meet these goals due to her significant cardiac disease. We will review with patient prior to procedure. Objective Vital signs: Vital Signs Temp Pulse Resp BP Pulse Ox 06/07/18 04:46 98.8 F 98 16 169/102 95 06/06/18 23:42 98.7 F 84 16 159/99 94 06/06/18 22:45 98.3 F 96 15 158/107 98 06/06/18 21:45 98.5 F 80 15 155/90 95 06/06/18 20:45 98.8 F 84 16 156/82 94 06/06/18 19:45 98.8 F 86 16 150/80 94 06/06/18 19:15 98.9 F 86 18 156/92 96 06/06/18 19:07 98.6 F 98 16 162/99 94 06/06/18 18:45 98.7 F 82 15 154/95 95 06/06/18 18:30 98.6 F 88 16 156/99 95 06/06/18 18:15 99.0 F 81 15 156/94 96 06/06/18 18:00 99.0 F 97 15 155/110 98 06/06/18 13:58 160/98 06/06/18 13:09 97.7 F 92 16 178/106 97 06/06/18 12:28 97.5 F L 90 18 173/117 96 06/06/18 11:18 98.0 F 100 20 173/97 98 06/06/18 09:59 98.3 F 97 18 164/87 96 Intake and Output 06/06/18 06/06/18 06/07/18 15:59 23:59 07:59 Intake Total 0 / 0 0 / 0 Output Total 725 / 725 950 / 950 550 / 550 Balance -725 / -725 -950 / -950 -550 / -550 Intake: Oral 0 / 0 0 / 0 Output: Catheter 725 / 725 950 / 950 550 / 550 Other: Stool Size Small Stool Consistency soft Stool Color Brown - Labs CBC & BMP: 06/06/18 07:49 06/06/18 07:49 Labs: Abnormal lab results WBC 11.2 K/mcL (4.3-11.1) H 06/06/18 07:49 Hgb 11.2 g/dL (11.5-15.4) L 06/06/18 07:49 MCH 27.2 pg (28.0-33.3) L 06/06/18 07:49 RDW 15.9 % (11.5-14.5) H 06/06/18 07:49 PT 18.2 Seconds (9.4-12.1) H 06/05/18 05:54 Chloride 108 mEq/L (98-107) H 06/06/18 07:49 Glucose 148 mg/dL (70-105) H 06/06/18 07:49 Troponin I 0.27 ng/mL (< 0.04) H* 06/06/18 13:44 Albumin 3.3 g/dL (3.5-5.7) L 06/06/18 07:49 TSH < 0.010 mcIU/mL (0.340-5.600) L 06/04/18 16:49 Free T4 3.65 ng/dl (0.70-2.00) H 06/05/18 05:54 Urine Clarity Hazy (Clear) A 06/04/18 18:40 Ur Leukocyte Esterase Small (Negative) H 06/04/18 18:40 Urine Microscopic WBC 5-15 per hpf (0-3) H 06/04/18 18:40 Ur Squamous Epith Cells Many per lpf (None-Few) H 06/04/18 18:40 Consult Discharge Plan - Plan Referrals: Van James MD [Primary Care Provider] -
--- NOTE | 2018-06-07 06:51 | Internal Med Progress Note ---
<Kalen Ruiz - Last Filed: 06/07/18 13:30> Hospitalist Progress Note - Encounter Date of Encounter: 06/07/18 Time of Encounter: 06:47 - Subjective Interval History: Patient seen and examined resting comfortably in bed. Patient had [facility] yesterday evening showing moderate two-vessel CAD and no percutaneous intervention was required. Patient slept throughout the night without any further chest pain. She was still hypertensive overnight requiring prn HTN medications. HGB remains stable. NPO, awaiting possible femur ORIF today. - Exam Vitals: Temp Pulse Resp BP Pulse Ox 98.8 F 98 16 169/102 95 06/07/18 04:46 06/07/18 04:46 06/07/18 04:46 06/07/18 04:46 06/07/18 04:46 Exam: Gen.: A&O x3, no acute distress. HEENT: Neck is supple and trachea midline. Mucosa moist, external ears normal. Cardiac: RRR, no murmur present. No BLE edema. Pulmonary: CTA bilaterally, no wheezes. Abdomen: Soft, BS noted, diffuse abdominal tenderness, no guarding. Skin: Warm and dry. MSK: Radial pulses present and strong. Right leg in knee immobilizer with ice packs. lower and upper extremity sensation intact bilaterally. Neuro: No focal deficits. Psych: Appropriate mood and behavior - Assessment and Plan (1) Right femoral fracture Current Visit: Yes Status: Acute Assessment and Plan: Acute right femur fracture with surrounding hemorrhage and edema into right thigh musculature. Patient had C yesterday evening showing moderate two-vessel CAD and no percutaneous intervention was required. Her estimated risk probability for perioperative [place] or cardiac arrest is low. Okay to proceed with surgery at this time. Orthopedics following. Awaiting possible femur ORIF today. (2) Hypertensive urgency Current Visit: Yes Status: Acute Assessment and Plan: Blood pressure is elevated. Metoprolol dose was increased. Will continue pain control and antihypertensive therapy as needed Continue to monitor blood pressure closely. (3) Fall Current Visit: Yes Status: Acute Assessment and Plan: Status post right femur fracture. Awaiting surgery. PT/OT evaluation after surgery. (4) Hypothyroid Current Visit: Yes Status: Chronic Assessment and Plan: Currently TSH is low and free T4 is elevated. Hold levothyroxine for 2 weeks and recheck TSH and free T4 levels as an outpatient (5) Chest pain Current Visit: Yes Status: Resolved Assessment and Plan: Serial troponin 0.03, 0.04, 0.27 Echo pLVEF 45-50%, mild segmental left ventricular systolic dysfunction, and normal LV chamber size and wall thickness. Patient had LHC yesterday evening showing moderate two-vessel CAD and no percutaneous intervention was required. Patient slept throughout the night without any further chest pain. Continue Zofran/ Phenergan prn (6) Acute kidney injury superimposed on chronic kidney disease Current Visit: Yes Status: Resolved Assessment and Plan: Resolved. Continue monitoring (7) DVT prophylaxis Current Visit: Yes Status: Acute Assessment and Plan: SCDs. Patient was on chronic anticoagulation with Eliquis. Currently on hold pending surgery. Avoid Heparin due to increased risk of bleeding into thigh with CT evidence of displaced distal femur fracture and surrounding hemorrhage (8) Hypokalemia Current Visit: Yes Status: Acute Assessment and Plan: Supplement K Mag level WNL Continue to monitor - Time Spent with Patient Total time spent is greater than 50% in coordination of care (as documented) at patient's floor/unit and/or counseling patient: Internal Medicine: Result - Labs CBC & Chem 7: 06/07/18 07:21 06/07/18 07:21 Labs: Short CBC 06/06/18 Range/Units 07:49 WBC 11.2 H (4.3-11.1) K/mcL Hgb 11.2 L (11.5-15.4) g/dL Hct 35.4 (35.3-44.9) % Plt Count 270 (140-400) K/mcL BMP 06/06/18 07:49 Sodium 142 Potassium 3.6 Chloride 108 H Carbon Dioxide 26 BUN 19 Creatinine 0.85 Glucose 148 H Calcium 9.4 Cardiac Enzymes 06/06/18 06/06/18 Range/Units 07:49 13:44 Troponin I 0.04 H* 0.27 H* (< 0.04) ng/mL Liver Function 06/06/18 Range/Units 07:49 Albumin 3.3 L (3.5-5.7) g/dL - ABG Interpretation ABG results: PT/INR, D-dimer PT 18.2 Seconds (9.4-12.1) H 06/05/18 05:54 - Pulse Oximetry Interpretation Digit-Finger Pulse Oximetry Readin (On ambient air) - Impressions Impressions Echocardiogram Limited Views 06/06/18 14:07 Impressions: LVEF 45-50%. Mild segmental left ventricular systolic dysfunction. Normal LV chamber size and wall thickness. Left Ventricular Wall Motion: Rest Echo Findings The mid inferior, basal inferior and mid inferior lateral forrester were hypokinetic. All other wall segments showed normal motion. Findings: Study Quality * Technically adequate exam. ECG Findings * Normal sinus rhythm. Left Ventricle * LVEF 45-50%. * Mild segmental left ventricular systolic dysfunction. * Normal LV chamber size and wall thickness. Consult Discharge Plan - Plan Referrals: Van James MD [Primary Care Provider] - <Nellie Encinas - Last Filed: 06/07/18 15:24> Hospitalist Progress Note - Encounter Date of Encounter: 06/07/18 Time of Encounter: 10:45 - Exam Vitals: Temp Pulse Resp BP Pulse Ox 98.7 F 90 16 126/90 96 06/07/18 11:06 06/07/18 11:06 06/07/18 11:06 06/07/18 11:06 06/07/18 11:06 - Assessment and Plan (1) Fall Current Visit: Yes Status: Acute (2) Hypothyroid Current Visit: Yes Status: Chronic (3) Chest pain Current Visit: Yes Status: Resolved (4) Acute kidney injury superimposed on chronic kidney disease Current Visit: Yes Status: Resolved (5) Right femoral fracture Current Visit: Yes Status: Acute (6) DVT prophylaxis Current Visit: Yes Status: Acute (7) Hypertensive urgency Current Visit: Yes Status: Acute (8) Hypokalemia Current Visit: Yes Status: Acute - Time Spent with Patient Total time spent is greater than 50% in coordination of care (as documented) at patient's floor/unit and/or counseling patient: Internal Medicine: Result - Labs CBC & Chem 7: 06/07/18 07:21 06/07/18 07:21 Labs: Short CBC 06/07/18 Range/Units 07:21 WBC 12.3 H (4.3-11.1) K/mcL Hgb 10.8 L (11.5-15.4) g/dL Hct 34.0 L (35.3-44.9) % Plt Count 285 (140-400) K/mcL BMP 06/07/18 07:21 Sodium 142 Potassium 3.2 L Chloride 108 H Carbon Dioxide 25 BUN 14 Creatinine 0.66 Glucose 141 H Calcium 9.4 - ABG Interpretation ABG results: PT/INR, D-dimer PT 18.3 Seconds (9.4-12.1) H 06/07/18 07:21 - Impressions Impressions Echocardiogram Limited Views 06/06/18 14:07 Impressions: LVEF 45-50%. Mild segmental left ventricular systolic dysfunction. Normal LV chamber size and wall thickness. Left Ventricular Wall Motion: Rest Echo Findings The mid inferior, basal inferior and mid inferior lateral forrester were hypokinetic. All other wall segments showed normal motion. Findings: Study Quality * Technically adequate exam. ECG Findings * Normal sinus rhythm. Left Ventricle * LVEF 45-50%. * Mild segmental left ventricular systolic dysfunction. * Normal LV chamber size and wall thickness. - Attending Attestation I saw evaluated and examined this patient and my medical decision-making was reviewed with the Resident Physician, Kalen Ruiz. I agree with the documented findings, disposition and treatment plan as described except to any changes set forth below. We independently had paio-nk-ycal contact with the patient. Patient is doing much better today. She is awake and alert and reports that her pain is well controlled. She denies any chest pain. Underwent left heart catheterization yesterday without any postoperative complications. She did not require any stents. General: Patient is somnolent, but easily awakes and answers questions appropriately ENT: Mucous membranes moist Respiratory: Good respiratory effort. Normal breath sounds. No wheezing or crackles. Cardiovascular: Regular rate and rhythm. s1 and s2 normal No clicks, rubs, gallops, or murmurs. No pedal edema Abdomen: Abdomen is soft, nontender. Bowel sounds are present Musculoskeletal: Spontaneously moving all extremities Skin: warm, dry, intact. Neuro: Somnolent normal cranial nerves, no focal deficits Right femur fracture: With surrounding hemorrhage. Nothing by mouth currently for planned surgery later today. Has been cleared for surgery at moderate risk for complications per cardiology evaluation. Chest pain: Now resolved. Underwent left heart catheterization yesterday and did not require any stents. She did have nonobstructive coronary artery disease. Cardiology recommends aspirin and statin and adding Plavix at this time. Patient is also on Eliquis at baseline for history of DVT and PE. May continue Eliquis after her surgery. Essential hypertension: Blood pressure was elevated this morning. Started on Toprol yesterday. Increased Toprol dose is today. We will continue to monitor blood pressure closely. Recurrent falls: Awaiting physical therapy evaluation post surgery. Continue fall precautions. Anemia: Stable hemoglobin level. 10.8 today. History of multiple DVT/PE: Holding Eliquis due to planned surgery. INR is 1.6. Acute kidney injury: Now resolved. Severe protein calorie malnutrition: Patient reported unplanned weight loss over the past 11 months. Nutrition consulted. Recommend nutritional supplements. Will continue. Moderate risk for complications. <Klaen Ruiz - Last Filed: 06/07/18 13:30> (1) Right femoral fracture Qualifiers: Encounter type: initial encounter Femur location: distal Fracture type: closed Fracture morphology: unspecified fracture morphology Qualified Code(s): S72.401A - Unspecified fracture of lower end of right femur, initial encounter for closed fracture (3) Fall Qualifiers: Qualified Code(s): W19.XXXA - Unspecified fall, initial encounter (4) Hypothyroid Qualifiers: Hypothyroidism type: acquired Qualified Code(s): E03.9 - Hypothyroidism, unspecified (5) Chest pain Qualifiers: Chest pain type: other chest pain Qualified Code(s): R07.89 - Other chest pain; R07.8 - Other chest pain <Nellie Encinas - Last Filed: 06/07/18 15:24> (1) Fall Qualifiers: Qualified Code(s): W19.XXXA - Unspecified fall, initial encounter (2) Hypothyroid Qualifiers: Hypothyroidism type: acquired Qualified Code(s): E03.9 - Hypothyroidism, unspecified (3) Chest pain Qualifiers: Chest pain type: other chest pain Qualified Code(s): R07.89 - Other chest pain; R07.8 - Other chest pain (5) Right femoral fracture Qualifiers: Encounter type: initial encounter Femur location: distal Fracture type: closed Fracture morphology: unspecified fracture morphology Qualified Code(s): S72.401A - Unspecified fracture of lower end of right femur, initial encounter for closed fracture
[2018-06-07] MEDS: Venlafaxine XR (24 HR) 150 MG CAP.ER.24H PO SCH (07:39)
[2018-06-07] MEDS: Furosemide 40 MG TABLET PO SCH (07:39)
[2018-06-07] MEDS: Isosorbide MONOnitrate (24 HR) 30 MG TAB.ER.24H PO SCH (07:40)
[2018-06-07] MEDS: clonazePAM 1 MG TABLET PO SCH ×2 (07:40→21:47)
[2018-06-07] MEDS: BuPROPion SR (12 HR) 150 MG TABLET PO SCH (07:43)
[2018-06-07] MEDS: Metoprolol XL (24 HR) Succ 25 MG TAB.ER.24H PO SCH (07:43)
[2018-06-07] MEDS: OXYCODONE Oral CONC 10 MG/0.5 ML ORAL.SYG SL PRN ×2 (07:43→13:04)
[2018-06-07 08:06] LABS: Hemoglobin 10.8 g/dL (11.5-15.4); Mean Corpuscular HGB Conc 31.8 g/dL (31.6-35.5); Mean Corpuscular Hemoglobin 26.9 pg (28.0-33.3); Mean Corpuscular Volume 84.6 fL (83.0-100.0); Mean Platelet Volume 11.1 fL (9.4-12.4); Platelet Count 285 K/mcL (140-400); Red Blood Count 4.02 M/mcL (3.82-4.97); Red Cell Distribution Width 15.9 % (11.5-14.5)
[2018-06-07 08:14] LABS: INR 1.6; Prothrombin Time 18.3 Seconds (9.4-12.1)
[2018-06-07 08:24] LABS: BUN/Creatinine Ratio 21 (6-26); Blood Urea Nitrogen 14 mg/dL (6-20); Calcium 9.4 mg/dL (8.6-10.3); Carbon Dioxide 25 mEq/L (23-29); Chloride 108 mEq/L (98-107); Glucose 141 mg/dL (70-105); Osmolality,Calculated 297 (280-300); Potassium 3.2 mEq/L (3.5-5.1); Sodium 142 mEq/L (136-145); eGFR For Non-African Americans > 60 (> 60)
[2018-06-07] MEDS ORDERED: Aspirin 81 MG TAB.CHEW PO SCH (09:00)
[2018-06-07] MEDS ORDERED: Metoprolol XL (24 HR) Succ 25 MG TAB.ER.24H PO SCH (09:00)
--- NOTE | 2018-06-07 12:23 | Anesthesia Progress Note ---
Date of Encounter: 06/07/18 Time of Encounter: 15:59 Anes Supervising Prov Stmt: IMMEDIATE PRE-OP ANESTHESIA EVALUATION RIGHT DISTAL FEMUR PERIPROTHETIC FRACTURE ORIF VS REVISION HTN, HLD, CAD, ACUTE NSTEMI, TTE WITH NEW SEGMENTAL WALL MOTION ABN, EF 45%, LHC REPEATED & ESSENTIALLY UNCHANGED FROM 03/31. ANEMIA. RESOLVED GREG WITH NORMALIZED CREATININE & EGFR THIS AM. ANXIETY, DEPRESSION, GERD. Laboratory Tests 06/05/18 06/06/18 06/07/18 14:37 07:49 07:21 Hgb 10.8 L Plt Count 285 PT INR Potassium Chloride Creatinine Est GFR (Non-Af Amer) Calcium Magnesium Albumin 3.3 L Blood Type A NEGATIVE Antibody Screen NEGATIVE 06/07/18 06/07/18 06/07/18 07:21 07:21 09:38 Hgb Plt Count PT 18.3 H INR 1.6 Potassium 3.2 L Chloride 108 H Creatinine 0.66 Est GFR (Non-Af Amer) > 60 Calcium 9.4 Magnesium 1.7 Albumin Blood Type Antibody Screen Vital Signs/O2 Sat/Glucose, Most Recent Temp Pulse Resp BP Pulse Ox 98.7 F 90 16 126/90 96 06/07/18 11:06 06/07/18 11:06 06/07/18 11:06 06/07/18 11:06 06/07/18 11:06 Weight: 68 KG NPO (# of Hours): >8 - HEENT Pupil (Motor): Pupils equal, EOMI Mallampati: II Teeth: Edentulous Denture Type: Upper: Complete, Lower: Complete Oral Opening: Greater than 3 Anesthesia Assess/Plan ASA Score: 3 Anesthetic Plan: General, Nerve block for post operative pain Monitoring Plan: Standard Monitors, Possible blood transfusion Recovery Plan: PACU Patient understands that she is at increased risk for perioperative complications including myocardial infarct, arrhythmias, CVA, post op vent support/ICU stay, and . Patient wishes to proceed.
--- NOTE | 2018-06-07 12:28 | Electrocardiograph Report ---
[place] [id number] Test Date: 2018-06-06 Pat Name: Velma Nicolas Department: 114 Room: [facility] Gender: F [employer]: : 1960 Requested By: Kalen Ruiz Order Number: [id number] Reading MD: Bridger Jones Measurements Intervals [place] Rate: 74 P: 65 HI: 146 QRS: 19 QRSD: 99 T: 24 QT: 362 QTc: 390 Interpretive Statements SINUS RHYTHM WITH MARKED SINUS ARRHYTHMIA NONSPECIFIC ST & T-WAVE ABNORMALITY Electronically Signed On 06-07-2018 12:26:49 EST by Bridger Jones
--- NOTE | 2018-06-07 14:02 | Cardiology Progress Note ---
Date of Encounter: 06/07/18 Time of Encounter: 13:59 Assessment and Plan (1) Elevated troponin Current Visit: Yes Status: Acute Elevated troponin up to 0.27. TTE completed LVEF 45-50%. Mild segmental left ventricular systolic dysfunction. Normal LV chamber size and wall thickness. [facility] completed and shows moderate non-obstructive CAD. NSTEMI type I vs Type II. Discussed with Dr. 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 Recommend plavix for one year. Discussed with Dr. Olivarez. Can start plavix now. Noted h/o DVT and PE and patient on NOAC. Continuation of therapy per primary team recommendation. She is not a candidate for cardiac rehab at this time due to femur fracture. Continue asa, statin, and bb. (2) Preoperative cardiovascular examination Current Visit: Yes Status: Acute Patient deemed moderate risk for procedure. Recommended to continue asa, plavix, statin, and bb. Discussed with Dr. Olivarez. Patient okay to have plavix. (3) CAD (coronary artery disease) Current Visit: No Status: Chronic Moderate non-obstructive CAD seen on re-peat [facility] 06/06/18. [facility] ordered for elev ated troponin and WMA seen on TTE. Medical management recommended. Qualifiers: Coronary Disease-Associated Artery/Lesion type: resighini artery [place] vs. transplanted heart: resighini heart Associated angina: with unspecified angina Qualified Code(s): I25.119 - Atherosclerotic heart disease of resighini coronary artery with unspecified angina pectoris (4) Fall Current Visit: Yes Status: Acute Reports possible syncopal event. H/o falls and syncope. Recent cardiac work-up as described above. Consider polypharmacy. Telemetry review shows SR to sinus arrhythmia. No pauses, bradycardia, or VT. 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 Noted 40 lb weight loss over last year. Recommended titrating down antihypertensives at that time due to hypotension. Now noted to have hypertension. Qualifiers: Qualified Code(s): W19.XXXA - Unspecified fall, initial encounter (5) Elevated troponin Current Visit: Yes Status: Acute Discussion w patient/family: The assessment and plan as outlined above was discussed with the patient and/or family members who expressed understanding and agreement. All questions were answered. Thank you for involving us in the care of your patient. Please call with any questions. Subjective Principal diagnosis: pre-operative risk assessment Interval history: Ms. Nicolas is s/p [facility]. There was no complication from procedure. Denies chest pain. C/o intermittent nausea. Objective Vital Signs, Last 4 Hours Temp Pulse Resp BP Pulse Ox 06/07/18 11:06 98.7 F 90 16 126/90 96 General: Conversant, No Apparent Distress HEENT: Atraumatic, Normocephaly, Mucus Membranes Moist Neck: No JVD, Normal carotid pulses Cardiac: Reg Rate and Rhythm, Normal S1 and S2, No Murmur Lungs: Normal Breath Sounds, No Wheeze, Rales, Rhonchi Neuro: Alert and responsive, No focal deficits noted Abdomen: Soft, Non-Tender Skin: No rashes noted on visualized skin Musculoskeletal: No Chest Wall Tenderness Extremities: Other (No problem with right groin access site.) Results 06/07/18 07:21 06/07/18 07:21 Lab Results 06/06/18 06/07/18 06/07/18 13:44 07:21 07:21 WBC 12.3 H Hgb 10.8 L Hct 34.0 L Plt Count 285 INR 1.6 Sodium Potassium Chloride Carbon Dioxide BUN Creatinine Glucose Calcium Magnesium Troponin I 0.27 H* 06/07/18 06/07/18 07:21 09:38 WBC Hgb Hct Plt Count INR Sodium 142 Potassium 3.2 L Chloride 108 H Carbon Dioxide 25 BUN 14 Creatinine 0.66 Glucose 141 H Calcium 9.4 Magnesium 1.7 Troponin I - Imaging and Cardiology Echo: report reviewed - EKG Interpretation EKG results cardiology: personally reviewed Consult Discharge Plan - Plan Referrals: Van James MD [Primary Care Provider] -
[2018-06-07] MEDS ORDERED: ROPIVACAINE HCL/PF 0.5% 30 ML VIAL ONE (15:31)
[2018-06-07] MEDS ORDERED: Dexamethasone 4 MG/ML VIAL ONE ×2 (15:32→16:21)
[2018-06-07] MEDS ORDERED: *HR* FentaNYL (PF) 100 MCG/2 ML VIAL ONE ×2 (15:33→16:16)
[2018-06-07] MEDS ORDERED: *HR* Midazolam HCl 2 MG/2 ML VIAL ONE ×2 (15:34→16:16)
[2018-06-07] MEDS ORDERED: *HR* Meperidine 25 MG/ML SYRINGE IVP PRN (16:14)
[2018-06-07] MEDS ORDERED: *HR* Promethazine 25 MG/ML VIAL IVP PRN ×2 (16:14→20:06)
[2018-06-07] MEDS ORDERED: *HR* HYDROmorphone (PF) 1 MG/ML SYRINGE IVP PRN (16:14)
[2018-06-07] MEDS ORDERED: Acetaminophen IV 1,000 MG/100 ML INFUS..BTL IVPB ONE (16:14)
[2018-06-07] MEDS ORDERED: Albuterol 2.5 MG/3 ML NEBULIZER IH ONE ×2 (16:14→20:06)
[2018-06-07] MEDS ORDERED: *HR* OxyCODONE Immed Rel 5 MG TABLET PO PRN (16:14)
[2018-06-07] MEDS ORDERED: *HR* Propofol 200 MG/20 ML VIAL IVP ONE (16:16)
[2018-06-07] MEDS ORDERED: Lidocaine -MPF 2% 2 ML VIAL ONE (16:21)
[2018-06-07] MEDS ORDERED: Ondansetron 4 MG/2 ML VIAL ONE (16:21)
[2018-06-07] MEDS ORDERED: Ethanol\\Acetic Acid\\Na Ace\\Ben 1,000 ML IRRIG.SOLN IR ONE (17:01)
[2018-06-07] MEDS ORDERED: Albumin Human 5% 25.0 GM/500 ML VIAL ONE (17:23)
--- NOTE | 2018-06-07 17:38 | Anesthesia Procedures ---
Date of Encounter: 06/07/18 Time of Encounter: 17:31 Procedures: Anesthesia - Peripheral Line Forearm R Consent obtained: verbal consent Skin cleansed in sterile fashion: Yes Size: Other (4 FR) Patient tolerated procedure: well, no complications Additional comments: PATIENT WITH DIFFICULT IV ACCESS - RESTRICTED LEFT UE, MULTIPLE RA IMMUNOTHERAPY INFUSIONS IN RUE. 2 ATTEMPTS UNDER US GUIDANCE IN RIGHT FA, UNABLE TO SECURE IV ACCESS. 4 FR 10 CM VENOUS SHEATH PLACED IN RIGHT BRACHIAL VEIN: HYDRAULIC MODELING ENGINEER, CHG PREP, DRAPE. 21 GA MICROPUNCTURE NEEDLE AND GW UNDER US GUIDANCE. CATH VISUALIZED IN VENOUS LUMEN. CHG BIOPATCH AND OCCLUSIVE DRESSING.
[2018-06-07 17:49] LABS: Hematocrit 34.5 % (35.3-44.9); Hemoglobin 10.6 g/dL (11.5-15.4)
--- NOTE | 2018-06-07 18:23 | Anesthesia Procedures ---
Date of Encounter: 06/07/18 Time of Encounter: 17:15 Procedures: Anesthesia - Nerve Block Procedure Date: 06/07/18 Time: 17:15 Allergies/Adv Reactions: NKDA Pre-op Diagnosis: R Leg Distal Femur Fracture Surgical Procedure: R Leg Distal femoral ORIF Checklist: Correct Patient Identifier, Correct procedure, History checked Correct side: Right Blood Thinner: Yes (stopped eliquis) Monitor Applied: EKG, BP, Pulse Oximetry Supplemental Oxygen via Nasal Cannula (L/min): 2 Sedation: Versed (mg): 2 Sedation: Fentanyl (mcg): 100 Indication: Post Op Analgesia Pre-op Neuro Deficits: No Block Type: Femoral Catheter placed: No Sterile Technique: Yes Ultrasound used: Yes Anatomy identified: Yes Visual spread of Local: Yes Neuro Stimulation: No Blood on Needle Aspiration: No Smooth Injection of Local: Yes Pain with Injection of Local: No Prep: Chlorhexadine Needle: 22 x 50 mm Stimuplex Local: Ropivacaine (30mL 0.5% Ropivacaine with 8mg Decadron) Volume (cc): 30 Number of Attempts: 1 Complications: None/effective block Vitals: Vital Signs/O2 Sat/Glucose, Most Recent Temp Pulse Resp BP Pulse Ox 98.7 F 108 15 96/65 94 06/07/18 11:06 06/07/18 17:28 06/07/18 17:28 06/07/18 17:28 06/07/18 17:28
[2018-06-07] MEDS ORDERED: *HR* HYDROMORPHONE 2 MG/ML VIAL ONE (18:25)
--- NOTE | 2018-06-07 18:37 | Orthopedic Operative Note ---
Date of procedure: 06/07/18 Pre-op diagnosis: Displaced comminuted distal femoral shaft periprosthetic fx right Post-op diagnosis: same Procedure: Right open reduction internal fixation distal femoral shaft fracture periprosthetic Estimated blood loss: 300 cc Hardware: Synthes Large Frag right periarticular plate 8 hole 11 screws were used 24.5 compression 9 5.0 Locking screws 2 Arthrex cerclage fiber tapes one MEL drain Procedural Notes: Displaced comminuted fracture distal third femoral shaft periprosthetic Operative procedure: The patient was brought to the operating room and placed on the operating room fracture table. The well leg was placed in the well leg pickard, the fracture leg was placed in the fracture leg pickard. After general anesthesia was administered the operative leg was prepped and draped in the sterile surgical fashion The patient received IV antibiotics prior to skin incision. A standard lateral approach was made to the femur the incision is made to the skin and subcutaneous tissue. Hemostasis was obtained with Bovie cautery. Using careful blunt dissection the tensor fascia was identified and incised along the length of the incision. The vastus lateralis was elevated up after the fascia was split closing the lateral femur and the fracture site. The fractures reduced and held in place with bone holding forceps 2 Arthrex cerclage fiber tapes were passed subperiosteally to get preliminary fixation. Fluoroscopic assistance confirmed good alignment and good fixation. An 8 hole Synthes periarticular right distal femoral plate locking plate was approximated to the lateral surface was fixed with a combination of 5.0 locking screws and 4.5 compression screws Position of hardware as well as fracture reduction was found to be acceptable with fluoroscopic assistance. The wound was irrigated the fascia was closed with a running #1 PDS suture over a MEL drain, tensor fascia was closed with a running #2 PDS suture subcutaneous tissues and closed deep #1 PDS suture superficially with 0 PDS suture and skin was closed with Dermabond and skin elba. The patient was placed in a sterile dressing, and knee immobilizer The patient was extubated, and then transferred to the recovery room in stable condition. Anesthesia: GETA Surgeon: En Olivarez Was there an assistant terminal manager present: No Estimated blood loss (cc): 300 Condition: stable Disposition: PACU
--- NOTE | 2018-06-07 19:15 | Anesthesia Evaluation Post Op ---
Date of Encounter: 06/07/18 Time of Encounter: 19:14 - Vital Signs Vital Signs: Vital Signs/O2 Sat, Most Current Temp Pulse Resp BP Pulse Ox 98 F 75 22 118/74 95 06/07/18 18:42 06/07/18 18:52 06/07/18 18:52 06/07/18 18:52 06/07/18 18:52 - Lungs Lungs: Clear Ascult./Percussion - Airway Airway: Non-obstructed - Cardiovascular Regular Rate - Mental Status Mental Status: Alert & Oriented, Answers Appropriately - Pain Pain Scale: 2 Pain Scale used: Numeric (1 - 10) - Nausea Vomiting Nausea Vomiting: Not Present - Hydration Hydration: NPO, [place] catheter - Discharge PostOp Status: Transfer Patient to floor
[2018-06-07 19:36] LABS: Hematocrit 32.7 % (35.3-44.9); Hemoglobin 10.5 g/dL (11.5-15.4)
[2018-06-07] MEDS ORDERED: OXYCODONE Oral CONC 10 MG/0.5 ML ORAL.SYG SL PRN (20:06)
[2018-06-07] MEDS ORDERED: Sennosides 8.6 MG TABLET PO PRN (20:06)
[2018-06-07] MEDS ORDERED: MOM Conc 10 ML UD.LIQ PO PRN (20:06)
[2018-06-07] MEDS ORDERED: Temazepam 15 MG CAPSULE PO PRN (20:06)
[2018-06-07] MEDS ORDERED: cloNIDine HCl 0.1 MG TABLET PO PRN (20:06)
[2018-06-07] MEDS ORDERED: Naloxone 0.4 MG/ML INJ IVP PRN (20:06)
[2018-06-07] MEDS: rOPINIRole 1 MG TABLET PO SCH (21:47)
[2018-06-08] MEDS: Ringers Solution, Lactated 1,000 ML IVC SCH ×2 (00:38→13:20)
[2018-06-08] MEDS: Ondansetron 4 MG/2 ML VIAL IVP PRN ×2 (04:13→22:16)
[2018-06-08] MEDS: OXYCODONE Oral CONC 10 MG/0.5 ML ORAL.SYG SL PRN ×3 (04:13→22:12)
--- NOTE | 2018-06-08 08:31 | Internal Med Progress Note ---
Addendum entered and electronically signed by Nellie Encinas MD 06/11/18 15:30: I saw evaluated and examined this patient and my medical decision-making was reviewed with the Resident Physician, Barb Trevizo. I agree with the documented findings, disposition and treatment plan as described except to any changes set forth below. We independently had [id number] contact with the patient. Original Note: <Barb Trevizo - Last Filed: 06/08/18 11:14> Hospitalist Progress Note - Encounter Date of Encounter: 06/08/18 Time of Encounter: : - Subjective Interval History: Patient seen and examined. She is resting in the bed comfortably. She had surgery on her right femur yesterday evening and states that her pain is currently well controlled. She did have an episode overnight of severe pain that resolved following administration of 10 mg of oxycodone. The patient takes 10\325 mg of Percocet and 80 mg of OxyContin at home chronically and stated last night that every time she is in the hospital she is not given these meds and this happens. She denies any current dizziness, chest pain, shortness of breath, nausea, vomiting, abdominal pain. - Exam Vitals: Temp Pulse Resp BP Pulse Ox 98.2 F 73 16 103/57 98 06/08/18 08:00 06/08/18 08:00 06/08/18 08:00 06/08/18 08:00 06/08/18 08:00 Exam: Gen.: A&O x3, no acute distress. HEENT: Neck is supple and trachea midline. Mucosa moist, external ears normal. EOMI Cardiac: irregularly irregular, no murmur present. No BLE edema. Pulmonary: LCTAB, no wheezes. Abdomen: Soft, BS noted, diffuse abdominal tenderness, no guarding. Skin: Warm and dry. MSK: Radial pulses present and strong. Right leg in knee immobilizer, drain in place. lower and upper extremity sensation intact bilaterally. Neuro: No focal deficits. Psych: Appropriate mood and behavior - Assessment and Plan (1) Right femoral fracture Current Visit: Yes Status: Acute Assessment and Plan: POD #1 Right ORIF of the distal femur with Dr. Olivarez MEL drain in place Leg in knee immobilizer with dressings c/d/i Sensation and pulses WNL Plan: -Continue with pain control -PT/OT (2) CAD (coronary artery disease) Current Visit: No Status: Chronic Assessment and Plan: Serial troponin 0.03, 0.04, 0.27 Echo pLVEF 45-50%, mild segmental left ventricular systolic dysfunction, and normal LV chamber size and wall thickness. Patient had LHC 06/06 showing moderate two-vessel CAD and no percutaneous intervention was required. Patient denies CP. Plan: -Continue plavix x1 year -Restart eliquis Continue ASA, statin, BB (3) Fall Current Visit: Yes Status: Acute Assessment and Plan: Status post right femur fracture. POD1 right ORIF of distal femure pt has history of syncope and falls, given cardiac workup consider polypharmacy. The patient is on oxycontin 80mg daily with percocet 10/325mg in the setting of a 40 pound weight loss. She is also hyperthyroid. Pt will need to f/u with PCP for further evaluation of syncope and to f/u on thyroid labs. Plan: -PT/OT evaluation (4) Hypertension Current Visit: Yes Status: Chronic Assessment and Plan: Patient has been normotensive most of the night. She did have an episode of HTN when she was in severe pain, which resolved with administration of pain medication. Plan: -Continue metoprolol -Continue losartan -Continue clonidine -Continue to control pain -Continue to monitor (5) Acute kidney injury superimposed on chronic kidney disease Current Visit: Yes Status: Resolved Assessment and Plan: Resolved. Continue monitoring (6) Hypothyroid Current Visit: Yes Status: Chronic Assessment and Plan: Currently TSH is low and free T4 is elevated. Hold levothyroxine for 2 weeks and recheck TSH and free T4 levels as an outpatient (7) Hypokalemia Current Visit: Yes Status: Acute Assessment and Plan: Supplement K Mag level WNL Continue to monitor (8) Afib Current Visit: Yes Status: Acute Assessment and Plan: Patient and report history of Afib. Pt was noted to be in afib this AM, has since converted back to NSR. Plan: -Continue Toprol -Restart eliquis -Continue to monitor DVT Prophylaxis: Eliquis - Time Spent with Patient Total time spent is greater than 50% in coordination of care (as documented) at patient's floor/unit and/or counseling patient: Internal Medicine: Result - Labs CBC & Chem 7: 06/08/18 08:22 06/08/18 08:22 Labs: Short CBC 06/07/18 06/07/18 Range/Units 17:18 19:13 Hgb 10.6 L 10.5 L (11.5-15.4) g/dL Hct 34.5 L 32.7 L (35.3-44.9) % - ABG Interpretation ABG results: PT/INR, D-dimer PT 18.3 Seconds (9.4-12.1) H 06/07/18 07:21 - Impressions Impressions Knee X-Ray 06/05/18 12:58 IMPRESSION: Increased medial displacement of distal femoral fracture fragment. D/ / 06/05/2018 13:45:50 Monster France MD / hue Interpreting Provider: Monster France MD Knee X-Ray 06/07/18 16:59 IMPRESSION: Status post ORIF of the distal right femur without complication identified. D/ / Darshan Zurita MD / Darshan Zurita MD Interpreting Provider: Darshan Zurita MD Fluoroscopy 06/07/18 17:25 IMPRESSION: Intraprocedural fluoroscopic spot images as above. See separate procedure report for more information. D/ / Shree Amin MD / Shree Amin MD Interpreting Provider: Shree Amin MD Knee X-Ray 06/07/18 17:25 IMPRESSION: Intraprocedural fluoroscopic spot images as above. See separate procedure report for more information. D/ / Shree Amin MD / Shree Amin MD Interpreting Provider: Shree Amin MD Consult Discharge Plan - Plan Referrals: Van James MD [Primary Care Provider] - <Nellie Encinas - Last Filed: 06/08/18 11:46> Hospitalist Progress Note - Encounter Date of Encounter: 06/08/18 Time of Encounter: 11:39 - Exam Vitals: Temp Pulse Resp BP Pulse Ox 98.5 F 78 16 107/63 96 06/08/18 10:30 06/08/18 10:30 06/08/18 10:30 06/08/18 10:30 06/08/18 10:30 - Assessment and Plan (1) Fall Current Visit: Yes Status: Acute (2) Hypothyroid Current Visit: Yes Status: Chronic (3) Chest pain Current Visit: Yes Status: Resolved (4) Acute kidney injury superimposed on chronic kidney disease Current Visit: Yes Status: Resolved (5) Right femoral fracture Current Visit: Yes Status: Acute (6) DVT prophylaxis Current Visit: Yes Status: Acute (7) Hypertensive urgency Current Visit: Yes Status: Acute (8) Hypokalemia Current Visit: Yes Status: Acute - Time Spent with Patient Total time spent is greater than 50% in coordination of care (as documented) at patient's floor/unit and/or counseling patient: Internal Medicine: Result - Labs CBC & Chem 7: 06/08/18 08:22 06/08/18 08:22 Labs: Short CBC 06/07/18 06/07/18 06/08/18 Range/Units 17:18 19:13 08:22 Hgb 10.6 L 10.5 L 9.4 L (11.5-15.4) g/dL Hct 34.5 L 32.7 L 30.6 L (35.3-44.9) % BMP 06/08/18 08:22 Sodium 143 Potassium 3.7 Chloride 109 H Carbon Dioxide 27 BUN 23 H Creatinine 0.75 Glucose 129 H Calcium 9.2 - ABG Interpretation ABG results: PT/INR, D-dimer PT 18.3 Seconds (9.4-12.1) H 06/07/18 07:21 - Impressions Impressions Knee X-Ray 06/05/18 12:58 IMPRESSION: Increased medial displacement of distal femoral fracture fragment. D/ / 06/05/2018 13:45:50 Monster France MD / hue Interpreting Provider: Monster France MD Knee X-Ray 06/07/18 16:59 IMPRESSION: Status post ORIF of the distal right femur without complication identified. D/ / Darshan Zurita MD / Darshan Zurita MD Interpreting Provider: Darshan Zurita MD Fluoroscopy 06/07/18 17:25 IMPRESSION: Intraprocedural fluoroscopic spot images as above. See separate procedure report for more information. D/ / Shree Amin MD / Shree Amin MD Interpreting Provider: Shree Amin MD Knee X-Ray 06/07/18 17:25 IMPRESSION: Intraprocedural fluoroscopic spot images as above. See separate procedure report for more information. D/ / Shree Amin MD / Shree Amin MD Interpreting Provider: Shree Amin MD - Attending Attestation I saw evaluated and examined this patient and my medical decision-making was reviewed with the Resident Physician, Kalen Ruiz. I agree with the documented findings, disposition and treatment plan as described except to any changes set forth below. We independently had [id number] contact with the patient. Evaluated patient earlier today. Her heart rhythm had converted to A. fib with RVR earlier this morning. While I was in the room in examining her, she spontaneously converted back to sinus rhythm. She denies any new complaints at this time. She had reported pain earlier but it is now well controlled after she received some oxycodone. Patient reports that she takes 80 mg of oxycodone twice daily at home and has been has been on it for years. She has not received this medication here. Currently she is very somnolent although easily awakes. Will consider restarting long-acting oxycodone at a lower dose as her somnolence improves. General: Patient is somnolent, but easily awakes and answers questions appropriately ENT: Mucous membranes moist Respiratory: Good respiratory effort. Normal breath sounds. No wheezing or crackles. Cardiovascular: Regular rate and rhythm. s1 and s2 normal No clicks, rubs, gallops, or murmurs. No pedal edema Abdomen: Abdomen is soft, nontender. Bowel sounds are present Musculoskeletal: Right lower extremity bandaged post surgery. Skin: warm, dry, intact. Neuro: Somnolent normal cranial nerves, no focal deficits Right femur fracture: With surrounding hemorrhage. Postop day 1. Awaiting physical therapy evaluation. Continue supportive care. Pain control. Atrial fibrillation with RVR: Chronic A. fib. Rate controlled and converted to sinus rhythm at this time. Resume Eliquis. Continue metoprolol. Chest pain: Resolved. Continue aspirin and Plavix per cardiology recommendations. Essential hypertension: Blood pressure was again elevated earlier this morning and patient received hydralazine with improvement in blood pressure. High blood pressure could be due to pain. Will continue to monitor closely. Recurrent falls: Awaiting physical therapy evaluation post surgery. Continue fall precautions. Anemia: Hemoglobin 9.4. We will continue to monitor closely. Especially as cyrus henson is on aspirin, Plavix and Eliquis. History of multiple DVT/PE: Resume Eliquis at this time. Monitor blood counts closely. Acute kidney injury: Now resolved. Severe protein calorie malnutrition: Continue nutritional supplements. Encouraged oral diet. Moderate risk for complications. <Barb Trevizo - Last Filed: 06/08/18 11:14> (1) Right femoral fracture Qualifiers: Encounter type: initial encounter Femur location: distal Fracture type: closed Fracture morphology: unspecified fracture morphology Qualified Code(s): S72.401A - Unspecified fracture of lower end of right femur, initial encounter for closed fracture (2) CAD (coronary artery disease) Qualifiers: Coronary Disease-Associated Artery/Lesion type: [place] artery [place] vs. transplanted heart: [place] heart Associated angina: with unspecified angina Qualified Code(s): I25.119 - Atherosclerotic heart disease of [place] coronary artery with unspecified angina pectoris (3) Fall Qualifiers: Qualified Code(s): W19.XXXA - Unspecified fall, initial encounter (4) Hypertension Qualifiers: Hypertension type: essential hypertension Qualified Code(s): I10 - Essential (primary) hypertension (6) Hypothyroid Qualifiers: Hypothyroidism type: acquired Qualified Code(s): E03.9 - Hypothyroidism, un specified (8) Afib Qualifiers: Atrial fibrillation type: chronic Qualified Code(s): I48.2 - Chronic atrial fibrillation <Nellie Encinas - Last Filed: 06/08/18 11:46> (1) Fall Qualifiers: Qualified Code(s): W19.XXXA - Unspecified fall, initial encounter (2) Hypothyroid Qualifiers: Hypothyroidism type: acquired Qualified Code(s): E03.9 - Hypothyroidism, unspecified (3) Chest pain Qualifiers: Chest pain type: other chest pain Qualified Code(s): R07.89 - Other chest pain; R07.8 - Other chest pain (5) Right femoral fracture Qualifiers: Encounter type: initial encounter Femur location: distal Fracture type: closed Fracture morphology: unspecified fracture morphology Qualified Code(s): S72.401A - Unspecified fracture of lower end of right femur, initial encounter for closed fracture
[2018-06-08] MEDS ORDERED: Metoprolol XL (24 HR) Succ 25 MG TAB.ER.24H PO SCH (09:00)
[2018-06-08] MEDS: Aspirin 81 MG TAB.CHEW PO SCH (09:05)
[2018-06-08] MEDS: BuPROPion SR (12 HR) 150 MG TABLET PO SCH ×2 (09:05→17:38)
[2018-06-08] MEDS: clonazePAM 1 MG TABLET PO SCH ×3 (09:05→21:17)
[2018-06-08] MEDS: Venlafaxine XR (24 HR) 150 MG CAP.ER.24H PO SCH (09:06)
[2018-06-08] MEDS: Furosemide 40 MG TABLET PO SCH (09:07)
[2018-06-08] MEDS: Multivit/Ca/Min/Fe/FA 1 TAB TABLET PO SCH (09:07)
[2018-06-08] MEDS: Isosorbide MONOnitrate (24 HR) 30 MG TAB.ER.24H PO SCH (09:07)
[2018-06-08] MEDS: Ascorbic Acid 500 MG TABLET PO SCH ×2 (09:07→16:13)
[2018-06-08] MEDS: Apixaban 5 MG TABLET PO SCH ×2 (09:09→21:17)
[2018-06-08 09:27] LABS: Hematocrit 30.6 % (35.3-44.9); Hemoglobin 9.4 g/dL (11.5-15.4)
[2018-06-08 09:36] LABS: BUN/Creatinine Ratio 31 (6-26); Blood Urea Nitrogen 23 mg/dL (6-20); Calcium 9.2 mg/dL (8.6-10.3); Carbon Dioxide 27 mEq/L (23-29); Chloride 109 mEq/L (98-107); Glucose 129 mg/dL (70-105); Osmolality,Calculated 301 (280-300); Potassium 3.7 mEq/L (3.5-5.1); Sodium 143 mEq/L (136-145); eGFR For Non-African Americans > 60 (> 60)
--- NOTE | 2018-06-08 16:19 | Orthopedics Progress Note ---
Date of Encounter: 06/08/18 Time of Encounter: 16:17 Subjective Principal diagnosis: Right distal femur fracture Interval history: Patient reports that she is doing well today Right lower extremity: Dressings are clean dry intact, Polar Care intact, immobilizer in place Bilateral calves are soft and nontender, grossly neurovascular intact distally Asst. postoperative day #1, orthopedically stable Plan: Nonweightbearing to right lower extremity PT/OT Continue DVT prophylaxis Objective Vital signs: Vital Signs Temp Pulse Resp BP Pulse Ox 06/08/18 10:30 98.5 F 78 16 107/63 96 06/08/18 08:00 98.2 F 73 16 103/57 98 06/08/18 04:52 97.9 F 76 17 199/119 99 06/07/18 23:31 98.7 F 88 16 110/70 98 06/07/18 22:30 98.3 F 97 16 107/68 95 06/07/18 21:30 97.7 F 72 14 104/67 99 06/07/18 21:00 97.7 F 77 15 107/70 99 06/07/18 20:33 98.2 F 91 15 102/69 99 06/07/18 20:03 97.8 F 94 16 115/74 99 06/07/18 19:32 93 18 118/74 100 06/07/18 19:22 99.0 F 92 18 121/83 100 06/07/18 19:12 92 16 122/74 100 06/07/18 19:02 98.3 F 89 18 112/64 100 06/07/18 18:52 75 22 118/74 95 06/07/18 18:42 98 F 92 16 122/58 94 06/07/18 17:28 108 15 96/65 94 Intake and Output 06/08/18 06/08/18 06/08/18 07:59 15:59 23:59 Intake Total 300 / 300 1100 / 1100 Output Total 640 / 640 420 / 420 Balance -340 / -340 680 / 680 Intake: IV Fluids 100 / 100 1100 / 1100 Lactated Ringers 1,000 ML @ 75 1000 / 1000 mls/hr IVC .[id number] GAL Rx#: [id number] Ancef 2,000 MG In 0.9 % Sodium 100 / 100 100 / 100 Chloride 100 ML @ 200 mls/hr IVPB Q8HR GAL Rx#:[id number] Oral 200 / 200 Output: Urine 400 / 400 Catheter 600 / 600 Wound Drainage Right Leg Other: Weight 68.5 kg Patient Weight 06/08/18 23:59 Weight 68.5 kg - Labs CBC & BMP: 06/08/18 08:22 06/08/18 08:22 Labs: Abnormal lab results WBC 12.3 K/mcL (4.3-11.1) H 06/07/18 07:21 Hgb 9.4 g/dL (11.5-15.4) L 06/08/18 08:22 Hct 30.6 % (35.3-44.9) L 06/08/18 08:22 MCH 26.9 pg (28.0-33.3) L 06/07/18 07:21 RDW 15.9 % (11.5-14.5) H 06/07/18 07:21 PT 18.3 Seconds (9.4-12.1) H 06/07/18 07:21 Chloride 109 mEq/L (98-107) H 06/08/18 08:22 BUN 23 mg/dL (6-20) H 06/08/18 08:22 BUN/Creatinine Ratio 31 (6-26) H 06/08/18 08:22 Glucose 129 mg/dL (70-105) H 06/08/18 08:22 Calculated Osmolality 301 (280-300) H 06/08/18 08:22 Troponin I 0.27 ng/mL (< 0.04) H* 06/06/18 13:44 Albumin 3.3 g/dL (3.5-5.7) L 06/06/18 07:49 TSH < 0.010 mcIU/mL (0.340-5.600) L 06/04/18 16:49 Free T4 3.65 ng/dl (0.70-2.00) H 06/05/18 05:54 Urine Clarity Hazy (Clear) A 06/04/18 18:40 Ur Leukocyte Esterase Small (Negative) H 06/04/18 18:40 Urine Microscopic WBC 5-15 per hpf (0-3) H 06/04/18 18:40 Ur Squamous Epith Cells Many per lpf (None-Few) H 01/22/19 18:40 Consult Discharge Plan - Plan Referrals: Van James MD [Primary Care Provider] -
[2018-06-08] MEDS: rOPINIRole 1 MG TABLET PO SCH (21:17)
[2018-06-09] MEDS ORDERED: *HR* Labetalol 20 MG/4 ML SYRINGE IVP ONE (02:51)
--- NOTE | 2018-06-09 07:30 | Internal Med Progress Note ---
Addendum entered and electronically signed by Nellie Encinas MD 06/11/18 15:30: I saw evaluated and examined this patient and my medical decision-making was reviewed with the Resident Physician, Barb Trevizo. I agree with the documented findings, disposition and treatment plan as described except to any changes set forth below. We independently had [id number] contact with the patient. Original Note: <Nellie Encinas - Last Filed: 06/09/18 11:07> Hospitalist Progress Note - Encounter Date of Encounter: 06/09/18 Time of Encounter: 09:20 - Exam Vitals: Temp Pulse Resp BP Pulse Ox 97.7 F 83 14 119/69 95 06/09/18 08:04 06/09/18 08:04 06/09/18 08:04 06/09/18 08:04 06/09/18 08:04 - Assessment and Plan (1) Fall Current Visit: Yes Status: Acute (2) Hypothyroid Current Visit: Yes Status: Chronic (3) Chest pain Current Visit: Yes Status: Resolved (4) Acute kidney injury superimposed on chronic kidney disease Current Visit: Yes Status: Resolved (5) Right femoral fracture Current Visit: Yes Status: Acute (6) DVT prophylaxis Current Visit: Yes Status: Acute (7) Hypertensive urgency Current Visit: Yes Status: Acute (8) Hypokalemia Current Visit: Yes Status: Acute - Time Spent with Patient Total time spent is greater than 50% in coordination of care (as documented) at patient's floor/unit and/or counseling patient: Internal Medicine: Result - Labs CBC & Chem 7: 06/09/18 04:00 06/09/18 04:00 Labs: Short CBC 06/09/18 Range/Units 04:00 Hgb 9.1 L (11.5-15.4) g/dL Hct 29.1 L (35.3-44.9) % BMP 06/09/18 04:00 Sodium 143 Potassium 3.1 L Chloride 109 H Carbon Dioxide 28 BUN 29 H Creatinine 0.84 Glucose 85 Calcium 9.2 - ABG Interpretation ABG results: PT/INR, D-dimer PT 18.3 Seconds (9.4-12.1) H 06/07/18 07:21 Consult Discharge Plan - Plan Referrals: Van James MD [Primary Care Provider] - - Attending Attestation I saw evaluated and examined this patient and my medical decision-making was reviewed with the Resident Physician, Kalen Ruiz. I agree with the documented findings, disposition and treatment plan as described except to any changes set forth below. We independently had [id number] contact with the patient. Patient is sitting up in chair. She reports that she has some pain in her right lower extremity at surgical site because of the activity. She also had elevated blood pressure last night and was given IV hydralazine and labetalol with improvement in her blood pressure. She is also concerned that she is not rec eiving the long-acting OxyContin that she uses at home. General: Patient is somnolent, but easily awakes and answers questions appropriately ENT: Mucous membranes moist Respiratory: Good respiratory effort. Normal breath sounds. No wheezing or crackles. Cardiovascular: Regular rate and rhythm. s1 and s2 normal No clicks, rubs, gallops, or murmurs. No pedal edema Abdomen: Abdomen is soft, nontender. Bowel sounds are present Musculoskeletal: Right lower extremity bandaged post surgery and in brace Skin: warm, dry, intact. Neuro: Somnolent normal cranial nerves, no focal deficits Right femur fracture: With surrounding hemorrhage. Postop day 2. Evaluated by physical therapy recommended skilled rehabilitation placement. 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 Atrial fibrillation with RVR: Chronic A. fib. In sinus rhythm currently. Continue Eliquis for anticoagulation.. Chest pain: With underlying coronary artery disease. Continue aspirin and Plavix Essential hypertension: Intermittently elevated blood pressure. We will change Toprol to Lopressor and schedule it twice daily. Continue to monitor blood pressure closely. Blood pressure elevation could also be due to withdrawal from chronic opiate therapy. Will place patient back on long-acting OxyContin but at a lower dose as patient does not receive this medication for a few days. Recurrent falls: Continue physical therapy. Await placement to skilled rehabilitation Anemia: Hemoglobin 9.1. Continue to monitor closely. patient is on aspirin and Plavix and Eliquis. History of multiple DVT/PE: Continue Eliquis Acute kidney injury: Now resolved. Severe protein calorie malnutrition: Patient has improved appetite. Continue oral supplemental nutrition Moderate risk for complications. <Barb Trevizo - Last Filed: 06/09/18 11:41> Hospitalist Progress Note - Encounter Date of Encounter: 06/09/18 Time of Encounter: 08:00 - Subjective Interval History: Patient seen and examined. She is resting in the bed comfortably. She states that her pain is currently well controlled at 5\10. Over the she was hypertensive into the 200s systolic that resolved with administration of labetalol. When interviewing the patient she reports that during this time she had severe pain similar to the night before and that when she got pain medicine her blood pressure resolved. S She denies any current dizziness, chest pain, shortness of breath, nausea, vomiting, abdominal pain. - Exam Vitals: Temp Pulse Resp BP Pulse Ox 97.7 F 90 14 139/65 95 06/09/18 04:29 06/09/18 04:29 06/09/18 04:29 06/09/18 04:29 06/09/18 04:29 Exam: Gen.: A&O x3, no acute distress. HEENT: Neck is supple and trachea midline. Mucosa moist, external ears normal. EOMI Cardiac: RRR, w/o MRG Pulmonary: LCTAB, no wheezes, rhonchi or rales Abdomen: Soft, BS noted, diffuse abdominal tenderness, no guarding. Skin: Warm and dry. MSK: Radial pulses present and strong. Right leg in knee immobilizer, drain in place. lower and upper extremity sensation intact bilaterally. Neuro: No focal deficits. Psych: Appropriate mood and behavior - Assessment and Plan (1) Right femoral fracture Current Visit: Yes Status: Acute Assessment and Plan: POD #2 Right ORIF of the distal femur with Dr. Olivarez Hgb stable at 9.[address] Leg in knee immobilizer with dressings c/d/i Sensation and pulses WNL PT recommends short term rehab at SNF/ECF. Plan: -Continue with pain control -PT/OT (2) CAD (coronary artery disease) Current Visit: No Status: Chronic Assessment and Plan: Serial troponin 0.03, 0.04, 0.27 Echo pLVEF 45-50%, mild segmental left ventricular systolic dysfunction, and normal LV chamber size and wall thickness. Patient had [facility] 06/06 showing moderate two-vessel CAD and no percutaneous intervention was required. Patient denies CP. Plan: -Continue plavix x1 year -Continue eliquis Continue ASA, statin, BB (3) Fall Current Visit: Yes Status: Acute Assessment and Plan: Status post right femur fracture. POD1 right ORIF of distal femure pt has history of syncope and falls, given cardiac workup consider polypharmacy. The patient is on oxycontin 80mg daily with percocet 10/325mg in the setting of a 40 pound weight loss. She is also hyperthyroid. Pt will need to f/u with PCP for further evaluation of syncope and to f/u on thyroid labs. Plan: -Continue PT/OT -Awaiting rehab placement (4) Hypertension Current Visit: Yes Status: Chronic Assessment and Plan: Patient has been normotensive most of the night. She did have an episode of HTN when she was in severe pain, which resolved with administration of pain medication and labetolol. Pressures remain normal during the day. Will trial BID dosing of lopressor to see if this assists with HTN she keeps experiencing at night Plan: -Metoprolol 25mg BID -Continue losartan -Continue clonidine -Continue to control pain -Continue to monitor (5) Hypothyroid Current Visit: Yes Status: Chronic (6) Hypokalemia Current Visit: Yes Status: Acute Assessment and Plan: K 3.1 Plan: -KCl 40 meq daily -Continue to monitor (7) Afib Current Visit: Yes Status: Acute Assessment and Plan: Patient and report history of Afib. Pt currently NSR Plan: -Continue metoprolol -Continue eliquis -Continue to monitor (8) Protein-calorie malnutrition, severe Current Visit: Yes Status: Acute Assessment and Plan: The patient has significant weight loss over the last several months of approximately 40 pounds. Her appetite during this hospitalization is improving. Plan: Continue oral supplemental nutrition (9) Anemia Current Visit: Yes Status: Acute Assessment and Plan: Anemia post op and in the setting of severe protein malnutrition Hemoglobin this morning is 9.1 and has remained stable postop. The patient is currently on ASA, Plavix and Eliquis Plan: -Continue to monitor closely, transfuse as necessary (10) History of venous thrombosis and embolism Current Visit: Yes Status: Chronic Assessment and Plan: Pt with hx of multiple DVTs Plan: -Continue Eliquis DVT Prophylaxis: Eliquis - Time Spent with Patient Total time spent is greater than 50% in coordination of care (as documented) at patient's floor/unit and/or counseling patient: Internal Medicine: Result - Labs CBC & Chem 7: 01/27/19 04:00 06/09/18 04:00 Labs: Short CBC 06/08/18 Range/Units 08:22 Hgb 9.4 L (11.5-15.4) g/dL Hct 30.6 L (35.3-44.9) % BMP 06/08/18 08:22 Sodium 143 Potassium 3.7 Chloride 109 H Carbon Dioxide 27 BUN 23 H Creatinine 0.75 Glucose 129 H Calcium 9.2 - ABG Interpretation ABG results: PT/INR, D-dimer PT 18.3 Seconds (9.4-12.1) H 06/07/18 07:21 <Nellie Encinas - Last Filed: 06/09/18 11:07> (1) Fall Qualifiers: Qualified Code(s): W19.XXXA - Unspecified fall, initial encounter (2) Hypothyroid Qualifiers: Hypothyroidism type: acquired Qualified Code(s): E03.9 - Hypothyroidism, unspecified (3) Chest pain Qualifiers: Chest pain type: other chest pain Qualified Code(s): R07.89 - Other chest pain; R07.8 - Other chest pain (5) Right femoral fracture Qualifiers: Encounter type: initial encounter Femur location: distal Fracture type: closed Fracture morphology: unspecified fracture morphology Qualified Code(s): S72.401A - Unspecified fracture of lower end of right femur, initial encounter for closed fracture <Barb Trevizo - Last Filed: 06/09/18 11:41> (1) Right femoral fracture Qualifiers: Encounter type: initial encounter Femur location: distal Fracture type: closed Fracture morphology: unspecified fracture morphology Qualified Code(s): S72.401A - Unspecified fracture of lower end of right femur, initial encounter for closed fracture (2) CAD (coronary artery disease) Qualifiers: Coronary Disease-Associated Artery/Lesion type: [place] artery [place] vs. tr ansplanted heart: [place] heart Associated angina: with unspecified angina Qualified Code(s): I25.119 - Atherosclerotic heart disease of [place] coronary artery with unspecified angina pectoris (3) Fall Qualifiers: Qualified Code(s): W19.XXXA - Unspecified fall, initial encounter (4) Hypertension Qualifiers: Hypertension type: essential hypertension Qualified Code(s): I10 - Essential (primary) hypertension (5) Hypothyroid Qualifiers: Hypothyroidism type: acquired Qualified Code(s): E03.9 - Hypothyroidism, unspecified (7) Afib Qualifiers: Atrial fibrillation type: paroxysmal Qualified Code(s): I48.0 - Paroxysmal atrial fibrillation (9) Anemia Qualifiers: Anemia type: other cause Other causes of anemia: nutritional, protein deficiency Qualified Code(s): D53.0 - Protein deficiency anemia
[2018-06-09 08:17] LABS: Hematocrit 29.1 % (35.3-44.9); Hemoglobin 9.1 g/dL (11.5-15.4)
[2018-06-09 08:31] LABS: BUN/Creatinine Ratio 35 (6-26); Blood Urea Nitrogen 29 mg/dL (6-20); Calcium 9.2 mg/dL (8.6-10.3); Carbon Dioxide 28 mEq/L (23-29); Chloride 109 mEq/L (98-107); Glucose 85 mg/dL (70-105); Osmolality,Calculated 301 (280-300); Potassium 3.1 mEq/L (3.5-5.1); Sodium 143 mEq/L (136-145); eGFR For Non-African Americans > 60 (> 60)
[2018-06-09] MEDS: clonazePAM 1 MG TABLET PO SCH ×3 (09:47→19:45)
[2018-06-09] MEDS: Isosorbide MONOnitrate (24 HR) 30 MG TAB.ER.24H PO SCH (09:47)
[2018-06-09] MEDS: Furosemide 40 MG TABLET PO SCH (09:47)
[2018-06-09] MEDS: BuPROPion SR (12 HR) 150 MG TABLET PO SCH ×2 (09:47→18:07)
[2018-06-09] MEDS: Multivit/Ca/Min/Fe/FA 1 TAB TABLET PO SCH (09:47)
[2018-06-09] MEDS: Venlafaxine XR (24 HR) 150 MG CAP.ER.24H PO SCH (09:48)
[2018-06-09] MEDS: Apixaban 5 MG TABLET PO SCH ×2 (09:48→19:45)
[2018-06-09] MEDS: Ascorbic Acid 500 MG TABLET PO SCH ×2 (09:48→18:07)
[2018-06-09] MEDS: Aspirin 81 MG TAB.CHEW PO SCH (09:48)
[2018-06-09] MEDS: *HR* OxyCODONE ER (12 HR) 20 MG TABLET PO SCH ×2 (11:04→18:07)
--- NOTE | 2018-06-09 17:13 | Orthopedics Progress Note ---
Date of Encounter: 06/09/18 Time of Encounter: 17:12 Subjective Principal diagnosis: Right distal femur fracture Interval history: Patient reports that she is doing well today Right lower extremity: Dressings are clean but wet., [employer] leaked and wet outer dressings, immobilizer in place Bilateral calves are soft and nontender, grossly neurovascular intact distally MEL intact Asst. postoperative day #2, orthopedically stable Plan: Nonweightbearing to right lower extremity PT/OT Outer dressings will be changed today. MEL drain will be pulled Continue DVT prophylaxis Discharge planning for tomorrow Objective Vital signs: Vital Signs Temp Pulse Resp BP Pulse Ox 06/09/18 16:51 97.8 F 80 14 119/71 96 06/09/18 11:15 97.7 F 61 16 118/73 100 06/09/18 08:04 97.7 F 83 14 119/69 95 06/09/18 04:29 97.7 F 90 14 139/65 95 06/08/18 23:18 97.9 F 81 14 202/73 94 06/08/18 19:50 97.8 F 77 16 101/66 93 Intake and Output 06/09/18 06/09/18 06/09/18 07:59 15:59 23:59 Intake Total 0 / 0 600 / 600 Output Total 0 / 0 533 / 533 Balance 0 / 0 Intake: Oral 0 / 0 600 / 600 Output: Urine 0 / 0 500 / 500 Wound Drainage 33 / Right Leg 33 / Other: Meal Lunch Percent of Meal Consumed 10% # Voids 1 Weight 67.9 kg Patient Weight 06/09/18 23:59 Weight 67.9 kg - Labs CBC & BMP: 06/09/18 04:00 06/09/18 04:00 Labs: Abnormal lab results WBC 12.3 K/mcL (4.3-11.1) H 06/07/18 07:21 Hgb 9.1 g/dL (11.5-15.4) L 06/09/18 04:00 Hct 29.1 % (35.3-44.9) L 06/09/18 04:00 MCH 26.9 pg (28.0-33.3) L 06/07/18 07:21 RDW 15.9 % (11.5-14.5) H 06/07/18 07:21 PT 18.3 Seconds (9.4-12.1) H 06/07/18 07:21 Potassium 3.1 mEq/L (3.5-5.1) L 06/09/18 04:00 Chloride 109 mEq/L (98-107) H 06/09/18 04:00 BUN 29 mg/dL (6-20) H 06/09/18 04:00 BUN/Creatinine Ratio 35 (6-26) H 06/09/18 04:00 Calculated Osmolality 301 (280-300) H 06/09/18 04:00 Troponin I 0.27 ng/mL (< 0.04) H* 06/06/18 13:44 Albumin 3.3 g/dL (3.5-5.7) L 06/06/18 07:49 TSH < 0.010 mcIU/mL (0.340-5.600) L 06/04/18 16:49 Free T4 3.65 ng/dl (0.70-2.00) H 06/05/18 05:54 Urine Clarity Hazy (Clear) A 06/04/18 18:40 Ur Leukocyte Esterase Small (Negative) H 06/04/18 18:40 Urine Microscopic WBC 5-15 per hpf (0-3) H 06/04/18 18:40 Ur Squamous Epith Cells Many per lpf (None-Few) H 06/04/18 18:40 Consult Discharge Plan - Plan Referrals: Van James MD [Primary Care Provider] -
[2018-06-09] MEDS: Ondansetron 4 MG/2 ML VIAL IVP PRN (19:45)
[2018-06-09] MEDS: rOPINIRole 1 MG TABLET PO SCH (19:45)
[2018-06-10 04:43] LABS: Hematocrit 32.3 % (35.3-44.9); Hemoglobin 9.9 g/dL (11.5-15.4)
[2018-06-10 04:59] LABS: BUN/Creatinine Ratio 27 (6-26); Blood Urea Nitrogen 29 mg/dL (6-20); Calcium 9.4 mg/dL (8.6-10.3); Carbon Dioxide 27 mEq/L (23-29); Chloride 108 mEq/L (98-107); Glucose 85 mg/dL (70-105); Osmolality,Calculated 299 (280-300); Potassium 3.9 mEq/L (3.5-5.1); Sodium 142 mEq/L (136-145); eGFR For Non-African Americans 53 (> 60)
[2018-06-10] MEDS: *HR* OxyCODONE ER (12 HR) 20 MG TABLET PO SCH ×2 (06:19→18:26)
--- NOTE | 2018-06-10 06:42 | Orthopedics Progress Note ---
Date of Encounter: 06/10/18 Time of Encounter: 06:42 Subjective Principal diagnosis: Right distal femur fracture Interval history: Patient was seen this morning doing well without complaints. Afebrile vital signs stable. Operative extremity: Neurovascularly intact Dressing clean dry and intact Calves nontender Assessment and plan: Continue with postoperative care Stable for discharge. Objective Vital signs: Vital Signs Temp Pulse Resp BP Pulse Ox 06/10/18 04:35 98.7 F 84 16 118/66 93 06/10/18 00:01 97.7 F 71 15 91/48 94 06/09/18 19:05 98.6 F 66 18 143/84 100 06/09/18 16:51 97.8 F 80 14 119/71 96 06/09/18 11:15 97.7 F 61 16 118/73 100 06/09/18 08:04 97.7 F 83 14 119/69 95 Intake and Output 06/09/18 06/09/18 06/10/18 15:59 23:59 07:59 Intake Total 600 / 600 100 / 100 200 / 200 Output Total 533 / 533 Balance 100 / 100 200 / 200 Intake: Oral 600 / 600 100 / 100 200 / 200 Output: Urine 500 / 500 Wound Drainage 33 / 33 Right Leg 33 / 33 Other: Meal Lunch Dinner Percent of Meal Consumed 10% 100% # Voids 1 1 1 - Labs CBC & BMP: 06/10/18 04:21 06/10/18 04:21 Labs: Abnormal lab results WBC 12.3 K/mcL (4.3-11.1) H 06/07/18 07:21 Hgb 9.9 g/dL (11.5-15.4) L 06/10/18 04:21 Hct 32.3 % (35.3-44.9) L 06/10/18 04:21 MCH 26.9 pg (28.0-33.3) L 06/07/18 07:21 RDW 15.9 % (11.5-14.5) H 06/07/18 07:21 PT 18.3 Seconds (9.4-12.1) H 06/07/18 07:21 Chloride 108 mEq/L (98-107) H 06/10/18 04:21 BUN 29 mg/dL (6-20) H 06/10/18 04:21 Est GFR (Non-Af Amer) 53 (> 60) L 06/10/18 04:21 BUN/Creatinine Ratio 27 (6-26) H 06/10/18 04:21 Troponin I 0.27 ng/mL (< 0.04) H* 06/06/18 13:44 Albumin 3.3 g/dL (3.5-5.7) L 06/06/18 07:49 TSH < 0.010 mcIU/mL (0.340-5.600) L 06/04/18 16:49 Free T4 3.65 ng/dl (0.70-2.00) H 06/05/18 05:54 Urine Clarity Hazy (Clear) A 06/04/18 18:40 Ur Leukocyte Esterase Small (Negative) H 06/04/18 18:40 Urine Microscopic WBC 5-15 per hpf (0-3) H 06/04/18 18:40 Ur Squamous Epith Cells Many per lpf (None-Few) H 06/04/18 18:40 Consult Discharge Plan - Plan Referrals: Van James MD [Primary Care Provider] -
[2018-06-10] MEDS ORDERED: Acetaminophen 325 MG TABLET PO PRN (08:28)
--- NOTE | 2018-06-10 08:36 | Discharge Summary ---
<Nellie Encinas - Last Filed: 06/10/18 12:18> Orders not resulted at time of discharge: Pending orders 06/05/18 14:37 Type and Screen [BBK] Routine 06/07/18 16:13 US anesthesia pain block [US] Routine 06/07/18 16:48 Red Blood Cells [BBK] Stat 06/11/18 04:00 Basic Metabolic Panel AM 0400 Hemoglobin and Hematocrit [HEME] AM 0400 06/12/18 04:00 Basic Metabolic Panel AM 0400 Hemoglobin and Hematocrit [HEME] AM 0400 06/13/18 04:00 Basic Metabolic Panel AM 0400 Hemoglobin and Hematocrit [HEME] AM 0400 06/14/18 04:00 Basic Metabolic Panel AM 0400 Hemoglobin and Hematocrit [HEME] AM 0400 Date of Encounter: 06/10/18 Time of Encounter: 09:30 - Discharge Diagnosis (1) Right femoral fracture Priority: Primary Status: Acute Qualifiers: Encounter type: initial encounter Femur location: distal Fracture type: closed Fracture morphology: unspecified fracture morphology Qualified Code(s): S72.401A - Unspecified fracture of lower end of right femur, initial encounter for closed fracture (2) Fall Priority: Secondary Status: Acute Qualifiers: Qualified Code(s): W19.XXXA - Unspecified fall, initial encounter (3) Hypothyroid Priority: Secondary Status: Chronic Qualifiers: Hypothyroidism type: acquired Qualified Code(s): E03.9 - Hypothyroidism, unspecified (4) Chest pain Priority: Secondary Status: Resolved Qualifiers: Chest pain type: other chest pain Qualified Code(s): R07.89 - Other chest pain; R07.8 - Other chest pain (5) Acute kidney injury superimposed on chronic kidney disease Priority: Secondary Status: Resolved (6) Hypertensive urgency Priority: Secondary Status: Acute (7) Hypokalemia Priority: Secondary Status: Resolved (8) DVT prophylaxis Priority: Secondary Status: Acute Hospital course: Ms. Nicolas is a 58 year old female Discharge discussed with: patient - Time Spent with Patient Total time spent providing and/or coordinating discharge services: Less than 30 minutes (10 min) - Discharge Medications Prescriptions: OxyCODONE ER (12 HR) [OxyCONTIN] 20 mg PO Q12HR 3 Days #9 tab.er.12h Aspirin 81 mg PO DAILY #30 tab.chew Atorvastatin [Lipitor] 20 mg PO HS #30 tablet Clopidogrel [Plavix] 75 mg PO DAILY #30 tablet Docusate [Colace] 100 mg PO BID PRN #60 capsule PRN Reason: Constipation Ferrous Sulfate 325 mg PO BIDWM #60 tablet Metoprolol [Lopressor] 25 mg PO BID #60 tablet Potassium Chloride 40 meq PO DAILY #60 tab.er.prt Home Medications: Aspirin 81 mg PO DAILY 09/28/15 [History] Nitroglycerin [Nitrostat] 0.4 mg SL Q5M PRN 09/28/15 [History] Omeprazole [PriLOSEC] 20 mg PO BID 09/28/15 [History] Oxycodone HCl/Acetaminophen [Percocet 10-325 mg Tablet] 1 tab PO Q6H PRN 09/28/15 [History] Gabapentin [Neurontin] 300 - 600 mg PO BID PRN 09/26/16 [History] Nitroglycerin [Nitrolingual] 1 - 2 spr TL AD PRN 09/26/16 [History] cloNIDine HCl [CloNIDine HCl] 0.1 mg PO TID PRN 09/26/16 [History] clonazePAM [Klonopin] 1 mg PO TID 09/26/16 [History] rOPINIRole [Requip] 1 mg PO HS 09/26/16 [History] Furosemide [Lasix] 40 mg PO DAILY 08/22/17 [History] Ondansetron HCl [Zofran] 4 mg PO Q6H PRN 08/22/17 [History] Apixaban [Eliquis] 5 mg PO BID #60 tablet 08/23/17 [Rx] buPROPion HCl [Zyban] 300 mg PO QPM 02/26/18 [History] Isosorbide MONOnitrate (24 HR) [Imdur] 30 mg PO DAILY #30 tab.er.24h 03/25/18 [Rx] BuPROPion SR (12 HR) [Wellbutrin SR] 150 mg PO QAM 06/04/18 [History] Losartan Potassium 50 mg PO DAILY 06/04/18 [History] Venlafaxine HCl [Venlafaxine HCl ER] 150 mg PO DAILY 06/04/18 [History] Acetaminophen [Tylenol] 650 mg PO Q6HR PRN tablet 06/10/18 [Rx] Aspirin 81 mg PO DAILY #30 tab.chew 06/10/18 [Rx] Atorvastatin [Lipitor] 20 mg PO HS #30 tablet 06/10/18 [Rx] Clopidogrel [Plavix] 75 mg PO DAILY #30 tablet 06/10/18 [Rx] Docusate [Colace] 100 mg PO BID PRN #60 capsule 06/10/18 [Rx] Ferrous Sulfate 325 mg PO BIDWM #60 tablet 06/10/18 [Rx] Metoprolol [Lopressor] 25 mg PO BID #60 tablet 06/10/18 [Rx] OxyCODONE ER (12 HR) [OxyCONTIN] 20 mg PO Q12HR 3 Days #9 tab.er.12h 06/10/18 [Rx] Potassium Chloride 40 meq PO DAILY #60 tab.er.prt 06/10/18 [Rx] Allergies/Adverse Reactions: Allergy/AdvReac Type Severity Reaction Status Date / Time No Known Allergies Allergy Verified 02/26/18 09:30 Date of admission: 06/06/18 08:15 Primary care physician: Van James MD Consults: 06/04/18 21:09 Consult to Internist [CONS] Routine Reason for SW Consult: right femur fracture 06/04/18 22:13 Consult to Orthopedic Surgery [CONS] Routine Consulting Provider: Eduardo Herman Reason for Consult: Right femur fracture, consult called from the emergency room Call Completed: Yes 06/06/18 08:25 Consult to Physical Therapy [CONS] Routine Comment: Evaluate, develop and implement POC Reason for Consult: Right femur fracture Does patient have active BEDREST order?: No Is patient medically & hemodynamically stable?: Yes Patient assessed for mobility or mobilized this visit?: No 06/06/18 11:49 Consult to Cardiology [CONS] Routine Comment: Consulting Provider: Cardiology Althea Reason for Consult: CP, elevated trop, preop clearance Time Notified: 11:52 Call Completed: Yes 06/07/18 20:06 Consult to Occupational Therapy [CONS] Routine Comment: Evaluate, develop and implement POC Reason for Consult: post knee surgery Does patient have active BEDREST order?: No Is patient medically & hemodynamically stable?: Yes Consult to Orthopedic Navigator [CONS] [CONS] Routine Consult to Physical Therapy [CONS] Routine Comment: Evaluate, develop and impliment POC Reason for Consult: post knee surgery Does patient have active BEDREST order?: No Is patient medically & hemodynamically stable?: Yes Consult to Internist [CONS] Routine Reason for SW Consult: post op joint replacement RT Post Op Consult [CONS] Routine Discharging clinician: Nellie Encinas Anticipated date of discharge: 06/10/18 - Constitutional Vitals: Temp Pulse Resp BP Pulse Ox 97.8 F 60 18 118/72 94 06/10/18 10:54 06/10/18 10:54 06/10/18 10:54 06/10/18 10:54 06/10/18 10:54 General appearance: Present: cooperative, mild distress, A&O X 3, answers questions appropriately - Neck Neck exam general surgery: Present: supple, trachea midline. Absent: lymphadenopathy - Respiratory Respiratory exam: Present: CTAB. Absent: accessory muscle use, rales, rhonchi, wheezes - Cardiovascular Cardiovascular exam: Present: RRR, +S1, +S2. Absent: diastolic murmur, gallop, rubs, systolic murmur - Extremities Exam Extremities exam: Present: tenderness (Right lower extremity surgical site clean. Has an immobilizer in place.), warm, radial pulses palpable and symmetrical. Absent: calf tenderness, cyanotic, pedal edema - Patient Status Disposition: Transfer SNF Condition: Fair - Discharge Instructions Follow Up With: Van James MD [Primary Care Provider] - - Attending Attestation I saw evaluated and examined this patient and my medical decision-making was reviewed with the Resident Physician, Kalen Ruiz. I agree with the documented findings, disposition and treatment plan as described except to any changes set forth below. We independently had [id number] contact with the patient. Patient with a history of coronary artery disease, hypertension, prior DVT/PE, hypothyroidism was hospitalized here with a fall resulting in a broken right femur. She was evaluated by orthopedics and recommended surgery for it. Patient had been on Eliquis at home. She had a CT scan of the head done 6 ours after hospitalization there was suspicion for possible subarachnoid hemorrhage. As such a repeat CT scan was done about 4-5 hours after this. Repeat CT scan did not show any signs of bleed. While patient was being evaluated preoperatively prior to surgery, she developed an episode of chest pain. Patient recently had a left heart catheterization without any stents and cardiology was consulted. They did recommend a repeat left heart catheterization as her ejection fraction had decreased from her prior echocardiogram. Patient underwent left heart catheterization here and again was found to have nonobstructive coronary artery disease not requiring stents. However given her recurrent episodes of chest pain, she was placed on aspirin and Plavix. She did undergo surgery with open reduction and internal fixation on 06/07. Since then she has been recovering well. Patient's Eliquis had been held but was resumed post surgery. Her hemoglobin levels have been stable. She has been evaluated by physical therapy and recommended placement to skilled rehabilitation. She will be discharged once she has a bed available and is accepted to the facility. She will follow up with her primary care provider and design cell engineer for outpatient management of her chronic medical conditions. She will also follow up with orthopedics regarding her fracture and surgery. She will be discharged on aspirin and Plavix along with Eliquis and this does increase her risk of bleeding. She has been advised to return to the ER if she develops any persistent bleeding. <Kalen Ruiz - Last Filed: 06/10/18 14:34> - NOTES TO OUTPATIENT PROVIDER Notes to Outpatient Provider: Currently TSH is low and free T4 is elevated. Hold levothyroxine for 2 weeks and recheck TSH and free T4 levels as an outpatient. Repeat CBC in 1 week. Continue physical therapy s/p right knee ORIF. Renal diet, chocolate ensure TID Orders not resulted at time of discharge: Pending orders 06/05/18 14:37 Type and Screen [BBK] Routine 06/07/18 16:13 US anesthesia pain block [US] Routine 06/07/18 16:48 Red Blood Cells [BBK] Stat 06/11/18 04:00 Basic Metabolic Panel AM 0400 Hemoglobin and Hematocrit [HEME] AM 0400 06/12/18 04:00 Basic Metabolic Panel AM 0400 Hemoglobin and Hematocrit [HEME] AM 0400 06/13/18 04:00 Basic Metabolic Panel AM 0400 Hemoglobin and Hematocrit [HEME] AM 0400 06/14/18 04:00 Basic Metabolic Panel AM 0400 Hemoglobin and Hematocrit [HEME] AM 0400 Date of Encounter: 06/10/18 Time of Encounter: 08:32 - Discharge Diagnosis (1) Right femoral fracture Priority: Primary Status: Acute Qualifiers: Encounter type: initial encounter Femur location: distal Fracture type: closed Fracture morphology: unspecified fracture morphology Qualified Code(s): S72.401A - Unspecified fracture of lower end of right femur, initial encounter for closed fracture (2) Hypertensive urgency Priority: Secondary Status: Acute (3) Fall Priority: Secondary Status: Acute Qualifiers: Qualified Code(s): W19.XXXA - Unspecified fall, initial encounter (4) Hypothyroid Priority: Secondary Status: Chronic Qualifiers: Hypothyroidism type: acquired Qualified Code(s): E03.9 - Hypothyroidism, unspecified (5) Chest pain Priority: Secondary Status: Resolved Qualifiers: Chest pain type: other chest pain Qualified Code(s): R07.89 - Other chest pain; R07.8 - Other chest pain (6) Acute kidney injury superimposed on chronic kidney disease Priority: Secondary Status: Resolved (7) Hypokalemia Priority: Secondary Status: Resolved (8) DVT prophylaxis Priority: Secondary Status: Acute Hospital course: Ms. Nicolas is a 58 year old female with a history of CAD, HTN, Eliquis use at home due to prior DVT/PE, and hypothyroidism who was hospitalized after a fall resulting in a displaced, comminuted right femur fracture CT scan finding showing surrounding hemorrhage and edema in the right thigh musculature. Hemoglobin was stable and patient was advised by orthopedics. Patient developed an episode of chest pain during a preoperative. Cardiology recommend a repeat left heart catheterization as her ejection fraction had decreased from her prior echocardiogram. Patient underwent left heart catheterization and was found to have nonobstructive coronary artery disease not requiring stents. She was placed on aspirin and Plavix per cardiology recommendations. Her hemoglobin levels have been stable. Patient restarted her Eliquis postoperatively participated in physical therapy after ORIF of right femur. Physical therapy and recommended placement to skilled rehabilitation. Discharge discussed with: patient - Time Spent with Patient Total time spent providing and/or coordinating discharge services: Date of admission: 06/06/18 08:15 Primary care physician: Van James MD Consults: 06/04/18 21:09 Consult to Internist [CONS] Routine Reason for SW Consult: right femur fracture 06/04/18 22:13 Consult to Orthopedic Surgery [CONS] Routine Consulting Provider: Eduardo Herman Reason for Consult: Right femur fracture, consult called from the emergency room Call Completed: Yes 06/06/18 08:25 Consult to Physical Therapy [CONS] Routine Comment: Evaluate, develop and implement POC Reason for Consult: Right femur fracture Does patient have active BEDREST order?: No Is patient medically & hemodynamically stable?: Yes Patient assessed for mobility or mobilized this visit?: No 06/06/18 11:49 Consult to Cardiology [CONS] Routine Comment: Consulting Provider: Cardiology Althea Reason for Consult: CP, elevated trop, preop clearance Time Notified: 11:52 Call Completed: Yes 06/07/18 20:06 Consult to Occupational Therapy [CONS] Routine Comment: Evaluate, develop and implement POC Reason for Consult: post knee surgery Does patient have active BEDREST order?: No Is patient medically & hemodynamically stable?: Yes Consult to Orthopedic Navigator [CONS] [CONS] Routine Consult to Physical Therapy [CONS] Routine Comment: Evaluate, develop and impliment POC Reason for Consult: post knee surgery Does patient have active BEDREST order?: No Is patient medically & hemodynamically stable?: Yes Consult to Internist [CONS] Routine Reason for SW Consult: post op joint replacement RT Post Op Consult [CONS] Routine - Constitutional Vitals: Temp Pulse Resp BP Pulse Ox 97.9 F 71 18 99/65 96 06/10/18 06:55 06/10/18 06:55 06/10/18 06:55 06/10/18 06:55 06/10/18 06:55 General appearance: Present: cooperative, mild distress, A&O X 3, pleasant, ans wers questions appropriately Exam: awake - Head Head exam: Present: atraumatic, normocephalic - Eye Eye exam: Present: PERRL, conjuntiva pink, sclera anicteric Pupils: Present: PERRL - ENT ENT exam: Present: mucous membranes moist, normal oropharynx - Neck Neck exam general surgery: Present: supple, trachea midline. Absent: lymphadenopathy - Respiratory Respiratory exam: Present: CTAB. Absent: accessory muscle use, rales, rhonchi, wheezes - Cardiovascular Cardiovascular exam: Present: RRR, +S1, +S2. Absent: diastolic murmur, gallop, rubs, systolic murmur - GI/Abdominal GI/Abdominal exam: Present: normal bowel sounds, soft, no peritoneal signs. Absent: distended, tenderness - Extremities Exam Extremities exam: Present: warm, radial pulses palpable and symmetrical. Absent: calf tenderness, cyanotic, pedal edema Additional comments: Right lateral knee incision C/D/I, immobilizer in place, intact distal pulses - Back Exam Back exam: Present: normal inspection. Absent: paraspinal tenderness, tenderness - Neurological Exam Neurological exam: Present: CN II-XII intact, oriented X3, no focal deficits. Absent: pronater drift, facial droop, speech deficit - Skin Skin exam: Present: dry, intact (Right lateral knee dressing C/D/I) - Patient Status Functional capacity at discharge: independent ambulation Overall status at discharge: patient is progressing back to baseline - Diet and Activity Activity: as per physical therapy, increase activity as tolerated, resume usual activities as tolerated Diet: other (renal diet, chocolate ensure TID)
--- NOTE | 2018-06-10 08:54 | Physician Discharge Referral ---
ExtendedCare Referral Info Transfer To: F Provider in Charge: Dr. Encinas Provider in Charge after Transfer: PCP Institutional Level of Care: Skilled - Diagnosis (1) Right femoral fracture Priority: Primary Status: Acute (2) Hypertensive urgency Priority: Secondary Status: Acute (3) Fall Priority: Secondary Status: Acute (4) Hypothyroid Priority: Secondary Status: Chronic (5) Chest pain Priority: Secondary Status: Resolved (6) Acute kidney injury superimposed on chronic kidney disease Priority: Secondary Status: Resolved (7) Hypokalemia Priority: Secondary Status: Resolved (8) DVT prophylaxis Priority: Secondary Status: Acute Prognosis: Good Aware of Diagnosis: Patient, Family Aware of Prognosis: Patient, Family - Transfer Medications Prescriptions: OxyCODONE ER (12 HR) [OxyCONTIN] 20 mg PO Q12HR 3 Days #9 tab.er.12h Aspirin 81 mg PO DAILY #30 tab.chew Atorvastatin [Lipitor] 20 mg PO HS #30 tablet Clopidogrel [Plavix] 75 mg PO DAILY #30 tablet Docusate [Colace] 100 mg PO BID PRN #60 capsule PRN Reason: Constipation Ferrous Sulfate 325 mg PO BIDWM #60 tablet Metoprolol [Lopressor] 25 mg PO BID #60 tablet Potassium Chloride 40 meq PO DAILY #60 tab.er.prt Home Medications: Aspirin 81 mg PO DAILY 09/28/15 [History] Nitroglycerin [Nitrostat] 0.4 mg SL Q5M PRN 09/28/15 [History] Omeprazole [PriLOSEC] 20 mg PO BID 09/28/15 [History] Oxycodone HCl/Acetaminophen [Percocet 10-325 mg Tablet] 1 tab PO Q6H PRN 09/28/15 [History] Gabapentin [Neurontin] 300 - 600 mg PO BID PRN 09/26/16 [History] Nitroglycerin [Nitrolingual] 1 - 2 spr TL AD PRN 09/26/16 [History] cloNIDine HCl [CloNIDine HCl] 0.1 mg PO TID PRN 09/26/16 [History] clonazePAM [Klonopin] 1 mg PO TID 09/26/16 [History] rOPINIRole [Requip] 1 mg PO HS 09/26/16 [History] Furosemide [Lasix] 40 mg PO DAILY 08/22/17 [History] Ondansetron HCl [Zofran] 4 mg PO Q6H PRN 08/22/17 [History] OxyCODONE ER (12 HR) [OxyCONTIN] 80 mg PO Q12H 08/22/17 [History] Apixaban [Eliquis] 5 mg PO BID #60 tablet 08/23/17 [Rx] buPROPion HCl [Zyban] 300 mg PO QPM 02/26/18 [History] Isosorbide MONOnitrate (24 HR) [Imdur] 30 mg PO DAILY #30 tab.er.24h 03/25/18 [Rx] BuPROPion SR (12 HR) [Wellbutrin SR] 150 mg PO QAM 06/04/18 [History] Losartan Potassium 50 mg PO DAILY 06/04/18 [History] Venlafaxine HCl [Venlafaxine HCl ER] 150 mg PO DAILY 06/04/18 [History] Acetaminophen [Tylenol] 650 mg PO Q6HR PRN tablet 06/10/18 [Rx] Aspirin 81 mg PO DAILY #30 tab.chew 06/10/18 [Rx] Atorvastatin [Lipitor] 20 mg PO HS #30 tablet 06/10/18 [Rx] Clopidogrel [Plavix] 75 mg PO DAILY #30 tablet 06/10/18 [Rx] Docusate [Colace] 100 mg PO BID PRN #60 capsule 06/10/18 [Rx] Ferrous Sulfate 325 mg PO BIDWM #60 tablet 06/10/18 [Rx] Metoprolol [Lopressor] 25 mg PO BID #60 tablet 06/10/18 [Rx] OxyCODONE ER (12 HR) [OxyCONTIN] 20 mg PO Q12HR 3 Days #9 tab.er.12h 06/10/18 [Rx] Potassium Chloride 40 meq PO DAILY #60 tab.er.prt 06/10/18 [Rx] Allergies/Adverse Reactions: Allergy/AdvReac Type Severity Reaction Status Date / Time No Known Allergies Allergy Verified 02/26/18 09:30 - Respiratory Orders Smoking Cessation: Smoking cessation has been advised. For more information, call the [place] Tobacco Quit Line at 2-988-ZAEQ-NOW. - Ancillary Orders May use pressure relief devices daily prn - Advance Directives Code Status: Full Code - Mobility Orders Ambulate - Rehabiliation Orders Rehab Orders: ROM Exercises, Evaluation for Physical Therapy, Evaluation for Occupational Therapy - Treatments Skin tear care topically daily PRN per policy, May check for fecal impaction rectally daily PRN, Fleet enema rectally every other day PRN cleansing purposes - Diet Orders Renal House Supplement per Dietary: Chocolate Ensure TID CERTIFICATION: I certify that the transfer of the above named patient to an Extended Care Facility is necessary for the continuing treatment of the diagnosis listed. The above information is true and accurate reflection of patient's current condition. Confidential - Redisclosure prohibited without a patient's written consent.
[2018-06-10] MEDS: clonazePAM 1 MG TABLET PO SCH ×3 (09:09→21:47)
[2018-06-10] MEDS: Apixaban 5 MG TABLET PO SCH ×2 (09:09→21:47)
[2018-06-10] MEDS: Aspirin 81 MG TAB.CHEW PO SCH (09:09)
[2018-06-10] MEDS: BuPROPion SR (12 HR) 150 MG TABLET PO SCH ×2 (09:09→18:26)
[2018-06-10] MEDS: Isosorbide MONOnitrate (24 HR) 30 MG TAB.ER.24H PO SCH (09:09)
[2018-06-10] MEDS: Furosemide 40 MG TABLET PO SCH (09:10)
[2018-06-10] MEDS: Ascorbic Acid 500 MG TABLET PO SCH ×2 (09:10→16:19)
[2018-06-10] MEDS: Multivit/Ca/Min/Fe/FA 1 TAB TABLET PO SCH (09:10)
[2018-06-10] MEDS: Venlafaxine XR (24 HR) 150 MG CAP.ER.24H PO SCH (09:10)
[2018-06-10] MEDS: OXYCODONE Oral CONC 10 MG/0.5 ML ORAL.SYG SL PRN (10:42)
--- NOTE | 2018-06-10 13:04 | Electrocardiograph Report ---
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
[2018-06-10] MEDS: rOPINIRole 1 MG TABLET PO SCH (21:47)
[2018-06-11] MEDS: *HR* OxyCODONE ER (12 HR) 20 MG TABLET PO SCH (05:09)
--- NOTE | 2018-06-11 07:45 | Internal Med Progress Note ---
<Kalen Ruiz - Last Filed: 06/11/18 09:37> Hospitalist Progress Note - Encounter Date of Encounter: 06/11/18 Time of Encounter: 07:43 - Subjective Interval History: Patient seen and examined resting comfortably in bed. Patient slept throughout the night without any new complaints. Pain level is controlled with current regimen. She was educated on the need to keep her right knee immobilized. Awaiting insurance prior authorization for ECF placement. - Exam Vitals: Temp Pulse Resp BP Pulse Ox 97.7 F 73 18 103/69 94 06/11/18 06:21 06/11/18 06:21 06/11/18 06:21 06/11/18 06:21 06/11/18 06:21 Exam: General appearance: Present: cooperative, mild distress, A&O X 3, pleasant, answers questions appropriately - Head Head exam: Present: atraumatic, normocephalic - Eye Eye exam: Present: PERRL, conjuntiva pink, sclera anicteric Pupils: Present: PERRL - ENT ENT exam: Present: mucous membranes moist, normal oropharynx - Neck Neck exam general surgery: Present: supple, trachea midline. Absent: lymphadenopathy - Respiratory Respiratory exam: Present: CTAB. Absent: accessory muscle use, rales, rhonchi, wheezes - Cardiovascular Cardiovascular exam: Present: RRR, +S1, +S2. Absent: diastolic murmur, gallop, rubs, systolic murmur - GI/Abdominal GI/Abdominal exam: Present: normal bowel sounds, soft, no peritoneal signs. Absent: distended, tenderness - Extremities Exam Extremities exam: Present: warm, radial pulses palpable and symmetrical. Absent: calf tenderness, cyanotic, pedal edema Additional comments: Right lateral knee incision C/D/I, immobilizer in place, intact distal pulses - Back Exam Back exam: Present: normal inspection. Absent: paraspinal tenderness, tenderness - Neurological Exam Neurological exam: Present: CN II-XII intact, oriented X3, no focal deficits. Absent: pronater drift, facial droop, speech deficit - Skin Skin exam: Present: dry, intact (Right lateral knee dressing C/D/I) - Assessment and Plan (1) Right femoral fracture Current Visit: Yes Status: Acute Assessment and Plan: Acute right femur fracture with surrounding hemorrhage and edema into right thigh musculature. POD #4 Right ORIF of the distal femur with Dr. Olivarez Hgb stable Leg in knee immobilizer with dressings c/d/i Sensation and pulses WNL PT recommends short term rehab at SNF/ECF. Plan: -Continue with pain control (Rx printed for Oxcontin and Klonopin for anxiety) -PT/OT -Awaiting insurance prior authorization for ECF placement. (2) Fall Current Visit: Yes Status: Acute Assessment and Plan: Status post right femur ORIF. PT/OT following (3) Acute kidney injury superimposed on chronic kidney disease Current Visit: Yes Status: Resolved Assessment and Plan: Resolved. Continue monitoring (4) Hypokalemia Current Visit: Yes Status: Resolved Assessment and Plan: Supplemented K Mag level WNL Continue to monitor (5) CAD (coronary artery disease) Current Visit: Yes Status: Chronic Assessment and Plan: Serial troponin 0.03, 0.04, 0.27 Echo pLVEF 45-50%, mild segmental left ventricular systolic dysfunction, and normal LV chamber size and wall thickness. Patient had C 06/06 showing moderate two-vessel CAD and no percutaneous intervention was required. Patient denies CP. Plan: -Continue plavix x1 year -Continue eliquis -Continue ASA, statin, BB (6) Hypertension Current Visit: Yes Status: Chronic Assessment and Plan: Patient has been normotensive most of the night. She did have an episode of HTN when she was in severe pain, which resolved with administration of pain medication and labetolol. Pressures remain normal during the day. Will trial BID dosing of lopressor to see if this assists with HTN she keeps experiencing at night Plan: -Metoprolol 25mg BID -Continue losartan -Continue clonidine -Continue to control pain -Continue to monitor (7) Hypertensive urgency Current Visit: Yes Status: Resolved Assessment and Plan: Continue to monitor blood pressure closely. (8) Hypothyroid Current Visit: Yes Status: Chronic Assessment and Plan: Currently TSH is low and free T4 is elevated. Hold levothyroxine for 2 weeks and recheck TSH and free T4 levels as an outpatient (9) DVT prophylaxis Current Visit: Yes Status: Acute Assessment and Plan: Eliquis. (10) NSTEMI (non-ST elevated myocardial infarction) Current Visit: Yes Status: Resolved Assessment and Plan: NSTEMI type II See above - Time Spent with Patient Total time spent is greater than 50% in coordination of care (as documented) at patient's floor/unit and/or counseling patient: Internal Medicine: Result - Labs CBC & Chem 7: 06/10/18 04:21 06/10/18 04:21 - ABG Interpretation ABG results: PT/INR, D-dimer PT 18.3 Seconds (9.4-12.1) H 06/07/18 07:21 - Pulse Oximetry Interpretation Digit-Finger Pulse Oximetry Readin (On RA) Consult Discharge Plan - Plan Referrals: Van James MD [Primary Care Provider] - Prescriptions: OxyCODONE ER (12 HR) [OxyCONTIN] 30 mg PO Q8HR 3 Days #14 tab.er.12h Aspirin 81 mg PO DAILY #30 tab.chew Atorvastatin [Lipitor] 20 mg PO HS #30 tablet clonazePAM [Klonopin] 1 mg PO TID 3 Days #9 tablet Clopidogrel [Plavix] 75 mg PO DAILY #30 tablet Docusate [Colace] 100 mg PO BID PRN #60 capsule PRN Reason: Constipation Ferrous Sulfate 325 mg PO BIDWM #60 tablet Metoprolol [Lopressor] 25 mg PO BID #60 tablet Potassium Chloride 40 meq PO DAILY #60 tab.er.prt <Nellie Encinas - Last Filed: 06/11/18 15:32> Hospitalist Progress Note - Encounter Date of Encounter: 06/11/18 Time of Encounter: 09:20 - Exam Vitals: Temp Pulse Resp BP Pulse Ox 97.7 F 79 18 133/89 93 06/11/18 14:31 06/11/18 14:31 06/11/18 14:31 06/11/18 14:31 06/11/18 14:31 - Assessment and Plan (1) Fall Current Visit: Yes Status: Acute (2) CAD (coronary artery disease) Current Visit: Yes Status: Chronic (3) Hypothyroid Current Visit: Yes Status: Chronic (4) Hypertension Current Visit: Yes Status: Chronic (5) Acute kidney injury superimposed on chronic kidney disease Current Visit: Yes Status: Resolved (6) Right femoral fracture Current Visit: Yes Status: Acute (7) DVT prophylaxis Current Visit: Yes Status: Acute (8) Hypertensive urgency Current Visit: Yes Status: Resolved (9) Hypokalemia Current Visit: Yes Status: Resolved (10) NSTEMI (non-ST elevated myocardial infarction) Current Visit: Yes Status: Resolved - Time Spent with Patient Total time spent is greater than 50% in coordination of care (as documented) at patient's floor/unit and/or counseling patient: Internal Medicine: Result - Labs CBC & Chem 7: 06/11/18 12:30 06/11/18 12:30 Labs: Short CBC 06/11/18 Range/Units 12:30 Hgb 10.5 L (11.5-15.4) g/dL Hct 34.8 L (35.3-44.9) % BMP 06/11/18 12:30 Sodium 138 Potassium 4.8 Chloride 107 Carbon Dioxide 24 BUN 32 H Creatinine 1.21 H Glucose 76 Calcium 9.5 - ABG Interpretation ABG results: PT/INR, D-dimer PT 18.3 Seconds (9.4-12.1) H 06/07/18 07:21 - Attending Attestation I saw evaluated and examined this patient and my medical decision-making was reviewed with the Resident Physician, Kalen Ruiz. I agree with the documented findings, disposition and treatment plan as described except to any changes set forth below. We independently had [id number] contact with the patient. Patient reports feeling tired. Otherwise pain is controlled in her right lower extremity. No fever or chills reported overnight. No nausea or vomiting. Awaiting placement to skilled rehabilitation. General: Patient is somnolent, but easily awakes and answers questions appropriately ENT: Mucous membranes moist Respiratory: Good respiratory effort. Normal breath sounds. No wheezing or crackles. Cardiovascular: Regular rate and rhythm. s1 and s2 normal No clicks, rubs, gallops, or murmurs. No pedal edema Abdomen: Abdomen is soft, nontender. Bowel sounds are present Musculoskeletal: Right lower extremity bandaged post surgery and in brace Skin: warm, dry, intact. Neuro: Somnolent normal cranial nerves, no focal deficits Right femur fracture: Continues to do well overall. Pain well controlled. Most likely will be discharged to skilled rehabilitation later today. Atrial fibrillation with RVR: On Eliquis for anticoagulation. Chest pain: Did have left heart catheterization done earlier during this hospitalization. No stents placed. On aspirin, Plavix. Essential hypertension: Blood pressure better controlled at this time. Continue current medications. Recurrent falls: Awaiting placement to skilled rehabilitation. Anemia: Stable. Continue to monitor blood counts as outpatient as patient is on aspirin, Plavix and Eliquis. History of multiple DVT/PE: Continue Eliquis Acute kidney injury: Now resolved. Severe protein calorie malnutrition: Patient has improved appetite. Continue oral supplemental nutrition Moderate risk for complications. <Klaen Ruiz - Last Filed: 06/11/18 09:37> (1) Right femoral fracture Qualifiers: Encounter type: initial encounter Femur location: distal Fracture type: closed Fracture morphology: unspecified fracture morphology Qualified Code(s): S72.401A - Unspecified fracture of lower end of right femur, initial encounter for closed fracture (2) Fall Qualifiers: Qualified Code(s): W19.XXXA - Unspecified fall, initial encounter (5) CAD (coronary artery disease) Qualifiers: Coronary Disease-Associated Artery/Lesion type: [place] artery [place] vs. transplanted heart: [place] heart Associated angina: with unspecified angina Qualified Code(s): I25.119 - Atherosclerotic heart disease of [place] coronary artery with unspecified angina pectoris (6) Hypertension Qualifiers: Hypertension type: essential hypertension Qualified Code(s): I10 - Essential (primary) hypertension (8) Hypothyroid Qualifiers: Hypothyroidism type: acquired Qualified Code(s): E03.9 - Hypothyroidism, unspecified <Ameda,uken - Last Filed: 06/11/18 15:32> (1) Fall Qualifiers: Qualified Code(s): W19.XXXA - Unspecified fall, initial encounter (2) CAD (coronary artery disease) Qualifiers: Coronary Disease-Associated Artery/Lesion type: [place] artery [place] vs. transplanted heart: [place] heart Associated angina: with unspecified angina Qualified Code(s): I25.119 - Atherosclerotic heart disease of [place] coronary artery with unspecified angina pectoris (3) Hypothyroid Qualifiers: Hypothyroidism type: acquired Qualified Code(s): E03.9 - Hypothyroidism, unspecified (4) Hypertension Qualifiers: Hypertension type: essential hypertension Qualified Code(s): I10 - Essential (primary) hypertension (6) Right femoral fracture Qualifiers: Encounter type: initial encounter Femur location: distal Fracture type: closed Fracture morphology: unspecified fracture morphology Qualified Code(s): S72.401A - Unspecified fracture of lower end of right femur, initial encounter for closed fracture
[2018-06-11] MEDS: Apixaban 5 MG TABLET PO SCH (08:58)
[2018-06-11] MEDS: Venlafaxine XR (24 HR) 150 MG CAP.ER.24H PO SCH (08:59)
[2018-06-11] MEDS: Multivit/Ca/Min/Fe/FA 1 TAB TABLET PO SCH (08:59)
[2018-06-11] MEDS: Aspirin 81 MG TAB.CHEW PO SCH (09:00)
[2018-06-11] MEDS: Isosorbide MONOnitrate (24 HR) 30 MG TAB.ER.24H PO SCH (09:00)
[2018-06-11] MEDS: Ascorbic Acid 500 MG TABLET PO SCH (09:00)
[2018-06-11] MEDS: BuPROPion SR (12 HR) 150 MG TABLET PO SCH (09:00)
[2018-06-11] MEDS: clonazePAM 1 MG TABLET PO SCH (09:00)
[2018-06-11] MEDS: Furosemide 40 MG TABLET PO SCH (09:00)
[2018-06-11] MEDS: OXYCODONE Oral CONC 10 MG/0.5 ML ORAL.SYG SL PRN ×2 (09:01→14:41)
[2018-06-11 12:51] LABS: Hematocrit 34.8 % (35.3-44.9); Hemoglobin 10.5 g/dL (11.5-15.4)
[2018-06-11 13:10] LABS: Calcium 9.5 mg/dL (8.6-10.3); Potassium 4.8 mEq/L (3.5-5.1)
[2018-06-11 14:34] VITALS: BP 133/89
--- NOTE | 2018-06-12 14:54 | Electrocardiograph Report ---
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
== END 2018-06-11 16:00 | DRG 308 ==
LOC: 3NENU 16:18 → EMEROOARM 16:18 → SUATTDRO 19:49 → 3NENU 20:09
PROVIDERS: ADMIT Pediatrics; ATTEND Internal Medicine

== ENCOUNTER 2018-06-20 11:02 | Observation (INO) ==
--- NOTE | 2018-06-20 11:12 | Emergency Department Note ---
Disposition Clinical Impression: GREG (acute kidney injury), Altered mental status, Dehydration Disposition: Admitted As Inpatient Condition: Fair General Adult HPI - General Stated complaint: low BP AMS Time Seen by Provider: 06/20/18 11:05 - Related Data Home Medications Medication Instructions Recorded Confirmed RX: Aspirin 81 mg PO DAILY 09/28/15 06/04/18 RX: Nitroglycerin [Nitrostat] 0.4 mg SL Q5M PRN 09/28/15 06/05/18 RX: Omeprazole [PriLOSEC] 20 mg PO BID 09/28/15 06/04/18 RX: Oxycodone HCl/Acetaminophen 1 tab PO Q6H PRN 09/28/15 06/04/18 [Percocet 10-325 mg Tablet] RX: Gabapentin [Neurontin] 300 - 600 mg PO BID PRN 09/26/16 06/04/18 RX: Nitroglycerin [Nitrolingual] 1 - 2 spr TL AD PRN 09/26/16 06/05/18 RX: cloNIDine HCl [CloNIDine HCl] 0.1 mg PO TID PRN 09/26/16 06/04/18 RX: rOPINIRole [Requip] 1 mg PO HS 09/26/16 06/04/18 RX: Furosemide [Lasix] 40 mg PO DAILY 08/22/17 06/04/18 RX: Ondansetron HCl [Zofran] 4 mg PO Q6H PRN 08/22/17 06/04/18 RX: buPROPion HCl [Zyban] 300 mg PO QPM 02/26/18 06/04/18 RX: BuPROPion SR (12 HR) 150 mg PO QAM 06/04/18 06/04/18 [Wellbutrin SR] RX: Losartan Potassium 50 mg PO DAILY 06/04/18 06/04/18 RX: Venlafaxine HCl [Venlafaxine 150 mg PO DAILY 06/04/18 06/04/18 HCl ER] Previous Rx's Medication Instructions Recorded RX: Apixaban [Eliquis] 5 mg PO BID #60 tablet 08/23/17 RX: Isosorbide MONOnitrate (24 HR) 30 mg PO DAILY #30 tab.er.24h 03/25/18 [Imdur] RX: Acetaminophen [Tylenol] 650 mg PO Q6HR PRN tablet 06/10/18 RX: Aspirin 81 mg PO DAILY #30 tab.chew 06/10/18 RX: Atorvastatin [Lipitor] 20 mg PO HS #30 tablet 06/10/18 RX: Clopidogrel [Plavix] 75 mg PO DAILY #30 tablet 06/10/18 RX: Docusate [Colace] 100 mg PO BID PRN #60 capsule 06/10/18 RX: Ferrous Sulfate 325 mg PO BIDWM #60 tablet 06/10/18 RX: Metoprolol [Lopressor] 25 mg PO BID #60 tablet 06/10/18 RX: Potassium Chloride 40 meq PO DAILY #60 tab.er.prt 06/10/18 Allergies Allergy/AdvReac Type Severity Reaction Status Date / Time No Known Allergies Allergy Verified 02/26/18 09:30 Past Medical History - Past Medical History Medical history: Reports: arthritis, cancer, coronary artery disease, DVT, fibromyalgia, GERD, hyperlipidemia, hypertension, pulmonary embolus, RA, renal disease, thyroid disease Surgical history: Reports: angioplasty/stent, breast surgery, cholecystectomy, herniorrhaphy, knee replacement, bariatric surgery, IVC filter Psychiatric history: Reports: anxiety, depression - Social History Smoking Status: Never smoker Smokeless Tobacco Status: No Alcohol use: Reports: none Drug use: Reports: none Course Vital Signs Temperature 97.8 F 06/20/18 11:09 Pulse Rate 76 06/20/18 11:09 Respiratory Rate 18 06/20/18 11:09 Blood Pressure 93/65 06/20/18 11:09 O2 Sat by Pulse Oximetry 100 06/20/18 11:09 Temperature 98.4 F 06/20/18 18:59 Pulse Rate 71 06/20/18 18:59 Respiratory Rate 16 06/20/18 18:59 Blood Pressure 97/59 06/20/18 18:59 O2 Sat by Pulse Oximetry 97 06/20/18 18:59 Oxygen Delivery Oxygen Delivery Room Air Medical Decision Making - Lab Data Result diagrams: 06/20/18 12:27 06/20/18 12:27 Lab Results 06/20/18 06/20/18 06/20/18 Range/Units 11:26 11:26 12:27 WBC 7.9 D (4.3-11.1) K/mcL RBC 2.97 L (3.82-4.97) M/mcL Hgb 8.1 L (11.5-15.4) g/dL Hct 25.7 L (35.3-44.9) % MCV 86.5 (83.0-100.0) fL MCH 27.3 L (28.0-33.3) pg MCHC 31.5 L (31.6-35.5) g/dL RDW 17.2 H (11.5-14.5) % Plt Count 394 (140-400) K/mcL MPV 11.5 (9.4-12.4) fL Immature Gran % 1.0 (0-4) % Seg Neutrophils % 80.3 % Lymphocytes % 10.7 % Monocytes % 6.4 % Eosinophils % 1.3 % Basophils % 0.3 % Neutrophils # 6.3 (1.6-8.9) K/mcL Lymphocytes # 0.9 (0.6-4.6) K/mcL Monocytes # 0.5 (0.0-1.3) K/mcL Eosinophils # 0.1 (0.0-0.6) K/mcL Basophils # 0.0 (0.0-0.2) K/mcL ESR (0-15) mm/hr PT (9.4-12.1) Seconds INR Sodium (136-145) mEq/L Potassium (3.5-5.1) mEq/L Chloride (98-107) mEq/L Carbon Dioxide (23-29) mEq/L BUN (6-20) mg/dL Creatinine (0.60-1.20) mg/dL Est GFR ( Amer) (> 60) Est GFR (Non-Af Amer) (> 60) BUN/Creatinine Ratio (6-26) Glucose (70-105) mg/dL Calculated Osmolality (280-300) Lactic Acid (0.5-2.2) mmol/L Calcium (8.6-10.3) mg/dL Magnesium (1.6-2.6) mg/dL Total Bilirubin (0.3-1.0) mg/dL Direct Bilirubin (0.0-0.2) mg/dL Indirect Bilirubin (0.0-1.2) mg/dL AST (13-39) Units/L ALT (7-52) Units/L Alkaline Phosphatase (34-104) Units/L Ammonia (16-53) mcmol/L Troponin I (< 0.04) ng/mL C-Reactive Protein (Less than 10) mg/L Serum Total Protein (6.4-8.9) g/dL Albumin (3.5-5.7) g/dL Globulin (2.4-3.5) g/dL Albumin/Globulin Ratio (1.1-2.2) TSH (0.340-5.600) mcIU/mL Urine Color Dark Yellow (Yellow) Urine Clarity Cloudy A (Clear) Urine pH 6.5 (5.0-8.0) pH Units Ur Specific [place] 1.008 L (1.010-1.025) Urine Protein 100 H (Neg-Trace) mg/dL Urine Glucose (UA) Normal (Normal) mg/dL Urine Ketones Negative (Negative) mg/dL Urine Blood Large H (Negative) Urine Nitrite Negative (Negative) Urine Bilirubin Small H (Negative) Urine Urobilinogen Normal (Normal) mg/dL Ur Leukocyte Esterase Moderate H (Negative) Urine Microscopic RBC TNTC H (0-3) per hpf Urine Microscopic WBC TNTC H (0-3) per hpf Ur Squamous Epith Cells Many H (None-Few) per lpf Urine Bacteria None Seen (None-Few) per hpf Ur Culture Indicated? NO. A (NO) Urine Opiates Screen Positive H (Oploji=989) ng/mL Ur Barbiturates Screen Negative (Urangk=544) ng/mL Ur Phencyclidine Scrn Negative (Cutoff=25) ng/mL Ur Amphetamines Screen Negative (Mbjnot=5128) ng/mL U Benzodiazepines Scrn Negative (Bhvjty=728) ng/mL Urine Cocaine Screen Negative (Cutoff= 300) ng/mL U Marijuana (THC) Screen Negative (Cutoff = 50) ng/mL Ur Drug Screen Interp See Below 06/20/18 06/20/18 06/20/18 Range/Units 12:27 12:27 12:27 WBC (4.3-11.1) K/mcL RBC (3.82-4.97) M/mcL Hgb (11.5-15.4) g/dL Hct (35.3-44.9) % MCV (83.0-100.0) fL MCH (28.0-33.3) pg MCHC (31.6-35.5) g/dL RDW (11.5-14.5) % Plt Count (140-400) K/mcL MPV (9.4-12.4) fL Immature Gran % (0-4) % Seg Neutrophils % % Lymphocytes % % Monocytes % % Eosinophils % % Basophils % % Neutrophils # (1.6-8.9) K/mcL Lymphocytes # (0.6-4.6) K/mcL Monocytes # (0.0-1.3) K/mcL Eosinophils # (0.0-0.6) K/mcL Basophils # (0.0-0.2) K/mcL ESR (0-15) mm/hr PT 29.0 H (9.4-12.1) Seconds INR 2.6 Sodium 136 (136-145) mEq/L Potassium 4.0 (3.5-5.1) mEq/L Chloride 103 (98-107) mEq/L Carbon Dioxide 24 (23-29) mEq/L BUN 61 H (6-20) mg/dL Creatinine 2.42 H (0.60-1.20) mg/dL Est GFR ( Amer) 25 L (> 60) Est GFR (Non-Af Amer) 21 L (> 60) BUN/Creatinine Ratio 25 (6-26) Glucose 70 (70-105) mg/dL Calculated Osmolality 298 (280-300) Lactic Acid 0.7 (0.5-2.2) mmol/L Calcium 8.8 (8.6-10.3) mg/dL Magnesium 2.6 (1.6-2.6) mg/dL Total Bilirubin 0.4 (0.3-1.0) mg/dL Direct Bilirubin 0.1 (0.0-0.2) mg/dL Indirect Bilirubin 0.3 (0.0-1.2) mg/dL AST 47 H (13-39) Units/L ALT 23 (7-52) Units/L Alkaline Phosphatase 90 (34-104) Units/L Ammonia (16-53) mcmol/L Troponin I < 0.03 (< 0.04) ng/mL C-Reactive Protein 293 H (Less than 10) mg/L Serum Total Protein 6.4 (6.4-8.9) g/dL Albumin 3.0 L (3.5-5.7) g/dL Globulin 3.4 (2.4-3.5) g/dL Albumin/Globulin Ratio 0.9 L (1.1-2.2) TSH 0.015 L (0.340-5.600) mcIU/mL Urine Color (Yellow) Urine Clarity (Clear) Urine pH (5.0-8.0) pH Units Ur Specific [place] (1.010-1.025) Urine Protein (Neg-Trace) mg/dL Urine Glucose (UA) (Normal) mg/dL Urine Ketones (Negative) mg/dL Urine Blood (Negative) Urine Nitrite (Negative) Urine Bilirubin (Negative) Urine Urobilinogen (Normal) mg/dL Ur Leukocyte Esterase (Negative) Urine Microscopic RBC (0-3) per hpf Urine Microscopic WBC (0-3) per hpf Ur Squamous Epith Cells (None-Few) per lpf Urine Bacteria (None-Few) per hpf Ur Culture Indicated? (NO) Urine Opiates Screen (Mqpefv=630) ng/mL Ur Barbiturates Screen (Vmsjna=435) ng/mL Ur Phencyclidine Scrn (Cutoff=25) ng/mL Ur Amphetamines Screen (Kfijsc=7279) ng/mL U Benzodiazepines Scrn (Wpudoj=779) ng/mL Urine Cocaine Screen (Cutoff= 300) ng/mL U Marijuana (THC) Screen (Cutoff = 50) ng/mL Ur Drug Screen Interp 06/20/18 06/20/18 Range/Units 12:27 12:27 WBC (4.3-11.1) K/mcL RBC (3.82-4.97) M/mcL Hgb (11.5-15.4) g/dL Hct (35.3-44.9) % MCV (83.0-100.0) fL MCH (28.0-33.3) pg MCHC (31.6-35.5) g/dL RDW (11.5-14.5) % Plt Count (140-400) K/mcL MPV (9.4-12.4) fL Immature Gran % (0-4) % Seg Neutrophils % % Lymphocytes % % Monocytes % % Eosinophils % % Basophils % % Neutrophils # (1.6-8.9) K/mcL Lymphocytes # (0.6-4.6) K/mcL Monocytes # (0.0-1.3) K/mcL Eosinophils # (0.0-0.6) K/mcL Basophils # (0.0-0.2) K/mcL ESR 74 H (0-15) mm/hr PT (9.4-12.1) Seconds INR Sodium (136-145) mEq/L Potassium (3.5-5.1) mEq/L Chloride (98-107) mEq/L Carbon Dioxide (23-29) mEq/L BUN (6-20) mg/dL Creatinine (0.60-1.20) mg/dL Est GFR ( Amer) (> 60) Est GFR (Non-Af Amer) (> 60) BUN/Creatinine Ratio (6-26) Glucose (70-105) mg/dL Calculated Osmolality (280-300) Lactic Acid (0.5-2.2) mmol/L Calcium (8.6-10.3) mg/dL Magnesium (1.6-2.6) mg/dL Total Bilirubin (0.3-1.0) mg/dL Direct Bilirubin (0.0-0.2) mg/dL Indirect Bilirubin (0.0-1.2) mg/dL AST (13-39) Units/L ALT (7-52) Units/L Alkaline Phosphatase (34-104) Units/L Ammonia 26 (16-53) mcmol/L Troponin I (< 0.04) ng/mL C-Reactive Protein (Less than 10) mg/L Serum Total Protein (6.4-8.9) g/dL Albumin (3.5-5.7) g/dL Globulin (2.4-3.5) g/dL Albumin/Globulin Ratio (1.1-2.2) TSH (0.340-5.600) mcIU/mL Urine Color (Yellow) Urine Clarity (Clear) Urine pH (5.0-8.0) pH Units Ur Specific [place] (1.010-1.025) Urine Protein (Neg-Trace) mg/dL Urine Glucose (UA) (Normal) mg/dL Urine Ketones (Negative) mg/dL Urine Blood (Negative) Urine Nitrite (Negative) Urine Bilirubin (Negative) Urine Urobilinogen (Normal) mg/dL Ur Leukocyte Esterase (Negative) Urine Microscopic RBC (0-3) per hpf Urine Microscopic WBC (0-3) per hpf Ur Squamous Epith Cells (None-Few) per lpf Urine Bacteria (None-Few) per hpf Ur Culture Indicated? (NO) Urine Opiates Screen (Bixshz=879) ng/mL Ur Barbiturates Screen (Uqiqne=189) ng/mL Ur Phencyclidine Scrn (Cutoff=25) ng/mL Ur Amphetamines Screen (Tiurkt=4350) ng/mL U Benzodiazepines Scrn (Fpulcm=306) ng/mL Urine Cocaine Screen (Cutoff= 300) ng/mL U Marijuana (THC) Screen (Cutoff = 50) ng/mL Ur Drug Screen Interp Critical Care Time Critical Care Time: Yes Total Critical Care Time: 30 Attestation: The high probability of a clinically significant, sudden or life threatening deterioration of the [] system(s) required my full and direct attention, intervention and personal management. The aggregate critical care time was [] minutes. This time is in addition to time spent performing reported procedures but includes the following: [] Data Review and interpretation [] Patient assessment and monitoring of vital signs [] Documentation [] Medication orders and management Attestation Statement - Attestation Attestation: I examined this patient and my medical decision-making was reviewed with the Resident Physician. I agree with the documented findings, disposition and treatment plan as described except to the extent set forth below. Utio-ec-uqsm time provided Patient sent from the extended care facility due to increasing progressive debility. Additional information obtained from the . states that the patient has had little to no oral intake over the past several days. The patient appears dehydrated on exam with brown colored soft tissue under her tongue. Concern for sepsis.
--- NOTE | 2018-06-20 11:24 | Emergency Department Note ---
Disposition Clinical Impression: GREG (acute kidney injury), Dehydration Altered mental status Qualifiers: Altered mental status type: somnolence Qualified Code(s): R40.0 - Somnolence Disposition: Admitted As Inpatient Condition: Fair Referrals: Van James MD [Primary Care Provider] - Forms: ED Satisfaction Letter, Work/School Release Time of Disposition: 14:46 Altered Mental Status HPI - General Chief Complaint: ED General Medical Stated Complaint: low BP AMS Time Seen by Provider: 06/20/18 11:05 Source: patient, family, EMS Limitations: altered mental status Nursing Notes Reviewed: Yes Vital Signs Reviewed: Yes - History of Present Illness HPI Narrative: 58 yo woman with history of breast cancer and broken right leg presents to the emergency department from correction with the chief complaint of low blood pressure and altered mental status. The patient broke her leg 2 weeks ago and had a weeklong stay in this hospital. She was then taken to the correction f or rehabilitation. Patient's said the last weeks and she has been in the correction she has not been very alert or acting her normal self. It also appears as though she will stare off into space and has possibly been hallucinating. Today she was acting more altered than normal and had a blood pressure approximately 100/40 according to the . There are also some brownish plaques found underneath her tongue. The correction was unsure what to do with this patient in her current state and had her sent to the emergency department. Patient's is concerned for overmedication with narcotics since he thinks the patient has been prescribed to many pain medications. He is unaware if the patient has had any fevers, vomiting, diarrhea. He states that she has not been eating or drinking much and that she must be fed she will not do it herself now. - Related Data Home Medications Medication Instructions Recorded Confirmed Aspirin 81 mg PO DAILY 09/28/15 06/04/18 Nitroglycerin [Nitrostat] 0.4 mg SL Q5M PRN 09/28/15 06/05/18 Omeprazole [PriLOSEC] 20 mg PO BID 09/28/15 06/04/18 Oxycodone HCl/Acetaminophen 1 tab PO Q6H PRN 09/28/15 06/04/18 [Percocet 10-325 mg Tablet] Gabapentin [Neurontin] 300 - 600 mg PO BID PRN 09/26/16 06/04/18 Nitroglycerin [Nitrolingual] 1 - 2 spr TL AD PRN 09/26/16 06/05/18 cloNIDine HCl [CloNIDine HCl] 0.1 mg PO TID PRN 09/26/16 06/04/18 rOPINIRole [Requip] 1 mg PO HS 09/26/16 06/04/18 Furosemide [Lasix] 40 mg PO DAILY 08/22/17 06/04/18 Ondansetron HCl [Zofran] 4 mg PO Q6H PRN 08/22/17 06/04/18 buPROPion HCl [Zyban] 300 mg PO QPM 02/26/18 06/04/18 BuPROPion SR (12 HR) [Wellbutrin 150 mg PO QAM 06/04/18 06/04/18 SR] Losartan Potassium 50 mg PO DAILY 06/04/18 06/04/18 Venlafaxine HCl [Venlafaxine HCl 150 mg PO DAILY 06/04/18 06/04/18 ER] Previous Rx's Medication Instructions Recorded Apixaban [Eliquis] 5 mg PO BID #60 tablet 08/23/17 Isosorbide MONOnitrate (24 HR) 30 mg PO DAILY #30 tab.er.24h 03/25/18 [Imdur] Acetaminophen [Tylenol] 650 mg PO Q6HR PRN tablet 06/10/18 Aspirin 81 mg PO DAILY #30 tab.chew 06/10/18 Atorvastatin [Lipitor] 20 mg PO HS #30 tablet 06/10/18 Clopidogrel [Plavix] 75 mg PO DAILY #30 tablet 06/10/18 Docusate [Colace] 100 mg PO BID PRN #60 capsule 06/10/18 Ferrous Sulfate 325 mg PO BIDWM #60 tablet 06/10/18 Metoprolol [Lopressor] 25 mg PO BID #60 tablet 06/10/18 Potassium Chloride 40 meq PO DAILY #60 tab.er.prt 06/10/18 Allergies Allergy/AdvReac Type Severity Reaction Status Date / Time No Known Allergies Allergy Verified 02/26/18 09:30 Review of Systems: Limited review of systems obtained via EMS and . Patient unable to answer questions due to alteration in mental status. Limitations: ROS unobtainable due to patients medical condition Constitutional: Denies: fever Cardiovascular: Reports: dyspnea on exertion. Denies: chest pain Respiratory: Denies: cough Gastrointestinal: Reports: abdominal pain. Denies: vomiting, diarrhea Past Medical History - Past Medical History Medical history: Reports: arthritis, cancer, coronary artery disease, DVT, fibromyalgia, GERD, hyperlipidemia, hypertension, pulmonary embolus, RA, renal disease, thyroid disease Surgical history: Reports: angioplasty/stent, breast surgery, cholecystectomy, herniorrhaphy, knee replacement, bariatric surgery, IVC filter Psychiatric history: Reports: anxiety, depression - Social History Smoking Status: Never smoker Smokeless Tobacco Status: No Alcohol use: Reports: none Drug use: Reports: none Physical Exam - General Limitations: altered mental status General appearance: alert, lethargic - Head Head exam: atraumatic, normocephalic - Eye Eye exam: Present: normal appearance, PERRL, EOMI - ENT ENT exam: mucous membranes dry, other (Large brown plaque noted underneath the patient's tongue that is not able to be removed easily) - Neck Neck exam: Present: normal inspection. Absent: tenderness, lymphadenopathy - Chest Chest inspection: Present: normal inspection, symmetric chest wall rise. Absent: tenderness, rash - Respiratory Respiratory exam: Present: normal lung sounds bilaterally - Cardiovascular Cardiovascular exam: Present: regular rate, normal rhythm - Abdominal Exam Abdominal exam: Present: soft, tenderness. Absent: distention, guarding, rebound, rigidity, Glez's sign, tenderness at McBurney's Point Abdominal tenderness: Present: RUQ, RLQ - Extremities Exam Extremities exam: Present: other (Right leg in brace secondary to broken leg). Absent: tenderness, pedal edema - Neurological Exam Neurological exam: Absent: oriented X3 - Psychiatric Psychiatric exam: Present: flat affect - Skin Skin exam: Present: warm, dry, intact Course Vital Signs Temperature 97.8 F 06/20/18 11:09 Pulse Rate 76 06/20/18 11:09 Respiratory Rate 18 06/20/18 11:09 Blood Pressure 93/65 06/20/18 11:09 O2 Sat by Pulse Oximetry 100 06/20/18 11:09 Temperature 97.8 F 06/20/18 11:09 Pulse Rate 73 06/20/18 13:20 Respiratory Rate 16 06/20/18 13:20 Blood Pressure 107/78 06/20/18 13:20 O2 Sat by Pulse Oximetry 100 06/20/18 13:20 Oxygen Delivery Oxygen Delivery Room Air Altered Mental Status - [facility] Narrative Medical decision making narrative: Patient with decreased alteration presents to emergency department. Her only initial complaint was of right leg pain. On palpating the abdomen she stated her abdomen also hurt. She is not alert to place or time but responds to her name. Patient appears dehydrated and potentially septic. We will do a septic workup and do a CT scan of her abdomen as she was tender. 1310 - lab show signs of dehydration. A 2 L bolus was ordered upon arrival and patient is currently getting those fluids. Awaiting abdominal CT scan. 1445 - abdominal CT scan shows evidence of right hydroureter and gas in the bladder secondary to her Catheterization. There are no other abnormalities on the scan. The patient has perked up since her 2 L of fluids but is still drowsy. We will admit the patient the hospital for rehydration, medication management, and further evaluation of her altered mental status. Patient's family is agreeable with this plan of care. Dr. Curry, hospitalist, has accepted this patient. - Medical Records Medical records reviewed: Yes I reviewed the patient's medical records. - Lab Data Lab results reviewed: Yes I reviewed the patient's lab results. Result diagrams: 06/20/18 12:27 06/20/18 12:27 Lab Results 06/20/18 06/20/18 06/20/18 Range/Units 11:26 12:27 12:27 WBC 7.9 D (4.3-11.1) K/mcL RBC 2.97 L (3.82-4.97) M/mcL Hgb 8.1 L (11.5-15.4) g/dL Hct 25.7 L (35.3-44.9) % MCV 86.5 (83.0-100.0) fL MCH 27.3 L (28.0-33.3) pg MCHC 31.5 L (31.6-35.5) g/dL RDW 17.2 H (11.5-14.5) % Plt Count 394 (140-400) K/mcL MPV 11.5 (9.4-12.4) fL Immature Gran % 1.0 (0-4) % Seg Neutrophils % 80.3 % Lymphocytes % 10.7 % Monocytes % 6.4 % Eosinophils % 1.3 % Basophils % 0.3 % Neutrophils # 6.3 (1.6-8.9) K/mcL Lymphocytes # 0.9 (0.6-4.6) K/mcL Monocytes # 0.5 (0.0-1.3) K/mcL Eosinophils # 0.1 (0.0-0.6) K/mcL Basophils # 0.0 (0.0-0.2) K/mcL PT 29.0 H (9.4-12.1) Seconds INR 2.6 Sodium (136-145) mEq/L Potassium (3.5-5.1) mEq/L Chloride (98-107) mEq/L Carbon Dioxide (23-29) mEq/L BUN (6-20) mg/dL Creatinine (0.60-1.20) mg/dL Est GFR ( Amer) (> 60) Est GFR (Non-Af Amer) (> 60) BUN/Creatinine Ratio (6-26) Glucose (70-105) mg/dL Calculated Osmolality (280-300) Lactic Acid (0.5-2.2) mmol/L Calcium (8.6-10.3) mg/dL Magnesium (1.6-2.6) mg/dL Total Bilirubin (0.3-1.0) mg/dL Direct Bilirubin (0.0-0.2) mg/dL Indirect Bilirubin (0.0-1.2) mg/dL AST (13-39) Units/L ALT (7-52) Units/L Alkaline Phosphatase (34-104) Units/L Ammonia (16-53) mcmol/L Troponin I (< 0.04) ng/mL Serum Total Protein (6.4-8.9) g/dL Albumin (3.5-5.7) g/dL Globulin (2.4-3.5) g/dL Albumin/Globulin Ratio (1.1-2.2) Urine Color Dark Yellow (Yellow) Urine Clarity Cloudy A (Clear) Urine pH 6.5 (5.0-8.0) pH Units Ur Specific [place] 1.008 L (1.010-1.025) Urine Protein 100 H (Neg-Trace) mg/dL Urine Glucose (UA) Normal (Normal) mg/dL Urine Ketones Negative (Negative) mg/dL Urine Blood Large H (Negative) Urine Nitrite Negative (Negative) Urine Bilirubin Small H (Negative) Urine Urobilinogen Normal (Normal) mg/dL Ur Leukocyte Esterase Moderate H (Negative) Urine Microscopic RBC TNTC H (0-3) per hpf Urine Microscopic WBC TNTC H (0-3) per hpf Ur Squamous Epith Cells Many H (None-Few) per lpf Urine Bacteria None Seen (None-Few) per hpf Ur Culture Indicated? NO. A (NO) 06/20/18 06/20/18 06/20/18 Range/Units 12:27 12:27 12:27 WBC (4.3-11.1) K/mcL RBC (3.82-4.97) M/mcL Hgb (11.5-15.4) g/dL Hct (35.3-44.9) % MCV (83.0-100.0) fL MCH (28.0-33.3) pg MCHC (31.6-35.5) g/dL RDW (11.5-14.5) % Plt Count (140-400) K/mcL MPV (9.4-12.4) fL Immature Gran % (0-4) % Seg Neutrophils % % Lymphocytes % % Monocytes % % Eosinophils % % Basophils % % Neutrophils # (1.6-8.9) K/mcL Lymphocytes # (0.6-4.6) K/mcL Monocytes # (0.0-1.3) K/mcL Eosinophils # (0.0-0.6) K/mcL Basophils # (0.0-0.2) K/mcL PT (9.4-12.1) Seconds INR Sodium 136 (136-145) mEq/L Potassium 4.0 (3.5-5.1) mEq/L Chloride 103 (98-107) mEq/L Carbon Dioxide 24 (23-29) mEq/L BUN 61 H (6-20) mg/dL Creatinine 2.42 H (0.60-1.20) mg/dL Est GFR ( Amer) 25 L (> 60) Est GFR (Non-Af Amer) 21 L (> 60) BUN/Creatinine Ratio 25 (6-26) Glucose 70 (70-105) mg/dL Calculated Osmolality 298 (280-300) Lactic Acid 0.7 (0.5-2.2) mmol/L Calcium 8.8 (8.6-10.3) mg/dL Magnesium 2.6 (1.6-2.6) mg/dL Total Bilirubin 0.4 (0.3-1.0) mg/dL Direct Bilirubin 0.1 (0.0-0.2) mg/dL Indirect Bilirubin 0.3 (0.0-1.2) mg/dL AST 47 H (13-39) Units/L ALT 23 (7-52) Units/L Alkaline Phosphatase 90 (34-104) Units/L Ammonia 26 (16-53) mcmol/L Troponin I < 0.03 (< 0.04) ng/mL Serum Total Protein 6.4 (6.4-8.9) g/dL Albumin 3.0 L (3.5-5.7) g/dL Globulin 3.4 (2.4-3.5) g/dL Albumin/Globulin Ratio 0.9 L (1.1-2.2) Urine Color (Yellow) Urine Clarity (Clear) Urine pH (5.0-8.0) pH Units Ur Specific [place] (1.010-1.025) Urine Protein (Neg-Trace) mg/dL Urine Glucose (UA) (Normal) mg/dL Urine Ketones (Negative) mg/dL Urine Blood (Negative) Urine Nitrite (Negative) Urine Bilirubin (Negative) Urine Urobilinogen (Normal) mg/dL Ur Leukocyte Esterase (Negative) Urine Microscopic RBC (0-3) per hpf Urine Microscopic WBC (0-3) per hpf Ur Squamous Epith Cells (None-Few) per lpf Urine Bacteria (None-Few) per hpf Ur Culture Indicated? (NO) - Radiology Data Radiology results reviewed: Yes I reviewed the patient's radiology results. - EKG Data EKG attestation: Yes I reviewed and interpreted this EKG. EKG results narrative: EKG obtained at 11:10 06/20/2018 Heart rate 75 bpm, MD interval 164, QRS duration 106, QTC 418, QTC 467 sinus rhythm without any ST segment elevations or depressions. Unchanged when compared to previous EKG dated 06/08/2018 with the exception of the rate. TPA Checklist - LKW: 3-4.5 hrs Add. Warnings/Precautions Patient/family understanding: The patient/family members have been counseled and understood the risk, benefit, and alternatives of treatment.
[2018-06-20 12:06] LABS: Bilirubin,Urine Small (Negative); Blood,Urine Large (Negative); Clarity,Urine Cloudy (Clear); Color,Urine Dark Yellow (Yellow); Glucose,Urine (UA) Normal (Normal); Ketones,Urine Negative (Negative); Leukocyte Esterase,Urine Moderate (Negative); Nitrite,Urine Negative (Negative); PH,Urine 6.5 pH Units (5.0-8.0); Protein,Urine 100 mg/dL (Neg-Trace); Specific Gravity,Urine 1.008 (1.010-1.025); Urobilinogen,Urine Normal (Normal)
[2018-06-20 12:08] LABS: Bacteria,Urine None Seen per hpf (None-Few); RBC,Urine TNTC per hpf (0-3); Squamous Epithelial Cell,Urine Many per lpf (None-Few); WBC,Urine TNTC per hpf (0-3)
[2018-06-20] MEDS: 0.9 % Sodium Chloride 1,000 ML IVC SCH ×3 (12:25→17:05)
[2018-06-20 12:34] LABS: Basophils % 0.3 %; Eosinophils # 0.1 K/mcL (0.0-0.6); Eosinophils % 1.3 %; Hematocrit 25.7 % (35.3-44.9); Hemoglobin 8.1 g/dL (11.5-15.4); Lymphocytes # 0.9 K/mcL (0.6-4.6); Lymphocytes % 10.7 %; Mean Corpuscular HGB Conc 31.5 g/dL (31.6-35.5); Mean Corpuscular Hemoglobin 27.3 pg (28.0-33.3); Mean Corpuscular Volume 86.5 fL (83.0-100.0); Mean Platelet Volume 11.5 fL (9.4-12.4); Monocytes # 0.5 K/mcL (0.0-1.3); Monocytes % 6.4 %; Platelet Count 394 K/mcL (140-400); Red Blood Count 2.97 M/mcL (3.82-4.97); Red Cell Distribution Width 17.2 % (11.5-14.5); Segmented Neutrophils % 80.3 %
[2018-06-20 12:36] LABS: Neutrophils # 6.3 K/mcL (1.6-8.9)
[2018-06-20 12:42] LABS: INR 2.6
[2018-06-20 12:56] LABS: Alanine Aminotransferase 23 Units/L (7-52); Albumin/Globulin Ratio 0.9 (1.1-2.2); Alkaline Phosphatase 90 Units/L (34-104); Aspartate Amino Transferase 47 Units/L (13-39); BUN/Creatinine Ratio 25 (6-26); Bilirubin,Direct 0.1 mg/dL (0.0-0.2); Bilirubin,Indirect 0.3 mg/dL (0.0-1.2); Bilirubin,Total 0.4 mg/dL (0.3-1.0); Blood Urea Nitrogen 61 mg/dL (6-20); Calcium 8.8 mg/dL (8.6-10.3); Carbon Dioxide 24 mEq/L (23-29); Chloride 103 mEq/L (98-107); Globulin 3.4 g/dL (2.4-3.5); Glucose 70 mg/dL (70-105); Magnesium 2.6 mg/dL (1.6-2.6); Osmolality,Calculated 298 (280-300); Sodium 136 mEq/L (136-145); Total Protein 6.4 g/dL (6.4-8.9); Troponin I < 0.03 ng/mL (< 0.04); eGFR For Non-African Americans 21 (> 60)
[2018-06-20] MEDS ORDERED: Naloxone 0.4 MG/ML INJ IVP PRN ×2 (15:32→15:36)
[2018-06-20] MEDS ORDERED: Acetaminophen 325 MG TABLET PO PRN (15:36)
[2018-06-20] MEDS ORDERED: *HR* HYDROcodone/Acet 5/325 mg TABLET PO PRN (15:36)
[2018-06-20] MEDS ORDERED: cefTRIAXone 1,000 MG in Water for inj. (sterile) 20 ML 10 ML IVP ONE (15:42)
--- NOTE | 2018-06-20 15:48 | Internal Med History&Physical ---
<Geo Soares P - Last Filed: 06/20/18 18:59> Date of Encounter: 06/20/18 Time of Encounter: 15:30 Internal Medicine - H&P: HPI Chief complaint: Altered mental status Admitted From: Long-term Nursing Facility History of present illness: Ms. Nicolas is a 58 year old female with PMH of arthritis, h/o breast cancer, fracture right femur , coronary artery disease, CAD angioplasty/stent, DVT, fibromyalgia, GERD, hyperlipidemia, hypertension, pulmonary embolus, RA, renal disease, thyroid disease,presented to the emergency department from care home with the chief complaint of low blood pressure and altered mental status. The patient is in care home facility after she fell at home and broke her right femur. stated that she has been somnolence for last 1 week. She has history of fever, nausea and one episode of vomiting, feeling weak.Patient's is concerned for overmedication with narcotics since he thinks the patient has been prescribed to many pain medications. As per her , she stare off into space and has possibly been hallucinating. He further states that she has not been eating or drinking much and that she must be fed she will not do it herself now Past Med Surg Social Fam HX - Past Medical History Medical history: arthritis, cancer, coronary artery disease, DVT, fibromyalgia, GERD, hyperlipidemia, hypertension, pulmonary embolus, RA, renal disease, thyroid disease Additional medical history: STAGE 3 KIDNEY FAILURE, bilateral osetoarthritis, abnormal mommogram, pericarditis, blood clots in lungs, anemic Psychiatric history: anxiety, depression - Past Surgical History Surgical History: angioplasty/stent, breast surgery, cholecystectomy, herniorrhaphy, knee replacement, bariatric surgery, IVC filter Additional surgical history: left carpal tunnel release, bilateral rotator cuff tear repair, tubal ligation, colonoscopy, left lumpectomy, gastric bypass - Social History Smoking Status: Never smoker Smokeless Tobacco Status: No Alcohol use: none Drug use: none - Family History Father Living Status: Still Living Hx Family Cardiac Disorders: Yes (HTN) Hx Family Endocrine Disorder: Yes (DM) Mother Living Status: Still Living Hx Family Cardiac Disorders: Yes (HTN) Hx Family Respiratory Disorders: No Hx Family Cancer: No Hx Family GI Disorders: No Hx Family Endocrine Disorder: No Hx Family Neuromuscular Disorders: No Hx Family Neurologic Disorders: No Hx Family HEENT Disorders: No Hx Family Autoimmune Disorders: No Internal Medicine - H&P: Meds Aspirin 81 mg PO DAILY 09/28/15 [History] Nitroglycerin [Nitrostat] 0.4 mg SL Q5M PRN 09/28/15 [History] Omeprazole [PriLOSEC] 20 mg PO BID 09/28/15 [History] Oxycodone HCl/Acetaminophen [Percocet 10-325 mg Tablet] 1 tab PO Q6H PRN 09/28/15 [History] Gabapentin [Neurontin] 300 - 600 mg PO BID PRN 09/26/16 [History] Nitroglycerin [Nitrolingual] 1 - 2 spr TL AD PRN 09/26/16 [History] cloNIDine HCl [CloNIDine HCl] 0.1 mg PO TID PRN 09/26/16 [History] rOPINIRole [Requip] 1 mg PO HS 09/26/16 [History] Furosemide [Lasix] 40 mg PO DAILY 08/22/17 [History] Ondansetron HCl [Zofran] 4 mg PO Q6H PRN 08/22/17 [History] Apixaban [Eliquis] 5 mg PO BID #60 tablet 08/23/17 [Rx] buPROPion HCl [Zyban] 300 mg PO QPM 02/26/18 [History] Isosorbide MONOnitrate (24 HR) [Imdur] 30 mg PO DAILY #30 tab.er.24h 03/25/18 [Rx] BuPROPion SR (12 HR) [Wellbutrin SR] 150 mg PO QAM 06/04/18 [History] Losartan Potassium 50 mg PO DAILY 06/04/18 [History] Venlafaxine HCl [Venlafaxine HCl ER] 150 mg PO DAILY 06/04/18 [History] Acetaminophen [Tylenol] 650 mg PO Q6HR PRN tablet 06/10/18 [Rx] Aspirin 81 mg PO DAILY #30 tab.chew 06/10/18 [Rx] Atorvastatin [Lipitor] 20 mg PO HS #30 tablet 06/10/18 [Rx] Clopidogrel [Plavix] 75 mg PO DAILY #30 tablet 06/10/18 [Rx] Docusate [Colace] 100 mg PO BID PRN #60 capsule 06/10/18 [Rx] Ferrous Sulfate 325 mg PO BIDWM #60 tablet 06/10/18 [Rx] Metoprolol [Lopressor] 25 mg PO BID #60 tablet 06/10/18 [Rx] Potassium Chloride 40 meq PO DAILY #60 tab.er.prt 06/10/18 [Rx] Allergy/AdvReac Type Severity Reaction Status Date / Time No Known Allergies Allergy Verified 02/26/18 09:30 All Systems PM: A 10-system review of systems was performed and is negative for pertinent findings except as documented above in the HPI. - Constitutional Constitutional: fatigue, fever(s), falls, lethargy, malaise, weakness, no weight gain, no weight loss - EENT Ears: tinnitus, no ear pain Nose, mouth and throat: neck mass, no bleeding gums, no epistaxis, no mouth lesions, no nasal discharge, no sinus pain - Cardiovascular Cardiovascular ROS IM: no chest pain, no claudication, no diaphoresis, no lightheadedness, no palpitations, no paroxysmal nocturnal dyspnea - Respiratory Respiratory: no cough, no dyspnea, no chest congestion - Gastrointestinal Gastrointestinal: constipation, nausea, vomiting, no abdominal pain, no dyspepsia, no heartburn, no hematemesis, no hematochezia, no loose stools - Genitourinary Genitourinary: dysuria, flank pain, no hematuria, no urinary urgency - Musculoskeletal Musculoskeletal ROS IM: arthralgias, limited range of motion, muscle weakness - Integumentary Integumentary IM: no new lesions, no skin ulcer - Neurological Neurological ROS: confusion, dizziness, memory loss, weakness, other visual disturbances, no convulsions, no numbness, no restless legs - Psychiatric Psychiatric: confusion, hallucinations - Endocrine Endocrine IM: no deeping of the voice, no flushing - Hematologic/Lymphatic Hematologic/Lymphatic: no easy bleeding, no lymphadenopathy - Allergic/Immunologic Allergic/Immunologic: no tongue swelling, no wheezing - Constitutional Vitals: Temp Pulse Resp BP Pulse Ox 97.8 F 90 16 121/88 100 06/20/18 11:09 06/20/18 14:55 06/20/18 14:55 06/20/18 14:55 06/20/18 14:55 General appearance: Present: A&O X 2, no acute distress Exam: Gen: Alert, awake , Oriented to time,place and person, dehydration++ Chest: Diminished BS b/l, No crackles, No rales, No wheezing Heart: S1S2+ RRR No Murmurs Abd: Soft, NT, BS + No organomegaly Ext: No edema, pulses are palpable, no tenderness Neuro: No focal neuro deficits Psych: Normal mood Skin: No rash Internal Med - H&P Results - Labs CBC & Chem 7: 06/20/18 12:27 06/20/18 12:27 Labs: Short CBC 06/20/18 Range/Units 12:27 WBC 7.9 D (4.3-11.1) K/mcL Hgb 8.1 L (11.5-15.4) g/dL Hct 25.7 L (35.3-44.9) % Plt Count 394 (140-400) K/mcL Neutrophils # 6.3 (1.6-8.9) K/mcL BMP 06/20/18 12:27 Sodium 136 Potassium 4.0 Chloride 103 Carbon Dioxide 24 BUN 61 H Creatinine 2.42 H Glucose 70 Calcium 8.8 Cardiac Enzymes 06/20/18 Range/Units 12:27 Troponin I < 0.03 (< 0.04) ng/mL Liver Function 06/20/18 Range/Units 12:27 Total Bilirubin 0.4 (0.3-1.0) mg/dL Direct Bilirubin 0.1 (0.0-0.2) mg/dL AST 47 H (13-39) Units/L ALT 23 (7-52) Units/L Alkaline Phosphatase 90 (34-104) Units/L Albumin 3.0 L (3.5-5.7) g/dL Urine 06/20/18 Range/Units 11:26 Urine Color Dark Yellow (Yellow) Urine Clarity Cloudy A (Clear) Urine pH 6.5 (5.0-8.0) pH Units Ur Specific [place] 1.008 L (1.010-1.025) Urine Protein 100 H (Neg-Trace) mg/dL Urine Glucose (UA) Normal (Normal) mg/dL - Impressions ITS Impressions Chest X-Ray 06/20/18 11:10 IMPRESSION: No acute cardiopulmonary process is identified. D/ / Kalen Kang MD / Kalen Kang MD Interpreting Provider: Kalen Kang MD Abdomen/Pelvis CT 06/20/18 11:22 IMPRESSION: 1. Mild right hydroureter with no ureterolithiasis. Possibilities include pyelitis or recently passed stone. Correlate with any clinical findings of urinary infection. Gas in the urinary bladder should be correlated with any recent catheterization 2. Nonobstructing bilateral nephrolithiasis 3. Colonic and small bowel diverticulosis 4. Status post cholecystectomy and gastric bypass D/ / Pastor Arredondo MD / Pastor Arredondo MD Interpreting Provider: Pastor Arredondo MD - Assessment and plan (1) Acute metabolic encephalopathy Current Visit: Yes Status: Acute Assessment and plan: The patient presented with altered sensorium for last couple of days She is not fully oriented to time place and person The altered sensorium might be metabolic causes, but infective causes should be ruled out Urine opiates positive We have ordered CT head (2) Dehydration Current Visit: Yes Status: Acute Assessment and plan: The patient presented with altered mental status, decreased oral intake for couple of days Her oral mucosa looks dry , she has [id number] sign of dehydration We have started aggressive IV hydration (3) GREG (acute kidney injury) Current Visit: Yes Status: Acute Assessment and plan: The patient has impaired renal function BUN 61 and creatinine 2. 4. GFR 21 It might be due to dehydration, we will closely monitor her renal function We will check BMP tomorrow (4) UTI (urinary tract infection) Current Visit: Yes Status: Acute Assessment and plan: The patient has history of fever and frequency of the pain Previously she has had UTI with Escherichia coli sensitive to ceftriaxone Urine analysis did not show any evidence of infection, we have ordered urine culture again because of contaminated sample We have started ceftriaxone Qualifiers: Urinary tract infection type: acute cystitis Hematuria presence: without hematuria Qualified Code(s): N30.00 - Acute cystitis without hematuria (5) Hip pain, right Current Visit: No Status: Acute Assessment and plan: Patient has h/o fracture right hip, She is on brace for support ,she is on rehabilitation (6) Chronic anemia Current Visit: Yes Status: Acute Assessment and plan: Patient has history of anemia, recent hemoglobin is 8.1 We have ordered iron profile, Vit 12 , folic acid, and pre- albumin to nutritional anemia (7) Hydronephrosis Current Visit: Yes Status: Acute Assessment and plan: CT abdomen and pelvis showed mild right-sided hydronephrosis/ hydroureter ureter No evidence of urolithiasis, possibly due to recently passed renal stone Qualifiers: Hydronephrosis type: other Qualified Code(s): N13.39 - Other hydronephrosis (8) Breast cancer Current Visit: No Status: Chronic Assessment and plan: She has history of breast cancer As per her history it is on remission. Qualifiers: Estrogen receptor status: unspecified Qualified Code(s): C50.919 - Malignant neoplasm of unspecified site of unspecified female breast (9) CAD (coronary artery disease) Current Visit: No Status: Chronic Assessment and plan: Patient has history of coronary artery disease with angioplasty/stent in the past already on aspirin, plavix, metoprolol, monotrate Qualifiers: Coronary Disease-Associated Artery/Lesion type: [place] artery [place] vs. transplanted heart: [place] heart Associated angina: with unspecified angina Qualified Code(s): I25.119 - Atherosclerotic heart disease of [place] coronary artery with unspecified angina pectoris (10) Hypertension Current Visit: No Status: Chronic Assessment and plan: Patient has history of hypertension, she is under multiple medication for high blood pressure We have resumed all medication 121/88 Qualifiers: Hypertension type: essential hypertension Qualified Code(s): I10 - Essential (primary) hypertension (11) History of venous thrombosis and embolism Current Visit: No Status: Chronic Assessment and plan: Patient has history of DVT and pulmonary embolism before She is on Eliquis 5 MG BID We have resumed that medication - Time Spent With Patient Total time spent is greater than 50% in coordination of care (as documented) at patient's floor/unit and/or counseling patient: <Lavinia Mora - Last Filed: 06/21/18 09:25> Date of Encounter: 06/20/18 Internal Medicine - H&P: HPI History of present illness: Ms. Nicolas is a 58 year old female All Systems PM: A 10-system review of systems was performed and is negative for pertinent findings except as documented above in the HPI. - Constitutional Vitals: Temp Pulse Resp BP Pulse Ox 97.8 F 90 16 121/88 100 06/20/18 11:09 06/20/18 14:55 06/20/18 14:55 06/20/18 14:55 06/20/18 14:55 Internal Med - H&P Results - Labs CBC & Chem 7: 06/21/18 05:25 06/21/18 05:25 Labs: Short CBC 06/20/18 Range/Units 12:27 WBC 7.9 D (4.3-11.1) K/mcL Hgb 8.1 L (11.5-15.4) g/dL Hct 25.7 L (35.3-44.9) % Plt Count 394 (140-400) K/mcL Neutrophils # 6.3 (1.6-8.9) K/mcL BMP 06/20/18 12:27 Sodium 136 Potassium 4.0 Chloride 103 Carbon Dioxide 24 BUN 61 H Creatinine 2.42 H Glucose 70 Calcium 8.8 Cardiac Enzymes 06/20/18 Range/Units 12:27 Troponin I < 0.03 (< 0.04) ng/mL Liver Function 06/20/18 Range/Units 12:27 Total Bilirubin 0.4 (0.3-1.0) mg/dL Direct Bilirubin 0.1 (0.0-0.2) mg/dL AST 47 H (13-39) Units/L ALT 23 (7-52) Units/L Alkaline Phosphatase 90 (34-104) Units/L Albumin 3.0 L (3.5-5.7) g/dL Urine 06/20/18 Range/Units 11:26 Urine Color Dark Yellow (Yellow) Urine Clarity Cloudy A (Clear) Urine pH 6.5 (5.0-8.0) pH Units Ur Specific [place] 1.008 L (1.010-1.025) Urine Protein 100 H (Neg-Trace) mg/dL Urine Glucose (UA) Normal (Normal) mg/dL - Impressions ITS Impressions Chest X-Ray 06/20/18 11:10 IMPRESSION: No acute cardiopulmonary process is identified. D/ / Kalen Kang MD / Kalen Kang MD Interpreting Provider: Kalen Kang MD Abdomen/Pelvis CT 06/20/18 11:22 IMPRESSION: 1. Mild right hydroureter with no ureterolithiasis. Possibilities include pyelitis or recently passed stone. Correlate with any clinical findings of urinary infection. Gas in the urinary bladder should be correlated with any recent catheterization 2. Nonobstructing bilateral nephrolithiasis 3. Colonic and small bowel diverticulosis 4. Status post cholecystectomy and gastric bypass D/ / Pastor Arredondo MD / Pastor Arredondo MD Interpreting Provider: Pastor Arredondo MD - Time Spent With Patient Total time spent is greater than 50% in coordination of care (as documented) at patient's floor/unit and/or counseling patient: - Attending Attestation I examined this patient and my medical decision-making was reviewed with the Resident Physician Dr. Soares. I agree with the documented findings, disposition and treatment plan as described except to the extent set forth below. Ms. Nicolas is a 58 y/o F with a known past medical history of breast cancer on under remission now, CAD, DVT and PE who is on eloquence for antiregulation, fibromyalgia, GRD, hypertension, hyperlipidemia, hypothyroidism who recently admitted here for a fall with right femur fracture, patient was sent to [facility] on 06/10/18 now she was brought into the ER by EMS stating that patient has been having intermittent fever as well as altered mental status from last couple of days and had poor oral intake. Currently she is afebrile, her urine slightly abnormal. Chest x-ray did not show any infiltrates. Her abdomen CT showed mild right hydro ureter with possible recently passed stone and non-obstructive nephro lithiasis. Pt is aleet, awake and O to self only. Following all the commands , however looks confused. Gen: A, A, O to self, Confused Heart: S1S2+ RRR Chest: Diminished BS b/l, no crackles no rales Ext: Clean incision, no drainage ap 1. Acute metabolic encephalopathy 2. Dehydration 3. GREG 4. Possible UTI Alvarez culture Aggressive IV hydration cont close monitoring on tele strict I & O's will hold on narcotics for now talked to patients's and mother at bed side and explained to them about current care
[2018-06-20 16:10] LABS: C-Reactive Protein 293 mg/L (Less than 10)
[2018-06-20 16:23] LABS: Thyroid Stimulating Hormone 0.015 mcIU/mL (0.340-5.600)
[2018-06-20] MEDS: Nystatin SUSP 5 ML UD.LIQ PO SCH ×2 (17:08→22:03)
[2018-06-20 17:19] LABS: Amphetamine Screen,Urine Negative ng/mL (Cutoff=1000); Barbiturate Screen,Urine Negative ng/mL (Cutoff=200); Benzodiazepines Screen,Urine Negative ng/mL (Cutoff=200); Cannabinoid Screen,Urine Negative ng/mL (Cutoff = 50); Cocaine Screen,Urine Negative ng/mL (Cutoff= 300); Opiate Screen,Urine Positive ng/mL (Cutoff=300); Phencyclidine Screen,Urine Negative ng/mL (Cutoff=25)
[2018-06-20 18:54] LABS: Adenovirus Not Detected (Not Detect); Bordetella Pertussis Not Detected (Not Detect); Chlamydophila pneumoniae Not Detected (Not Detect); Coronavirus 229E Not Detected (Not Detect); Coronavirus HKU1 Not Detected (Not Detect); Coronavirus NL63 Not Detected (Not Detect); Coronavirus OC43 Not Detected (Not Detect); Human Metapneumovirus Not Detected (Not Detect); Human Rhinovirus/Enterovirus Not Detected (Not Detect); Influenza A Subtype 2009 H1 Not Detected (Not Detect); Influenza A Untypeable Not Detected (Not Detect); Influenza B Not Detected (Not Detect); Mycoplasma pneumoniae Not Detected (Not Detect); Parainfluenza Virus 1 Not Detected (Not Detect); Parainfluenza Virus 2 Not Detected (Not Detect); Parainfluenza Virus 3 Not Detected (Not Detect); Parainfluenza Virus 4 Not Detected (Not Detect); Respiratory Syncytial Virus Not Detected (Not Detect)
--- NOTE | 2018-06-20 20:20 | Electrocardiograph Report ---
[place] [id number] Test Date: 2018-06-20 Pat Name: Velma Nicolas Department: [id number] Room: 3B Gender: F Travel Director: : 1960 Requested By: Marquez Mas Order Number: [id number] Reading MD: Jennifer Hunter Measurements Intervals [place] Rate: 75 P: 41 NM: 164 QRS: 16 QRSD: 106 T: 17 QT: 418 QTc: 467 Interpretive Statements Sinus rhythm Electronically Signed On 06-20-2018 20:19:13 EST by Jennifer Hunter
[2018-06-21] MEDS: 0.9 % Sodium Chloride 1,000 ML IVC SCH (00:09)
[2018-06-21 06:19] LABS: Hemoglobin 8.8 g/dL (11.5-15.4); Mean Corpuscular HGB Conc 29.3 g/dL (31.6-35.5); Mean Corpuscular Hemoglobin 26.3 pg (28.0-33.3); Mean Corpuscular Volume 89.8 fL (83.0-100.0); Mean Platelet Volume 11.6 fL (9.4-12.4); Platelet Count 394 K/mcL (140-400); Red Blood Count 3.34 M/mcL (3.82-4.97); Red Cell Distribution Width 17.2 % (11.5-14.5)
[2018-06-21 06:36] LABS: INR 1.8; Prothrombin Time 20.5 Seconds (9.4-12.1)
[2018-06-21 06:38] LABS: Calcium 8.8 mg/dL (8.6-10.3); Potassium 4.2 mEq/L (3.5-5.1)
[2018-06-21] MEDS: Nystatin SUSP 5 ML UD.LIQ PO SCH (07:16)
[2018-06-21 08:27] VITALS: BP 143/85
[2018-06-21] MEDS ORDERED: cefTRIAXone 1,000 MG in Water for inj. (sterile) 20 ML 10 ML IVP SCH (09:00)
--- NOTE | 2018-06-21 10:26 | Discharge Summary ---
<Geo Soares P - Last Filed: 06/21/18 10:58> - NOTES TO OUTPATIENT PROVIDER Notes to Outpatient Provider: The patient will follow-up with primary care provider within a week. The patient will follow-up with dentist for her oral/dental problem soon. The patient will review her thyroid hormon status with her PCP. The patient will take Keflex 500 twice a day for 4 days given for UTI Orders not resulted at time of discharge: Pending orders 06/20/18 12:27 Culture,Blood [BC] Stat 06/21/18 10:00 Thyroxine (T4) Free Stat Triiodothyronine (T3) Free Stat Date of Encounter: 06/21/18 Time of Encounter: 10:00 - Discharge Diagnosis (1) Acute metabolic encephalopathy Priority: Primary Status: Acute (2) Dehydration Priority: Primary Status: Resolved (3) GREG (acute kidney injury) Priority: Primary Status: Acute (4) UTI (urinary tract infection) Priority: Primary Status: Acute Assessment and Plan: Getting better Qualifiers: Urinary tract infection type: acute cystitis Hematuria presence: without hematuria Qualified Code(s): N30.00 - Acute cystitis without hematuria (5) Hip pain, right Priority: Secondary Status: Chronic (6) Chronic anemia Priority: Primary Status: Chronic (7) Hydronephrosis Priority: Primary Status: Chronic Qualifiers: Hydronephrosis type: other Qualified Code(s): N13.39 - Other hydronephrosis (8) Breast cancer Priority: Secondary Status: Chronic Qualifiers: Estrogen receptor status: unspecified Qualified Code(s): C50.919 - Malignant neoplasm of unspecified site of unspecified female breast (9) CAD (coronary artery disease) Priority: Secondary Status: Chronic Qualifiers: Coronary Disease-Associated Artery/Lesion type: [place] artery [place] vs. transplanted heart: [place] heart Associated angina: with unspecified angina Qualified Code(s): I25.119 - Atherosclerotic heart disease of [place] coronary artery with unspecified angina pectoris (10) Hypertension Priority: Secondary Status: Chronic Qualifiers: Hypertension type: essential hypertension Qualified Code(s): I10 - Essential (primary) hypertension (11) History of venous thrombosis and embolism Priority: Secondary Status: Chronic Hospital course: Ms. Nicolas is a 58 year old female with PMH of arthritis, h/o breast cancer, fracture right femur,coronary artery disease, CAD angioplasty/stent, DVT, fibromyalgia, GERD, hyperlipidemia, hypertension, pulmonary embolus, RA, renal disease, thyroid disease,presented to the emergency department from residential with the chief complaint of low blood pressure and altered mental status. The patient was in residential facility after she fell at home and broke her right femur. stated that she has been somnolence for last 1 week. She has history of 2-3 episodes of documented fever at residential, h/o nausea and one episode of vomiting, feeling weak.Patient's is concerned for overmedication with narcotics since he thinks the patient has been prescribed to many pain medications. As per her notice , she stare off into space and has possibly been hallucinating. He further stated that she has not been eating or drinking much . Chest x-ray: No acute cardiopulmonary process. CT abdomen and pelvis: Mild right hydroureter with no ureterolithiasis, no nonobstructing bilateral nephrolithiasis .MRI head no acute intracranial abnormality. Venous Doppler both lower extremities: negative for blood clot. Her BUN and creatinine were elevated in ED .We admitted her and he started at this IV hydration and IV antibiotic ceftriaxone for suspected UTI. Today patient is getting much better, no fever for 24 hours, hemodynamically stable. We are planning to send her to group home facility and see well follow-up with her primary care provider within a week. She will take oral antibiotic for 4 days. She will follow-up her thyroid report with her primary primary care provider. We have suggested her to visit dentist for her oral lesion. - Time Spent with Patient Total time spent providing and/or coordinating discharge services: - Discharge Medications Prescriptions: RX: HYDROcodone/Acet 5/325 mg [[place] 5-325 mg] 1 tab PO Q6HR PRN 5 Days #15 tablet PRN Reason: Moderate Pain Oxycodone HCl [Oxycodone HCl ER] 30 mg PO BID 5 Days #10 tab.er.12h Home Medications: RX: Aspirin 81 mg PO DAILY 09/28/15 [History] RX: Nitroglycerin [Nitrostat] 0.4 mg SL Q5M PRN 09/28/15 [History] RX: Omeprazole [PriLOSEC] 20 mg PO BID 09/28/15 [History] RX: cloNIDine HCl [CloNIDine HCl] 0.1 mg PO TID PRN 09/26/16 [History] RX: rOPINIRole [Requip] 1 mg PO 199909/26/16 [History] RX: Furosemide [Lasix] 40 mg PO DAILY 08/22/17 [History] RX: Ondansetron HCl [Zofran] 4 mg PO Q6H PRN 08/22/17 [History] RX: Apixaban [Eliquis] 5 mg PO BID #60 tablet 08/23/17 [Rx] RX: Isosorbide MONOnitrate (24 HR) [Imdur] 30 mg PO DAILY #30 tab.er.24h 03/25/18 [Rx] RX: BuPROPion SR (12 HR) [Wellbutrin SR] 150 mg PO DAILY 06/04/18 [History] RX: Losartan Potassium 50 mg PO DAILY 06/04/18 [History] RX: Venlafaxine HCl [Venlafaxine HCl ER] 150 mg PO DAILY 06/04/18 [History] RX: Clopidogrel [Plavix] 75 mg PO DAILY #30 tablet 06/10/18 [Rx] RX: Docusate [Colace] 100 mg PO BID PRN #60 capsule 06/10/18 [Rx] RX: Ferrous Sulfate 325 mg PO BIDWM #60 tablet 06/10/18 [Rx] RX: Potassium Chloride 40 meq PO DAILY #60 tab.er.prt 06/10/18 [Rx] Acetaminophen [Tylenol Arthritis] 650 mg PO Q6H PRN 06/21/18 [History] Lactose-Reduced Food [Ensure Original] 1 bottle PO TIDWM 06/21/18 [History] Oxycodone HCl [Oxycodone HCl ER] 30 mg PO BID 5 Days #10 tab.er.12h 06/21/18 [Rx] RX: Atorvastatin [Lipitor] 20 mg PO 199906/21/18 [History] RX: Bupropion HCl [Wellbutrin Xl] 300 mg PO 199906/21/18 [History] RX: Gabapentin 600 mg PO BID PRN 06/21/18 [History] RX: Gabapentin [Neurontin] 300 mg PO BID PRN 06/21/18 [History] RX: HYDROcodone/Acet 5/325 mg [[place] 5-325 mg] 1 tab PO Q6HR PRN 5 Days #15 tablet 06/21/18 [Rx] RX: Metoprolol [Lopressor] 25 mg PO DAILY 06/21/18 [History] RX: clonazePAM [Klonopin] 1 mg PO TID PRN 5 Days #10 06/21/18 [Rx] cephALEXin [Keflex] 500 mg PO BID 06/21/18 [History] Allergies/Adverse Reactions: Allergy/AdvReac Type Severity Reaction Status Date / Time No Known Allergies Allergy Verified 02/26/18 09:30 Date of admission: 06/20/18 15:24 Primary care physician: Van James MD Consults: 06/21/18 09:04 Consult to [place] [CONS] Routine Reason for SW Consult: PATIENT FROM [facility] 06/21/18 09:43 Consult to Nutrition [CONS] Routine Comment: Consulting Provider: NUTRITION Reason for Dietary Consult: PO Supplementation - Constitutional Vitals: Temp Pulse Resp BP Pulse Ox 97.9 F 76 16 143/85 97 06/21/18 08:23 06/21/18 08:23 06/21/18 08:23 06/21/18 08:23 06/21/18 08:23 General appearance: Present: A&O X 2, no acute distress Exam: Gen: Alert, awake , Oriented to time,place and person, dehydration++ Chest: Diminished BS b/l, No crackles, No rales, No wheezing Heart: S1S2+ RRR No Murmurs Abd: Soft, NT, BS + No organomegaly Ext: No edema, pulses are palpable, no tenderness Neuro: No focal neuro deficits Psych: Normal mood Skin: No rash - Patient Status Disposition: Transfer SNF Condition: Fair Functional capacity at discharge: uses cane/walker Overall status at discharge: patient is progressing back to baseline - Discharge Instructions Follow Up With: Van James MD [Primary Care Provider] - - Diet and Activity Activity: resume usual activities as tolerated Diet: low fat, low cholesterol <Thallapaneni,Rambabu - Last Filed: 06/21/18 14:16> Orders not resulted at time of discharge: Pending orders 06/20/18 12:27 Culture,Blood [BC] Stat Date of Encounter: 06/21/18 Hospital course: Ms. Nicolas is a 58 year old female - Time Spent with Patient Total time spent providing and/or coordinating discharge services: Date of admission: 06/20/18 15:24 Primary care physician: Van James MD Consults: 06/21/18 09:04 Consult to [place] [CONS] Routine Reason for SW Consult: PATIENT FROM [facility] [place] 06/21/18 09:43 Consult to Nutrition [CONS] Routine Comment: Consulting Provider: NUTRITION Reason for Dietary Consult: PO Supplementation - Constitutional Vitals: Temp Pulse Resp BP Pulse Ox 97.9 F 76 16 143/85 97 06/21/18 08:23 06/21/18 08:23 06/21/18 08:23 06/21/18 08:23 06/21/18 08:23 - Attending Attestation I examined this patient and my medical decision-making was reviewed with the Resident Physician Dr. Soares. I agree with the documented findings, disposition and treatment plan as described except to the extent set forth below. Ms. Nicolas is a 58 y/o F with a known past medical history of breast cancer on under remission now, CAD, DVT and PE who is on eloquence for antiregulation, fibromyalgia, GRD, hypertension, hyperlipidemia, hypothyroidism who recently admitted here for a fall with right femur fracture, patient was sent to [facility] on 06/10/18 now she was brought into the ER by EMS stating that patient has been having intermittent fever as well as altered mental status from last couple of days and had poor oral intake. Currently she is afebrile, her urine slightly abnormal. Chest x-ray did not show any infiltrates. Her abdomen CT showed mild right hydro ureter with possible recently passed stone and non-obstructive nephrolithiasis. Patient was admitted in the hospital and started her on aggressive IV hydration. Also held all her narcotics. Today patient is more alert, awake, oriented x 3. Denied any CP / SOB. Gen: A, A, O to self, Confused Heart: S1S2+ RRR Chest: Diminished BS b/l, no crackles no rales Ext: Clean incision, no drainage a/p 1. Acute metabolic encephalopathy 2. Dehydration 3. GREG 4. Possible UTI 5. Polypharmacy and taking excessive narcotics blood cultures no growth her symptoms resolved with IV hydration I did review her home medications patient has been taking oxycodone ER 80 mg b.i.d., [place] 10/25 one tablet every 6 hour as needed and Klonopin 1 mg PO TID as scheduled. It seems to be always medications making her more lethargic, week and fatigue. I did talk to patient's primary care doctor Dr. James, and changed her meds to Klonopin as needed, Oxycodone ER to 30mg BID, Percocet 5/325 Q6hr PRN. She does have chronic thyroid problems which she is following hot stick man as outpatient
--- NOTE | 2018-06-21 10:50 | Physician Discharge Referral ---
- Diagnosis (1) Acute metabolic encephalopathy Priority: Primary Status: Acute (2) Dehydration Priority: Primary Status: Resolved (3) GREG (acute kidney injury) Priority: Primary Status: Acute (4) UTI (urinary tract infection) Priority: Primary Status: Acute (5) Hip pain, right Priority: Secondary Status: Chronic (6) Chronic anemia Priority: Secondary Status: Chronic (7) Hydronephrosis Priority: Primary Status: Chronic (8) Breast cancer Priority: Secondary Status: Chronic (9) CAD (coronary artery disease) Priority: Secondary Status: Chronic (10) Hypertension Priority: Secondary Status: Chronic (11) History of venous thrombosis and embolism Priority: Secondary Status: Chronic Prognosis: Fair - Transfer Medications Home Medications: Aspirin 81 mg PO DAILY 09/28/15 [History] Nitroglycerin [Nitrostat] 0.4 mg SL Q5M PRN 09/28/15 [History] Omeprazole [PriLOSEC] 20 mg PO BID 09/28/15 [History] Gabapentin [Neurontin] 300 - 600 mg PO BID PRN 09/26/16 [History] cloNIDine HCl [CloNIDine HCl] 0.1 mg PO TID PRN 09/26/16 [History] rOPINIRole [Requip] 1 mg PO HS 09/26/16 [History] Furosemide [Lasix] 40 mg PO DAILY 08/22/17 [History] Ondansetron HCl [Zofran] 4 mg PO Q6H PRN 08/22/17 [History] Apixaban [Eliquis] 5 mg PO BID #60 tablet 08/23/17 [Rx] buPROPion HCl [Zyban] 300 mg PO QPM 02/26/18 [History] Isosorbide MONOnitrate (24 HR) [Imdur] 30 mg PO DAILY #30 tab.er.24h 03/25/18 [Rx] BuPROPion SR (12 HR) [Wellbutrin SR] 150 mg PO QAM 06/04/18 [History] Losartan Potassium 50 mg PO DAILY 06/04/18 [History] Venlafaxine HCl [Venlafaxine HCl ER] 150 mg PO DAILY 06/04/18 [History] Acetaminophen [Tylenol] 650 mg PO Q6HR PRN tablet 06/10/18 [Rx] Atorvastatin [Lipitor] 20 mg PO HS #30 tablet 01/28/19 [Rx] Clopidogrel [Plavix] 75 mg PO DAILY #30 tablet 06/10/18 [Rx] Docusate [Colace] 100 mg PO BID PRN #60 capsule 06/10/18 [Rx] Ferrous Sulfate 325 mg PO BIDWM #60 tablet 06/10/18 [Rx] Potassium Chloride 40 meq PO DAILY #60 tab.er.prt 06/10/18 [Rx] Metoprolol [Lopressor] 25 mg PO DAILY 06/21/18 [History] cephALEXin [Keflex] 500 mg PO BID 06/21/18 [History] clonazePAM [Klonopin] 1 mg PO TID PRN 06/21/18 [History] Allergies/Adverse Reactions: Allergy/AdvReac Type Severity Reaction Status Date / Time No Known Allergies Allergy Verified 02/26/18 09:30 - Respiratory Orders Smoking Cessation: Smoking cessation has been advised. For more information, call the [place] Tobacco Quit Line at 5-861-IVKN-NOW. CERTIFICATION: I certify that the transfer of the above named patient to an Extended Care Facility is necessary for the continuing treatment of the diagnosis listed. The above information is true and accurate reflection of patient's current condition. Confidential - Redisclosure prohibited without a patient's written consent.
[2018-06-21 11:16] LABS: Triiodothyronine (T3) Free 2.37 pg/mL (2.50-3.90)
== END 2018-06-21 11:36 ==
LOC: EMEROOARM 11:02 → INTOOBSV 15:24 → 3ANU 15:24 → SUATTDRO 15:24 → 3BNU 16:01
PROVIDERS: ADMIT Internal Medicine; ATTEND Family Medicine

== ENCOUNTER 2018-07-08 12:24 | Inpatient (IN) ==
[2018-07-08] MEDS ORDERED: *HR* Promethazine 25 MG/ML VIAL IM ONE (12:35)
--- NOTE | 2018-07-08 12:42 | Emergency Department Note ---
Disposition Clinical Impression: Ileus Vomiting Qualifiers: Vomiting type: unspecified Vomiting Intractability: intractable Nausea presence: unspecified Qualified Code(s): R11.10 - Vomiting, unspecified Disposition: Admitted As Inpatient Condition: Fair Forms: ED Satisfaction Letter, Work/School Release Time of Disposition: 15:47 Abdominal Pain HPI - General Chief Complaint: ED Abdominal Pain Time Seen by Provider: 07/08/18 12:26 Source: EMS Mode of arrival: EMS Limitations: no limitations Nursing Notes Reviewed: Yes Vital Signs Reviewed: Yes - History of Present Illness HPI Narrative: Patient presents to the ED with the chief complaint of abdominal pain. [place] Was seen here last night and had a CT that showed significant constipation. She states that is also painful in her right lower quadrant. She said multiple episodes of vomiting. They tried to treat her for constipation, but she is still as yet have a bowel movement. No fever, chills, chest pain or shortness breath. She is on Eliquis for blood clots "everywhere" Pain Scale: 10 - Related Data Home Medications Medication Instructions Recorded Confirmed Aspirin 81 mg PO DAILY 09/28/15 06/21/18 Nitroglycerin [Nitrostat] 0.4 mg SL Q5M PRN 09/28/15 06/21/18 Omeprazole [PriLOSEC] 20 mg PO BID 09/28/15 06/21/18 cloNIDine HCl [CloNIDine HCl] 0.1 mg PO TID PRN 09/26/16 06/21/18 rOPINIRole [Requip] 1 mg PO 199909/26/16 06/21/18 Furosemide [Lasix] 40 mg PO DAILY 08/22/17 06/21/18 Ondansetron HCl [Zofran] 4 mg PO Q6H PRN 08/22/17 06/21/18 BuPROPion SR (12 HR) [Wellbutrin 150 mg PO DAILY 06/04/18 06/21/18 SR] Losartan Potassium 50 mg PO DAILY 06/04/18 06/21/18 Venlafaxine HCl [Venlafaxine HCl 150 mg PO DAILY 06/04/18 06/21/18 ER] Acetaminophen [Tylenol Arthritis] 650 mg PO Q6H PRN 06/21/18 06/21/18 Atorvastatin [Lipitor] 20 mg PO 199906/21/18 06/21/18 Bupropion HCl [Wellbutrin Xl] 300 mg PO 2000 06/21/18 06/21/18 Gabapentin 600 mg PO BID PRN 06/21/18 06/21/18 Gabapentin [Neurontin] 300 mg PO BID PRN 06/21/18 06/21/18 Lactose-Reduced Food [Ensure 1 bottle PO TIDWM 06/21/18 06/21/18 Original] Metoprolol [Lopressor] 25 mg PO DAILY 06/21/18 06/21/18 cephALEXin [Keflex] 500 mg PO BID 06/21/18 06/21/18 Previous Rx's Medication Instructions Recorded Apixaban [Eliquis] 5 mg PO BID #60 tablet 08/23/17 Isosorbide MONOnitrate (24 HR) 30 mg PO DAILY #30 tab.er.24h 03/25/18 [Imdur] Clopidogrel [Plavix] 75 mg PO DAILY #30 tablet 06/10/18 Docusate [Colace] 100 mg PO BID PRN #60 capsule 06/10/18 Ferrous Sulfate 325 mg PO BIDWM #60 tablet 06/10/18 Potassium Chloride 40 meq PO DAILY #60 tab.er.prt 06/10/18 Allergies Allergy/AdvReac Type Severity Reaction Status Date / Time No Known Allergies Allergy Verified 02/26/18 09:30 Review of Systems: As reviewed in the HPI. All other systems reviewed are negative or normal.As reviewed in the HPI. All other systems reviewed are negative or normal. Abdominal Pain PMH - Past Medical History Medical history: Reports: arthritis, cancer, coronary artery disease, DVT, fibromyalgia, GERD, hyperlipidemia, hypertension, pulmonary embolus, RA, renal disease, thyroid disease Female Surgical History: Reports: cholecystectomy, knee replacement Psychiatric history: Reports: anxiety, depression - Social History Smoking status: Never smoker Alcohol use: Reports: none Drug use: Reports: none Physical Exam CONSTITUTIONAL: [well appearing, alert and in acute distress] EYES: [EOMI, clear conjunctiva, PERRLA] HENT: [Normocephalic, atraumatic, moist mucus membranes, normal oropharynx] NECK: [normal inspection, full ROM, trachea midline, no obvious swelling] PULMONARY: [normal lung sounds bilaterally, normal chest rise and fall, no respiratory distress or stridor, no wheezes, no rales, no rhonchi CARDIOVASCULAR: [regular rate, regular rhythm, normal heart sounds, no murmurs, distal extremities are warm and well perfused] GASTROINSTESTINAL: [soft, distended, guarding in the right upper quadrant and right lower quadrant, emesis on her gown and vomiting during exam] GENITOURINARY/RECTAL: [deferred] NEUROLOGIC: [Alert, oriented x3, normal speech, moves all extremities] EXTREMITIES: [Normal inspection, full ROM, no tenderness, no pedal edema, normal capillary refill] MUSCULOSKELETAL: [no gross deformities, atraumatic] SKIN: [No cyanosis, no diaphoresis, normal color, warm, no rash multiple areas of ecchymosis from previous IV attempts] PSYCHIATRIC: [anxious] - General Limitations: no limitations General appearance: alert Course - Reevaluation(s) Reevaluation #1: Patient's CT does show an ileus. She has had multiple CTs within the last few months. She is still actively vomiting so we will place an NG tube. She also has a fairly significant leukocytosis raising the concern over potential infectious ideology, however, reactive from vomiting. Is also considered. Spoke with surgery, Dr. Ray and he will consult. Admitted the hospitalist service. Vital Signs Temperature 98.2 F 07/08/18 12:29 Pulse Rate 87 07/08/18 12:29 Respiratory Rate 18 07/08/18 12:29 Blood Pressure 155/96 07/08/18 12:29 O2 Sat by Pulse Oximetry 100 07/08/18 12:29 Temperature 98.2 F 07/08/18 12:29 Pulse Rate 87 07/08/18 12:29 Respiratory Rate 18 07/08/18 12:29 Blood Pressure 155/96 07/08/18 12:29 O2 Sat by Pulse Oximetry 100 07/08/18 12:29 Oxygen Delivery Oxygen Delivery Nasal Cannula Abdominal Pain - Lab Data Result diagrams: 07/08/18 13:18 07/08/18 13:03 Lab Results 07/08/18 07/08/18 07/08/18 Range/Units 13:03 13:03 13:18 WBC 25.8 H (4.3-11.1) K/mcL RBC 4.36 (3.82-4.97) M/mcL Hgb 12.6 (11.5-15.4) g/dL Hct 38.9 (35.3-44.9) % MCV 89.2 (83.0-100.0) fL MCH 28.9 (28.0-33.3) pg MCHC 32.4 (31.6-35.5) g/dL RDW 20.8 H (11.5-14.5) % Plt Count 346 (140-400) K/mcL MPV 12.4 (9.4-12.4) fL Seg Neutrophils % 80.0 % Band Neutrophils % 4.0 (0-4) % Lymphocytes % 10.0 % Monocytes % 6.0 % Neutrophils # 21.7 H (1.6-8.9) K/mcL Lymphocytes # 2.6 (0.6-4.6) K/mcL Monocytes # 1.6 H (0.0-1.3) K/mcL Platelet Estimate Normal (Normal) Large Platelets Present A (Not Present) Anisocytosis 1+ A (Not Present) Sodium 137 (136-145) mEq/L Potassium 3.5 (3.5-5.1) mEq/L Chloride 102 (98-107) mEq/L Carbon Dioxide 17 L (23-29) mEq/L BUN 41 H (6-20) mg/dL Creatinine 2.11 H (0.60-1.20) mg/dL Est GFR ( Amer) 29 L (> 60) Est GFR (Non-Af Amer) 24 L (> 60) BUN/Creatinine Ratio 19 (6-26) Glucose 142 H (70-105) mg/dL Calculated Osmolality 297 (280-300) Lactic Acid 2.4 H (0.5-2.2) mmol/L Calcium 9.7 (8.6-10.3) mg/dL Total Bilirubin 0.7 (0.3-1.0) mg/dL Direct Bilirubin 0.2 (0.0-0.2) mg/dL Indirect Bilirubin 0.5 (0.0-1.2) mg/dL AST 26 (13-39) Units/L ALT 15 (7-52) Units/L Alkaline Phosphatase 118 H (34-104) Units/L Serum Total Protein 7.7 (6.4-8.9) g/dL Albumin 4.2 (3.5-5.7) g/dL Globulin 3.5 (2.4-3.5) g/dL Albumin/Globulin Ratio 1.2 (1.1-2.2) Lipase 33 (11-82) Units/L Urine Color (Yellow) Urine Clarity (Clear) Urine pH (5.0-8.0) pH Units Ur Specific [place] (1.010-1.025) Urine Protein (Neg-Trace) mg/dL Urine Glucose (UA) (Normal) mg/dL Urine Ketones (Negative) mg/dL Urine Blood (Negative) Urine Nitrite (Negative) Urine Bilirubin (Negative) Urine Urobilinogen (Normal) mg/dL Ur Leukocyte Esterase (Negative) Urine Microscopic RBC (0-3) per hpf Urine Microscopic WBC (0-3) per hpf Ur Squamous Epith Cells (None-Few) per lpf Urine Bacteria (None-Few) per hpf Hyaline Casts (None-Few) per lpf Ur Culture Indicated? (NO) 07/08/18 Range/Units 14:25 WBC (4.3-11.1) K/mcL RBC (3.82-4.97) M/mcL Hgb (11.5-15.4) g/dL Hct (35.3-44.9) % MCV (83.0-100.0) fL MCH (28.0-33.3) pg MCHC (31.6-35.5) g/dL RDW (11.5-14.5) % Plt Count (140-400) K/mcL MPV (9.4-12.4) fL Seg Neutrophils % % Band Neutrophils % (0-4) % Lymphocytes % % Monocytes % % Neutrophils # (1.6-8.9) K/mcL Lymphocytes # (0.6-4.6) K/mcL Monocytes # (0.0-1.3) K/mcL Platelet Estimate (Normal) Large Platelets (Not Present) Anisocytosis (Not Present) Sodium (136-145) mEq/L Potassium (3.5-5.1) mEq/L Chloride (98-107) mEq/L Carbon Dioxide (23-29) mEq/L BUN (6-20) mg/dL Creatinine (0.60-1.20) mg/dL Est GFR ( Amer) (> 60) Est GFR (Non-Af Amer) (> 60) BUN/Creatinine Ratio (6-26) Glucose (70-105) mg/dL Calculated Osmolality (280-300) Lactic Acid (0.5-2.2) mmol/L Calcium (8.6-10.3) mg/dL Total Bilirubin (0.3-1.0) mg/dL Direct Bilirubin (0.0-0.2) mg/dL Indirect Bilirubin (0.0-1.2) mg/dL AST (13-39) Units/L ALT (7-52) Units/L Alkaline Phosphatase (34-104) Units/L Serum Total Protein (6.4-8.9) g/dL Albumin (3.5-5.7) g/dL Globulin (2.4-3.5) g/dL Albumin/Globulin Ratio (1.1-2.2) Lipase (11-82) Units/L Urine Color Yellow (Yellow) Urine Clarity Hazy A (Clear) Urine pH 5.5 (5.0-8.0) pH Units Ur Specific [place] 1.016 (1.010-1.025) Urine Protein Negative (Neg-Trace) mg/dL Urine Glucose (UA) Normal (Normal) mg/dL Urine Ketones Negative (Negative) mg/dL Urine Blood Negative (Negative) Urine Nitrite Negative (Negative) Urine Bilirubin Small H (Negative) Urine Urobilinogen Normal (Normal) mg/dL Ur Leukocyte Esterase Small H (Negative) Urine Microscopic RBC 0-3 (0-3) per hpf Urine Microscopic WBC 5-15 H (0-3) per hpf Ur Squamous Epith Cells Many H (None-Few) per lpf Urine Bacteria Few (None-Few) per hpf Hyaline Casts None Seen (None-Few) per lpf Ur Culture Indicated? NO. A (NO)
--- NOTE | 2018-07-08 12:59 | Emergency Department Note ---
Disposition Clinical Impression: Ileus, Vomiting Disposition: Admitted As Inpatient Condition: Fair Referrals: Van James MD [Primary Care Provider] - Forms: ED Satisfaction Letter, Work/School Release General Adult HPI - General Chief complaint: ED Abdominal Pain Stated complaint: Abd Pain Time Seen by Provider: 07/08/18 12:26 Source: EMS Mode of arrival: EMS Limitations: no limitations Nursing Notes Reviewed: Yes Vital Signs Reviewed: Yes - History of Present Illness Pain Scale: 10 - Related Data Home Medications Medication Instructions Recorded Confirmed Aspirin 81 mg PO DAILY 09/28/15 06/21/18 Nitroglycerin [Nitrostat] 0.4 mg SL Q5M PRN 09/28/15 06/21/18 Omeprazole [PriLOSEC] 20 mg PO BID 09/28/15 06/21/18 cloNIDine HCl [CloNIDine HCl] 0.1 mg PO TID PRN 09/26/16 06/21/18 rOPINIRole [Requip] 1 mg PO 199909/26/16 06/21/18 Furosemide [Lasix] 40 mg PO DAILY 08/22/17 06/21/18 Ondansetron HCl [Zofran] 4 mg PO Q6H PRN 08/22/17 06/21/18 BuPROPion SR (12 HR) [Wellbutrin 150 mg PO DAILY 06/04/18 06/21/18 SR] Losartan Potassium 50 mg PO DAILY 06/04/18 06/21/18 Venlafaxine HCl [Venlafaxine HCl 150 mg PO DAILY 06/04/18 06/21/18 ER] Acetaminophen [Tylenol Arthritis] 650 mg PO Q6H PRN 06/21/18 06/21/18 Atorvastatin [Lipitor] 20 mg PO 199906/21/18 06/21/18 Bupropion HCl [Wellbutrin Xl] 300 mg PO 199906/21/18 06/21/18 Gabapentin 600 mg PO BID PRN 06/21/18 06/21/18 Gabapentin [Neurontin] 300 mg PO BID PRN 06/21/18 06/21/18 Lactose-Reduced Food [Ensure 1 bottle PO TIDWM 06/21/18 06/21/18 Original] Metoprolol [Lopressor] 25 mg PO DAILY 06/21/18 06/21/18 cephALEXin [Keflex] 500 mg PO BID 06/21/18 06/21/18 Previous Rx's Medication Instructions Recorded Apixaban [Eliquis] 5 mg PO BID #60 tablet 08/23/17 Isosorbide MONOnitrate (24 HR) 30 mg PO DAILY #30 tab.er.24h 03/25/18 [Imdur] Clopidogrel [Plavix] 75 mg PO DAILY #30 tablet 06/10/18 Docusate [Colace] 100 mg PO BID PRN #60 capsule 06/10/18 Ferrous Sulfate 325 mg PO BIDWM #60 tablet 06/10/18 Potassium Chloride 40 meq PO DAILY #60 tab.er.prt 06/10/18 Allergies Allergy/AdvReac Type Severity Reaction Status Date / Time No Known Allergies Allergy Verified 02/26/18 09:30 Past Medical History - Past Medical History Medical history: Reports: arthritis, cancer, coronary artery disease, DVT, fibromyalgia, GERD, hyperlipidemia, hypertension, pulmonary embolus, RA, renal disease, thyroid disease Surgical history: Reports: angioplasty/stent, breast surgery, cholecystectomy, herniorrhaphy, knee replacement, bariatric surgery, IVC filter Psychiatric history: Reports: anxiety, depression - Social History Smoking Status: Never smoker Smokeless Tobacco Status: No Alcohol use: Reports: none Drug use: Reports: none Physical Exam - General Limitations: no limitations General appearance: alert Course Vital Signs Temperature 98.2 F 07/08/18 12:29 Pulse Rate 87 07/08/18 12:29 Respiratory Rate 18 07/08/18 12:29 Blood Pressure 155/96 07/08/18 12:29 O2 Sat by Pulse Oximetry 100 07/08/18 12:29 Temperature 98.2 F 07/08/18 12:29 Pulse Rate 87 07/08/18 12:29 Respiratory Rate 18 07/08/18 12:29 Blood Pressure 155/96 07/08/18 12:29 O2 Sat by Pulse Oximetry 100 07/08/18 12:29 Oxygen Delivery Oxygen Delivery Nasal Cannula Medical Decision Making - [facility] Narrative Medical decision making narrative: Abdomen/Pelvis CT 07/08/18 12:34 IMPRESSION: 1. New mildly dilated loops of small bowel without a discrete transition point favoring an ileus rather than a partial small bowel obstruction. D/ / Zaheer Dailey MD / Zaheer Dailey MD Interpreting Provider: Zaheer Dailey MD 1549 hrs.: Patient does have a new ileus. Spoke with surgery and the hospitalist and they are admitting. - Lab Data Result diagrams: 07/08/18 13:18 07/08/18 13:03 Lab Results 07/08/18 07/08/18 07/08/18 Range/Units 13:03 13:03 13:18 WBC 25.8 H (4.3-11.1) K/mcL RBC 4.36 (3.82-4.97) M/mcL Hgb 12.6 (11.5-15.4) g/dL Hct 38.9 (35.3-44.9) % MCV 89.2 (83.0-100.0) fL MCH 28.9 (28.0-33.3) pg MCHC 32.4 (31.6-35.5) g/dL RDW 20.8 H (11.5-14.5) % Plt Count 346 (140-400) K/mcL MPV 12.4 (9.4-12.4) fL Seg Neutrophils % 80.0 % Band Neutrophils % 4.0 (0-4) % Lymphocytes % 10.0 % Monocytes % 6.0 % Neutrophils # 21.7 H (1.6-8.9) K/mcL Lymphocytes # 2.6 (0.6-4.6) K/mcL Monocytes # 1.6 H (0.0-1.3) K/mcL Platelet Estimate Normal (Normal) Large Platelets Present A (Not Present) Anisocytosis 1+ A (Not Present) Sodium 137 (136-145) mEq/L Potassium 3.5 (3.5-5.1) mEq/L Chloride 102 (98-107) mEq/L Carbon Dioxide 17 L (23-29) mEq/L BUN 41 H (6-20) mg/dL Creatinine 2.11 H (0.60-1.20) mg/dL Est GFR ( Amer) 29 L (> 60) Est GFR (Non-Af Amer) 24 L (> 60) BUN/Creatinine Ratio 19 (6-26) Glucose 142 H (70-105) mg/dL Calculated Osmolality 297 (280-300) Lactic Acid 2.4 H (0.5-2.2) mmol/L Calcium 9.7 (8.6-10.3) mg/dL Total Bilirubin 0.7 (0.3-1.0) mg/dL Direct Bilirubin 0.2 (0.0-0.2) mg/dL Indirect Bilirubin 0.5 (0.0-1.2) mg/dL AST 26 (13-39) Units/L ALT 15 (7-52) Units/L Alkaline Phosphatase 118 H (34-104) Units/L Serum Total Protein 7.7 (6.4-8.9) g/dL Albumin 4.2 (3.5-5.7) g/dL Globulin 3.5 (2.4-3.5) g/dL Albumin/Globulin Ratio 1.2 (1.1-2.2) Lipase 33 (11-82) Units/L Urine Color (Yellow) Urine Clarity (Clear) Urine pH (5.0-8.0) pH Units Ur Specific [place] (1.010-1.025) Urine Protein (Neg-Trace) mg/dL Urine Glucose (UA) (Normal) mg/dL Urine Ketones (Negative) mg/dL Urine Blood (Negative) Urine Nitrite (Negative) Urine Bilirubin (Negative) Urine Urobilinogen (Normal) mg/dL Ur Leukocyte Esterase (Negative) Urine Microscopic RBC (0-3) per hpf Urine Microscopic WBC (0-3) per hpf Ur Squamous Epith Cells (None-Few) per lpf Urine Bacteria (None-Few) per hpf Hyaline Casts (None-Few) per lpf Ur Culture Indicated? (NO) 07/08/18 Range/Units 14:25 WBC (4.3-11.1) K/mcL RBC (3.82-4.97) M/mcL Hgb (11.5-15.4) g/dL Hct (35.3-44.9) % MCV (83.0-100.0) fL MCH (28.0-33.3) pg MCHC (31.6-35.5) g/dL RDW (11.5-14.5) % Plt Count (140-400) K/mcL MPV (9.4-12.4) fL Seg Neutrophils % % Band Neutrophils % (0-4) % Lymphocytes % % Monocytes % % Neutrophils # (1.6-8.9) K/mcL Lymphocytes # (0.6-4.6) K/mcL Monocytes # (0.0-1.3) K/mcL Platelet Estimate (Normal) Large Platelets (Not Present) Anisocytosis (Not Present) Sodium (136-145) mEq/L Potassium (3.5-5.1) mEq/L Chloride (98-107) mEq/L Carbon Dioxide (23-29) mEq/L BUN (6-20) mg/dL Creatinine (0.60-1.20) mg/dL Est GFR ( Amer) (> 60) Est GFR (Non-Af Amer) (> 60) BUN/Creatinine Ratio (6-26) Glucose (70-105) mg/dL Calculated Osmolality (280-300) Lactic Acid (0.5-2.2) mmol/L Calcium (8.6-10.3) mg/dL Total Bilirubin (0.3-1.0) mg/dL Direct Bilirubin (0.0-0.2) mg/dL Indirect Bilirubin (0.0-1.2) mg/dL AST (13-39) Units/L ALT (7-52) Units/L Alkaline Phosphatase (34-104) Units/L Serum Total Protein (6.4-8.9) g/dL Albumin (3.5-5.7) g/dL Globulin (2.4-3.5) g/dL Albumin/Globulin Ratio (1.1-2.2) Lipase (11-82) Units/L Urine Color Yellow (Yellow) Urine Clarity Hazy A (Clear) Urine pH 5.5 (5.0-8.0) pH Units Ur Specific [place] 1.016 (1.010-1.025) Urine Protein Negative (Neg-Trace) mg/dL Urine Glucose (UA) Normal (Normal) mg/dL Urine Ketones Negative (Negative) mg/dL Urine Blood Negative (Negative) Urine Nitrite Negative (Negative) Urine Bilirubin Small H (Negative) Urine Urobilinogen Normal (Normal) mg/dL Ur Leukocyte Esterase Small H (Negative) Urine Microscopic RBC 0-3 (0-3) per hpf Urine Microscopic WBC 5-15 H (0-3) per hpf Ur Squamous Epith Cells Many H (None-Few) per lpf Urine Bacteria Few (None-Few) per hpf Hyaline Casts None Seen (None-Few) per lpf Ur Culture Indicated? NO. A (NO) Attestation Statement - Attestation Attestation: This documentation is done with the assistance of Dragon dictation. Despite efforts made to ensure accuracy, there may be inaccuracies in traffic controller cable or spelling and typographical errors. I examined this patient and my medical decision-making was reviewed with the Resident Physician. I agree with the documented findings, disposition and treatment plan as described except to the extent set forth below. Patient seen and evaluated on arrival by Dr. Campbell and myself, I agree with his evaluation and management plan, I supervised the care the patient's stay. Patient presents today with abdominal pain. She says she was seen here yesterday and then had constipation but now she is actually vomiting at the bolus looking vomit. She has no chest pain or fevers her pain is more in the right she sits across entire abdomen. Looked at her CT from yesterday looks like she large amount constipation. Were going to image her again today and give her some medication she has very poor IV access will have a midline placed and then reassess. She is in agreement with plan.
[2018-07-08 13:29] LABS: Hematocrit 38.9 % (35.3-44.9); Hemoglobin 12.6 g/dL (11.5-15.4); Mean Corpuscular HGB Conc 32.4 g/dL (31.6-35.5); Mean Corpuscular Hemoglobin 28.9 pg (28.0-33.3); Mean Corpuscular Volume 89.2 fL (83.0-100.0); Mean Platelet Volume 12.4 fL (9.4-12.4); Platelet Count 346 K/mcL (140-400); Red Blood Count 4.36 M/mcL (3.82-4.97); Red Cell Distribution Width 20.8 % (11.5-14.5)
[2018-07-08 13:32] LABS: Albumin 4.2 g/dL (3.5-5.7); Albumin/Globulin Ratio 1.2 (1.1-2.2); Bilirubin,Direct 0.2 mg/dL (0.0-0.2); Bilirubin,Indirect 0.5 mg/dL (0.0-1.2); Bilirubin,Total 0.7 mg/dL (0.3-1.0); Calcium 9.7 mg/dL (8.6-10.3); Globulin 3.5 g/dL (2.4-3.5); Potassium 3.5 mEq/L (3.5-5.1); Total Protein 7.7 g/dL (6.4-8.9)
[2018-07-08 13:42] LABS: Large Platelets Present (Not Present); Lymphocytes # 2.6 K/mcL (0.6-4.6); Monocytes # 1.6 K/mcL (0.0-1.3); Neutrophils # 21.7 K/mcL (1.6-8.9); Platelet Estimate Normal (Normal)
[2018-07-08 13:43] LABS: Anisocytosis 1+ (Not Present)
[2018-07-08] MEDS ORDERED: *HR* FentaNYL (PF) 100 MCG/2 ML VIAL IVP ONE (14:13)
[2018-07-08] MEDS ORDERED: 0.9 % Sodium Chloride 1,000 ML IVC ONE ×2 (14:16→20:02)
[2018-07-08 14:37] LABS: Bilirubin,Urine Small (Negative); Blood,Urine Negative (Negative); Color,Urine Yellow (Yellow); Glucose,Urine (UA) Normal (Normal); Ketones,Urine Negative (Negative); Leukocyte Esterase,Urine Small (Negative); Nitrite,Urine Negative (Negative); PH,Urine 5.5 pH Units (5.0-8.0); Protein,Urine Negative (Neg-Trace); Specific Gravity,Urine 1.016 (1.010-1.025); Urobilinogen,Urine Normal (Normal)
[2018-07-08 14:39] LABS: Bacteria,Urine Few per hpf (None-Few); Hyaline Casts,Urine None Seen per lpf (None-Few); Squamous Epithelial Cell,Urine Many per lpf (None-Few)
[2018-07-08 14:40] LABS: Clarity,Urine Hazy (Clear)
[2018-07-08 14:48] LABS: RBC,Urine 0-3 per hpf (0-3)
[2018-07-08] MEDS ORDERED: Methylnaltrexone 12 MG/0.6 ML SYRINGE SQ ONE (16:06)
--- NOTE | 2018-07-08 16:06 | General Surgery Consult Note ---
Addendum entered and electronically signed by Zeenat Jernigan CNP 07/08/18 16:36: No stricture or rectal mass noted on MORTEZA Original Note: <Zeenat Jernigan - Last Filed: 07/08/18 16:03> Date of Encounter: 07/08/18 Time of Encounter: 16:03 Assessment and Plan (1) Abdominal pain Status: Acute CT 07/08/2018 (without contrast) notes possible ileus given dilated small bowel however there is stool noted throughout the entire colon. The patient reports her last normal bowel movement was several days ago. She reports taking stool softeners "and all kinds of stuff to make me go to the bathroom every day." On digital rectal exam, there is a moderate amount of stool that is hard noted within the rectum. I was unable to disimpact any of this. Given her history of gastric bypass, would avoid NG tube as this is mostly likley obstipation (given below) rather than ileus. Noted last colonoscopy 2016 with polyp and a notable large lipoma in the ascending colon She is somewhat histrionic on abdominal exam (winces when stethoscope is placed on abdomen). She is recommended to be treated for obstipation. Medical molasses enemas Q6 hours, Dulcolax suppositories twice-daily, and MiraLAX twice daily (when n/v resolved) until having bowel movements daily that are mashed potatoes consistency then may stop Dulcolax and decrease MiraLAX to as needed. Will also treat her with one dose of methylnaltrexone sub Q now. Serial abdominal exams Treat obstipation as above Repeat am labs Qualifiers: Abdominal location: generalized Qualified Code(s): R10.84 - Generalized ab dominal pain (2) Lipoma of colon Status: Acute Unlikely contributory, but will collaborate with attending surgeon History of Present Illness Consult date: 07/08/18 (Dr. Nilo Ray) Reason for consult: abdominal pain Requesting physician: Trent Campbell History of present illness: Patient's past medical, surgical, social, and family history has been reviewed with the patient (and her mother) at bedside and updated in the EMR where daniele cated last colonoscopy was February 19, 2017 and with noted flat polyp in the cecum lipoma in the proximal ascending colon, small and large mouth diverticula in the entire colon, moderate amount of stool in the sigmoid and descending colon Surgery has been consulted for recommendations for possible ileus Patient presented on 07/08/2017 following a two-day history of abdominal pain. Per record review she was also seen in the emergency department on 07/07/2018 for abdominal pain, nausea, and vomiting. Her CT was without evidence of diverticulitis and a large amount of stool burden in the colon at that time. A CT was repeated today which notes a slight change of new mildly dilated loops of small bowel without a discreet transition point. Presently, she reports widespread abdominal discomfort that is sharp inconstant. She reports a bowel movement approximately 2 to 3 days ago that was Brown and formed. She reports taking laxatives and stool softeners as previously noted. She reports a small amount of blood stain in the toilet when she had her bowel movement 2 to 3 days ago. Other than that she denies black, bloody, or tarry stool. She endorses nausea and vomiting associated with the abdominal discomfort. She reports right lower extremity pain that is improving. She notes a recent fall at which she time she broke her femur. She has been on pain medication and in rehab since then. She denies urinary signs or symptoms. She also reports a history of "blood clots everywhere." Past Med Surg Social Fam HX - Past Medical History Source: patient, old records reviewed Medical history: arthritis, cancer, coronary artery disease, DVT, fibromyalgia, GERD, hyperlipidemia, hypertension, pulmonary embolus, RA, renal disease, thyroid disease, other (Lipoma ascending colon; diverticulosis, colon polyps) Additional medical history: STAGE 3 KIDNEY FAILURE, bilateral osetoarthritis, abnormal mommogram, pericarditis, blood clots in lungs, anemic Psychiatric history: anxiety, depression - Past Surgical History Surgical History: angioplasty/stent, breast surgery, cholecystectomy, herniorrhaphy, knee replacement, bariatric surgery, IVC filter Additional surgical history: left carpal tunnel release, bilateral rotator cuff tear repair, tubal ligation, colonoscopy, left lumpectomy, gastric bypass - Social History Smoking Status: Never smoker Smokeless Tobacco Status: No Alcohol use: none Drug use: none Occupational status: unemployed Current living situation: ECF - Family History Father Living Status: Still Living Hx Family Cardiac Disorders: Yes (HTN) Hx Family Endocrine Disorder: Yes (DM) Mother Living Status: Still Living Hx Family Cardiac Disorders: Yes (HTN) Hx Family Respiratory Disorders: No Hx Family Cancer: No Hx Family GI Disorders: No Hx Family Endocrine Disorder: No Hx Family Neuromuscular Disorders: No Hx Family Neurologic Disorders: No Hx Family HEENT Disorders: No Hx Family Autoimmune Disorders: No Medications and Allergies RX: Aspirin 81 mg PO DAILY 09/28/15 [History] RX: Nitroglycerin [Nitrostat] 0.4 mg SL Q5M PRN 09/28/15 [History] RX: Omeprazole [PriLOSEC] 20 mg PO BID 09/28/15 [History] RX: cloNIDine HCl [CloNIDine HCl] 0.1 mg PO TID PRN 09/26/16 [History] RX: rOPINIRole [Requip] 1 mg PO 199909/26/16 [History] RX: Furosemide [Lasix] 40 mg PO DAILY 08/22/17 [History] RX: Ondansetron HCl [Zofran] 4 mg PO Q6H PRN 08/22/17 [History] RX: Apixaban [Eliquis] 5 mg PO BID #60 tablet 08/23/17 [Rx] RX: Isosorbide MONOnitrate (24 HR) [Imdur] 30 mg PO DAILY #30 tab.er.24h [Rx] RX: BuPROPion SR (12 HR) [Wellbutrin SR] 150 mg PO DAILY 06/04/18 [History] RX: Losartan Potassium 50 mg PO DAILY 06/04/18 [History] RX: Venlafaxine HCl [Venlafaxine HCl ER] 150 mg PO DAILY 06/04/18 [History] RX: Clopidogrel [Plavix] 75 mg PO DAILY #30 tablet 06/10/18 [Rx] RX: Docusate [Colace] 100 mg PO BID PRN #60 capsule 06/10/18 [Rx] RX: Ferrous Sulfate 325 mg PO BIDWM #60 tablet 06/10/18 [Rx] RX: Potassium Chloride 40 meq PO DAILY #60 tab.er.prt 06/10/18 [Rx] RX: Atorvastatin [Lipitor] 20 mg PO 199906/21/18 [History] RX: Gabapentin 600 mg PO BID PRN 06/21/18 [History] RX: Gabapentin [Neurontin] 300 mg PO BID PRN 06/21/18 [History] RX: Metoprolol [Lopressor] 25 mg PO DAILY 06/21/18 [History] Acetaminophen [Tylenol] 650 mg PO Q6HR PRN 07/09/18 [History] Bupropion HCl [Wellbutrin Xl] 300 mg PO 2000 07/09/18 [History] HYDROcodone/Acet 5/325 mg [[place] 5-325 mg] 1 tab PO Q6H PRN 07/09/18 [History] OxyCODONE ER (12 HR) [OxyCONTIN] 30 mg PO Q12HR 07/09/18 [History] clonazePAM [Clonazepam] 1 mg PO TID PRN 07/09/18 [History] Allergy/AdvReac Type Severity Reaction Status Date / Time No Known Allergies Allergy Verified 02/26/18 09:30 Review of Systems All systems PM: reviewed and no additional remarkable complaints except as stated All systems PM: The remainder of the systems were reviewed and are negative General Surgery Exam Initial Vital Signs Temp Pulse Resp BP Pulse Ox 98.2 F 87 18 155/96 100 07/08/18 12:07/08/18 12:07/08/18 12:29 07/08/18 12:07/08/18 12:29 - General physical appearance other (drowsy (she previously received fentanyl)) - Eyes normal ocular movement - ENT normal nares, normal mucosa, atraumatic, normocephalic - Neck trachea midline - Respiratory normal expansion, normal respiratory effort - Cardiovascular Cardiovascular exam: Present: tachycardia - Abdomen Abdomen general surgery: Present: bowel sounds present, soft, tender Abdominal Tenderness: Present: diffusely Exam Initial Vital Signs Temp Pulse Resp BP Pulse Ox 98.2 F 87 18 155/96 100 07/08/18 12:29 07/08/18 12:29 07/08/18 12:29 07/08/18 12:29 07/08/18 12:29 Results - Labs 07/08/18 13:18 07/08/18 13:03 Abnormal lab results WBC 25.8 K/mcL (4.3-11.1) H 07/08/18 13:18 RDW 20.8 % (11.5-14.5) H 07/08/18 13:18 Neutrophils # 21.7 K/mcL (1.6-8.9) H 07/08/18 13:18 Monocytes # 1.6 K/mcL (0.0-1.3) H 07/08/18 13:18 Large Platelets Present (Not Present) A 07/08/18 13:18 Anisocytosis 1+ (Not Present) A 07/08/18 13:18 Carbon Dioxide 17 mEq/L (23-29) L 07/08/18 13:03 BUN 41 mg/dL (6-20) H 07/08/18 13:03 Creatinine 2.11 mg/dL (0.60-1.20) H 07/08/18 13:03 Est GFR ( Amer) 29 (> 60) L 07/08/18 13:03 Est GFR (Non-Af Amer) 24 (> 60) L 07/08/18 13:03 Glucose 142 mg/dL (70-105) H 07/08/18 13:03 Lactic Acid 2.4 mmol/L (0.5-2.2) H 07/08/18 13:03 Alkaline Phosphatase 118 Units/L (34-104) H 07/08/18 13:03 Urine Clarity Hazy (Clear) A 07/08/18 14:25 Urine Bilirubin Small (Negative) H 07/08/18 14:25 Ur Leukocyte Esterase Small (Negative) H 07/08/18 14:25 Urine Microscopic WBC 5-15 per hpf (0-3) H 07/08/18 14:25 Ur Squamous Epith Cells Many per lpf (None-Few) H 07/08/18 14:25 Ur Culture Indicated? NO. (NO) A 07/08/18 14:25 Diabetes panel 07/08/18 Range/Units 13:03 Sodium 137 (136-145) mEq/L Potassium 3.5 (3.5-5.1) mEq/L Chloride 102 (98-107) mEq/L Carbon Dioxide 17 L (23-29) mEq/L BUN 41 H (6-20) mg/dL Creatinine 2.11 H (0.60-1.20) mg/dL Glucose 142 H (70-105) mg/dL Calcium 9.7 (8.6-10.3) mg/dL AST 26 (13-39) Units/L ALT 15 (7-52) Units/L Alkaline Phosphatase 118 H (34-104) Units/L Albumin 4.2 (3.5-5.7) g/dL Calcium panel 02/25/19 Range/Units 13:03 Calcium 9.7 (8.6-10.3) mg/dL Albumin 4.2 (3.5-5.7) g/dL Pituitary panel 07/08/18 Range/Units 13:03 Sodium 137 (136-145) mEq/L Potassium 3.5 (3.5-5.1) mEq/L Chloride 102 (98-107) mEq/L Carbon Dioxide 17 L (23-29) mEq/L BUN 41 H (6-20) mg/dL Creatinine 2.11 H (0.60-1.20) mg/dL Glucose 142 H (70-105) mg/dL Calcium 9.7 (8.6-10.3) mg/dL Adrenal panel 07/08/18 Range/Units 13:03 Sodium 137 (136-145) mEq/L Potassium 3.5 (3.5-5.1) mEq/L Chloride 102 (98-107) mEq/L Carbon Dioxide 17 L (23-29) mEq/L BUN 41 H (6-20) mg/dL Creatinine 2.11 H (0.60-1.20) mg/dL Glucose 142 H (70-105) mg/dL Calcium 9.7 (8.6-10.3) mg/dL Total Bilirubin 0.7 (0.3-1.0) mg/dL AST 26 (13-39) Units/L ALT 15 (7-52) Units/L Alkaline Phosphatase 118 H (34-104) Units/L Albumin 4.2 (3.5-5.7) g/dL All other labs normal. Consult Discharge Plan - Plan Referrals: Van James MD [Primary Care Provider] - <Nilo Ray - Last Filed: 07/10/18 22:52> Date of Encounter: 07/10/18 Assessment and Plan (1) Hypotension Status: Acute Qualifiers: Hypotension type: unspecified hypotension type Qualified Code(s): I95.9 - Hypotension, unspecified (2) Sepsis Status: Acute Qualifiers: Sepsis type: sepsis due to unspecified organism Qualified Code(s): A41.9 - Sepsis, unspecified organism (3) Ischemic necrosis of large intestine Status: Acute (4) Ischemic necrosis of small bowel Status: Acute Review of Systems All systems PM: The remainder of the systems were reviewed and are negative General Surgery Exam Initial Vital Signs Temp Pulse Resp BP Pulse Ox 98.2 F 87 18 155/96 100 07/08/18 12:29 07/08/18 12:07/08/18 12:07/08/18 12:07/08/18 12:29 Exam Initial Vital Signs Temp Pulse Resp BP Pulse Ox 98.2 F 87 18 155/96 100 07/08/18 12:07/08/18 12:07/08/18 12:07/08/18 12:07/08/18 12:29 Results - Labs 07/10/18 04:43 07/10/18 04:43 Abnormal lab results WBC 1.0 K/mcL (4.3-11.1) L* D 07/10/18 04:43 RBC 2.40 M/mcL (3.82-4.97) L 07/10/18 04:43 Hgb 6.8 g/dL (11.5-15.4) L 07/10/18 04:43 Hct 23.1 % (35.3-44.9) L 07/10/18 04:43 MCHC 29.4 g/dL (31.6-35.5) L 07/10/18 04:43 RDW 20.8 % (11.5-14.5) H 07/10/18 04:43 Plt Count 135 K/mcL (140-400) L 07/10/18 04:43 MPV 12.7 fL (9.4-12.4) H 07/10/18 04:43 Band Neutrophils % 30.0 % (0-4) H 07/09/18 21:23 Neutrophils # 0.2 K/mcL (1.6-8.9) L 07/10/18 04:43 Large Platelets Present (Not Present) A 07/09/18 19:02 Anisocytosis 1+ (Not Present) A 07/08/18 13:18 PT 27.2 Seconds (9.4-12.1) H 07/10/18 02:31 Heparin Anti-Xa, Unfract > 2.00 IU/mL (0.30-0.70) H* 07/09/18 22:50 ABG pH 7.11 pH Units (7.32-7.45) L* 07/10/18 07:30 ABG pO2 44 mmHg (85-104) L* 07/10/18 07:30 ABG HCO3 14 mEq/L (21-27) L 07/10/18 07:30 ABG Total CO2 16 mEq/L (20-26) L 07/10/18 07:30 ABG O2 Saturation 63 % (95-98) L 07/10/18 07:30 ABG Base Excess -14 mEq/L (-2 to 3) L 07/10/18 07:30 ABG Hematocrit 15.0 % (35.3-44.9) L* 07/10/18 03:07 ABG Chloride 120 mEq/L (98-107) H 07/10/18 03:07 Sodium 152 mEq/L (135-148) H 07/10/18 03:07 Potassium 3.4 mEq/L (3.5-5.3) L 07/10/18 03:07 Lactate 3.8 mmol/L (0.7-2.1) H 07/10/18 03:07 Sodium 149 mEq/L (136-145) H D 07/10/18 04:43 Chloride 117 mEq/L (98-107) H 07/10/18 04:43 Carbon Dioxide 14 mEq/L (23-29) L 07/10/18 04:43 BUN 25 mg/dL (6-20) H 07/10/18 04:43 Creatinine 1.23 mg/dL (0.60-1.20) H 07/10/18 04:43 Est GFR ( Amer) 55 (> 60) L 07/10/18 04:43 Est GFR (Non-Af Amer) 45 (> 60) L 07/10/18 04:43 POC Glucose 32 mg/dL (70-99) L* 07/10/18 12:10 Calculated Osmolality 311 (280-300) H 07/10/18 04:43 Lactic Acid > 10.0 mmol/L (0.5-2.2) H* 07/10/18 09:10 Phosphorus 5.3 mg/dL (2.7-4.5) H 07/10/18 04:43 Alkaline Phosphatase 118 Units/L (34-104) H 07/08/18 13:03 Urine Clarity Hazy (Clear) A 07/08/18 14:25 Urine Bilirubin Small (Negative) H 07/08/18 14:25 Ur Leukocyte Esterase Small (Negative) H 07/08/18 14:25 Urine Microscopic WBC 5-15 per hpf (0-3) H 07/08/18 14:25 Ur Squamous Epith Cells Many per lpf (None-Few) H 07/08/18 14:25 Ur Culture Indicated? NO. (NO) A 07/08/18 14:25 Diabetes panel 07/10/18 Range/Units 04:43 Sodium 149 H D (136-145) mEq/L Potassium 4.5 D (3.5-5.1) mEq/L Chloride 117 H (98-107) mEq/L Carbon Dioxide 14 L (23-29) mEq/L BUN 25 H (6-20) mg/dL Creatinine 1.23 H (0.60-1.20) mg/dL Glucose 76 (70-105) mg/dL Calcium 9.1 (8.6-10.3) mg/dL Calcium panel 07/10/18 Range/Units 04:43 Calcium 9.1 (8.6-10.3) mg/dL Phosphorus 5.3 H (2.7-4.5) mg/dL Pituitary panel 07/10/18 Range/Units 04:43 Sodium 149 H D (136-145) mEq/L Potassium 4.5 D (3.5-5.1) mEq/L Chloride 117 H (98-107) mEq/L Carbon Dioxide 14 L (23-29) mEq/L BUN 25 H (6-20) mg/dL Creatinine 1.23 H (0.60-1.20) mg/dL Glucose 76 (70-105) mg/dL Calcium 9.1 (8.6-10.3) mg/dL Adrenal panel 07/10/18 Range/Units 04:43 Sodium 149 H D (136-145) mEq/L Potassium 4.5 D (3.5-5.1) mEq/L Chloride 117 H (98-107) mEq/L Carbon Dioxide 14 L (23-29) mEq/L BUN 25 H (6-20) mg/dL Creatinine 1.23 H (0.60-1.20) mg/dL Glucose 76 (70-105) mg/dL Calcium 9.1 (8.6-10.3) mg/dL All other labs normal. - Attending Attestation patient seen and examined. I have reviewed all labs, imaging, and notes. I a gree with the above assessment and plan and wish to add the following... 58F sp gastric bypass ~6 years ago now with dilated bowel without a transition point. No evidence of bowel ischemia, abscess, internal hernia. Concern for ileus of unknown cause. Abdomen distended, mildly tender, non peritoneal; large stool burden also seen on CT, lots of soft stool on MORTEZA; recommend aggressive bowel regimen; will cont to follow
--- NOTE | 2018-07-08 16:12 | Internal Med History&Physical ---
Date of Encounter: 07/08/18 Time of Encounter: 16:09 Internal Medicine - H&P: HPI Chief complaint: Abdominal pain Admitted From: [facility]term Nursing Facility (short term [facility]) History of present illness: Ms. 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 Patient reports no bowel movement for the past couple days, however is passing flatus. She denies any hematemesis, lightheadedness, chest pain, shortness of breath, fever, chills. Patient was seen in the ER yesterday for similar complaint and patient was given IV Zofran, IV fentanyl and had CT abdomen/pelvis without contrast that showed a large amount of stool in the rectum diverticulosis. Colonoscopy in 2017 her surgery with polyp and notable large lipoma. Patient is a poor historian and somnolent since receiving pain medication. ER course: Vitals on presentation: Afebrile, heart rate 87, respiratory rate 18, BP 155/96, 100% on 2 L NC Fentanyl 50 MCG IV 1 Promethazine 25 mg IM 1 1 L NS bolus 1 CT abdomen/pelvis without contrast newly mildly dilated loops of small bowel without a discrete transition point suggestive of ileus Gen. surgery was consulted No NG tube due to history of gastric bypass Past Med Surg Social Fam HX - Past Medical History Medical history: arthritis, cancer, coronary artery disease, DVT, fibromyalgia, GERD, hyperlipidemia, hypertension, pulmonary embolus, RA, renal disease, thyroid disease Additional medical history: STAGE 3 KIDNEY FAILURE, bilateral osetoarthritis, abnormal mommogram, pericarditis, blood clots in lungs, anemic Psychiatric history: anxiety, depression - Past Surgical History Surgical History: angioplasty/stent, breast surgery, cholecystectomy, herniorrhaphy, knee replacement, bariatric surgery, IVC filter Additional surgical history: left carpal tunnel release, bilateral rotator cuff tear repair, tubal ligation, colonoscopy, left lumpectomy, gastric bypass - Social History Smoking Status: Never smoker Smokeless Tobacco Status: No Alcohol use: none Drug use: none - Family History Father Living Status: Still Living Hx Family Cardiac Disorders: Yes (HTN) Hx Family Endocrine Disorder: Yes (DM) Mother Living Status: Still Living Hx Family Cardiac Disorders: Yes (HTN) Hx Family Respiratory Disorders: No Hx Family Cancer: No Hx Family GI Disorders: No Hx Family Endocrine Disorder: No Hx Family Neuromuscular Disorders: No Hx Family Neurologic Disorders: No Hx Family HEENT Disorders: No Hx Family Autoimmune Disorders: No Internal Medicine - H&P: Meds Aspirin 81 mg PO DAILY 09/28/15 [History] Nitroglycerin [Nitrostat] 0.4 mg SL Q5M PRN 09/28/15 [History] Omeprazole [PriLOSEC] 20 mg PO BID 09/28/15 [History] cloNIDine HCl [CloNIDine HCl] 0.1 mg PO TID PRN 09/26/16 [History] rOPINIRole [Requip] 1 mg PO 199909/26/16 [History] Furosemide [Lasix] 40 mg PO DAILY 08/22/17 [History] Ondansetron HCl [Zofran] 4 mg PO Q6H PRN 08/22/17 [History] Apixaban [Eliquis] 5 mg PO BID #60 tablet 08/23/17 [Rx] Isosorbide MONOnitrate (24 HR) [Imdur] 30 mg PO DAILY #30 tab.er.24h 03/25/18 [Rx] BuPROPion SR (12 HR) [Wellbutrin SR] 150 mg PO DAILY 06/04/18 [History] Losartan Potassium 50 mg PO DAILY 06/04/18 [History] Venlafaxine HCl [Venlafaxine HCl ER] 150 mg PO DAILY 06/04/18 [History] Clopidogrel [Plavix] 75 mg PO DAILY #30 tablet 06/10/18 [Rx] Docusate [Colace] 100 mg PO BID PRN #60 capsule 06/10/18 [Rx] Ferrous Sulfate 325 mg PO BIDWM #60 tablet 06/10/18 [Rx] Potassium Chloride 40 meq PO DAILY #60 tab.er.prt 06/10/18 [Rx] Acetaminophen [Tylenol Arthritis] 650 mg PO Q6H PRN 06/21/18 [History] Atorvastatin [Lipitor] 20 mg PO 199906/21/18 [History] Bupropion HCl [Wellbutrin Xl] 300 mg PO 199906/21/18 [History] Gabapentin 600 mg PO BID PRN 06/21/18 [History] Gabapentin [Neurontin] 300 mg PO BID PRN 06/21/18 [History] Lactose-Reduced Food [Ensure Original] 1 bottle PO TIDWM 06/21/18 [History] Metoprolol [Lopressor] 25 mg PO DAILY 06/21/18 [History] cephALEXin [Keflex] 500 mg PO BID 06/21/18 [History] Allergy/AdvReac Type Severity Reaction Status Date / Time No Known Allergies Allergy Verified 02/26/18 09:30 All Systems PM: A 10-system review of systems was performed and is negative for pertinent findings except as documented above in the HPI. - Constitutional Constitutional: no chills, no fever(s) - Cardiovascular Cardiovascular ROS IM: no chest pain, no diaphoresis, no dyspnea, no edema, no lightheadedness, no palpitations - Respiratory Respiratory: cough, no hemoptysis, no excessive phlegm production - Gastrointestinal Gastrointestinal: abdominal pain, constipation, nausea, vomiting, no hematemesis, no hematochezia, no melena - Musculoskeletal Musculoskeletal ROS IM: no joint swelling, no numbness, no tingling - Neurological Neurological ROS: no confusion, no dizziness, no frequent falls - Constitutional Vitals: Temp Pulse Resp BP Pulse Ox 98.2 F 87 18 155/96 100 07/08/18 12:29 07/08/18 12:29 07/08/18 12:29 07/08/18 12:29 07/08/18 12:29 General appearance: Present: mild distress, A&O X 3 Exam: see above - Head Head exam: Present: atraumatic, normocephalic - Eye Eye exam: Present: EOMI, conjuntiva pink, sclera anicteric - Neck Neck exam general surgery: Present: supple, trachea midline - Respiratory Respiratory exam: Present: CTAB. Absent: accessory muscle use, wheezes - Cardiovascular Cardiovascular exam: Present: RRR, +S1, +S2. Absent: diastolic murmur, gallop, rubs, systolic murmur - GI/Abdominal GI/Abdominal exam: Present: hypoactive bowel sounds, soft, tenderness (to light palpation). Absent: distended - Extremities Exam Extremities exam: Present: warm, radial pulses palpable and symmetrical. Absent: calf tenderness, cyanotic, joint swelling, pedal edema - Neurological Exam Neurological exam: Present: oriented X3, no focal deficits. Absent: pronater drift, facial droop, speech deficit - Skin Skin exam: Present: dry, intact, warm. Absent: diaphoretic, rash Internal Med - H&P Results - Labs CBC & Chem 7: 07/08/18 13:18 07/08/18 13:03 Labs: Short CBC 07/08/18 Range/Units 13:18 WBC 25.8 H (4.3-11.1) K/mcL Hgb 12.6 (11.5-15.4) g/dL Hct 38.9 (35.3-44.9) % Plt Count 346 (140-400) K/mcL Neutrophils # 21.7 H (1.6-8.9) K/mcL BMP 07/08/18 13:03 Sodium 137 Potassium 3.5 Chloride 102 Carbon Dioxide 17 L BUN 41 H Creatinine 2.11 H Glucose 142 H Calcium 9.7 Liver Function 07/08/18 Range/Units 13:03 Total Bilirubin 0.7 (0.3-1.0) mg/dL Direct Bilirubin 0.2 (0.0-0.2) mg/dL AST 26 (13-39) Units/L ALT 15 (7-52) Units/L Alkaline Phosphatase 118 H (34-104) Units/L Albumin 4.2 (3.5-5.7) g/dL Urine 07/08/18 Range/Units 14:25 Urine Color Yellow (Yellow) Urine Clarity Hazy A (Clear) Urine pH 5.5 (5.0-8.0) pH Units Ur Specific [place] 1.016 (1.010-1.025) Urine Protein Negative (Neg-Trace) mg/dL Urine Glucose (UA) Normal (Normal) mg/dL - Impressions ITS Impressions Abdomen/Pelvis CT 07/08/18 12:34 IMPRESSION: 1. New mildly dilated loops of small bowel without a discrete transition point favoring an ileus rather than a partial small bowel obstruction. D/ / Zaheer Dailey MD / Zaheer Dailey MD Interpreting Provider: Zaheer Dailey MD - Assessment and Plan (1) Abdominal pain Current Visit: Yes Status: Acute Assessment and plan: Likely secondary to constipation due to possible ileus versus obstipation Patient has not had a bowel movement for several day CT abdomen/pelvis without contrast 07/07 - Large amount of stool in the colon, diverticulosis without evidence of diverticulitis CT abdomen/pelvis without contrast 07/08 - newly mildly dilated loops of small bowel without a discrete transition point suggestive of ileus Digital rectal exam per general surgery with hard stool and unsuccessful disimpaction WBC 25.8, from 18.6 yesterday suspect reactionary Lactic Acid 2.4, from 2.3 yesterday suspect reactionary Afebrile Hypertensive and hasn't been able tolerate PO meds No tachycardia or tachypnea Gen. surgery consulted by ER Continue molasses enemas every 6 hours, Dulcolax suppositories twice a day, MiraLAX once tolerating PO per surgery Started maintenance IVFs IV hydralazine PRN for HTN NPO until diet ok with surgery Serial abdominal exams PRN antiemetics Pain control Recheck morning labs Qualifiers: Abdominal location: generalized Qualified Code(s): R10.84 - Generalized abdominal pain (2) Leukocytosis Current Visit: Yes Status: Acute Assessment and plan: Possibly reactionary from multiple episodes of vomiting, unresolved constipation, less concern for infectious etiology WBC 25.8 from 18.6 yesterday Afebrile No tachycardia or tachypnea Started maintenance IVFs Will continue to monitor closely Qualifiers: Leukocytosis type: unspecified Qualified Code(s): D72.829 - Elevated white blood cell count, unspecified (3) Lactic acidosis Current Visit: Yes Status: Acute Assessment and plan: 2.4 from 2.3 yesterday Suspect reactionary with persistent vomiting s/p 1L IVFs in ER Will recheck at 1900 Started maintenance IVFs (4) Right femoral fracture Current Visit: Yes Status: Chronic Assessment and plan: s/p right open reduction internal fixation of distal femoral shaft fracture approximately 3-[address] Encinas Knee immobilizer in place Qualifiers: Encounter type: subsequent encounter Femur location: distal Fracture type: closed Fracture morphology: unspecified fracture morphology Fracture healing: with routine healing Qualified Code(s): S72.401D - Unspecified fracture of lower end of right femur, subsequent encounter for closed fracture with routine healing (5) GREG (acute kidney injury) Current Visit: Yes Status: Acute Assessment and plan: Cr 2.11 on admission, baseline of 0.8 s/p 1L IVFs in the ER Started LR 100/hr maintenance Will recheck kidney function and electrolytes in the AM (6) CAD (coronary artery disease) Current Visit: Yes Status: Chronic Assessment and plan: Records reviewed, patient being medically managed No PCI within the past year Holding Plavix d/t not tolerating PO meds Qualifiers: Coronary Disease-Associated Artery/Lesion type: [place] artery [place] vs. transplanted heart: [place] heart Associated angina: with unspecified angina Qualified Code(s): I25.119 - Atherosclerotic heart disease of [place] coronary artery with unspecified angina pectoris (7) Hypothyroid Current Visit: Yes Status: Chronic Assessment and plan: Unable to tolerate PO meds d/t nausea and vomiting Holding home synthroid for now Qualifiers: Hypothyroidism type: acquired Qualified Code(s): E03.9 - Hypothyroidism, unspecified (8) Hypertension Current Visit: Yes Status: Chronic Assessment and plan: Unable to tolerate PO meds d/t nausea and vomiting Started IV Hydralazine PRN Qualifiers: Hypertension type: essential hypertension Qualified Code(s): I10 - Essential (primary) hypertension (9) History of venous thrombosis and embolism Current Visit: Yes Status: Chronic Assessment and plan: On Eliquis, however unable to tolerate PO meds d/t nausea and vomiting Started Heparin drip (10) GERD (gastroesophageal reflux disease) Current Visit: Yes Status: Chronic Assessment and plan: Unable to tolerate PO meds d/t nausea and vomiting Started IV Pepcid Qualifiers: Qualified Code(s): K21.9 - Gastro-esophageal reflux disease without esophagitis (11) Chronic narcotic dependence Current Visit: Yes Status: Acute Assessment and plan: Chronic Oxycontin use For arthritis per patient report (12) DVT prophylaxis Current Visit: Yes Status: Acute Assessment and plan: Heparin drip Hx of DVT/PE, on eliquis - Time Spent With Patient Total time spent is greater than 50% in coordination of care (as documented) at patient's floor/unit and/or counseling patient:
[2018-07-08] MEDS ORDERED: Ondansetron 4 MG/2 ML VIAL IVP PRN (16:35)
[2018-07-08] MEDS ORDERED: Naloxone 0.4 MG/ML INJ IVP PRN (16:35)
[2018-07-08] MEDS ORDERED: OXYCODONE Oral CONC 10 MG/0.5 ML ORAL.SYG SL PRN (16:35)
[2018-07-08] MEDS ORDERED: Ringers Solution, Lactated 1,000 ML IVC SCH (16:45)
[2018-07-08] MEDS ORDERED: *HR* Heparin 5,000 UNIT/ML VIAL IVP ONE (16:49)
[2018-07-08] MEDS ORDERED: *HR* Heparin 5,000 UNIT/ML VIAL IVP PRN ×2 (16:49)
[2018-07-08] MEDS ORDERED: Heparin 25,000 UNIT/500 ML D5W 25,000 UNIT/500 ML BAG IVC SCH (17:00)
--- NOTE | 2018-07-08 17:15 | Event Note ---
Date of Encounter: 07/08/18 Time of Encounter: 17:09 Patient was seen and examined. I agree with the H&P as written by the resident physician. Admitted with abd pain/n/v. Seen in the ED yesterday and sent back to SNF. Had similar complaints. CT showed large stool burden. Came back due to nausea/vomiting persisting. Has not had a BM for [address] showed stool burden and possible ileus. Labs showed GREG, leukocytosis, mild lactic acidosis at 2.4. Afebrile in the ED. Hypertensive on my examination. BP 160/113. Given Fentnyl in the ED. Also given IV fluids, Phenergan. Seen by surgery who plan treating conservatively for now. NG tube was not recommended as patient has history of gastric bypass GEN: Mild distress CVS: RRR. S1, S2, No m/r/g RESP: CTAB ABD: There is tenderness with no rebound, ND, hypoactive BS EXT: No edema. 2+ DP. No rashes NEURO: Nonfocal Admit to hospitalist c/w IVF Pain control Anti-emetics NPO. Diet when ok with surgery Trend lactic acid. Leukocytosis likely reactive labs in am and monitor kidney function IV BP controlling agents Will place on heparin drip if unable to take PO. patient is on anticoags due to many previous DVTs and PEs.
[2018-07-08] MEDS: Famotidine 20 MG/2 ML VIAL IVP SCH (17:46)
[2018-07-08] MEDS: OXYCODONE Oral CONC 10 MG/0.5 ML ORAL.SYG SL PRN (17:47)
[2018-07-08 19:12] LABS: INR 2.2; Prothrombin Time 24.3 Seconds (9.4-12.1)
[2018-07-08 19:45] LABS: Heparin anti-factor XA UFH > 2.00 IU/mL (0.30-0.70)
[2018-07-08] MEDS: 0.9 % Sodium Chloride 1,000 ML IVC SCH (19:51)
[2018-07-08] MEDS: Milk and Molasses Enema 200 ML RC SCH ×2 (19:51→21:18)
[2018-07-08] MEDS: Bisacodyl 10 MG RECTAL SUPPOSITORY RC SCH (21:15)
[2018-07-08] MEDS ORDERED: Ondansetron 4 MG/2 ML VIAL IVP SCH (21:30)
[2018-07-09] MEDS: OXYCODONE Oral CONC 10 MG/0.5 ML ORAL.SYG SL PRN ×5 (00:01→19:44)
--- NOTE | 2018-07-09 00:37 | General Surg History&Physical ---
Date of Encounter: 07/09/18 Time of Encounter: 00:15 Assessment and Plan (1) Abdominal pain Current Visit: Yes Status: Inactive Qualifiers: Abdominal location: generalized Qualified Code(s): R10.84 - Generalized abdominal pain (2) Lipoma of colon Current Visit: Yes Status: Acute History of Present Illness Chief complaint: left groin pain HPI: Ms. Nicolas is a 58 year old female who looks older than stated age PMH significant for CAD/CVA on plavix per patient, HTN who presents with 1-2 days of worsening pain located at the left groin. It is non radiating in nature and rates an 5/10, was about an 8/10. No associated nausea or vomiting. No reports of fevers, chills. States she noticed the hernia about 1 month ago, but began having symptoms about a week ago that progressed. She was evaluated at an OSH where she was found to have an incarcerated inguinal hernia, but, because her pain had improved, she decided not to pursue further therapy. She presents 24hrs later with the same pain. Her last bowel movement and flatus was earlier today. Past Med Surg Social Fam HX - Past Medical History Medical history: arthritis, cancer, coronary artery disease, DVT, fibromyalgia, GERD, hyperlipidemia, hypertension, pulmonary embolus, RA, renal disease, thyroid disease Additional medical history: STAGE 3 KIDNEY FAILURE, bilateral osetoarthritis, abnormal mommogram, pericarditis, blood clots in lungs, anemic Psychiatric history: anxiety, depression - Past Surgical History Surgical History: angioplasty/stent, breast surgery, cholecystectomy, herniorrhaphy, knee replacement, bariatric surgery, IVC filter Additional surgical history: left carpal tunnel release, bilateral rotator cuff tear repair, tubal ligation, colonoscopy, left lumpectomy, gastric bypass - Social History Smoking Status: Never smoker Smokeless Tobacco Status: No Alcohol use: none Drug use: none - Family History Father Living Status: Still Living Hx Family Cardiac Disorders: Yes (HTN) Hx Family Endocrine Disorder: Yes (DM) Mother Living Status: Still Living Hx Family Cardiac Disorders: Yes (HTN) Hx Family Respiratory Disorders: No Hx Family Cancer: No Hx Family GI Disorders: No Hx Family Endocrine Disorder: No Hx Family Neuromuscular Disorders: No Hx Family Neurologic Disorders: No Hx Family HEENT Disorders: No Hx Family Autoimmune Disorders: No Medications and Allergies Aspirin 81 mg PO DAILY 09/28/15 [History] Nitroglycerin [Nitrostat] 0.4 mg SL Q5M PRN 09/28/15 [History] Omeprazole [PriLOSEC] 20 mg PO BID 09/28/15 [History] cloNIDine HCl [CloNIDine HCl] 0.1 mg PO TID PRN 09/26/16 [History] rOPINIRole [Requip] 1 mg PO 199909/26/16 [History] Furosemide [Lasix] 40 mg PO DAILY 08/22/17 [History] Ondansetron HCl [Zofran] 4 mg PO Q6H PRN 08/22/17 [History] Apixaban [Eliquis] 5 mg PO BID #60 tablet 08/23/17 [Rx] Isosorbide MONOnitrate (24 HR) [Imdur] 30 mg PO DAILY #30 tab.er.24h 03/25/18 [Rx] BuPROPion SR (12 HR) [Wellbutrin SR] 150 mg PO DAILY 06/04/18 [History] Losartan Potassium 50 mg PO DAILY 06/04/18 [History] Venlafaxine HCl [Venlafaxine HCl ER] 150 mg PO DAILY 06/04/18 [History] Clopidogrel [Plavix] 75 mg PO DAILY #30 tablet 06/10/18 [Rx] Docusate [Colace] 100 mg PO BID PRN #60 capsule 06/10/18 [Rx] Ferrous Sulfate 325 mg PO BIDWM #60 tablet 06/10/18 [Rx] Potassium Chloride 40 meq PO DAILY #60 tab.er.prt 06/10/18 [Rx] Acetaminophen [Tylenol Arthritis] 650 mg PO Q6H PRN 06/21/18 [History] Atorvastatin [Lipitor] 20 mg PO 199906/21/18 [History] Bupropion HCl [Wellbutrin Xl] 300 mg PO 199906/21/18 [History] Gabapentin 600 mg PO BID PRN 06/21/18 [History] Gabapentin [Neurontin] 300 mg PO BID PRN 06/21/18 [History] Lactose-Reduced Food [Ensure Original] 1 bottle PO TIDWM 06/21/18 [History] Metoprolol [Lopressor] 25 mg PO DAILY 06/21/18 [History] cephALEXin [Keflex] 500 mg PO BID 06/21/18 [History] Allergy/AdvReac Type Severity Reaction Status Date / Time No Known Allergies Allergy Verified 02/26/18 09:30 Review of Systems All systems PM: The remainder of the systems were reviewed and are negative General Surgery Exam Initial Vital Signs Temp Pulse Resp BP Pulse Ox 98.2 F 87 18 155/96 100 07/08/18 12:29 07/08/18 12:29 07/08/18 12:29 07/08/18 12:29 07/08/18 12:29 Results - Labs 07/08/18 13:18 07/08/18 13:03 Abnormal lab results WBC 25.8 K/mcL (4.3-11.1) H 07/08/18 13:18 RDW 20.8 % (11.5-14.5) H 07/08/18 13:18 Neutrophils # 21.7 K/mcL (1.6-8.9) H 07/08/18 13:18 Monocytes # 1.6 K/mcL (0.0-1.3) H 07/08/18 13:18 Large Platelets Present (Not Present) A 07/08/18 13:18 Anisocytosis 1+ (Not Present) A 07/08/18 13:18 PT 24.3 Seconds (9.4-12.1) H 07/08/18 16:49 Heparin Anti-Xa, Unfract > 2.00 IU/mL (0.30-0.70) H* 07/08/18 16:49 Carbon Dioxide 17 mEq/L (23-29) L 07/08/18 13:03 BUN 41 mg/dL (6-20) H 07/08/18 13:03 Creatinine 2.11 mg/dL (0.60-1.20) H 07/08/18 13:03 Est GFR ( Amer) 29 (> 60) L 07/08/18 13:03 Est GFR (Non-Af Amer) 24 (> 60) L 07/08/18 13:03 Glucose 142 mg/dL (70-105) H 07/08/18 13:03 Lactic Acid 3.8 mmol/L (0.5-2.2) H 07/08/18 18:45 Alkaline Phosphatase 118 Units/L (34-104) H 07/08/18 13:03 Urine Clarity Hazy (Clear) A 07/08/18 14:25 Urine Bilirubin Small (Negative) H 07/08/18 14:25 Ur Leukocyte Esterase Small (Negative) H 07/08/18 14:25 Urine Microscopic WBC 5-15 per hpf (0-3) H 07/08/18 14:25 Ur Squamous Epith Cells Many per lpf (None-Few) H 07/08/18 14:25 Ur Culture Indicated? NO. (NO) A 07/08/18 14:25 Diabetes panel 07/08/18 Range/Units 13:03 Sodium 137 (136-145) mEq/L Potassium 3.5 (3.5-5.1) mEq/L Chloride 102 (98-107) mEq/L Carbon Dioxide 17 L (23-29) mEq/L BUN 41 H (6-20) mg/dL Creatinine 2.11 H (0.60-1.20) mg/dL Glucose 142 H (70-105) mg/dL Calcium 9.7 (8.6-10.3) mg/dL AST 26 (13-39) Units/L ALT 15 (7-52) Units/L Alkaline Phosphatase 118 H (34-104) Units/L Albumin 4.2 (3.5-5.7) g/dL Calcium panel 07/08/18 Range/Units 13:03 Calcium 9.7 (8.6-10.3) mg/dL Albumin 4.2 (3.5-5.7) g/dL Pituitary panel 07/08/18 Range/Units 13:03 Sodium 137 (136-145) mEq/L Potassium 3.5 (3.5-5.1) mEq/L Chloride 102 (98-107) mEq/L Carbon Dioxide 17 L (23-29) mEq/L BUN 41 H (6-20) mg/dL Creatinine 2.11 H (0.60-1.20) mg/dL Glucose 142 H (70-105) mg/dL Calcium 9.7 (8.6-10.3) mg/dL Adrenal panel 07/08/18 Range/Units 13:03 Sodium 137 (136-145) mEq/L Potassium 3.5 (3.5-5.1) mEq/L Chloride 102 (98-107) mEq/L Carbon Dioxide 17 L (23-29) mEq/L BUN 41 H (6-20) mg/dL Creatinine 2.11 H (0.60-1.20) mg/dL Glucose 142 H (70-105) mg/dL Calcium 9.7 (8.6-10.3) mg/dL Total Bilirubin 0.7 (0.3-1.0) mg/dL AST 26 (13-39) Units/L ALT 15 (7-52) Units/L Alkaline Phosphatase 118 H (34-104) Units/L Albumin 4.2 (3.5-5.7) g/dL All other labs normal.
[2018-07-09 03:37] LABS: Hematocrit 40.3 % (35.3-44.9); Hemoglobin 12.5 g/dL (11.5-15.4); Mean Corpuscular Hemoglobin 28.3 pg (28.0-33.3); Mean Corpuscular Volume 91.2 fL (83.0-100.0); Mean Platelet Volume 12.6 fL (9.4-12.4); Platelet Count 292 K/mcL (140-400); Red Blood Count 4.42 M/mcL (3.82-4.97); Red Cell Distribution Width 21.1 % (11.5-14.5)
[2018-07-09 03:53] LABS: Calcium 8.8 mg/dL (8.6-10.3); Magnesium 1.9 mg/dL (1.6-2.6); Phosphorous 2.3 mg/dL (2.7-4.5)
[2018-07-09 04:05] LABS: Lymphocytes # 1.7 K/mcL (0.6-4.6); Monocytes # 2.2 K/mcL (0.0-1.3); Neutrophils # 20.9 K/mcL (1.6-8.9)
[2018-07-09 04:06] LABS: Large Platelets Present (Not Present); Platelet Estimate Normal (Normal)
[2018-07-09] MEDS: Milk and Molasses Enema 200 ML RC SCH ×4 (04:15→21:39)
[2018-07-09] MEDS: Ondansetron 4 MG/2 ML VIAL IVP PRN ×4 (04:17→16:43)
[2018-07-09] MEDS: 0.9 % Sodium Chloride 1,000 ML IVC SCH ×3 (04:18→20:42)
[2018-07-09] MEDS: Famotidine 20 MG/2 ML VIAL IVP SCH (05:49)
--- NOTE | 2018-07-09 07:39 | Event Note ---
Date of Encounter: 07/09/18 Time of Encounter: 07:33 Patient was seen and examined. I agree with the progress note as written by the resident physician. Had a large BM yesterday. Says abd pain is better but jumps as soon as I touch her abdomen. Lactic acidosis has not resolved. Kidney function number improving. Still leukocytosis. Admitted with abd pain/n/v. Seen in the ED 2 days ago and sent back to SNF. Had similar complaints. CT showed large stool burden. Came back due to nausea/vomiting persisting. Has not had a BM for [address] showed stool burden and possible ileus. Labs showed GREG, leukocytosis, mild lactic acidosis at 2.4. Afebrile in the ED. Hypertensive on my examination. Given Fentnyl in the ED. Also given IV fluids, Phenergan. Seen by surgery who plan treating conservatively for now. NG tube was not recommended as patient has history of gastric bypass GEN: Mild distress CVS: RRR. S1, S2, No m/r/g RESP: CTAB ABD: There is tenderness with no rebound, ND, hypoactive BS EXT: No edema. 2+ DP. No rashes NEURO: Nonfocal c/w IVF Pain control Anti-emetics NPO. Diet when ok with surgery Concerning that lactic acidosis persists despite fluids. Will discuss with surgery. Continue to trend lactic acid. Leukocytosis needs to be monitored. No signs of an infection. labs in am and monitor kidney function IV BP controlling agents c/w heparin drip if unable to take PO and can be held in case of any surgical needs. patient is on anticoags due to many previous DVTs and PEs.
[2018-07-09] MEDS ORDERED: Potassium Chloride 40 MEQ, Lidocaine 1% 2 ML in D5% in Water 500 ML IVPB ONE (07:57)
[2018-07-09] MEDS: Bisacodyl 10 MG RECTAL SUPPOSITORY RC SCH ×2 (08:22→19:43)
--- NOTE | 2018-07-09 09:53 | Event Note ---
Date of Encounter: 07/09/18 Time of Encounter: 09:50 pt is having BMs with suppositories. active nowel sounds. May start clears. Continued treatment of constipation. surgery will sign off.
--- NOTE | 2018-07-09 09:55 | General Surgery Progress Note ---
<DelonZeenat Noemy - Last Filed: 07/09/18 11:40> Date of Encounter: 07/09/18 Time of Encounter: 09:53 - Assessment and Plan (1) Abdominal pain Status: Acute pt is having BMs with suppositories. active bowel sounds. nausea remains but is exacerbated by pain meds. May start clears. Continued treatment of constipation. IF lactic acid increases, patient begins to appear septic, or has appearance of acute abdomen she is recommend transfer to [facility] given her history of gastric bypass surgery there. surgery will sign off. thank you for allowing us to participate in Ms Nicolas's care. Qualifiers: Abdominal location: generalized Qualified Code(s): R10.84 - Generalized abdominal pain (2) Lipoma of colon Status: Acute Subjective Patient reports: no new complaints, feels better, pain is less, voiding w/o difficulty, flatus, bowel movement, nausea (with pain meds), afebrile Objective Vital Signs - Last 8 Hours Temp Pulse Resp BP Pulse Ox 07/09/18 03:56 98.2 F 102 15 142/98 98 Intake and Output 07/08/18 07/09/18 07/09/18 23:59 07:59 15:59 Intake Total 1011 / 1011 1090.8 / 1090.8 Output Total 100 / 100 150 / 150 Balance 911 / 911 940.8 / 940.8 Intake: IV Fluids 1011 / 1011 1090.8 / 1090.8 0.9 % Sodium Chloride 1,000 ML 1000 / 1000 1000 / 1000 @ 100 mls/hr IVC .Q10H GAL Rx#: [id number] Heparin 25,000 UNIT/500 ML D5W 90.8 / 90.8 25,000 unit In 500 ml @ 14 UNIT /KG/HR 16.408 mls/hr IVC .Q24H GAL Rx#:[id number] Lactated Ringers 1,000 ML @ 100 0 / 0 mls/hr IVC .Q10H GAL Rx#: [id number] Oral 0 / 0 0 / 0 Output: Urine 0 / 0 0 / 0 Emesis 100 / 100 150 / 150 Other: Stool Size Small Stool Consistency soft formed Stool Color Brown # Voids 1 1 # Bowel Movements 1 Weight 58.6 kg 58.6 kg Blood Glucose* 80 Patient Weight 07/09/18 23:59 Weight 58.6 kg - General physical appearance no distress, other (drowsy) - ENT normal nares, normal mucosa - Neck Neck exam: trachea midline - Respiratory normal expansion, normal respiratory effort - Cardiovascular Cardiovascular exam: Present: RRR - Abdomen Abdomen: Present: bowel sounds present, soft Additional Comments: somewhat histrionic - Integumentary no rash - Neurologic normal sensation - Musculoskeletal normal posture - Psychiatric oriented to time, oriented to person, oriented to place - Labs 07/09/18 03:21 07/09/18 03:21 Diabetes panel 07/08/18 07/09/18 Range/Units 13:03 03:21 Sodium 137 141 (136-145) mEq/L Potassium 3.5 3.0 L (3.5-5.1) mEq/L Chloride 102 109 H (98-107) mEq/L Carbon Dioxide 17 L 18 L (23-29) mEq/L BUN 41 H 34 H (6-20) mg/dL Creatinine 2.11 H 1.66 H (0.60-1.20) mg/dL Glucose 142 H 93 (70-105) mg/dL Calcium 9.7 8.8 (8.6-10.3) mg/dL AST 26 (13-39) Units/L ALT 15 (7-52) Units/L Alkaline Phosphatase 118 H (34-104) Units/L Albumin 4.2 (3.5-5.7) g/dL Calcium panel 07/08/18 07/09/18 Range/Units 13:03 03:21 Calcium 9.7 8.8 (8.6-10.3) mg/dL Phosphorus 2.3 L (2.7-4.5) mg/dL Albumin 4.2 (3.5-5.7) g/dL Pituitary panel 07/08/18 07/09/18 Range/Units 13:03 03:21 Sodium 137 141 (136-145) mEq/L Potassium 3.5 3.0 L (3.5-5.1) mEq/L Chloride 102 109 H (98-107) mEq/L Carbon Dioxide 17 L 18 L (23-29) mEq/L BUN 41 H 34 H (6-20) mg/dL Creatinine 2.11 H 1.66 H (0.60-1.20) mg/dL Glucose 142 H 93 (70-105) mg/dL Calcium 9.7 8.8 (8.6-10.3) mg/dL Adrenal panel 07/08/18 07/09/18 Range/Units 13:03 03:21 Sodium 137 141 (136-145) mEq/L Potassium 3.5 3.0 L (3.5-5.1) mEq/L Chloride 102 109 H (98-107) mEq/L Carbon Dioxide 17 L 18 L (23-29) mEq/L BUN 41 H 34 H (6-20) mg/dL Creatinine 2.11 H 1.66 H (0.60-1.20) mg/dL Glucose 142 H 93 (70-105) mg/dL Calcium 9.7 8.8 (8.6-10.3) mg/dL Total Bilirubin 0.7 (0.3-1.0) mg/dL AST 26 (13-39) Units/L ALT 15 (7-52) Units/L Alkaline Phosphatase 118 H (34-104) Units/L Albumin 4.2 (3.5-5.7) g/dL Consult Discharge Plan - Plan Referrals: Van James MD [Primary Care Provider] - <Nilo Ray J - Last Filed: 07/10/18 22:37> Date of Encounter: 07/10/18 - Assessment and Plan (1) Abdominal pain Status: Acute Qualifiers: Abdominal location: generalized Qualified Code(s): R10.84 - Generalized abdominal pain (2) Lipoma of colon Status: Acute Objective Vital Signs - Last 8 Hours Temp Pulse Resp BP Pulse Ox 07/10/18 16:00 100.6 F H 120 20 94/53 77 07/10/18 15:43 20 80/44 75 07/10/18 15:00 116 20 77/44 72 Intake and Output 07/10/18 07/10/18 07/10/18 07:59 15:59 23:59 Intake Total 1567 / 1567 1459 / 1459 Output Total 1075 / 1075 650 / 650 Balance 492 / 492 809 / 809 Intake: IV Fluids 350 / 350 1364 / 1364 FentaNYL (PF) 1,000 MCG In 0.9 10 / 10 % Sodium Chloride 80 ML @ 50 MCG/HR 5 mls/hr IVC CONT GAL Rx #:[id number] Levophed 4 MG In Dextrose 5% 254 / 254 250 ML @ 8 MCG/MIN 30.48 mls/hr IVC CONT GAL Rx#:[id number] Sodium Bicarbonate 150 MEQ In 1000 / 1000 Dextrose 5% 1,000 ML @ 125 mls/ hr IVC .Q9H12M GAL Rx#: [id number] Zosyn 3.375 GM In 0.9 % Sodium 100 / 100 100 / 100 Chloride (Mini-Bag +) 100 ML @ 25 mls/hr IVPB Q8HR GAL Rx#: [id number] Vancocin 1,000 MG In 0.9 % 250 / 250 Sodium Chloride 250 ML @ 167 mls/hr IVPB Q24H GAL Rx#: [id number] Blood Product 1217 / 1217 95 / 95 Cryoprecipitate Pooled Unit 0 / 0 95 / 95 [id number] Plasma Unit [id number] 305 / 305 Plasma Unit [id number] 312 / 312 Rbcs Leuko Poor As-3 2nd Unit 300 / 300 [id number] Rbcs Leuko Poor As-3 Ph Unit 300 / 300 [id number] Output: Estimated Blood Loss 200 / 200 Catheter 150 / 150 Gastric Drainage 400 / 400 Wound Drainage 475 / 475 500 / 500 Abdomen 475 / 475 500 / 500 Other: Weight 61.2 kg Blood Glucose* 32 Patient Weight 07/10/18 23:59 Weight 61.2 kg - Labs 07/10/18 04:43 07/10/18 04:43 Diabetes panel 07/10/18 Range/Units 04:43 Sodium 149 H D (136-145) mEq/L Potassium 4.5 D (3.5-5.1) mEq/L Chloride 117 H (98-107) mEq/L Carbon Dioxide 14 L (23-29) mEq/L BUN 25 H (6-20) mg/dL Creatinine 1.23 H (0.60-1.20) mg/dL Glucose 76 (70-105) mg/dL Calcium 9.1 (8.6-10.3) mg/dL Calcium panel 07/10/18 Range/Units 04:43 Calcium 9.1 (8.6-10.3) mg/dL Phosphorus 5.3 H (2.7-4.5) mg/dL Pituitary panel 07/10/18 Range/Units 04:43 Sodium 149 H D (136-145) mEq/L Potassium 4.5 D (3.5-5.1) mEq/L Chloride 117 H (98-107) mEq/L Carbon Dioxide 14 L (23-29) mEq/L BUN 25 H (6-20) mg/dL Creatinine 1.23 H (0.60-1.20) mg/dL Glucose 76 (70-105) mg/dL Calcium 9.1 (8.6-10.3) mg/dL Adrenal panel 07/10/18 Range/Units 04:43 Sodium 149 H D (136-145) mEq/L Potassium 4.5 D (3.5-5.1) mEq/L Chloride 117 H (98-107) mEq/L Carbon Dioxide 14 L (23-29) mEq/L BUN 25 H (6-20) mg/dL Creatinine 1.23 H (0.60-1.20) mg/dL Glucose 76 (70-105) mg/dL Calcium 9.1 (8.6-10.3) mg/dL - Attending Attestation patient seen and examined. i have reviewed all labs, imaging, and notes. I have discussed the plan with the LAUNDRY HOUSEKEEPING AIDE in great detail. I agree with the above ass essment and plan and wish to add the following... patient WBC wnl, afebrile, tender on exam, but not peritoneal at present; having flatus and stool; if the need should arise that surgery is needed, I strongly advise transferring back to where she had her GBP performed. General surgery will sign off. Please call back with any new questions or concerns.
[2018-07-09] MEDS ORDERED: 0.9 % Sodium Chloride 1,000 ML IVC ONE (13:33)
--- NOTE | 2018-07-09 15:24 | Internal Med Progress Note ---
Hospitalist Progress Note - Encounter Date of Encounter: 07/09/18 Time of Encounter: 09:34 - Subjective Interval History: Patient ill-appearing and lying in bed upon examination. Continues to complain of nausea and abdominal pain. Admits to episodes of vomiting this morning. Has had 2 small bowel movements with suppositories. - Exam Vitals: Temp Pulse Resp BP Pulse Ox 97.1 F L 99 20 192/91 95 07/09/18 10:30 07/09/18 10:30 07/09/18 10:30 07/09/18 10:30 07/09/18 10:30 Exam: GEN: Mild distress, A&O 3 Head: Normocephalic atraumatic Eyes: EOMI, conjunctiva clear, nonicteric CVS: RRR. S1, S2, no murmur RESP: CTAB , no wheezing ABD: Soft, severely tender to palpation, however less tender with palpation using stethoscope. Bowel sounds active and normal. EXT: No edema. 2+ DP. No rashes NEURO: Nonfocal Psych: Appears to be overreactive to minimal stimuli, somewhat lethargic - Assessment and Plan (1) Abdominal pain Current Visit: Yes Status: Acute Assessment and Plan: Likely secondary to constipation due to possible ileus versus obstipation Patient had 2 small bowel movements with suppositories CT abdomen/pelvis without contrast 07/07 - Large amount of stool in the colon, diverticulosis without evidence of diverticulitis CT abdomen/pelvis without contrast 07/08 - newly mildly dilated loops of small bowel without a discrete transition point suggestive of ileus Digital rectal exam per general surgery with hard stool and unsuccessful disimpaction WBC 25.8 yesterday, now 24.9 Lactic Acid increased from 2.4-3.8, has received 3 L IV fluid bolus since admission and is now at 2.8 Afebrile Hypertensive and hasn't been able tolerate PO meds No tachycardia or tachypnea Evaluated by surgery recommendations as below, signed off We will continue to trend lactic acid, currently no other signs of infection. If change in patient's status requiring surgery, will need to be transferred. Continue Dulcolax suppositories twice a day and begin MiraLAX tomorrow Continue maintenance IVFs Continue IV hydralazine PRN for HTN, transition to oral once tolerating by mouth intake Clear liquid diet okay per surgery Serial abdominal exams PRN antiemetics Pain control Recheck morning labs (2) Leukocytosis Current Visit: Yes Status: Acute Assessment and Plan: Possibly reactionary from multiple episodes of vomiting, unresolved constipation, less concern for infectious etiology WBC 25.8 a day, now 4.9 Afebrile No tachycardia or tachypnea Continue maintenance IVFs Will continue to monitor closely (3) Lactic acidosis Current Visit: Yes Status: Acute Assessment and Plan: 2.4 -> 3.8----> 2.8 Suspect reactionary with persistent vomiting s/p total of 3 L fluid bolus Continue to trend Continue maintenance IVFs (4) Right femoral fracture Current Visit: Yes Status: Chronic Assessment and Plan: s/p right open reduction internal fixation of distal femoral shaft fracture approximately 3-[address] Encinas Knee immobilizer in place (5) GREG (acute kidney injury) Current Visit: Yes Status: Acute Assessment and Plan: Cr 2.11 on admission, proved to 1.66 today Continue LR 100/hr maintenance Will recheck kidney function and electrolytes in the AM (6) CAD (coronary artery disease) Current Visit: Yes Status: Chronic Assessment and Plan: Records reviewed, patient being medically managed No PCI within the past year Holding Plavix d/t not tolerating PO meds (7) Hypothyroid Current Visit: Yes Status: Chronic Assessment and Plan: Unable to tolerate PO meds d/t nausea and vomiting, will resume when tolerating (8) Hypertension Current Visit: Yes Status: Chronic Assessment and Plan: Unable to tolerate PO meds d/t nausea and vomiting, will resume when tolerating IV hydralazine when necessary (9) History of venous thrombosis and embolism Current Visit: Yes Status: Chronic Assessment and Plan: Unable to tolerate PO meds d/t nausea and vomiting Continue heparin (10) GERD (gastroesophageal reflux disease) Current Visit: Yes Status: Chronic Assessment and Plan: Unable to tolerate PO meds d/t nausea and vomiting, will resume when tolerating (11) Chronic narcotic dependence Current Visit: Yes Status: Acute Assessment and Plan: Chronic Oxycontin use For arthritis per patient report Likely contributing to constipation Continue aggressive bowel regimen Continue pain management Continue anti-emetics - Summary of Assessment and Plan Summary of Assessment and Plan: Heparin drip - Time Spent with Patient Total time spent is greater than 50% in coordination of care (as documented) at patient's floor/unit and/or counseling patient: less than 15 minutes Plan of Care Discussed with: patient Internal Medicine: Result - Labs CBC & Chem 7: 07/09/18 03:21 07/09/18 03:21 Labs: Short CBC 07/09/18 Range/Units 03:21 WBC 24.9 H (4.3-11.1) K/mcL Hgb 12.5 (11.5-15.4) g/dL Hct 40.3 (35.3-44.9) % Plt Count 292 (140-400) K/mcL Neutrophils # 20.9 H (1.6-8.9) K/mcL BMP 07/09/18 03:21 Sodium 141 Potassium 3.0 L Chloride 109 H Carbon Dioxide 18 L BUN 34 H Creatinine 1.66 H Glucose 93 Calcium 8.8 - ABG Interpretation ABG results: PT/INR, D-dimer PT 24.3 Seconds (9.4-12.1) H 07/08/18 16:49 - Impressions Impressions KUB X-Ray 07/09/18 08:34 IMPRESSION: No significant change in diffuse gaseous bowel distention suggestive of ileus. D/ / Sha Smith MD / Sha Smith MD Interpreting Provider: Sha Smith MD Consult Discharge Plan - Plan Referrals: Van James MD [Primary Care Provider] - (1) Abdominal pain Qualifiers: Abdominal location: generalized Qualified Code(s): R10.84 - Generalized abdominal pain (2) Leukocytosis Qualifiers: Leukocytosis type: unspecified Qualified Code(s): D72.829 - Elevated white blood cell count, unspecified (4) Right femoral fracture Qualifiers: Encounter type: subsequent encounter Femur location: distal Fracture type: closed Fracture morphology: unspecified fracture morphology Fracture healing: with routine healing Qualified Code(s): S72.401D - Unspecified fracture of lower end of right femur, subsequent encounter for closed fracture with routine healing (6) CAD (coronary artery disease) Qualifiers: Coronary Disease-Associated Artery/Lesion type: [place] artery [place] vs. transplanted heart: [place] heart Associated angina: with unspecified angina Qualified Code(s): I25.119 - Atherosclerotic heart disease of [place] coronary artery with unspecified angina pectoris (7) Hypothyroid Qualifiers: Hypothyroidism type: acquired Qualified Code(s): E03.9 - Hypothyroidism, unspecified (8) Hypertension Qualifiers: Hypertension type: essential hypertension Qualified Code(s): I10 - Essential (primary) hypertension (10) GERD (gastroesophageal reflux disease) Qualifiers:
--- NOTE | 2018-07-09 18:53 | Discharge Summary ---
Orders not resulted at time of discharge: Pending orders 07/09/18 21:45 Heparin anti-factor XA UFH [COAG] Timed 07/10/18 04:00 BMP [Basic Metabolic Panel] AM 0400 CBC [Complete Blood Count] [HEME] AM 0400 Magnesium AM 0400 Phosphorous AM 0400 Date of Encounter: 07/09/18 Time of Encounter: 18:34 Hospital course: Ms. Nicolas is a 58 year old female - Time Spent with Patient Total time spent providing and/or coordinating discharge services: - Discharge Medications Prescriptions: No Action Omeprazole [PriLOSEC] 20 mg PO BID Nitroglycerin [Nitrostat] 0.4 mg SL Q5M PRN PRN Reason: Chest Pain Aspirin 81 mg PO DAILY rOPINIRole [Requip] 1 mg PO 1999 cloNIDine HCl [CloNIDine HCl] 0.1 mg PO TID PRN PRN Reason: Hypertension Ondansetron HCl [Zofran] 4 mg PO Q6H PRN PRN Reason: Nausea Furosemide [Lasix] 40 mg PO DAILY Apixaban [Eliquis] 5 mg PO BID #60 tablet Isosorbide MONOnitrate (24 HR) [Imdur] 30 mg PO DAILY #30 tab.er.24h BuPROPion SR (12 HR) [Wellbutrin SR] 150 mg PO DAILY Losartan Potassium 50 mg PO DAILY Venlafaxine HCl [Venlafaxine HCl ER] 150 mg PO DAILY Clopidogrel [Plavix] 75 mg PO DAILY #30 tablet Docusate [Colace] 100 mg PO BID PRN #60 capsule PRN Reason: Constipation Ferrous Sulfate 325 mg PO BIDWM #60 tablet Potassium Chloride 40 meq PO DAILY #60 tab.er.prt Metoprolol [Lopressor] 25 mg PO DAILY Atorvastatin [Lipitor] 20 mg PO 1999 Gabapentin 600 mg PO BID PRN PRN Reason: Pain Gabapentin [Neurontin] 300 mg PO BID PRN PRN Reason: Pain OxyCODONE ER (12 HR) [OxyCONTIN] 30 mg PO Q12HR Bupropion HCl [Wellbutrin Xl] 300 mg PO 1999 HYDROcodone/Acet 5/325 mg [[place] 5-325 mg] 1 tab PO Q6H PRN PRN Reason: Pain clonazePAM [Clonazepam] 1 mg PO TID PRN PRN Reason: Anxiety Acetaminophen [Tylenol] 650 mg PO Q6HR PRN PRN Reason: Pain Home Medications: Aspirin 81 mg PO DAILY 09/28/15 [History] Nitroglycerin [Nitrostat] 0.4 mg SL Q5M PRN 09/28/15 [History] Omeprazole [PriLOSEC] 20 mg PO BID 09/28/15 [History] cloNIDine HCl [CloNIDine HCl] 0.1 mg PO TID PRN 09/26/16 [History] rOPINIRole [Requip] 1 mg PO 199909/26/16 [History] Furosemide [Lasix] 40 mg PO DAILY 08/22/17 [History] Ondansetron HCl [Zofran] 4 mg PO Q6H PRN 08/22/17 [History] Apixaban [Eliquis] 5 mg PO BID #60 tablet 08/23/17 [Rx] Isosorbide MONOnitrate (24 HR) [Imdur] 30 mg PO DAILY #30 tab.er.24h 03/25/18 [Rx] BuPROPion SR (12 HR) [Wellbutrin SR] 150 mg PO DAILY 06/04/18 [History] Losartan Potassium 50 mg PO DAILY 06/04/18 [History] Venlafaxine HCl [Venlafaxine HCl ER] 150 mg PO DAILY 06/04/18 [History] Clopidogrel [Plavix] 75 mg PO DAILY #30 tablet 06/10/18 [Rx] Docusate [Colace] 100 mg PO BID PRN #60 capsule 06/10/18 [Rx] Ferrous Sulfate 325 mg PO BIDWM #60 tablet 06/10/18 [Rx] Potassium Chloride 40 meq PO DAILY #60 tab.er.prt 06/10/18 [Rx] Atorvastatin [Lipitor] 20 mg PO 199906/21/18 [History] Gabapentin 600 mg PO BID PRN 06/21/18 [History] Gabapentin [Neurontin] 300 mg PO BID PRN 06/21/18 [History] Metoprolol [Lopressor] 25 mg PO DAILY 06/21/18 [History] Acetaminophen [Tylenol] 650 mg PO Q6HR PRN 07/09/18 [History] Bupropion HCl [Wellbutrin Xl] 300 mg PO 199907/09/18 [History] HYDROcodone/Acet 5/325 mg [[place] 5-325 mg] 1 tab PO Q6H PRN 07/09/18 [History] OxyCODONE ER (12 HR) [OxyCONTIN] 30 mg PO Q12HR 07/09/18 [History] clonazePAM [Clonazepam] 1 mg PO TID PRN 07/09/18 [History] Allergies/Adverse Reactions: Allergy/AdvReac Type Severity Reaction Status Date / Time No Known Allergies Allergy Verified 02/26/18 09:30 Date of admission: 07/08/18 15:54 Primary care physician: Van James MD Consults: 07/08/18 12:35 PICC [Consult to Invasive Line Access Team] [CONS] Stat Reason for Consult: no access Line Type: Midline 07/08/18 14:28 Consult to Invasive Line Access Team [CONS] Routine Reason for Consult: poor access Line Type: EPIV 07/08/18 20:31 Consult to Nutrition [CONS] Routine Comment: Consulting Provider: NUTRITION Reason for Dietary Consult: MST Score Consult to Pastoral Services [CONS] Routine Comment: 07/09/18 08:37 Consult to Chain Splitter [CONS] Routine Reason for SW Consult: Patient is from signature Discharging clinician: Thiago Bowen Anticipated date of discharge: 07/09/18 - Constitutional Vitals: Temp Pulse Resp BP Pulse Ox 97.9 F 105 20 160/102 94 07/09/18 17:12 07/09/18 17:12 07/09/18 17:12 07/09/18 17:12 07/09/18 17:12 General appearance: Present: mild distress, A&O X 3 - Patient Status Condition: Fair - Discharge Instructions Follow Up With: Van James MD [Primary Care Provider] -
--- NOTE | 2018-07-09 19:20 | Event Note ---
<Thiago Bowen - Last Filed: 07/09/18 19:14> Date of Encounter: 07/09/18 Time of Encounter: 19:14 Patient's repeat lactic acid came back at 5.4 previous was 2.8. Patient is having worsening abdominal pain. Vitals are: temp 97, HR 105, Resp rate 20, BP 160/102, O2 94% on RA. She did have two bowel movements in the last few hours. Surgery recommended today if patient's condition worsens transfer to [facility] as her gastric bypass was done there. [facility] transfer center was contacted and stated that her gastric bypass was not done there and there would not be an accepting surgeon for this patient and she would have to wait for a Medicine bed which would not be available. I called Dr. Vee and Dr. Ray. Dr. Vee stated they will see patient and to put in a vargas catheter and order cbc and bmp. <Yaritza Villalta - Last Filed: 07/09/18 20:45> Date of Encounter: 07/09/[address] Bowen. I agree with his course of action explained above
[2018-07-09 20:19] LABS: Hematocrit 34.4 % (35.3-44.9); Mean Corpuscular HGB Conc 30.8 g/dL (31.6-35.5); Mean Corpuscular Hemoglobin 28.1 pg (28.0-33.3); Mean Corpuscular Volume 91.2 fL (83.0-100.0); Mean Platelet Volume 12.4 fL (9.4-12.4); Platelet Count 258 K/mcL (140-400); Red Blood Count 3.77 M/mcL (3.82-4.97)
[2018-07-09 20:24] LABS: Calcium 7.8 mg/dL (8.6-10.3); Potassium 3.1 mEq/L (3.5-5.1)
[2018-07-09 20:34] LABS: Hemoglobin 10.6 g/dL (11.5-15.4)
[2018-07-09 21:06] LABS: Lymphocytes # 1.2 K/mcL (0.6-4.6); Monocytes # 1.3 K/mcL (0.0-1.3); Neutrophils # 5.8 K/mcL (1.6-8.9)
[2018-07-09 21:08] LABS: Large Platelets Present (Not Present); Platelet Estimate Normal (Normal)
[2018-07-09 21:34] LABS: Hematocrit 32.4 % (35.3-44.9); Hemoglobin 10.1 g/dL (11.5-15.4); Mean Corpuscular HGB Conc 31.2 g/dL (31.6-35.5); Mean Corpuscular Hemoglobin 28.7 pg (28.0-33.3); Mean Platelet Volume 12.6 fL (9.4-12.4); Platelet Count 235 K/mcL (140-400); Red Blood Count 3.52 M/mcL (3.82-4.97); Red Cell Distribution Width 20.8 % (11.5-14.5)
[2018-07-09 21:53] LABS: Calcium 7.5 mg/dL (8.6-10.3); Potassium 2.9 mEq/L (3.5-5.1)
[2018-07-09 22:11] LABS: Lymphocytes # 1.1 K/mcL (0.6-4.6); Monocytes # 0.7 K/mcL (0.0-1.3); Neutrophils # 5.2 K/mcL (1.6-8.9); Platelet Estimate Normal (Normal)
[2018-07-09] MEDS ORDERED: *HR* HYDROmorphone (PF) 1 MG/ML SYRINGE IVP ONE (22:58)
--- NOTE | 2018-07-09 23:02 | Anesthesia Evaluation PreOp ---
Date of Encounter: 07/10/18 Time of Encounter: 00:03 - Past History Planned Operation: EXP LAPAROTOMY Cardiac History: PR (MODERATE TWO VESSEL CAD), HTN, Hyperlipidemia, Other (DVT, PE, ANTICOAGULATED WITH ELLEQUIS, NOW ON HEPARIN GTT, STOPPED 2200, EF 45%) Pulmonary History: Denies Any Significant HX YARD ASSOCIATE History: Other (FIBROMYLAGIA, DEPRESSION, RA, ON IMMUNOTHERAPY, PHLEBOTHROMBOSIS) Other Medical History: Renal (CKD3), Thyroid (HYPOTHYROID, HYPERPARATHYROIDISM), GERD, Other (ANEMIA, SEPSIS, SBO, GUT, ELECTROLYTE DERANGEMENT) Anesthesia History: No Prior Anesthetic Complications, Past Anesthesia Alcohol Use: none Drug use: none Medications and Allergies Aspirin 81 mg PO DAILY 09/28/15 [History] Nitroglycerin [Nitrostat] 0.4 mg SL Q5M PRN 09/28/15 [History] Omeprazole [PriLOSEC] 20 mg PO BID 09/28/15 [History] cloNIDine HCl [CloNIDine HCl] 0.1 mg PO TID PRN 09/26/16 [History] rOPINIRole [Requip] 1 mg PO 2000 09/26/16 [History] Furosemide [Lasix] 40 mg PO DAILY 08/22/17 [History] Ondansetron HCl [Zofran] 4 mg PO Q6H PRN 08/22/17 [History] Apixaban [Eliquis] 5 mg PO BID #60 tablet 08/23/17 [Rx] Isosorbide MONOnitrate (24 HR) [Imdur] 30 mg PO DAILY #30 tab.er.24h 03/25/18 [Rx] BuPROPion SR (12 HR) [Wellbutrin SR] 150 mg PO DAILY 06/04/18 [History] Losartan Potassium 50 mg PO DAILY 06/04/18 [History] Venlafaxine HCl [Venlafaxine HCl ER] 150 mg PO DAILY 06/04/18 [History] Clopidogrel [Plavix] 75 mg PO DAILY #30 tablet 06/10/18 [Rx] Docusate [Colace] 100 mg PO BID PRN #60 capsule 06/10/18 [Rx] Ferrous Sulfate 325 mg PO BIDWM #60 tablet 06/10/18 [Rx] Potassium Chloride 40 meq PO DAILY #60 tab.er.prt 06/10/18 [Rx] Atorvastatin [Lipitor] 20 mg PO 199906/21/18 [History] Gabapentin 600 mg PO BID PRN 06/21/18 [History] Gabapentin [Neurontin] 300 mg PO BID PRN 06/21/18 [History] Metoprolol [Lopressor] 25 mg PO DAILY 06/21/18 [History] Acetaminophen [Tylenol] 650 mg PO Q6HR PRN 07/09/18 [History] Bupropion HCl [Wellbutrin Xl] 300 mg PO 199907/09/18 [History] HYDROcodone/Acet 5/325 mg [[place] 5-325 mg] 1 tab PO Q6H PRN 07/09/18 [History] OxyCODONE ER (12 HR) [OxyCONTIN] 30 mg PO Q12HR 07/09/18 [History] clonazePAM [Clonazepam] 1 mg PO TID PRN 07/09/18 [History] Allergy/AdvReac Type Severity Reaction Status Date / Time No Known Allergies Allergy Verified 02/26/18 09:30 - Meds/Allergy Pre-op Review Medications Reviewed: Yes Allergies Reviewed: Yes Beta Blockers on Current Med List: Yes Anesthesia Results - Labs 07/09/18 21:23 07/09/18 21:23 Laboratory Tests 07/08/18 07/09/18 07/09/18 13:03 00:00 03:21 Est GFR (Non-Af Amer) 32 L Lactic Acid 3.1 H Calcium 8.8 Phosphorus 2.3 L Magnesium 1.9 Albumin 4.2 Globulin 3.5 Anesthesia Exam Vital Signs/O2 Sat, Most Current Temp Pulse Resp BP Pulse Ox 97.7 F 87 20 173/90 95 07/09/18 20:40 07/09/18 20:40 07/09/18 20:40 07/09/18 20:40 07/09/18 20:40 Weight: 59 KG - BMI 22 - HEENT Mallampati: II Teeth: Edentulous Oral Opening: Greater than 3 - YARD ASSOCIATE LOC: Confused - Cardiac Rhythm: Regular - Pulmonary Breath Sounds: bilateral Clear Respiratory Effort: Symmetrical Anesthesia Assess/Plan ASA Score: 5, E Anesthetic Plan: General Autologous Blood: Yes Monitoring Plan: Standard Monitors, A-Line, CVC Recovery Plan: ICU (POST-OP MECHANICAL VENTILATION)
--- NOTE | 2018-07-09 23:04 | Event Note ---
Date of Encounter: 07/09/18 Time of Encounter: 22:51 Called by hospitalist regarding patients elevated lactate. Patient had CT scan which shows portal venous gas and pneumotosis of the small bowel. I came to patients bedside to evaluate her and she is having severe abdominal pain. Her abdomen is distended, firm with peritonitis. Vitals reviewed. I have discussed with patient her CT findings which I have personally reviewed. I am not sure how much small bowel will be nonviable and there is a possibility that the amount/length of ischemic bowel would be not compatible with life. There is a risk of her needing an ostomy, there is the potential that her Tripp limb is involved and would require resection. Her condition is grave and there is a significant risk of from either surgery or in the postoperative recovery period. Her heparin drip was held at 21:40 and protamine reversal may be needed. Patient is at high risk of clot due to history DVT/PE. Will plan exploratory laparotomy, possible bowel resection, possible ostomy, possible wound vac. Likely staged operation with resection ischemic bowel and Abthera vac placement, resuscitation, and take-back to OR. Risks and benefits of surgery discussed with patient and she wishes to proceed. I have called and discussed surgery and patients condition with her , Shree.
[2018-07-09] MEDS ORDERED: *HR* FentaNYL (PF) 100 MCG/2 ML VIAL ONE (23:31)
[2018-07-09] MEDS ORDERED: *HR* Midazolam HCl 2 MG/2 ML VIAL ONE (23:31)
[2018-07-09] MEDS ORDERED: *HR* Propofol 200 MG/20 ML VIAL IVP ONE (23:31)
[2018-07-09] MEDS ORDERED: KETAMINE HCL 50 MG/ML SYRINGE IV ONE (23:35)
[2018-07-09] MEDS ORDERED: Hydrocortisone Sodium Succ 100 MG/2 ML VIAL ONE (23:35)
[2018-07-09] MEDS ORDERED: *HR* Vasopressin 20 UNIT/ML VIAL ONE (23:36)
[2018-07-09] MEDS ORDERED: Sodium Bicarbonate 50 MEQ/50 ML VIAL ONE (23:37)
[2018-07-09] MEDS ORDERED: *HR* Succinylcholine 200 MG/10 ML VIAL IVP ONE (23:45)
[2018-07-09] MEDS ORDERED: *HR* Rocuronium Bromide 50 MG/5 ML VIAL ONE (23:45)
[2018-07-10] MEDS ORDERED: Protamine Sulfate 50 MG/5 ML VIAL IVP ONE ×2 (00:06→00:32)
--- NOTE | 2018-07-10 00:41 | Event Note ---
Date of Encounter: 07/09/18 Time of Encounter: 20:26 Alerted by pts. nurse OLIVER Capps that she needed to discuss the patient and possible transfer to [facility] with me. Reviewed the pts. chart carefully. Pt. had been experiencing worsening abdominal pain throughout the day. CT of the abdomen/pelvis on 07/08/18 showed new and mildly dilated loops of small bowel without a discrete transition point favoring an ileus rather than a partial small bowel obstruction. Went to see the pt. immediately who was experiencing severe abdominal pain. Abdomen was firm and distended with guarding. Pt. showing peritoneal signs. Lactic acid at 17:59 was 5.4, up from 2.8 at 11:22. Called Dr. Vee insulation cupola charger to discuss whether or not the pt. would be seen by Surgery tonight d/t her deteriorating status. CBC resulted at 19:02 showed WBC of 8.3, down from 24.9 at 03:21. Repeat CBC and BMP ordered d/t large swing to confirm. Repeat WBC 7.0, likely d/t sepsis. Stat CT of the abdomen/pelvis ordered which showed development of small bowel pneumatosis and portal venous gas with dilated small bowel loops. Constellation of findings most consistent with acute ischemic bowel. Worsening right lung base airspace disease with bronchial wall thickening compatible with bronchitis/pneumonitis. Aspiration is also a possibility. Fluid-filled esophagus and stomach, status post gastroplasty likely sequela of stasis. VS at 20:39 w/0.9 fluid bolus running: BP 173/90, HR 87, RR 20, SPO2 95% on room air, temp 87.7F. Pt. was placed on heparin gtt d/t hx of blood clots. Notified by nurse at 22:17 that XA factor >2.0. Nurse instructed to follow protocol and stop gtt. Alerted by pts. nurse at 20:[address] eVe wished to see me on 3A regarding the pt. Went to 3A to discuss the pt. and fill in information for Dr. Vee. I informed her that I had spoken to [facility] regarding transfer and there were no available critical beds at present at [facility]. Plan for emergent surgery for ischemic bowel here. Dr. Vee notified Bed Management to secure an ICU bed for the pt. post-surgery. Dr. Vee also discussed pt. w/Pharmacy d/t need for possible protamine d/t pts. current XA factor. Dr. Vee called pts. to discuss the need for emergent surgery as well as discussing the need for emergent surgery w/the pt. who agreed to surgery given the significant risks, including possible . Pt. agreed to surgery in spite of the risks.
[2018-07-10] MEDS: Piperacillin/Tazobactam 3.375 GM in 0.9 % Sodium Chloride Mini Bag 100 ML IVPB SCH ×2 (01:30→07:54)
[2018-07-10 02:34] LABS: Mean Corpuscular Hemoglobin 28.2 pg (28.0-33.3); Mean Corpuscular Volume 94.1 fL (83.0-100.0); Mean Platelet Volume 12.1 fL (9.4-12.4); Platelet Count 166 K/mcL (140-400); Red Blood Count 2.87 M/mcL (3.82-4.97); Red Cell Distribution Width 20.7 % (11.5-14.5)
[2018-07-10 02:36] LABS: ABG Base Excess -14 mEq/L (-2 to 3); ABG HCO3 14 mEq/L (21-27); ABG Oxygen Saturation 93 % (95-98); ABG PCO2 40 mmHg (35-45); ABG PH 7.14 pH Units (7.32-7.45); ABG PO2 86 mmHg (85-104); ABG TCO2 15 mEq/L (20-26); Blood Gas Modality ASSIST CONTROL; Blood Gas PEEP 5 cm H2O; Blood Gas Respiration Rate 14; Blood Gas VT 300 cc
[2018-07-10 02:37] LABS: Hemoglobin 8.1 g/dL (11.5-15.4)
[2018-07-10] MEDS ORDERED: Sodium Bicarbonate 50 MEQ/50 ML VIAL ONE ×2 (02:48→07:36)
[2018-07-10 02:51] LABS: INR 2.4; Prothrombin Time 27.2 Seconds (9.4-12.1)
[2018-07-10 03:11] LABS: ABG Base Excess -5 mEq/L (-2 to 3); ABG Chloride 120 mEq/L (98-107); ABG Glucose 60 mg/dL (60-95); ABG HCO3 19 mEq/L (21-27); ABG Ionized Calcium 1.21 mmol/L (1.15-1.35); ABG Oxygen Saturation 92 % (95-98); ABG PCO2 29 mmHg (35-45); ABG PH 7.43 pH Units (7.32-7.45); ABG PO2 61 mmHg (85-104); ABG TCO2 20 mEq/L (20-26); Blood Gas Modality ASSIST CONTROL; Blood Gas PEEP 5 cm H2O; Blood Gas Respiration Rate 20; Blood Gas VT 350 cc
--- NOTE | 2018-07-10 03:23 | Operative Note ---
Date of procedure: 07/10/18 Pre-op diagnosis: Ischemic bowel Post-op diagnosis: other (Ischemic small bowel madan limb, small bowel and abdominal colon) Procedure: Exploratory laparotomy, subtotal colectomy, small bowel resection (Madan limb and small bowel just distal to entero-entero anastomosis), Abthera wound vac placement Complications: none immediate Anesthesia: MIRTHA Surgeon: Ruth Vee Was there an podiatry assistant present: No Band Straightener Other: Yolanda Burroughs Estimated blood loss (cc): 200 Urine output (cc): 450 Specimen: see op report Condition: critical Disposition: ICU Procedure in Detail: Specimens: abdominal colon, Small bowel/Madan limb, Aerobic and anaerobic peritoneal cultures Procedure: Patient was brought into the operating suite and placed supine on the operating table. Sign in was performed and everyone was in agreement. Anesthesia was induced and patient was endotracheally intubated by anesthesia without incident. A Chapin catheter was placed by the circulating nurse. Anesthesia placed a right IJ central venous catheter. The abdomen was prepped and draped in the usual sterile fashion. Timeout was performed again everyone was in agreement. Midline incision through the skin into the subcutaneous tissue was made with a 10 blade area did dissection through the subcutaneous tissue to the anterior abdominal wall was accomplished with the Bovie. Yung's are placed on either side of the fascia for retraction and the abdomen was entered with the Bovie. The incision was elongated proximally and distally with the Bovie. Bookwalter was placed for exposure and retraction. A aerobic and anaerobic cultures of peritoneal fluid were obtained It was obvious immediately of small bowel ischemia and necrosis. Adhesions between omentum and anterior abdominal wall were taken down with the Bovie and Metzenbaum scissors. Small bowel was eviscerated from the abdominal cavity and the terminal ileum was identified. The cecum was severely ischemic and necrotic, the descending and proximal transverse colon was ischemic as well. The small bowel was run from the terminal ileum, which was ischemic for approximately 15-20 cm and there was an obvious transition line of ischemia to pink bowel with bloody succus in the lumen, up to the patient's entero-enterostomy. The enteroenterostomy was obvious leaks ischemic as well as approximately 20 cm of small bowel distal to this anastomosis as well as the Madan limb. The abdominal incision was elongated. The distal transverse colon was evaluated and found to be ischemic as well as the descending and sigmoid colon. There appeared to be a gradual transition from ischemic sigmoid to pink rectum. The amount of what appeared to be viable small bowel of the mid jejunum and ileum was measured and found to be long enough to be compatible with life. The decision was made to resect all ischemic bowel and colon. An opening beneath the small bowel at the mesentery of the mid Madan limb was made with the Bovie. The small bowel was transected with a linear MARI-75 stapler blue load. An area of normal small bowel Of the distal biliopancreatic limb was found to appear viable and was chosen for transection. An area in the mesentery beneath the small bowel was opened with the Bovie and the small bowel transected with a linear MARI-75 stapler blue load. An area of normal-appearing small bowel distal to the area of ischemic small bowel (distal to entero-enterostomy) was chosen for transection and an opening in the mesentery beneath this area was made with the Bovie and the small bowel transected with a linear MAIR-75 stapler blue load. The small bowel mesentery was transected with a impact LigaSure removing the segment of ischemic and necrotic small bowel. This was placed off to the back table for pathology. The transition between ischemic terminal ileum and normal more proximal ileum was identified and an opening in the mesentery beneath this area was made with the Bovie. The small bowel was transected with a linear MARI-75 stapler blue load. The right colon was taken off the abdominal wall with the Bovie at the white line of Toldt and gentle blunt dissection. The the gastrocolic ligament was taken down with the impact LigaSure. The hepatic flexure was taken down with the Bovie and gentle blunt dissection identifying the loop of the duodenum which appeared to be viable. Using the impact LigaSure dissection of the colon mesentery starting at ileocolic vessel proximally coming across the right colic vessels, coming proximally across the middle colic vessels was accomplished. The Madan limb came through the mesentery of the distal transverse colon and the small bowel in this area was dissected off the mesentery with the Bovie and Metzenbaum scissors. The left colon and sigmoid were taken off the lateral abdominal wall the white line of Toldt with the Bovie proceeding proximally taking down the splenic flexure with gentle blunt dissection and the Bovie. The gastrocolic ligament of the tract distal transverse colon was using the impact LigaSure. A transition between ischemic sigmoid and more normal- appearing rectu was located and an opening in the mesentery was made with the Bovie and the proximal rectum was transected with a contour stapler blue load. Continued dissection along the mesentery of the colon was accomplished with the impact LigaSure coming across the splenic flexure, coming across the left colic vessels, down to the rectal mesentery freeing up the entire colon which was then placed off the back table for pathology. The abdomen was copiously irrigated with sterile saline. The remaining small bowel was reevaluated and did appear viable but not the normal bright pink of small bowel. The remaining proximal Madan limb anastomosed to the gastric pouch appeared ischemic. The ngt in the gastric pouch was pulled back by anesthesia. An opening in the omentum that was adhesed to the stomach and small bowel anastomosis was opened with the Bovie. The small bowel was resected off the gastric pouch with a linear MARI-75 stapler blue load. The mesentery of this ischemic small bowel was taken down with the impact LigaSure. The abdomen was irrigated with sterile saline. Due to concerns for potential progression of bowel ischemia the decision to place an Abthera wound VAC and perform a second look laparotomy in the future was made. The abscess foam with plastics seal was trimmed with scissors. This was placed into the abdominal cavity. Blue foam to this size and shape of the midline incision was trimmed with scissors and placed over the plastic draped blue foam. The periwound skin was prepped with alcohol and dried. The plastic drapes feel was placed on the abdominal wall sealing the wound VAC and the abdominal cavity. A small disc of plastic from the drapes feel was excised with the scissors and the suction tubing applied. The wound VAC was then placed to 125 mmHg continuous suction. The wound VAC measurements were 24 cm long by 11 cm wide. The patient is in critical condition. All lap and ensuring counts were correct at the end of the case. The patient remained intubated and sedated by anesthesia and was taken to ICU in critical condition.
--- NOTE | 2018-07-10 04:22 | Anesthesia Procedures ---
Date of Encounter: 07/10/18 Time of Encounter: 00:37 Procedures: Anesthesia - Arterial Line Size (Gauge): 20 Length (inches): 5 Technique Used: sterile prep, guide wire technique Post-Procedure: line sutured into place Site: Brachial R - Central Line Placement Right IJ MD prep: mask, gown, gloves, other (HAT, FULLBODY DRAPE) Ultrasound used for placement: Yes Technique: Seldinger Lumen Inserted: triple Size / Length: 7 Fr / 16 cm Post procedure: sutured in place, good blood return, all ports aspirated, flushed, capped, sterile dressing applied Anes Supervising Prov Stmt: INVASIVE PROCEDURE NOTE Indication: Septic shock - vascular access, hemodynamic monitoring Time: 2907-2972 - In OR before induction of anesthesia Right brachial 20 ga 5 in. arterial line - CPT 90788: Ultrasonic guidance for vascular access - CPT 04081 CHG skin prep, technology education teacher, drape, glove 1% lido x 3 ml 18 ga needle, real time US guided puncture, guidewire, 20 ga 5 in. catheter - mod. Seldinger technique. 1 attempt, 3/0 silk suture. Sterile occlusive dressing. ABP transduced. Time: 4840-0516 - In OR after induction of anesthesia Right internal jugular 7 Fr 16 cm triple lumen central venous line - CPT 68795: Ultrasonic guidance for vascular access - CPT 40632 CHG skin prep, hand hygiene, gown, glove, mask, hat, full body drape. Real-time US guided, vessel patent, 18 ga needle, single attempt, dark non pulsatile blood return with respiratory variation. Guidewire and sheath mod. Seldinger tech. 16 cm at skin. 3/0 silk suture. Sterile occlusive dressing and CHG biopatch.
[2018-07-10] MEDS ORDERED: Artificial Tears SOLN 15 ML BOTTLE BOTH EYES PRN (04:24)
[2018-07-10] MEDS ORDERED: Dexmedetomidine HCl 400 MCG/100 ML MLS IVC SCH (04:30)
[2018-07-10] MEDS ORDERED: FentaNYL (PF) 1,000 MCG in 0.9 % Sodium Chloride 80 ML IVC SCH (04:30)
[2018-07-10 04:37] LABS: ABG Base Excess -13 mEq/L (-2 to 3); ABG HCO3 14 mEq/L (21-27); ABG Oxygen Saturation 70 % (95-98); ABG PCO2 38 mmHg (35-45); ABG PH 7.18 pH Units (7.32-7.45); ABG PO2 45 mmHg (85-104); ABG TCO2 15 mEq/L (20-26); Blood Gas Modality PRVC; Blood Gas PEEP 5 cm H2O; Blood Gas Respiration Rate 16; Blood Gas VT 400 cc
--- NOTE | 2018-07-10 04:44 | Anesthesia Evaluation Post Op ---
Date of Encounter: 07/10/18 Time of Encounter: 04:40 - Vital Signs Vital Signs: Vital Signs/O2 Sat, Most Current Temp Pulse Resp BP Pulse Ox 97.2 F L 110 22 113/65 70 07/10/18 04:26 07/10/18 04:26 07/10/18 04:26 07/10/18 04:26 07/10/18 04:26 ABG ABG pH 7.18 pH Units (7.32-7.45) L* D 07/10/18 04:32 ABG pCO2 38 mmHg (35-45) 07/10/18 04:32 ABG pO2 45 mmHg (85-104) L* 07/10/18 04:32 ABG O2 Saturation 70 % (95-98) L 07/10/18 04:32 PT/INR, D-dimer PT 27.2 Seconds (9.4-12.1) H 07/10/18 02:31 Anes Supervising Prov Stmt: Patient in ICU postoperatively. Severe metabolic acidosis, hypoxia, respiratory failure, severe anemia, coagulopathy. Mechanical ventilation, pressor support, continued blood component replacement. Moribund with poor prognosis.
[2018-07-10] MEDS ORDERED: Vasopressin 40 UNIT in D5% in Water 100 ML IV SCH (04:45)
[2018-07-10] MEDS: Sodium Bicarbonate 150 MEQ in D5% in Water 1,000 ML IVC SCH ×3 (05:03→12:54)
[2018-07-10 05:13] LABS: ABG Base Excess -18 mEq/L (-2 to 3); ABG HCO3 12 mEq/L (21-27); ABG Oxygen Saturation 42 % (95-98); ABG PCO2 46 mmHg (35-45); ABG PH 7.01 pH Units (7.32-7.45); ABG PO2 35 mmHg (85-104); ABG TCO2 13 mEq/L (20-26); Blood Gas Modality PRVC; Blood Gas PEEP 8 cm H2O; Blood Gas Respiration Rate 16; Blood Gas VT 400 cc
[2018-07-10 05:38] LABS: Hematocrit 23.1 % (35.3-44.9); Hemoglobin 6.8 g/dL (11.5-15.4); Mean Corpuscular HGB Conc 29.4 g/dL (31.6-35.5); Mean Corpuscular Hemoglobin 28.3 pg (28.0-33.3); Mean Corpuscular Volume 96.3 fL (83.0-100.0); Mean Platelet Volume 12.7 fL (9.4-12.4); Neutrophils # 0.2 K/mcL (1.6-8.9); Platelet Count 135 K/mcL (140-400); Red Cell Distribution Width 20.8 % (11.5-14.5)
[2018-07-10 05:43] LABS: Lymphocytes # 0.8 K/mcL (0.6-4.6)
[2018-07-10 05:48] LABS: Calcium 9.1 mg/dL (8.6-10.3); Magnesium 2.6 mg/dL (1.6-2.6); Phosphorous 5.3 mg/dL (2.7-4.5); Potassium 4.5 mEq/L (3.5-5.1)
[2018-07-10] MEDS: 0.9 % Sodium Chloride 1,000 ML IVC SCH ×2 (06:00→06:02)
[2018-07-10] MEDS: Artificial Tears SOLN 15 ML BOTTLE BOTH EYES SCH ×3 (06:22→16:46)
[2018-07-10 06:41] LABS: Platelet Estimate Normal (Normal)
[2018-07-10] MEDS: Norepinephrine 4 MG in D5% in Water 250 ML IVC SCH ×2 (07:30→15:00)
[2018-07-10 07:35] LABS: ABG Base Excess -14 mEq/L (-2 to 3); ABG HCO3 14 mEq/L (21-27); ABG Oxygen Saturation 63 % (95-98); ABG PCO2 45 mmHg (35-45); ABG PH 7.11 pH Units (7.32-7.45); ABG PO2 44 mmHg (85-104); ABG TCO2 16 mEq/L (20-26); Blood Gas PEEP 10 cm H2O; Blood Gas Respiration Rate 20; Blood Gas VT 400 cc
[2018-07-10] MEDS ORDERED: *HR* Dextrose 50 % in Water (Syg) 50 ML SYRINGE ONE (07:39)
[2018-07-10] MEDS ORDERED: *HR* Dextrose 50 % in Water (Syg) 50 ML SYRINGE IVP PRN ×2 (08:10→12:13)
--- NOTE | 2018-07-10 08:43 | Pulmonology Consult Note ---
<Maria Del Rosario Hernandez - Last Filed: 07/10/18 11:11> Date of Encounter: 07/10/18 Time of Encounter: 08:42 Assessment and Plan (1) Septic shock Status: Acute This is a 58-year-old female with past medical history significant for CAD without stent, hx DVT/PE, hypertension, hyperlipidemia, GERD, CKD who initially presented to the ED from rehabilitation facility with complaints of abdominal pain and vomiting with evidence of constipation. - CT abdomen and pelvis initially showed new mildly dilated loops of small bowel without discrete transition point favoring ileus rather than small bowel obstruction - Yesterday evening, lactic acid = 5.4. Patient reported worsening abdominal pain. Sandy T CT abdomen and pelvis showed development of small bowel pneumatosis and portal venous gas with dilated small bowel loops consistent with this acute ischemic bowel. Abdomen noted to be distended, firm with peritonitis. Patient taken to surgery due to ischemic bowel. Patient underwent exploratory laparoscopy, subtotal colectomy, small bowel resection. - Patient remained significantly hypoxic with PO2 = 45 despite 100% FiO2 and increase of PEEP post-operatively. - Chest x-ray indicative of bilateral airspace disease. - Currently Lactic acid = greater than 10. PLAN: After discussion with family, and given poor prognosis, decision made to change CODE STATUS from full code to DNR CCA. Patient maintained on pressors at this time, and under sedation. - Continue to monitor vitals; will increase keep and respiratory rate and keep FiO2 at 100% on vent - Continue to trend lactic acid; last 2 results lactic acid = greater than 10 - Status post 2 units red blood cells, 2 units plasma, one unit of cryoprecipitate - Continue with bolus of lactated Ringer's - Continue vancomycin and Zosyn - Replete electrolytes as needed - Palliative care recommendations appreciated (2) Acute respiratory failure with hypoxia Status: Resolved Initial ABG on presentation the ICU = 7.18/38/45/14 - Repeat = 7.01/46/35/12 - Patient continues to be hypoxic on 100% FiO2 on ventilation; increased respiratory rate and increased PEEP without significant effect PLAN: - Plan as above for septic shock - Continue pressors and sedation - Continue vent management - Monitor vitals and O2 saturation; attempt to keep above 88% - Palliative care recommendation appreciated History of Present Illness Consult date: 07/10/18 Requesting physician: Ruth Vee Reason for consult: other Chief complaint: Acute Respiratory Failure with Hypoxia History of present illness: This is a 58-year-old female with past medical history significant for CAD without stent, hx DVT/PE, hypertension, hyperlipidemia, GERD, CKD who initially presented to the ED from rehabilitation facility with complaints of abdominal pain and vomiting with evidence of constipation. CT abdomen and pelvis initially showed new mildly dilated loops of small bowel without discrete transition point favoring ileus rather than small bowel obstruction. Patient admitted to hospitalist service. Initial lactic acidosis = 2.4. Surgery consulted and recommended conservative medical management. Patient continued to complain of nausea and abdominal pain as of yesterday in addition to episodes of vomiting. Was able to have small bowel movements. Increased Lactic acid = 3.8. Per surgery, given patient's history of gastric bypass done at [facility], with increasing lactic acid, they recommended transfer back to [facility]. However, as of yesterday evening, lactic acid = 5.4. Patient reported worsening abdominal pain. Sandy T CT abdomen and pelvis showed development of small bowel pneumatosis and portal venous gas with dilated small bowel loops consistent with this acute ischemic bowel. Abdomen noted to be distended, firm with peritonitis. Patient taken to surgery due to ischemic bowel. Patient underwent exploratory laparoscopy, subtotal colectomy, small bowel resection. Patient transferred to the ICU immediately after surgery. Patient remained significantly hypoxic with PO2 = 45 despite 100% FiO2 and increase of PEEP. Chest x-ray indicative of bilateral airspace disease. Lactic acid = greater than 10. Patient's prognosis was discussed with family. Decision was made to change CODE STATUS from full code to DNR CCA. Past Med Surg Social Fam HX - Past Medical History Source: old records reviewed Medical history: arthritis, cancer, coronary artery disease, DVT, fibromyalgia, GERD, hyperlipidemia, hypertension, pulmonary embolus, RA, renal disease, thyroid disease Additional medical history: STAGE 3 KIDNEY FAILURE, bilateral osetoarthritis, abnormal mommogram, pericarditis, blood clots in lungs, anemic Psychiatric history: anxiety, depression - Past Surgical History Surgical History: angioplasty/stent, breast surgery, cholecystectomy, herniorrhaphy, knee replacement, bariatric surgery, IVC filter Additional surgical history: left carpal tunnel release, bilateral rotator cuff tear repair, tubal ligation, colonoscopy, left lumpectomy, gastric bypass - Social History Smoking Status: Never smoker Smokeless Tobacco Status: No Alcohol use: none Drug use: none - Family History Father Living Status: Still Living Hx Family Cardiac Disorders: Yes (HTN) Hx Family Endocrine Disorder: Yes (DM) Mother Living Status: Still Living Hx Family Cardiac Disorders: Yes (HTN) Hx Family Respiratory Disorders: No Hx Family Cancer: No Hx Family GI Disorders: No Hx Family Endocrine Disorder: No Hx Family Neuromuscular Disorders: No Hx Family Neurologic Disorders: No Hx Family HEENT Disorders: No Hx Family Autoimmune Disorders: No Medications and Allergies RX: Aspirin 81 mg PO DAILY 09/28/15 [History] RX: Nitroglycerin [Nitrostat] 0.4 mg SL Q5M PRN 09/28/15 [History] RX: Omeprazole [PriLOSEC] 20 mg PO BID 09/28/15 [History] RX: cloNIDine HCl [CloNIDine HCl] 0.1 mg PO TID PRN 09/26/16 [History] RX: rOPINIRole [Requip] 1 mg PO 199909/26/16 [History] RX: Furosemide [Lasix] 40 mg PO DAILY 08/22/17 [History] RX: Ondansetron HCl [Zofran] 4 mg PO Q6H PRN 08/22/17 [History] RX: Apixaban [Eliquis] 5 mg PO BID #60 tablet 08/23/17 [Rx] RX: Isosorbide MONOnitrate (24 HR) [Imdur] 30 mg PO DAILY #30 tab.er.24h 03/25/18 [Rx] RX: BuPROPion SR (12 HR) [Wellbutrin SR] 150 mg PO DAILY 06/04/18 [History] RX: Losartan Potassium 50 mg PO DAILY 06/04/18 [History] RX: Venlafaxine HCl [Venlafaxine HCl ER] 150 mg PO DAILY 06/04/18 [History] RX: Clopidogrel [Plavix] 75 mg PO DAILY #30 tablet 06/10/18 [Rx] RX: Docusate [Colace] 100 mg PO BID PRN #60 capsule 06/10/18 [Rx] RX: Ferrous Sulfate 325 mg PO BIDWM #60 tablet 06/10/18 [Rx] RX: Potassium Chloride 40 meq PO DAILY #60 tab.er.prt 06/10/18 [Rx] RX: Atorvastatin [Lipitor] 20 mg PO 199906/21/18 [History] RX: Gabapentin 600 mg PO BID PRN 06/21/18 [History] RX: Gabapentin [Neurontin] 300 mg PO BID PRN 06/21/18 [History] RX: Metoprolol [Lopressor] 25 mg PO DAILY 06/21/18 [History] Acetaminophen [Tylenol] 650 mg PO Q6HR PRN 07/09/18 [History] Bupropion HCl [Wellbutrin Xl] 300 mg PO 2000 07/09/18 [History] HYDROcodone/Acet 5/325 mg [[place] 5-325 mg] 1 tab PO Q6H PRN 07/09/18 [History] OxyCODONE ER (12 HR) [OxyCONTIN] 30 mg PO Q12HR 07/09/18 [History] clonazePAM [Clonazepam] 1 mg PO TID PRN 07/09/18 [History] Allergy/AdvReac Type Severity Reaction Status Date / Time No Known Allergies Allergy Verified 02/26/18 09:30 ROS unobtainable: due to endotracheal tube All Systems: The remainder of the systems were reviewed and are negative Physical Examination Vital Signs: Vital Signs, Last 4 Hours Temp Pulse Resp BP Pulse Ox 07/10/18 08:00 96.5 F L 106 21 107/61 81 07/10/18 07:20 23 110/66 73 07/10/18 07:06 93.4 F L 118 22 112/84 74 07/10/18 06:58 105 18 137/83 86 07/10/18 06:51 93.8 F L 102 17 130/83 86 07/10/18 06:31 94 F L 100 17 192/89 93 07/10/18 06:26 94 F L 100 17 193/89 90 07/10/18 06:12 94 F L 102 18 167/95 85 07/10/18 06:09 102 17 167/95 85 07/10/18 06:00 18 162/103 79 07/10/18 05:57 94 F L 108 20 163/105 80 07/10/18 05:53 94 F L 108 20 166/102 80 07/10/18 05:51 94 F L 110 20 159/105 80 07/10/18 05:35 95 F L 108 22 120/79 74 07/10/18 05:31 95 F L 108 22 120/79 74 07/10/18 05:30 95 F L 108 22 120/79 74 07/10/18 05:00 97 23 94/57 71 07/10/18 04:46 94 24 85/47 71 General appearance: comatose Eyes: nonicteric ENT: oropharynx moist Effort: normal Auscultation: bilateral: diminished breath sounds (On mechanical ventilation; no wheezes, crackles) Cardiovascular: regular rate and rhythm Gastrointestinal: absent bowel sounds, other (Open abdomen with suction dressing) Extremities: no edema unable to assess due to mental status Ventilator Settings Ventilator Settings: Ventilator Settings, Last 8 Hours Ventilator Tidal Volume 400 Setting Ventilator Tidal Volume 400 Setting Ventilator Tidal Volume 400 Setting Ventilator Tidal Volume 400 Setting Ventilator Tidal Volume 400 Setting Ventilator Tidal Volume 400 Setting Ventilator Tidal Volume 400 Setting Ventilator Tidal Volume 400 Setting Ventilator Tidal Volume 400 Setting Ventilator Tidal Volume 400 Setting Ventilator Tidal Volume 350 Setting Ventilator Tidal Volume 300 Setting Ventilator Respiratory Rate 20 Setting Ventilator Respiratory Rate 20 Setting Ventilator Respiratory Rate 16 Setting Ventilator Respiratory Rate 16 Setting Ventilator Respiratory Rate 16 Setting Ventilator Respiratory Rate 16 Setting Ventilator Respiratory Rate 16 Setting Ventilator Respiratory Rate 16 Setting Ventilator Respiratory Rate 16 Setting Ventilator Respiratory Rate 16 Setting Ventilator Respiratory Rate 20 Setting Ventilator Respiratory Rate 16 Setting Actual Respiratory Rate 21 Actual Respiratory Rate 23 Actual Respiratory Rate 19 Actual Respiratory Rate 23 Positive End Expiratory 10 Pressure Positive End Expiratory 10 Pressure Positive End Expiratory 8 Pressure Positive End Expiratory 8 Pressure Positive End Expiratory 8 Pressure Positive End Expiratory 8 Pressure Positive End Expiratory 8 Pressure Positive End Expiratory 8 Pressure Positive End Expiratory 5 Pressure Positive End Expiratory 5 Pressure Positive End Expiratory 5 Pressure Positive End Expiratory 5 Pressure Positive End Expiratory 5 Pressure Peak Inspiratory Airway 25 Pressure Peak Inspiratory Airway 26 Pressure Peak Inspiratory Airway 23 Pressure Peak Inspiratory Airway 23 Pressure Peak Inspiratory Airway 23 Pressure Peak Inspiratory Airway 23 Pressure Peak Inspiratory Airway 23 Pressure Peak Inspiratory Airway 28 Pressure Results - Laboratory Findings CBC and BMP: 07/10/18 04:43 07/10/18 04:43 ABG ABG pH 7.11 pH Units (7.32-7.45) L* 07/10/18 07:30 ABG pCO2 45 mmHg (35-45) 07/10/18 07:30 ABG pO2 44 mmHg (85-104) L* 07/10/18 07:30 ABG O2 Saturation 63 % (95-98) L 07/10/18 07:30 PT/INR, D-dimer PT 27.2 Seconds (9.4-12.1) H 07/10/18 02:31 Abnormal lab findings: Abnormal lab results WBC 1.0 K/mcL (4.3-11.1) L* D 07/10/18 04:43 RBC 2.40 M/mcL (3.82-4.97) L 07/10/18 04:43 Hgb 6.8 g/dL (11.5-15.4) L 07/10/18 04:43 Hct 23.1 % (35.3-44.9) L 07/10/18 04:43 MCHC 29.4 g/dL (31.6-35.5) L 07/10/18 04:43 RDW 20.8 % (11.5-14.5) H 07/10/18 04:43 Plt Count 135 K/mcL (140-400) L 07/10/18 04:43 MPV 12.7 fL (9.4-12.4) H 07/10/18 04:43 Band Neutrophils % 30.0 % (0-4) H 07/09/18 21:23 Neutrophils # 0.2 K/mcL (1.6-8.9) L 07/10/18 04:43 Large Platelets Present (Not Present) A 07/09/18 19:02 Anisocytosis 1+ (Not Present) A 07/08/18 13:18 PT 27.2 Seconds (9.4-12.1) H 07/10/18 02:31 Heparin Anti-Xa, Unfract > 2.00 IU/mL (0.30-0.70) H* 07/09/18 22:50 ABG pH 7.11 pH Units (7.32-7.45) L* 07/10/18 07:30 ABG pO2 44 mmHg (85-104) L* 07/10/18 07:30 ABG HCO3 14 mEq/L (21-27) L 07/10/18 07:30 ABG Total CO2 16 mEq/L (20-26) L 07/10/18 07:30 ABG O2 Saturation 63 % (95-98) L 07/10/18 07:30 ABG Base Excess -14 mEq/L (-2 to 3) L 07/10/18 07:30 ABG Hematocrit 15.0 % (35.3-44.9) L* 07/10/18 03:07 ABG Chloride 120 mEq/L (98-107) H 07/10/18 03:07 Sodium 152 mEq/L (135-148) H 07/10/18 03:07 Potassium 3.4 mEq/L (3.5-5.3) L 07/10/18 03:07 Lactate 3.8 mmol/L (0.7-2.1) H 07/10/18 03:07 Sodium 149 mEq/L (136-145) H D 07/10/18 04:43 Chloride 117 mEq/L (98-107) H 07/10/18 04:43 Carbon Dioxide 14 mEq/L (23-29) L 07/10/18 04:43 BUN 25 mg/dL (6-20) H 07/10/18 04:43 Creatinine 1.23 mg/dL (0.60-1.20) H 07/10/18 04:43 Est GFR ( Amer) 55 (> 60) L 07/10/18 04:43 Est GFR (Non-Af Amer) 45 (> 60) L 07/10/18 04:43 POC Glucose 65 mg/dL (70-99) L 07/10/18 07:36 Calculated Osmolality 311 (280-300) H 07/10/18 04:43 Lactic Acid > 10.0 mmol/L (0.5-2.2) H* 07/10/18 04:43 Phosphorus 5.3 mg/dL (2.7-4.5) H 07/10/18 04:43 Alkaline Phosphatase 118 Units/L (34-104) H 07/08/18 13:03 Urine Clarity Hazy (Clear) A 07/08/18 14:25 Urine Bilirubin Small (Negative) H 07/08/18 14:25 Ur Leukocyte Esterase Small (Negative) H 07/08/18 14:25 Urine Microscopic WBC 5-15 per hpf (0-3) H 07/08/18 14:25 Ur Squamous Epith Cells Many per lpf (None-Few) H 07/08/18 14:25 Ur Culture Indicated? NO. (NO) A 07/08/18 14:25 - Clinical Findings Intake & Output: Intake & Output 07/09/18 07/10/18 07/10/18 23:59 07:59 15:59 Intake Total 3635 / 3635 1567 / 1567 Output Total 600 / 600 150 / 150 Balance 3635 / 3635 967 / 967 -150 / -150 Weight 61.2 kg Consult Discharge Plan - Plan Referrals: Van James MD [Primary Care Provider] - <Geoff Glover - Last Filed: 07/12/18 08:11> Date of Encounter: 07/12/18 All Systems: The remainder of the systems were reviewed and are negative Physical Examination Vital Signs: Vital Signs, Last 4 Hours Temp Pulse Resp BP Pulse Ox 07/10/18 10:11 96.6 F L 118 22 103/58 72 07/10/18 10:00 118 23 101/58 77 07/10/18 09:27 20 107/57 81 07/10/18 09:00 96.5 F L 111 21 99/55 75 07/10/18 08:00 96.5 F L 106 21 107/61 81 07/10/18 07:20 23 110/66 73 07/10/18 07:06 93.4 F L 118 22 112/84 74 07/10/18 06:58 105 18 137/83 86 07/10/18 06:51 93.8 F L 102 17 130/83 86 07/10/18 06:31 94 F L 100 17 192/89 93 07/10/18 06:26 94 F L 100 17 193/89 90 Ventilator Settings Ventilator Settings: Ventilator Settings, Last 8 Hours Ventilator Tidal Volume 400 Setting Ventilator Tidal Volume 400 Setting Ventilator Tidal Volume 400 Setting Ventilator Tidal Volume 400 Setting Ventilator Tidal Volume 400 Setting Ventilator Tidal Volume 400 Setting Ventilator Tidal Volume 400 Setting Ventilator Tidal Volume 400 Setting Ventilator Tidal Volume 400 Setting Ventilator Tidal Volume 400 Setting Ventilator Tidal Volume 400 Setting Ventilator Tidal Volume 400 Setting Ventilator Tidal Volume 400 Setting Ventilator Tidal Volume 350 Setting Ventilator Tidal Volume 300 Setting Ventilator Respiratory Rate 20 Setting Ventilator Respiratory Rate 20 Setting Ventilator Respiratory Rate 20 Setting Ventilator Respiratory Rate 20 Setting Ventilator Respiratory Rate 20 Setting Ventilator Respiratory Rate 16 Setting Ventilator Respiratory Rate 16 Setting Ventilator Respiratory Rate 16 Setting Ventilator Respiratory Rate 16 Setting Ventilator Respiratory Rate 16 Setting Ventilator Respiratory Rate 16 Setting Ventilator Respiratory Rate 16 Setting Ventilator Respiratory Rate 16 Setting Ventilator Respiratory Rate 20 Setting Ventilator Respiratory Rate 16 Setting Actual Respiratory Rate 23 Actual Respiratory Rate 21 Actual Respiratory Rate 21 Actual Respiratory Rate 21 Actual Respiratory Rate 23 Actual Respiratory Rate 19 Actual Respiratory Rate 23 Positive End Expiratory 10 Pressure Positive End Expiratory 12 Pressure Positive End Expiratory 10 Pressure Positive End Expiratory 10 Pressure Positive End Expiratory 10 Pressure Positive End Expiratory 8 Pressure Positive End Expiratory 8 Pressure Positive End Expiratory 8 Pressure Positive End Expiratory 8 Pressure Positive End Expiratory 8 Pressure Positive End Expiratory 8 Pressure Positive End Expiratory 5 Pressure Positive End Expiratory 5 Pressure Positive End Expiratory 5 Pressure Positive End Expiratory 5 Pressure Positive End Expiratory 5 Pressure Peak Inspiratory Airway 24 Pressure Peak Inspiratory Airway 25 Pressure Peak Inspiratory Airway 23 Pressure Peak Inspiratory Airway 25 Pressure Peak Inspiratory Airway 26 Pressure Peak Inspiratory Airway 23 Pressure Peak Inspiratory Airway 23 Pressure Peak Inspiratory Airway 23 Pressure Peak Inspiratory Airway 23 Pressure Peak Inspiratory Airway 23 Pressure Peak Inspiratory Airway 28 Pressure Results - Laboratory Findings CBC and BMP: 07/10/18 04:43 07/10/18 04:43 ABG ABG pH 7.11 pH Units (7.32-7.45) L* 07/10/18 07:30 ABG pCO2 45 mmHg (35-45) 07/10/18 07:30 ABG pO2 44 mmHg (85-104) L* 07/10/18 07:30 ABG O2 Saturation 63 % (95-98) L 07/10/18 07:30 PT/INR, D-dimer PT 27.2 Seconds (9.4-12.1) H 07/10/18 02:31 Abnormal lab findings: Abnormal lab results WBC 1.0 K/mcL (4.3-11.1) L* D 07/10/18 04:43 RBC 2.40 M/mcL (3.82-4.97) L 07/10/18 04:43 Hgb 6.8 g/dL (11.5-15.4) L 07/10/18 04:43 Hct 23.1 % (35.3-44.9) L 07/10/18 04:43 MCHC 29.4 g/dL (31.6-35.5) L 07/10/18 04:43 RDW 20.8 % (11.5-14.5) H 07/10/18 04:43 Plt Count 135 K/mcL (140-400) L 07/10/18 04:43 MPV 12.7 fL (9.4-12.4) H 07/10/18 04:43 Band Neutrophils % 30.0 % (0-4) H 07/09/18 21:23 Neutrophils # 0.2 K/mcL (1.6-8.9) L 07/10/18 04:43 Large Platelets Present (Not Present) A 07/09/18 19:02 Anisocytosis 1+ (Not Present) A 07/08/18 13:18 PT 27.2 Seconds (9.4-12.1) H 07/10/18 02:31 Heparin Anti-Xa, Unfract > 2.00 IU/mL (0.30-0.70) H* 07/09/18 22:50 ABG pH 7.11 pH Units (7.32-7.45) L* 07/10/18 07:30 ABG pO2 44 mmHg (85-104) L* 07/10/18 07:30 ABG HCO3 14 mEq/L (21-27) L 07/10/18 07:30 ABG Total CO2 16 mEq/L (20-26) L 07/10/18 07:30 ABG O2 Saturation 63 % (95-98) L 07/10/18 07:30 ABG Base Excess -14 mEq/L (-2 to 3) L 07/10/18 07:30 ABG Hematocrit 15.0 % (35.3-44.9) L* 07/10/18 03:07 ABG Chloride 120 mEq/L (98-107) H 07/10/18 03:07 Sodium 152 mEq/L (135-148) H 07/10/18 03:07 Potassium 3.4 mEq/L (3.5-5.3) L 07/10/18 03:07 Lactate 3.8 mmol/L (0.7-2.1) H 07/10/18 03:07 Sodium 149 mEq/L (136-145) H D 07/10/18 04:43 Chloride 117 mEq/L (98-107) H 07/10/18 04:43 Carbon Dioxide 14 mEq/L (23-29) L 07/10/18 04:43 BUN 25 mg/dL (6-20) H 07/10/18 04:43 Creatinine 1.23 mg/dL (0.60-1.20) H 07/10/18 04:43 Est GFR ( Amer) 55 (> 60) L 07/10/18 04:43 Est GFR (Non-Af Amer) 45 (> 60) L 07/10/18 04:43 Calculated Osmolality 311 (280-300) H 07/10/18 04:43 Lactic Acid > 10.0 mmol/L (0.5-2.2) H* 07/10/18 09:10 Phosphorus 5.3 mg/dL (2.7-4.5) H 07/10/18 04:43 Alkaline Phosphatase 118 Units/L (34-104) H 07/08/18 13:03 Urine Clarity Hazy (Clear) A 07/08/18 14:25 Urine Bilirubin Small (Negative) H 07/08/18 14:25 Ur Leukocyte Esterase Small (Negative) H 07/08/18 14:25 Urine Microscopic WBC 5-15 per hpf (0-3) H 07/08/18 14:25 Ur Squamous Epith Cells Many per lpf (None-Few) H 07/08/18 14:25 Ur Culture Indicated? NO. (NO) A 07/08/18 14:25 - Microbiology Findings Microbiology Findings: Microbiology, Last 48 Hours 07/10/18 06:05 Blood Culture - Preliminary Peripheral Venipuncture Culture is incubating and being continuously monitored for growth. Final report to follow. 07/10/18 06:08 Blood Culture - Preliminary Peripheral Venipuncture Culture is incubating and being continuously monitored for growth. Final report to follow. - Clinical Findings Intake & Output: Intake & Output 07/09/18 07/10/18 07/10/18 23:59 07:59 15:59 Intake Total 3635 / 3635 1567 / 1567 95 / 95 Output Total 600 / 600 150 / 150 Balance 3635 / 3635 967 / 967 -55 / -55 Weight 61.2 kg - Attending Attestation I examined this patient and my medical decision-making was reviewed with the Resident Physician. I agree with the documented findings, disposition and treatment plan as described except to the extent set forth below. Patient seen and examined. Labs, radiology, chart personally reviewed. Agree with resident's history and physical, assessment, plan with following comments: WOOL GROWER: Patient doesn't follows commands, this is multifactorial and mainly focused would be for any discomfort and we will avoid giving her any major sedations. Patient's eye examination shows no significant corneal or pupillary reflexes. Pulmonary: oxygenation and ventilation are not within acceptable range mainly because of her underlying condition and extremely difficult to oxygenate because of her poor perfusion as well as anemia in my assessment and changed vent setting and increased PEEP and increase RR. Unfortunately with changing PEEP that affects her blood pressure indicating poor perfusion. Cardiovascular: Patient in vasodilatory shock and she is on his vasoppressors. Patient has extremely elevated lactic acid and prognosis is very poor. I have m gunjan with the family and explained to them about her poor condition and we discussed her CODE STATUS. expressed that she never wanted to be full code and she did not want to do have CPR and that was documented in the chart and her CODE STATUS was changed appropriately. Surgery team was contacted regarding that. Palliative care as well consulted because of her extremely poor prognosis. GI: Nutrition per dietary and GI prophylaxis per routine. Status post surgery and no feeding tube Heme: DVT prophylaxis per routine ID: Continue antibiotics and plan to de-escalation Renal; urine out put and renal funtion reviewed. Patient has been actively resuscitated Endorcine: blood glucose is monitored Lines: all lines checked and no evidence of infections Skin: skin care to prevent pressure ulcers per nursing routine care palliative care consult because of poor prognosis and with very high Lactic acid, her mortality rate is very high and don't expect she sonia survive. I spent 50 min of Critical Care time with this patient. It involved decision making of high complexity to assess, manipulate, and support vital organ system failure and/or to prevent further life threatening deterioration of the patient's condition. The time involved in the performance of separately reportable procedures was not counted toward critical care time.
--- NOTE | 2018-07-10 08:44 | Event Note ---
Date of Encounter: 07/10/18 Time of Encounter: 06:30 Patient remains significantly hypoxic with a PO2 of 45 despite 100% FiO2 and increase in PEEP from 5 to 8. Chest x-ray was obtained which showed bilateral airspace disease. Case discussed with Dr. Terry. At this time patient's prognosis is very poor. We will attempt to reach out and discuss poor prognosis with patient's family and reassessment of CODE STATUS.
[2018-07-10] MEDS ORDERED: Pantoprazole 40 MG VIAL IVP SCH (09:00)
[2018-07-10] MEDS ORDERED: Famotidine 20 MG/2 ML VIAL IVP SCH (09:00)
[2018-07-10] MEDS ORDERED: Chlorhexidine Rinse 15 ML MOUTHWASH MM SCH (09:00)
[2018-07-10] MEDS ORDERED: Ipratropium/Albuterol Neb 3 ML IH SCH (10:00)
[2018-07-10] MEDS ORDERED: Ringers Solution, Lactated 1,000 ML IVC ONE (11:42)
--- NOTE | 2018-07-10 15:13 | Palliative - Consult Note ---
Date of Encounter: 07/10/18 Time of Encounter: 14:00 - Assessment and Plan (1) Goals of care, counseling/discussion Current Visit: Yes Status: Acute Assessment and plan: Met with family regarding goals of care. Upon entry to room, patient's immediately approached with questions regarding if Palliative care can help keep her comfortable when stopping "all this treatment." He explained, patient would not want to live this way. Explained can work to keep patient comfortable with medications; however, could not guarantee patient would not wake up. Did explain patient may pass quickly when stopping pressor support. Verbalized understanding. Patient's asked if patient could stay in current room. Explained patient would not need to be on ICU level of care when transition to focus on comfort; however, would not move patient unless knew she was stable. Verbalized in agreement. Patient's Shree reports would like for all of family to come to bedside and spend time with her before withdrawing care. reports would like to withdraw care tonight. CODE STATUS to be changed to DNRCC when family is ready. Order placed for extubation, when family reports they are ready. Will order medications to be used for comfort. Continue Fentanyl Drip for control of pain. Will add Ativan, scopalamine, Haldol, and Atropine drops. Notified Dr. Auguste. Explained to family that patient may not survive until family decides time, as patient already has dropping blood pressure. Family verbalized understanding. (2) Abdominal pain Current Visit: Yes Status: Acute Assessment and plan: Patient had exploratory surgery and found ischemic gut. Qualifiers: Abdominal location: generalized Qualified Code(s): R10.84 - Generalized abdominal pain (3) Ileus Current Visit: Yes Status: Acute (4) Lactic acidosis Current Visit: Yes Status: Acute Assessment and plan: WBC 3.9. Palliative-CN HPI - Data of Consult Patient: new to practice Consult date: 07/10/18 Requesting Physician: Estefany Plascencia MD Primary Care Provider: Van James MD - Consult Narrative Palliative Care/Comfort Measures: Palliative care Reason for consult: Code status changed from Full Code to DNRCCA; end of life comfort measures. History of present illness: Ms. Nicolas is a 58 year old female Patient arrived to [place] [facility] from [facility] (rehab patient) on 07/08/18. Patient had been evaluated by ER on previous day also for same complaint of RLQ pain with multiple episodes of vomiting. Patient had been having some abdominal pain times 2 weeks per family report; however, worsening over 2 days. Patient had been treated for constipation. PMH: Arthritis, Cancer, CAD, DVT, Fibromyalgia, GERD, HLD, HTN, PE, RA, Renal disease, and Thyroid disease. PSH: Knee repair and Gastric bypass. CT completed showing: New mildly dilated loops of small bowel without a discrete transition point favoring an ileus rather than a partial small bowel obstruction. Surgery consult completed rectal exam, recommend treatment for constipation. Patient admitted to be managed for ileus. Patient initially treated medically; however, continued to deteriorate with worsening blood pressure and lactic acid. Surgery recommended transfer to [facility] d/t having gastric bypass there; however, upon contacting [facility] gastric bypass was not performed there and no admitting surgeons. Surgery returned to evaluate patient and made plans to completed an Exploratory laparotomy, subtotal colectomy, small bowel resection (Tripp limb and small bowel just distal to entero-entero anastomosis), Abthera wound vac placement . Patient and her husbands were thoroughly explained the risks of surgery including c omplications leading to mortality. Pulmonary consulted for management of care post surgery, discussed with family patients overall prognosis due to finding ischemic gut and hypoxia; patients family () changed CODE STATUS to DNRCCA. Palliative care consulted for goals of care. Patient lying in bed with eyes covered closed upon arrival for assessment. Patients , daughter, mother, sister, grandchildren, niece, nephew in law, son in law present at bedside. Upon arrival patients immediately asked if Palliative care would help patient to be comfortable when all the family arrived. Family set to arrive at 530 pm. Family would like until 7 pm before withdrawing care. Patient intubated and sedated at this time. Fentanyl and Precedex infusing. Patient also on pressor support. Patient does move head some when speaking with her. CC: Estefany Plascencia MD - Time Spent with Patient Time: Total time spent is greater than 50% in coordination of care (as documented) at patient's floor/unit and/or counseling patient: Time with patient: 60 minutes Past Med Surg Social Fam HX - Past Medical History Medical history: arthritis, cancer, coronary artery disease, DVT, fibromyalgia, GERD, hyperlipidemia, hypertension, pulmonary embolus, RA, renal disease, thyroid disease Additional medical history: STAGE 3 KIDNEY FAILURE, bilateral osetoarthritis, abnormal mommogram, pericarditis, blood clots in lungs, anemic Psychiatric history: anxiety, depression - Past Surgical History Surgical History: angioplasty/stent, breast surgery, cholecystectomy, herniorrhaphy, knee replacement, bariatric surgery, IVC filter Additional surgical history: left carpal tunnel release, bilateral rotator cuff tear repair, tubal ligation, colonoscopy, left lumpectomy, gastric bypass - Social History Smoking Status: Never smoker Smokeless Tobacco Status: No Alcohol use: none Drug use: none - Family History Father Living Status: Still Living Hx Family Cardiac Disorders: Yes (HTN) Hx Family Endocrine Disorder: Yes (DM) Mother Living Status: Still Living Hx Family Cardiac Disorders: Yes (HTN) Hx Family Respiratory Disorders: No Hx Family Cancer: No Hx Family GI Disorders: No Hx Family Endocrine Disorder: No Hx Family Neuromuscular Disorders: No Hx Family Neurologic Disorders: No Hx Family HEENT Disorders: No Hx Family Autoimmune Disorders: No Medications and Allergies Aspirin 81 mg PO DAILY 09/28/15 [History] Nitroglycerin [Nitrostat] 0.4 mg SL Q5M PRN 09/28/15 [History] Omeprazole [PriLOSEC] 20 mg PO BID 09/28/15 [History] cloNIDine HCl [CloNIDine HCl] 0.1 mg PO TID PRN 09/26/16 [History] rOPINIRole [Requip] 1 mg PO 2000 09/26/16 [History] Furosemide [Lasix] 40 mg PO DAILY 08/22/17 [History] Ondansetron HCl [Zofran] 4 mg PO Q6H PRN 08/22/17 [History] Apixaban [Eliquis] 5 mg PO BID #60 tablet 08/23/17 [Rx] Isosorbide MONOnitrate (24 HR) [Imdur] 30 mg PO DAILY #30 tab.er.24h 03/25/18 [Rx] BuPROPion SR (12 HR) [Wellbutrin SR] 150 mg PO DAILY 06/04/18 [History] Losartan Potassium 50 mg PO DAILY 06/04/18 [History] Venlafaxine HCl [Venlafaxine HCl ER] 150 mg PO DAILY 06/04/18 [History] Clopidogrel [Plavix] 75 mg PO DAILY #30 tablet 06/10/18 [Rx] Docusate [Colace] 100 mg PO BID PRN #60 capsule 06/10/18 [Rx] Ferrous Sulfate 325 mg PO BIDWM #60 tablet 06/10/18 [Rx] Potassium Chloride 40 meq PO DAILY #60 tab.er.prt 06/10/18 [Rx] Atorvastatin [Lipitor] 20 mg PO 199906/21/18 [History] Gabapentin 600 mg PO BID PRN 06/21/18 [History] Gabapentin [Neurontin] 300 mg PO BID PRN 06/21/18 [History] Metoprolol [Lopressor] 25 mg PO DAILY 06/21/18 [History] Acetaminophen [Tylenol] 650 mg PO Q6HR PRN 07/09/18 [History] Bupropion HCl [Wellbutrin Xl] 300 mg PO 199907/09/18 [History] HYDROcodone/Acet 5/325 mg [[place] 5-325 mg] 1 tab PO Q6H PRN 07/09/18 [History] OxyCODONE ER (12 HR) [OxyCONTIN] 30 mg PO Q12HR 07/09/18 [History] clonazePAM [Clonazepam] 1 mg PO TID PRN 07/09/18 [History] Allergy/AdvReac Type Severity Reaction Status Date / Time No Known Allergies Allergy Verified 02/26/18 09:30 ROS unobtainable: due to endotracheal tube (Information obtained from family at bedside.) - Gastrointestinal Gastrointestinal: abdominal pain, bloating, constipation, vomiting Palliative Care-Exam - Constitutional Vitals: Temp Pulse Resp BP Pulse Ox 98.2 F 115 21 89/49 70 07/10/18 12:00 07/10/18 14:00 07/10/18 14:00 07/10/18 14:07/10/18 14:00 General appearance: Present: mild distress, obese - Head Head Exam: Present: atraumatic, normal inspection - Eye Eye exam: Absent: periorbital swelling, periorbital tenderness - ENT ENT exam: Present: mucous membranes dry, normal external ear exam - Expanded ENT Exam Mouth Exam: Absent: drooling - Neck Neck exam: Present: full ROM, normal inspection - Respiratory Respiratory exam: Present: rhonchi. Absent: accessory muscle use, respiratory distress, tachypnea - Cardiovascular Cardiovascular exam: Present: tachycardia - Expanded Cardiovascular Exam Peripheral pulses: 0: Radial (L), Radial (R), Posterior Tibialis (L), Posterior Tibialis (R), Dorsalis Pedis (L) PM, Dorsalis Pedis (R) PM, 1+: Carotid (L) PM, Carotid (R) PM - GI/Abdominal Exam GI/Abdominal exam: Present: distended, firm. Absent: normal bowel sounds - Rectal Rectal exam: Present: deferred - Catheter Type: Urethral ([place]) - Extremities Exam Extremities exam: Absent: tenderness - Neurological Exam Neurological exam: Present: altered. Absent: oriented X3 - Expanded Neurological Exam Patient oriented to: Present: person Coma Scale Eye Opening: To Voice Coma Scale Motor Response: Localizes to Pain Coma Scale Verbal Response: None Coma Scale Total: 9 - Psychiatric Psychiatric exam: Present: flat affect - Skin Skin exam: Present: dry, pallor Internal Medicine - CN: Reslt - Labs CBC & Chem 7: 07/10/18 04:43 07/10/18 04:43 Labs: Short CBC 07/09/18 07/09/18 07/10/18 Range/Units 19:02 21:23 02:31 WBC 8.3 D 7.0 3.9 L (4.3-11.1) K/mcL Hgb 10.6 L D 10.1 L 8.1 L D (11.5-15.4) g/dL Hct 34.4 L 32.4 L 27.0 L (35.3-44.9) % Plt Count 258 235 166 (140-400) K/mcL Neutrophils # 5.8 5.2 (1.6-8.9) K/mcL 07/10/18 Range/Units 04:43 WBC 1.0 L* D (4.3-11.1) K/mcL Hgb 6.8 L (11.5-15.4) g/dL Hct 23.1 L (35.3-44.9) % Plt Count 135 L (140-400) K/mcL Neutrophils # 0.2 L (1.6-8.9) K/mcL BMP 07/09/18 07/09/18 07/10/18 19:02 21:23 04:43 Sodium 142 140 149 H D Potassium 3.1 L 2.9 L 4.5 D Chloride 115 H 119 H 117 H Carbon Dioxide 14 L 14 L 14 L BUN 28 H 27 H 25 H Creatinine 1.35 H 1.23 H 1.23 H Glucose 74 79 76 Calcium 7.8 L 7.5 L 9.1 - ABG Interpretation ABG results: ABG ABG pH 7.11 pH Units (7.32-7.45) L* 07/10/18 07:30 ABG pCO2 45 mmHg (35-45) 07/10/18 07:30 ABG pO2 44 mmHg (85-104) L* 07/10/18 07:30 ABG O2 Saturation 63 % (95-98) L 07/10/18 07:30 PT/INR, D-dimer PT 27.2 Seconds (9.4-12.1) H 07/10/18 02:31 - Impressions Impressions Abdomen/Pelvis CT 07/09/18 21:37 IMPRESSION: Development of small bowel pneumatosis and portal venous gas with dilated small bowel loops. Constellation of findings most consistent with acute ischemic bowel. Worsening right lung base airspace disease with bronchial wall thickening compatible with bronchitis/pneumonitis. Aspiration is also a possibility. Fluid-filled esophagus and stomach, status post gastroplasty likely sequela of stasis. Critical results were called by Dr. David Valenzuela to Dr. Ray On 07/09/2018 at 22:33. D/ / 07/09/2018 22:46:50 David Valenzuela / stefan Interpreting Provider: David Valenzuela Chest X-Ray 07/10/18 04:37 IMPRESSION: 1. Endotracheal tube tip is approximately 3 cm above the sonia. 2. The tip of the enteric tube is at the gastroesophageal junction. The tube needs advanced approximately 12 cm. 3. Uncomplicated line placement. 4. Extensive bilateral airspace disease probably represents pneumonia. D/ / Bony Donohue MD / Bony Donohue MD Interpreting Provider: Bony Donohue MD Consult Discharge Plan - Plan Referrals: Van James MD [Primary Care Provider] - Palliative Quality Palliative Quality: Screen for Code Status: Yes, Screen for Goals of Care: Yes, Screen for Pain: Yes, If Pain Regimen Started, Initiate Bowel Regimen: NA, Screen for Nausea/Vomitting: Yes Code Status: 07/08/18 16:35 Resuscitation Status: Active [RES] Routine Comment: Resuscitation Status: Full Code 07/10/18 11:08 CODE [Resuscitation Status: Active] [RES] Routine Comment: Resuscitation Status: DNR-Comfort Care-Arrest Palliative Scale - Palliative Performance Scale How ambulatory is this patient?: Totally bed bound What is patient's level of activity and evidence of disease?: Unable to do any activity, Extensive disease How much self-care assistance does patient require?: Total care How much oral intake does the patient have?: Mouth care only What is this patient's level of consciousness?: Drowsy or coma with or without confusion Palliative Performance Score: 10 %
[2018-07-10] MEDS ORDERED: Atropine 1% Opth Drops 100 DROP/5 ML BOTTLE SL PRN (15:29)
[2018-07-10] MEDS ORDERED: Scopolamine Patch 1.5 MG PATCH.TD72 TD ONE (15:29)
[2018-07-10] MEDS ORDERED: Haloperidol Lactate 5 MG/ML VIAL IVP PRN (15:29)
[2018-07-10] MEDS ORDERED: *HR* LORazepam 2 MG/ML VIAL IVP PRN (15:30)
[2018-07-10] MEDS ORDERED: Ipratropium/Albuterol Neb 3 ML IH PRN (15:42)
[2018-07-10 16:14] VITALS: BP 94/53
--- NOTE | 2018-07-10 17:22 | General Surgery Progress Note ---
Date of Encounter: 07/10/18 Time of Encounter: 12:45 - Assessment and Plan (1) Ischemic necrosis of large intestine Current Visit: Yes Status: Acute (2) Ischemic necrosis of small bowel Current Visit: Yes Status: Acute (3) Hypotension Current Visit: No Status: Acute Qualifiers: Hypotension type: unspecified hypotension type Qualified Code(s): I95.9 - Hypotension, unspecified (4) Sepsis Current Visit: No Status: Acute Qualifiers: Sepsis type: sepsis due to unspecified organism Qualified Code(s): A41.9 - Sepsis, unspecified organism Subjective Patient reports: no new complaints, other (sedated on vent, unresponsive) Objective Vital Signs - Last 8 Hours Temp Pulse Resp BP Pulse Ox 07/10/18 16:00 100.6 F H 120 20 94/53 77 07/10/18 15:43 20 80/44 75 07/10/18 15:00 116 20 77/44 72 07/10/18 14:00 115 21 89/49 70 07/10/18 13:05 22 117/60 70 07/10/18 13:00 116 24 99/51 07/10/18 12:00 98.2 F 115 22 117/70 70 07/10/18 11:24 15 112/73 76 07/10/18 11:00 119 22 105/63 79 07/10/18 10:11 96.6 F L 118 22 103/58 72 07/10/18 10:00 118 23 101/58 77 07/10/18 09:27 20 107/57 81 Intake and Output 07/10/18 07/10/18 07/10/18 07:59 15:59 23:59 Intake Total 1567 / 1567 1459 / 1459 Output Total 1075 / 1075 650 / 650 Balance 492 / 492 809 / 809 Intake: IV Fluids 350 / 350 1364 / 1364 FentaNYL (PF) 1,000 MCG In 0.9 10 / 10 % Sodium Chloride 80 ML @ 50 MCG/HR 5 mls/hr IVC CONT GAL Rx #:[id number] Levophed 4 MG In Dextrose 5% 254 / 254 250 ML @ 8 MCG/MIN 30.48 mls/hr IVC CONT GAL Rx#:[id number] Sodium Bicarbonate 150 MEQ In 1000 / 1000 Dextrose 5% 1,000 ML @ 125 mls/ hr IVC .Q9H12M [facility] Rx#: [id number] Zosyn 3.375 GM In 0.9 % Sodium 100 / 100 100 / 100 Chloride (Mini-Bag +) 100 ML @ 25 mls/hr IVPB Q8HR [facility] Rx#: [id number] Vancocin 1,000 MG In 0.9 % 250 / 250 Sodium Chloride 250 ML @ 167 mls/hr IVPB Q24H [facility] Rx#: [id number] Blood Product 1217 / 1217 95 / 95 Cryoprecipitate Pooled Unit 0 / 0 95 / 95 [id number] Plasma Unit [id number] 305 / 305 Plasma Unit [id number] 312 / 312 Rbcs Leuko Poor As-3 2nd Unit 300 / 300 [id number] Rbcs Leuko Poor As-3 Ph Unit 300 / 300 [id number] Output: Estimated Blood Loss 200 / 200 Catheter 150 / 150 Gastric Drainage 400 / 400 Wound Drainage 475 / 475 500 / 500 Abdomen 475 / 475 500 / 500 Other: Weight 61.2 kg Blood Glucose* 32 Patient Weight 07/10/18 23:59 Weight 61.2 kg - General physical appearance no distress, other (sedated) - Eyes pinpoint pupil - ENT dry mucosa, atraumatic - Neck Neck exam: trachea midline - Respiratory normal expansion, normal respiratory effort (on vent) - Cardiovascular Cardiovascular exam: Present: tachycardia - Abdomen Abdomen: Present: soft - Incision Incision: Present: open (Abthera wound vac) - Genitourinary other (vargas yellow urine) - Integumentary no rash (s) - Neurologic other (sedated) - Psychiatric other (on vent, intubated) - Labs 07/10/18 04:43 07/10/18 04:43 Diabetes panel 07/09/18 07/09/18 07/10/18 Range/Units 19:02 21:23 04:43 Sodium 142 140 149 H D (136-145) mEq/L Potassium 3.1 L 2.9 L 4.5 D (3.5-5.1) mEq/L Chloride 115 H 119 H 117 H (98-107) mEq/L Carbon Dioxide 14 L 14 L 14 L (23-29) mEq/L BUN 28 H 27 H 25 H (6-20) mg/dL Creatinine 1.35 H 1.23 H 1.23 H (0.60-1.20) mg/dL Glucose 74 79 76 (70-105) mg/dL Calcium 7.8 L 7.5 L 9.1 (8.6-10.3) mg/dL Calcium panel 07/09/18 07/09/18 07/10/18 Range/Units 19:02 21:23 04:43 Calcium 7.8 L 7.5 L 9.1 (8.6-10.3) mg/dL Phosphorus 5.3 H (2.7-4.5) mg/dL Pituitary panel 07/09/18 07/09/18 07/10/18 Range/Units 19:02 21:23 04:43 Sodium 142 140 149 H D (136-145) mEq/L Potassium 3.1 L 2.9 L 4.5 D (3.5-5.1) mEq/L Chloride 115 H 119 H 117 H (98-107) mEq/L Carbon Dioxide 14 L 14 L 14 L (23-29) mEq/L BUN 28 H 27 H 25 H (6-20) mg/dL Creatinine 1.35 H 1.23 H 1.23 H (0.60-1.20) mg/dL Glucose 74 79 76 (70-105) mg/dL Calcium 7.8 L 7.5 L 9.1 (8.6-10.3) mg/dL Adrenal panel 07/09/18 07/09/18 07/10/18 Range/Units 19:02 21:23 04:43 Sodium 142 140 149 H D (136-145) mEq/L Potassium 3.1 L 2.9 L 4.5 D (3.5-5.1) mEq/L Chloride 115 H 119 H 117 H (98-107) mEq/L Carbon Dioxide 14 L 14 L 14 L (23-29) mEq/L BUN 28 H 27 H 25 H (6-20) mg/dL Creatinine 1.35 H 1.23 H 1.23 H (0.60-1.20) mg/dL Glucose 74 79 76 (70-105) mg/dL Calcium 7.8 L 7.5 L 9.1 (8.6-10.3) mg/dL Consult Discharge Plan - Plan Referrals: Van James MD [Primary Care Provider] -
[2018-07-10] MEDS ORDERED: Aminoglycoside Consult 1 EACH MC ONE (17:31)
--- NOTE | 2018-07-10 17:50 | Death Note ---
<Edd Banda S - Last Filed: 07/10/18 18:08> Discharge Sum: Summary - Date and Time Date of admission: 07/08/18 15:54 Date of : 07/10/18 Time of : 17:25 - Summary Details: Mrs Nicolas was a 58yo female with PMH of arthritis, breast cancer, CKD, CAD, DVT, fibromyalgia, GERD, HLD, HTN, and previous gastric bypass. She [facility] for the chief complaint of abdominal pain and vomiting x 1-2 days. She reported no bowel movements and was able to pass gas. She had gone to the ER the day before and had a CT of her abdomen which showed large amount of stool in the rectum and diverticulosis. Repeat CT abdomen showed CT abdomen/pelvis without contrast newly mildly dilated loops of small bowel without a discrete transition point suggestive of ileus. General surgery was consulted and decided to treat for obstipation. The patient began to have bowel movements and surgery recommended that if lactic acid increases, if the patient begins to appear septic, or has appearance of acute abdomen she is recommend transfer to [facility] given her history of gastric bypass surgery there. On 07/09 the pt complained of worsening abdominal pain. Lactic acid was repeated and came back at 5.4, increased from 2.8. Hospitalist team contacted [facility] transfer team and they stated that her gastric bypass wasn't performed there nor was there an available medicine bed. Hospitalist team also contacted Dr Vee and Dr Ray, who came to see the pt later that day. CT abdomen showed which shows portal venous gas and pneumotosis of the small bowel. Dr Vee saw the patient on 07/09 around 11pm and the patient wished to go for surgery. She had the risks/benefits explained to her and the potential for intraoperatively or post- operatively. Dr Vee did an extensive surgery including ex lap, subtotal colectomy, small bowel resection (madan limb and small bowel just distal to entero-entero anastomosis), and abthera wound vac placement. The pt was moved to ICU in critical condition and was left intubated. The pt was in the ICU on 07/10 and was treated for septic shock and acute respiratory failure. She had repeated lactic acid which was >10 on multiple occasions. The pt was maintained on vasopressin and levophed, however, remained hypotensive. She was transfused 2u PRBC, 2U plasma and 1 unit of cryoprecipitate. Carmen Romero SOFTWARE TEST TECHNICIAN from palliative care saw the pt. She had extensive discussion with the pt and the family regarding goals of care. Shree wishes to make her comfortable but to have family at bedside before withdrawing care. The CODE STATUS was changed to DNR-CC and order for extubation was placed as per palliative care. Medications for comfort care ordered, including fentanyl drip for pain, ativan, scopalamine, haldol and atropine. Family was at bedside and pt peacefully at 1725. I pronounced the pt and listened for heart sounds, breath sounds, felt for a pulse and checked the pupils to see that they were fixed and dilated. Family still at bedside grieving. I notified attending, Dr. Glover, of the patient's passing. - Additional Data Confirmation of as documented by pronouncing clinician: no pulse, no respirations, no heart sounds, pupils fixed and dilated Family: at bedside Attending/PCP notified?: Yes Attending physician: Estefany Plascencia MD Was code activated?: No Autopsy requested?: No claim examiner notified?: No Organ bank notified?: Yes Advance directives: Yes Hospice patient?: No Discharge Sum: Diag - PCOD Probable Cause of : Cardiac arrest Discharge Sum: Prov - Provider Primary care physician: Van James MD Admitting clinician: Estefany Plascencia Attending physician on admission: Yaritza Villalta Consults: 07/08/18 12:35 PICC [Consult to Invasive Line Access Team] [CONS] Stat Reason for Consult: no access Line Type: Midline 07/08/18 14:28 Consult to Invasive Line Access Team [CONS] Routine Reason for Consult: poor access Line Type: EPIV 07/08/18 20:31 Consult to Nutrition [CONS] Routine Comment: Consulting Provider: NUTRITION Reason for Dietary Consult: MST Score Consult to Pastoral Services [CONS] Routine Comment: 07/09/18 08:37 Consult to Treasury Representative [CONS] Routine Reason for SW Consult: Patient is from signature 07/10/18 04:10 Consult to Critical Care [CONS] Routine Consulting Provider: Pulm Crit Care & Sleep Althea Reason for Consult: medical and vent management Time Notified: 04:11 Call Completed: No 07/10/18 11:09 Consult to Palliative Care [CONS] Routine Comment: Consulting Provider: Palliative Care Althea Reason for Consult: Code Status change from Full Code to DNR-CCA; End of Life comfort care measures; Discussed with Crystal Call Completed: Yes Pronouncing clinician: Edd Banda <Geoff Glover Tramaine - Last Filed: 07/11/18 09:43> Discharge Sum: Summary - Date and Time Date of admission: 07/08/18 15:54 - Additional Data Attending physician: Estefany Plascencia MD Discharge Sum: Prov - Provider Primary care physician: Van James MD Consults: 07/08/18 12:35 PICC [Consult to Invasive Line Access Team] [CONS] Stat Reason for Consult: no access Line Type: Midline 07/08/18 14:28 Consult to Invasive Line Access Team [CONS] Routine Reason for Consult: poor access Line Type: EPIV 07/08/18 20:31 Consult to Nutrition [CONS] Routine Comment: Consulting Provider: NUTRITION Reason for Dietary Consult: MST Score Consult to Pastoral Services [CONS] Routine Comment: 07/09/18 08:37 Consult to Treasury Representative [CONS] Routine Reason for SW Consult: Patient is from signature 07/10/18 04:10 Consult to Critical Care [CONS] Routine Consulting Provider: Pulm Crit Care & Sleep Althea Reason for Consult: medical and vent management Time Notified: 04:11 Call Completed: No 07/10/18 11:09 Consult to Palliative Care [CONS] Routine Comment: Consulting Provider: Chuck Oh Reason for Consult: Code Status change from Full Code to DNR-CCA; End of Life comfort care measures; Discussed with Crystal Call Completed: Yes - Attending Attestation Patient was seen and examined and discussed with the resident on 07/10/2018 and this was done today. I examined this patient and my medical decision-making was reviewed with the Resident Physician. I agree with the documented findings, disposition and treatment plan as described except to the extent set forth below. Patient condition was deteriorating and he had a meeting with the family where her CODE STATUS was changed after that meeting and told him about high mortality rate with such high level of lactic acid. Subsequently family decided to keep her comfortable and patient .
== END 2018-07-10 17:32 | disposition expired | DRG 230 ==
LOC: EMEROOARM 12:24 → 3ANU 15:54 → ICNU 07-10 01:43
PROVIDERS: ADMIT Internal Medicine; ATTEND Internal Medicine